=== PATIENT | male | born 1970 | race Caucasian/White ===

== ENCOUNTER 2018-03-27 19:13 | Inpatient (IN) | payer OTHER ==
--- NOTE | 2018-03-27 19:31 | PDOC ---
Rapid Medical Evaluation Chief Complaint: Wound Time Seen by Provider: 03/27/18 19:29 Medical Evaluation: Allergies Allergy/AdvReac Type Severity Reaction Status Date / Time Penicillins Allergy Verified 08/30/15 16:35 03/27/18 19:29 I have performed a brief in person evaluation of this patient. The patient presents with a chief complaint of: Infection to the 5th digit left foot. Hx of DM. Sent from wound center and is currently on abx. Pertinent PE: Lungs: Clear Heart: RRR MS: Moves all extremities without difficulty. Neuro: Alert and oriented Psych: Appropriate affect I have ordered the following: basic labs The patient will proceed to: pt will go to the main ED for further evaluation. Discharge Disposition - Diagnosis Cellulitis Qualifiers: Site of cellulitis: extremity Site of cellulitis of extremity: lower extremity Laterality: left Qualified Code(s): L03.116 - Cellulitis of left lower limb - Referrals Referrals: Amish Doll [Primary Care Provider] - - Patient Instructions - Post Discharge Activity
--- NOTE | 2018-03-27 22:54 | PDOC ---
History of Present Illness - General Chief Complaint: Wound Stated Complaint: Wound Time Seen by Provider: 03/27/18 19:29 History Source: Patient - History of Present Illness Initial Comments: 03/28/18 00:34 48-year-old male with history of insulin-dependent diabetes sent from wound clinic for left fifth toe osteomyelitis and wound. Patient sent by infectious disease MNadir Duarte for IV antibiotics and admission. Patient reports increased swelling to the left lower extremity for the last 2 days with pain. Denies shortness of breath, chest pain, fever, chills, nausea vomiting, diarrhea. as per son patient is currently on oral antibiotics for bang laceration on the right leg. denies pain and swelling to right leg. 03/28/18 00:52 Past History - Past Medical History Allergies/Adverse Reactions: Allergies Allergy/AdvReac Type Severity Reaction Status Date / Time Penicillins Allergy Verified 03/27/18 19:32 Home Medications: Ambulatory Orders Aspirin [ASA -] 81 mg PO DAILY 08/19/15 Glipizide [Glipizide Xl] 5 mg PO DAILY 08/19/15 [place]-3 Fatty Acids [[place]-3] 1,000 mg PO DAILY 08/19/15 Simvastatin 40 mg PO DAILY 08/19/15 Losartan Potassium [Cozaar -] 100 mg PO DAILY #30 tablet 08/29/15 Amlodipine Besylate [Norvasc -] 5 mg PO DAILY #30 tablet 09/01/15 Lantus 28 units SCJ HS 03/07/18 Cardiac Disorders: Yes (stents 11/27) COPD: No CHF: Yes Diabetes: Yes - Surgical History Cardiac Surgery: Yes (stents) - Family Disease History Family Disease History: Diabetes: Mother - Suicide/Smoking/Psychosocial Hx Smoking History: Never smoked Have you smoked in the past 12 months: No Hx Alcohol Use: No Drug/Substance Use Hx: No Substance Use Type: None Hx Substance Use Treatment: No Review of Systems - Review of Systems Able to Perform ROS?: Yes Is the patient limited Wolof proficient: No Integumentary: Yes: Erythema, Other (left leg swelling) *Physical Exam - Vital Signs Last Vital Signs Temp Pulse Resp BP Pulse Ox 98.6 F 60 18 111/68 94 L 03/27/18 19:29 03/27/18 19:29 03/27/18 19:29 03/27/18 19:29 03/27/18 19:29 - Physical Exam General Appearance: Yes: Appropriately Dressed, Obese Extremity: positive: Pedal Edema, Swelling, Erythema (left 5th toe) Integumentary: positive: Normal Color, Dry, Warm Neurologic: positive: Fully Oriented, Alert, Normal Mood/Affect ED Treatment Course - LABORATORY CBC & Chemistry Diagram: 03/27/18 23:33 03/27/18 23:33 - RADIOLOGY Radiology Studies Ordered: Category Date Time Status DUPLEX VASCUL US-1 LEG [US] Stat Ultrasound 03/27/18 22:53 Ordered Progress Note - Progress Note Progress Note: A: osteomyelitis P: labs IV antibiotics Medical Decision Making - Medical Decision Making 03/28/18 00:53 Dr. duarte paged x 3 for tretament recommendation. patient has severe Peniciilin allergy, 03/28/18 00:57 patient signed out to Dr. davis for admission. *DC/Admit/Observation/Transfer Diagnosis at time of Disposition: Osteomyelitis of foot, left, acute Cellulitis Qualifiers: Site of cellulitis: extremity Site of cellulitis of extremity: lower extremity Laterality: left Qualified Code(s): L03.116 - Cellulitis of left lower limb - Discharge Dispostion Decision to Admit order: Yes - Referrals Referrals: Amish Doll [Primary Care Provider] - - Patient Instructions - Post Discharge Activity
[2018-03-27] MEDS ORDERED: VANCOMYCIN 1 GRAM (PRE-DOCKED) 1,000 MG/250 ML BAG IVPB ONE ×2 (23:15→23:23)
[2018-03-27 23:51] LABS: BASO % 0.9 % (0-2.0); EOS % 1.2 % (0-4.5); HEMATOCRIT 31.1 % (35.4-49); HEMOGLOBIN 10.4 GM/dL (11.7-16.9); LYMPH % 20.4 % (8-40); MCH 27.1 pg (25.7-33.7); MCHC 33.4 g/dl (32.0-35.9); MEAN CELL VOLUME 81.2 fl (80-96); MEAN PLT VOLUME 9.5 fl (7.5-11.1); MONO % 6.8 % (3.8-10.2); NEUT % 70.7 % (42.8-82.8); PLATELET COUNT 197 K/MM3 (134-434); RBC 3.82 M/mm3 (4.00-5.60); RDW 14.2 % (11.9-15.9); WHITE BLOOD COUNT 8.8 K/mm3 (4.0-10.0)
[2018-03-28 00:14] LABS: ALBUMIN 2.8 g/dl (3.4-5.0); ALK PHOS 98 U/L (45-117); ANION GAP 6 MMOL/L (8-16); BILIRUBIN,TOTAL 0.3 mg/dL (0.2-1); BLOOD UREA NITROGEN 55 mg/dL (7-18); CHLORIDE 103 mmol/L (98-107); CO2 29 mmol/L (21-32); CREATININE 2.5 mg/dL (0.55-1.3); GLUCOSE,RANDOM 212 mg/dL (74-106); SGOT/AST 24 U/L (15-37); SGPT/ALT 29 U/L (13-61); SODIUM 138 mmol/L (136-145); TOT PROT 6.2 g/dl (6.4-8.2)
--- NOTE | 2018-03-28 00:34 | PDOC ---
*Physical Exam - Vital Signs Last Vital Signs Temp Pulse Resp BP Pulse Ox 98.6 F 60 18 111/68 94 L 03/27/18 19:29 03/27/18 19:29 03/27/18 19:29 03/27/18 19:29 03/27/18 19:29 ED Treatment Course - LABORATORY CBC & Chemistry Diagram: 03/27/18 23:33 03/27/18 23:33 - ADDITIONAL ORDERS Additional order review: Laboratory Results 03/27/18 03/27/18 23:33 23:33 Sodium 138 Potassium 4.0 Chloride 103 Carbon Dioxide 29 Anion Gap 6 L BUN 55 H Creatinine 2.5 H Creat Clearance w eGFR 27.70 Random Glucose 212 H Lactic Acid 0.8 Calcium 8.0 L Total Bilirubin 0.3 AST 24 ALT 29 Alkaline Phosphatase 98 Total Protein 6.2 L Albumin 2.8 L 03/27/18 23:33 RBC 3.82 L MCV 81.2 MCHC 33.4 RDW 14.2 MPV 9.5 D Neutrophils % 70.7 Lymphocytes % 20.4 D Monocytes % 6.8 Eosinophils % 1.2 Basophils % 0.9 - Medications Given in the ED: ED Medications Discontinued Medications Generic Name Dose Route Start Last Admin Trade Name Freq PRN Reason Stop Dose Admin Vancomycin HCl 1,000 mg 03/27/18 23:15 03/28/18 00:05 Vancomycin (Pre-Docked) IVPB 03/27/18 23:16 1,000 mg ONCE ONE Administration Protocol Medical Decision Making - Medical Decision Making 03/28/18 00:33 Patient with a Lower extremity osteomyelitis send by outside practitioner for admission for IV abx agree with exam documented above Admit for IV abx *DC/Admit/Observation/Transfer Diagnosis at time of Disposition: Cellulitis Qualifiers: Site of cellulitis: extremity Site of cellulitis of extremity: lower extremity Laterality: left Qualified Code(s): L03.116 - Cellulitis of left lower limb - Referrals Referrals: Amish Doll [Primary Care Provider] - - Patient Instructions - Post Discharge Activity
--- NOTE | 2018-03-28 02:35 | PN ---
Teaching Attending Note Name of Resident: Sophia Reyes ATTENDING PHYSICIAN STATEMENT I saw and evaluated the patient. I reviewed the resident's note and discussed the case with the resident. I agree with the resident's findings and plan as documented. SUBJECTIVE: Patient is a 48-year-old man with history of insulin-treated DM, HLD, HTN, peniciliin allergy and CAD with stents sent from wound clinic for left fifth toe osteomyelitis and wound. Patient sent by infectious disease M.Mara Duarte for IV antibiotics and admission. Patient reports increased swelling to the left lower extremity for the last 2 days with pain. Denies shortness of breath, chest pain, fever, chills, nausea vomiting, diarrhea. Patient is currently on oral antibiotics for bang laceration on the right leg. . OBJECTIVE: Alert Vital Signs Period Temp Pulse Resp BP Sys/Anton Pulse Ox Last 24 Hr 98.6 F 60 18 111/68 94 HEENT: No Jaundice, eye redness or discharge, PERRLA, EOMI. Normocephalic, atraumatic. External ears are normal and hearing is grossly intact. No nasal discharge. Neck: Supple, nontender. No palpable adenopathy or thyromegaly. No JVD Chest: Good effort. Clear to auscultation and percussion. Heart: Regular. No S3, rub or murmur Abdomen: Not distended, soft, nontender and no HSM. No rebound or guarding. Normoactive bowel sounds. Ext: Peripheral pulses intact. Erythema, swelling of left 5th toe with nondraining ulcer. Right bang laceration. Skin: Warm and dry. No petechiae, rash or ecchymosis. Neuro: Alert. Oriented x3. CN 2-12 grossly intact. Sensation grossly intact in all four extremities and DTR are symmetric. Home Medications Medication Instructions Recorded Aspirin [ASA -] 81 mg PO DAILY 08/19/15 Glipizide [Glipizide Xl] 5 mg PO DAILY 08/19/15 [place]-3 Fatty Acids [[place]-3] 1,000 mg PO DAILY 08/19/15 Simvastatin 40 mg PO DAILY 08/19/15 Losartan Potassium [Cozaar -] 100 mg PO DAILY #30 tablet 08/29/15 Amlodipine Besylate [Norvasc -] 5 mg PO DAILY #30 tablet 09/01/15 Lantus 28 units [facility] 03/07/18 Abnormal Lab Results 03/27/18 03/27/18 23:33 23:33 RBC 3.82 L Hgb 10.4 L Hct 31.1 L Anion Gap 6 L BUN 55 H Creatinine 2.5 H Random Glucose 212 H Calcium 8.0 L Total Protein 6.2 L Albumin 2.8 L ASSESSMENT AND PLAN: 1. Toe osteomyelitis - Will treat with IV Vancomycin 1 gm q 12 hours and check tough levels for dose adjustment. Do wound culture, daily wound care, consult Podiatry and ID. 2. Hypoalbuminemia - Possibly due to combined effects of proteinuria, malnutrition and inflammation associated with comorbid chronic conditions. Will ensure adequate dietary protein intake and also consult monument erector. 3. DM - For now, we will hold the home diabetes drugs and implement sliding scale insulin regimen. Provide comprehensive diabetes care with patient teaching and counseling about the importance of euglycemia, eye care and foot care. 4. CKD - Has multiple risk factors for CKD. Verify prior nephrologic work up with PCP. Will consult nephrology and avoid nephrotoxic agents such as NSAIDS, aminoglycosides, contrast dyes and certain Alternative medicine products. 5. Anemia - Likely multifactorial including CKD. Do basic anemia work up including serial stool guaiacs, reticulocyte count and iron studies. Would benefit from Procrit therapy once iron replete. 6. Morbid Obesity - Will provide patient all the necessary assistance , counseling and positive reinforcement to facilitate weight loss. Consult monument erector. 7. DVT prophylaxis - Lovenox 40 mg SQ q 12 hours. 8. Advance directives - Full code
[2018-03-28] MEDS ORDERED: INSULIN (LEVEMIR) 100 UNITS/ML UNITS SQ ONE (02:50)
--- NOTE | 2018-03-28 03:33 | HP ---
CHIEF COMPLAINT: sent from wound care for a non-healing foot ulcer PCP: Dr. Doll Pod: Dr. Jennings HISTORY OF PRESENT ILLNESS: 48M w/ pmhx of DM, CAD s/p stents x4, HTN, CHF, DANIS, HLD was sent to the ED from wound care from ID for IV antibiotic treatment of confirmed osteomyelitis seen on MRI. Pt states that he first noticed a wound on the lateral aspect of his 5th digit of his L foot about 2.5 weeks ago. He went to his home customer development manager who then suggested to go to a wound care clinic. He was given recommendation to clean the wound with Betadyne. On 03/18/18, LLE MRI was done that showed changes in his 5th toe of L foot suggestive of osteomyelitis. Pt was subsequently sent to the ED for empiric IV abx tx. Denies conklin/d, f/c, n/v, abd pain, urinary/bowel symptoms, difficulty walking. ER course was notable for: (1) H/H 10.4/31.1, BUN/Cr 55/2.5; Doppler neg for LLE DVT (2) Vanc 1gm given, Levemir 28U given (3) Blood culture ordered Recent Travel: Denies PAST MEDICAL HISTORY: DM CAD s/p stent x4 HTN CHF DANIS HLD PAST SURGICAL HISTORY: Abscess drainage, R buttocks Social History: Smoking: Denies Alcohol: Denies Drugs: Denies Family History: Mother: Heart disease, DM Father: Heart disease, DM Allergies Penicillins Allergy (Verified 03/27/18 19:32) HOME MEDICATIONS: Home Medications Medication Instructions Recorded Aspirin [ASA -] 81 mg PO DAILY 08/19/15 Ascorbate Calcium [Vitamin C] 500 mg PO DAILY 03/28/18 Atorvastatin Ca [Lipitor] 80 mg PO HS 03/28/18 Cholecalciferol (Vitamin D3) 1,000 unit PO DAILY 03/28/18 [Vitamin D3] Clopidogrel Bisulfate [Plavix] 75 mg PO DAILY 03/28/18 Cyanocobalamin [Vitamin B12 -] 1,000 mcg PO DAILY 03/28/18 Furosemide [Lasix] 40 mg PO HS 03/28/18 Furosemide [Lasix] 80 mg PO AM 03/28/18 Glipizide 10 mg PO BID 03/28/18 Insulin Glargine,Hum.rec.anlog 28 unit SQ HS 03/28/18 [Lantus] Losartan Potassium 25 mg PO DAILY 03/28/18 Metoprolol Succinate 100 mg PO DAILY 03/28/18 Tamsulosin HCl 0.4 mg PO DAILY 03/28/18 Vitamin B Complex 1,000 mg PO DAILY 03/28/18 Zinc 50 mg PO DAILY 03/28/18 REVIEW OF SYSTEMS As per [facility] PHYSICAL EXAMINATION Vital Signs - 24 hr 03/27/18 19:29 Temperature 98.6 F Pulse Rate 60 Respiratory 18 Rate Blood Pressure 111/68 O2 Sat by Pulse 94 L Oximetry (%) GENERAL: AAOx3. NAD. Resting comfortably. HEENT: AT/NC. EOMI. MERE. Moist mucus membranes. NECK: Supple, no LAD/JVD. LUNGS: Decreased BS sounds, likely due to body habitus. No w/r/r noted. Symmetric chest rise. No accessory muscle use. HEART: RRR. Normal S1, S2. No murmurs noted. ABDOMEN: Obese. Soft, ND/NT +BS in all 4 Q's. No masses or bruits noted. MUSCULOSKELETAL: No pedal edema. 5/5 muscle strength in b/l u/l extremities. NEUROLOGICAL: Normal speech. CN II-XII intact. Facial symmetry noted. Facial muscles intact. PSYCHIATRIC: Cooperative. Good eye contact. Appropriate mood and affect. SKIN: Non-tender 3 cm in diameter non-healing foot ulcer on lateral aspect of 5th digit on L foot, non-draining with hyperkeratotic borders. Laboratory Results - last 24 hr 03/27/18 03/27/18 03/27/18 23:33 23:33 23:33 WBC 8.8 RBC 3.82 L Hgb 10.4 L Hct 31.1 L MCV 81.2 MCH 27.1 MCHC 33.4 RDW 14.2 Plt Count 197 D MPV 9.5 D Absolute Neuts (auto) 6.2 Neutrophils % 70.7 Lymphocytes % 20.4 D Monocytes % 6.8 Eosinophils % 1.2 Basophils % 0.9 Nucleated RBC % 0 Sodium 138 Potassium 4.0 Chloride 103 Carbon Dioxide 29 Anion Gap 6 L BUN 55 H Creatinine 2.5 H Creat Clearance w eGFR 27.70 Random Glucose 212 H Lactic Acid 0.8 Calcium 8.0 L Total Bilirubin 0.3 AST 24 ALT 29 Alkaline Phosphatase 98 Total Protein 6.2 L Albumin 2.8 L ASSESSMENT/PLAN: 48M w/ pmhx of DM, CAD s/p stents x4, HTN, CHF, DANIS, HLD was sent to the ED from wound care from ID for IV antibiotic treatment of confirmed osteomyelitis seen on MRI. #Non-healing diabetic foot ulcer; LE MRI with changes suggestive of osteomyelitis -Vancomycin 1gm IVPB Q12H -ID consult ordered -Daily wound dressings -F/u wound culture #DM -Levemir 28U SQ HS -BGMs ACHS -ISS #CKD; BUN/Cr 55/2.5 -Request info from PCP regarding previous nephro workup -Nephro consult ordered -encourage PO fluid hydration #CAD s/p stents x4 Resume home meds: -Aspirin 81 mg PO QD -Plavix 75 mg PO QD #DANIS -on CPAP at home -CPAP ordered #CHF Resume home meds: -Lasix 80 mg PO AM, 40 mg PO HS -Metoprolol Succinate 100 mg PO QD #BPH Resume home med: -Tamsulosin 0.4 mg PO QD #HLD Resume home med: -Atorvastatin 80 mg PO HS #DVT Ppx -Heparin 5000U TID #FEN -no IVf; Pt has known CHF and currently on Lasix; encourage PO fluid hydration for now once assessed by nephro -recheck rolanda in AM -Diabetic diet dispo -admit to med-surg Visit type - Emergency Visit Emergency Visit: Yes ED Registration Date: 03/28/18 Care time: The patient presented to the Emergency Department on the above date and was hospitalized for further evaluation of their emergent condition. - New Patient This patient is new to me today: Yes Date on this admission: 03/28/18 - Critical Care Critical Care patient: No
[2018-03-28] MEDS ORDERED: FUROSEMIDE 40 MG TABLET (FP) ONE (06:44)
[2018-03-28] MEDS ORDERED: HEPARIN NA (PORCINE) 5,000 UNITS/ML 1ML VIAL ONE (06:44)
[2018-03-28] MEDS ORDERED: INSULIN (NOVOLOG) ASPART 100 UNITS/ML 10ML VIAL ONE ×2 (06:45→11:35)
[2018-03-28] MEDS: HEPARIN NA (PORCINE) 5,000 UNITS/ML 1ML VIAL SQ SCH ×3 (07:10→22:08)
[2018-03-28] MEDS: FUROSEMIDE 40 MG TABLET (FP) PO SCH ×2 (07:10→15:56)
[2018-03-28] MEDS: INSULIN SLIDING SCALE (NOVOLOG) 1 VIAL SQ SCH ×4 (07:10→22:10)
[2018-03-28 07:18] LABS: BASO % 0.4 % (0-2.0); EOS % 1.2 % (0-4.5); HEMATOCRIT 31.2 % (35.4-49); HEMOGLOBIN 10.3 GM/dL (11.7-16.9); LYMPH % 19.4 % (8-40); MCH 26.7 pg (25.7-33.7); MCHC 32.9 g/dl (32.0-35.9); MEAN CELL VOLUME 81.3 fl (80-96); MONO % 8.7 % (3.8-10.2); NEUT % 70.3 % (42.8-82.8); PLATELET COUNT 163 K/MM3 (134-434); RBC 3.84 M/mm3 (4.00-5.60); RDW 14.1 % (11.9-15.9); WHITE BLOOD COUNT 7.3 K/mm3 (4.0-10.0)
[2018-03-28 07:43] LABS: ALBUMIN 2.7 g/dl (3.4-5.0); ALK PHOS 107 U/L (45-117); ANION GAP 4 MMOL/L (8-16); BILIRUBIN,TOTAL 0.4 mg/dL (0.2-1); BLOOD UREA NITROGEN 54 mg/dL (7-18); CALCIUM 8.4 mg/dL (8.5-10.1); CHLORIDE 107 mmol/L (98-107); CO2 25 mmol/L (21-32); CREATININE 2.4 mg/dL (0.55-1.3); GLUCOSE,RANDOM 268 mg/dL (74-106); POTASSIUM 4.4 mmol/L (3.5-5.1); SGOT/AST 18 U/L (15-37); SGPT/ALT 27 U/L (13-61); SODIUM 136 mmol/L (136-145)
[2018-03-28] MEDS: TAMSULOSIN HCL 0.4 MG CAP PO SCH (09:25)
[2018-03-28] MEDS: VITAMIN B COMPLEX W/C COMBO TABLET (FP) PO SCH (09:26)
[2018-03-28] MEDS: CYANOCOBALAMIN 1,000 MCG TABLET (FP) PO SCH (09:26)
[2018-03-28] MEDS: LOSARTAN POTASSIUM 25 MG TABLET PO SCH (09:26)
[2018-03-28] MEDS: CLOPIDOGREL BISULFATE 75 MG TABLET (FP) PO SCH (09:26)
[2018-03-28] MEDS: ZINC SULFATE 220 MG CAPSULE (FP) PO SCH (09:26)
[2018-03-28] MEDS: CHOLECALCIFEROL (VITAMIN D3) 1,000 UNIT TABLET (FP) PO SCH (09:26)
[2018-03-28] MEDS: ASCORBIC ACID 500 MG TABLET (FP) PO SCH (09:26)
[2018-03-28] MEDS: ASPIRIN 81 MG CHEWABLE TABLETS PO SCH (09:26)
--- NOTE | 2018-03-28 12:17 | CONSULT ---
Consult Consult Specialty:: Nephrology Reason for Consultation:: CKD - History of Present Illness Chief Complaint: left fifth toe osteo History of Present Illness: Pt is a 48 year old male with pmhx of CKD, obesity, DM, and left fifth toe osteo. He was sent in from the wound clinic for left fifth toe osteomyelitis. He denies fevers or chills. He denies shortness of breath. He was found to have elevated creatinine and I was called to evaluate him. He does have history of CKD. He says he did see a optics technical officer in [facility] in the past but does not remember his creatinine. He says he has a BUN of about 53. He is in lasix 80 mg in the morning and 40 mg at night. He does have CAD and CHF as well. He has cardiac stents. He does not know what his EF is. - History Source History Provided By: Patient, Medical Record - Past Medical History Cardio/Vascular: Yes: CAD, CHF, Hyperlipdemia Renal/: Yes: Renal Inusuff Endocrine: Yes: Diabetes Mellitus - Past Surgical History Additional Surgical History: cardiac stents - Alcohol/Substance Use Hx Alcohol Use: No History of Substance Use: reports: None - Smoking History Smoking history: Never smoked Have you smoked in the past 12 months: No - Social History ADL: Independent History of Recent Travel: No Home Medications - Allergies Allergies/Adverse Reactions: Allergies Allergy/AdvReac Type Severity Reaction Status Date / Time Penicillins Allergy Verified 03/27/18 19:32 - Home Medications Home Medications: Ambulatory Orders Aspirin [ASA -] 81 mg PO DAILY 08/19/15 Ascorbate Calcium [Vitamin C] 500 mg PO DAILY 03/28/18 Atorvastatin Ca [Lipitor] 80 mg PO HS 03/28/18 Cholecalciferol (Vitamin D3) [Vitamin D3] 1,000 unit PO DAILY 03/28/18 Clopidogrel Bisulfate [Plavix] 75 mg PO DAILY 03/28/18 Cyanocobalamin [Vitamin B12 -] 1,000 mcg PO DAILY 03/28/18 Furosemide [Lasix] 40 mg PO HS 03/28/18 Furosemide [Lasix] 80 mg PO AM 03/28/18 Glipizide 10 mg PO BID 03/28/18 Insulin Glargine,Hum.rec.anlog [Lantus] 28 unit SQ HS 03/28/18 Losartan Potassium 25 mg PO DAILY 03/28/18 Metoprolol Succinate 100 mg PO DAILY 03/28/18 Tamsulosin HCl 0.4 mg PO DAILY 03/28/18 Vitamin B Complex 1,000 mg PO DAILY 03/28/18 Zinc 50 mg PO DAILY 03/28/18 Family Disease History - Family Disease History Family Disease History: Diabetes: Father, Mother (Breast CA), CA: Mother Review of Systems - Review of Systems Constitutional: reports: No Symptoms Eyes: reports: No Symptoms HENT: reports: No Symptoms Neck: reports: No Symptoms Cardiovascular: reports: No Symptoms Respiratory: reports: No Symptoms Gastrointestinal: reports: No Symptoms Genitourinary: reports: No Symptoms Musculoskeletal: reports: Other (toe osteo) Endocrine: reports: No Symptoms Hematology/Lymphatic: reports: No Symptoms Psychiatric: reports: No Symptoms Physical Exam Vital Signs: Vital Signs Temperature 98.9 F 03/28/18 07:25 Pulse Rate 61 03/28/18 07:25 Respiratory Rate 18 03/28/18 07:25 Blood Pressure 118/58 L 03/28/18 07:25 O2 Sat by Pulse Oximetry (%) 94 L 03/27/18 19:29 Constitutional: Yes: Calm Eyes: Yes: Conjunctiva Clear HENT: Yes: Atraumatic Cardiovascular: Yes: S1, S2 Respiratory: Yes: CTA Bilaterally Gastrointestinal: Yes: Soft, Abdomen, Obese Renal/: Yes: WNL Musculoskeletal: Yes: WNL Edema: No Neurological: Yes: Oriented Psychiatric: Yes: Oriented Labs: CBC, BMP 03/28/18 06:45 03/28/18 06:45 Laboratory Tests 08/31/15 03/27/18 03/27/18 07:45 23:33 23:33 WBC 8.8 Hgb 10.4 L Plt Count 197 D BUN 55 H Creatinine 0.5 L 2.5 H 03/28/18 03/28/18 06:45 06:45 WBC 7.3 Hgb 10.3 L Plt Count 163 BUN 54 H Creatinine 2.4 H Imaging - Results Ultrasound: Report Reviewed Problem List - Problems (1) CKD (chronic kidney disease) Code(s): N18.9 - CHRONIC KIDNEY DISEASE, UNSPECIFIED (2) Osteomyelitis of foot, left, acute Code(s): M86.172 - OTHER ACUTE OSTEOMYELITIS, LEFT ANKLE AND FOOT (3) Diabetes Code(s): E11.9 - TYPE 2 DIABETES MELLITUS WITHOUT COMPLICATIONS Qualifiers: Diabetes mellitus type: type 2 Diabetes mellitus complication status: without complication Qualified Code(s): E11.9 - Type 2 diabetes mellitus without complications Assessment/Plan Current Medications Generic Name Dose Route Start Last Admin Trade Name Freq PRN Reason Stop Dose Admin Ascorbic Acid 500 mg 03/28/18 10:00 03/28/18 09:26 Vitamin C - PO 500 mg DAILY KANG Administration Aspirin 81 mg 03/28/18 10:00 03/28/18 09:26 Asa - PO 81 mg DAILY KANG Administration Atorvastatin Calcium 80 mg 03/28/18 22:00 Lipitor - PO HS [facility] Cholecalciferol 1,000 unit 03/28/18 10:00 03/28/18 09:26 Vitamin D3 - PO 1,000 unit DAILY [facility] Administration Clopidogrel Bisulfate 75 mg 03/28/18 10:00 03/28/18 09:26 Plavix - PO 75 mg DAILY KANG Administration Cyanocobalamin 1,000 mcg 03/28/18 10:00 03/28/18 09:26 Vitamin B12 - PO 1,000 mcg DAILY KANG Administration Furosemide 40 mg 03/28/18 14:00 Lasix - PO DAILY@1400 KANG Furosemide 80 mg 03/28/18 07:00 03/28/18 07:10 Lasix - PO 80 mg DAILY@0700 [facility] Administration Heparin Sodium (Porcine) 5,000 unit 03/28/18 06:00 03/28/18 07:10 Heparin - SQ 5,000 unit TID [facility] Administration Insulin Aspart 1 vial 03/28/18 07:00 03/28/18 11:33 Novolog Vial Sliding Scale - SQ 6 units ACHS [facility] Administration Protocol Insulin Detemir 28 units 03/28/18 22:00 Levemir Vial SQ HS [facility] Losartan Potassium 25 mg 03/28/18 10:00 03/28/18 09:26 Cozaar - PO 25 mg DAILY KANG Administration Metoprolol Succinate 100 mg 03/28/18 10:00 03/28/18 09:26 Toprol Xl - PO 100 mg DAILY [facility] Administration Multivitamins 1 each 03/28/18 10:00 03/28/18 09:26 Total B With C - PO 1 each DAILY [facility] Administration Tamsulosin HCl 0.4 mg 03/28/18 08:30 03/28/18 09:25 Flomax - PO 0.4 mg DAILY@0830 KANG Administration Zinc Sulfate 220 mg 03/28/18 10:00 03/28/18 09:26 Orazinc - PO 220 mg DAILY KANG Administration Impression 1. CKD 2. CHF 3. CAD 4. DM 5. obesity 6. osteomyelitis Plan - check ua - check renal ultrasound - cont lasix - avoid nephrotoxins - will need to obtain outpt records - real dose meds to gfr 29 - will follow - cont wound care Dr Lerner
--- NOTE | 2018-03-28 14:34 | CON.ID ---
Consult - Past Medical History Cardio/Vascular: Yes: CAD, CHF, Hyperlipdemia Renal/: Yes: Renal Inusuff Endocrine: Yes: Diabetes Mellitus - Past Surgical History Past Surgical History: Yes: None Additional Surgical History: cardiac stents - Alcohol/Substance Use Hx Alcohol Use: No History of Substance Use: reports: None - Smoking History Smoking history: Never smoked Have you smoked in the past 12 months: No - Social History ADL: Independent History of Recent Travel: No Home Medications - Allergies Allergies/Adverse Reactions: Allergies Allergy/AdvReac Type Severity Reaction Status Date / Time Penicillins Allergy Verified 03/27/18 19:32 - Home Medications Home Medications: Ambulatory Orders Aspirin [ASA -] 81 mg PO DAILY 08/19/15 Ascorbate Calcium [Vitamin C] 500 mg PO DAILY 03/28/18 Atorvastatin Ca [Lipitor] 80 mg PO HS 03/28/18 Cholecalciferol (Vitamin D3) [Vitamin D3] 1,000 unit PO DAILY 03/28/18 Clopidogrel Bisulfate [Plavix] 75 mg PO DAILY 03/28/18 Cyanocobalamin [Vitamin B12 -] 1,000 mcg PO DAILY 03/28/18 Furosemide [Lasix] 40 mg PO HS 03/28/18 Furosemide [Lasix] 80 mg PO AM 03/28/18 Glipizide 10 mg PO BID 03/28/18 Insulin Glargine,Hum.rec.anlog [Lantus] 28 unit SQ HS 03/28/18 Losartan Potassium 25 mg PO DAILY 03/28/18 Metoprolol Succinate 100 mg PO DAILY 03/28/18 Tamsulosin HCl 0.4 mg PO DAILY 03/28/18 Vitamin B Complex 1,000 mg PO DAILY 03/28/18 Zinc 50 mg PO DAILY 03/28/18 Family Disease History - Family Disease History Family Disease History: Diabetes: Father, Mother (Breast CA), CA: Mother Physical Exam Vital Signs: Vital Signs Temperature 98.9 F 03/28/18 07:25 Pulse Rate 59 L 03/28/18 13:25 Respiratory Rate 18 03/28/18 13:25 Blood Pressure 130/70 03/28/18 13:25 O2 Sat by Pulse Oximetry (%) 99 03/28/18 13:25 Labs: CBC, BMP 03/28/18 06:45 03/28/18 06:45
[2018-03-28] MEDS ORDERED: CEFTRIAXONE 2 GM-D5W BAG 2 GM/50 ML BAG IVPB SCH (14:45)
[2018-03-28] MEDS ORDERED: ERTAPENEM SODIUM 1 GM/50 ML PRE-DOCKED IVPB SCH (15:45)
--- NOTE | 2018-03-28 15:46 | CONSULT ---
Consult Consult Specialty:: Podiatry Reason for Consultation:: osteomyelitis 5th toe left - History of Present Illness Chief Complaint: Infected left 5th toe - History Source History Provided By: Patient Limitations to Obtaining History: Clinical Condition - Past Medical History Cardio/Vascular: Yes: CAD, CHF, Hyperlipdemia Renal/: Yes: Renal Inusuff Infectious Disease: Yes: Other (osteomyelitis 5th toe left) Endocrine: Yes: Diabetes Mellitus - Past Surgical History Past Surgical History: Yes: None Additional Surgical History: cardiac stents - Alcohol/Substance Use Hx Alcohol Use: No History of Substance Use: reports: None - Smoking History Smoking history: Never smoked Have you smoked in the past 12 months: No - Social History ADL: Independent History of Recent Travel: No Home Medications - Allergies Allergies/Adverse Reactions: Allergies Allergy/AdvReac Type Severity Reaction Status Date / Time Penicillins Allergy Verified 03/27/18 19:32 - Home Medications Home Medications: Ambulatory Orders Aspirin [ASA -] 81 mg PO DAILY 08/19/15 Ascorbate Calcium [Vitamin C] 500 mg PO DAILY 03/28/18 Aspirin [ASA -] 81 mg PO DAILY 03/28/18 Atorvastatin Ca [Lipitor] 80 mg PO HS 03/28/18 Atorvastatin Ca [Lipitor] 80 mg PO HS 03/28/18 Cholecalciferol (Vitamin D3) [Vitamin D3] 1,000 unit PO DAILY 03/28/18 Clopidogrel Bisulfate [Plavix] 75 mg PO DAILY 03/28/18 Cyanocobalamin [Vitamin B12 -] 1,000 mcg PO DAILY 03/28/18 Furosemide [Lasix] 40 mg PO HS 03/28/18 Furosemide [Lasix] 80 mg PO AM 03/28/18 Glipizide 10 mg PO BID 03/28/18 Glipizide 10 mg PO BID 03/28/18 Insulin Glargine,Hum.rec.anlog [Lantus] 28 unit SQ HS 03/28/18 Losartan Potassium 25 mg PO DAILY 03/28/18 Metoprolol Succinate 100 mg PO DAILY 03/28/18 Tamsulosin HCl 0.4 mg PO DAILY 03/28/18 Vitamin B Complex 1,000 mg PO DAILY 03/28/18 Zinc 50 mg PO DAILY 03/28/18 Family Disease History - Family Disease History Family Disease History: Diabetes: Father, Mother (Breast CA), CA: Mother Physical Exam Vital Signs: Vital Signs Temperature 97.7 F 03/28/18 14:59 Pulse Rate 54 L 03/28/18 14:59 Respiratory Rate 18 03/28/18 14:59 Blood Pressure 145/79 03/28/18 14:59 O2 Sat by Pulse Oximetry (%) 96 03/28/18 14:59 Extremities: Yes: Other (5th toe left foot wound with om) Integumentary: Yes: Other (ulcer grade 3 left 5th toe) Neurological: Yes: Loss of Sensation, Numbness, Other Labs: CBC, BMP 03/28/18 06:45 03/28/18 06:45 Imaging - Results X-ray: Image Reviewed MRI: Report Reviewed Problem List - Problems (1) Osteomyelitis of foot, left, acute Assessment/Plan: osteomyelitis left 5th toe Discussed at length with patient and his son the tx plan. Wants to avoid HBO and just do antibiotics. Discussed possible amputation. Answered all questions. Agree with ID. Will try abx. Advised to go to [facility] eventhough he works. He can dive at night. Will follow. Code(s): M86.172 - OTHER ACUTE OSTEOMYELITIS, LEFT ANKLE AND FOOT
[2018-03-28] MEDS: ERTAPENEM SODIUM 1 GM in SODIUM CHLORIDE 50 ML IVPB SCH (16:42)
[2018-03-28 19:43] LABS: URINE APPEARANCE CLEAR; URINE BILIRUBIN NEGATIVE (<2.0 mg/dL); URINE COLOR LTYELLOW; URINE GLUCOSE (UA) NEGATIVE (NEGATIVE); URINE KETONE NEGATIVE (NEGATIVE); URINE LEUK ESTERASE NEGATIVE (NEGATIVE); URINE NITRITE NEGATIVE (NEGATIVE); URINE PROTEIN NEGATIVE (NEGATIVE); URINE UROBILINOGEN NEGATIVE mg/dL (0.2-1.0)
[2018-03-28] MEDS ORDERED: INSULIN (LEVEMIR) 100 UNITS/ML UNITS SQ SCH (22:00)
[2018-03-28] MEDS: ATORVASTATIN CA 80 MG TABLET (FP) PO SCH (22:08)
[2018-03-29] MEDS: INSULIN SLIDING SCALE (NOVOLOG) 1 VIAL SQ SCH ×4 (06:32→22:16)
[2018-03-29] MEDS: FUROSEMIDE 40 MG TABLET (FP) PO SCH ×2 (06:33→13:34)
[2018-03-29] MEDS: HEPARIN NA (PORCINE) 5,000 UNITS/ML 1ML VIAL SQ SCH ×3 (06:34→22:14)
[2018-03-29] MEDS ORDERED: INSULIN (NOVOLOG) ASPART 100 UNITS/ML 10ML VIAL ONE (06:53)
[2018-03-29] MEDS ORDERED: INSULIN (LEVEMIR) 100 UNITS/ML UNITS SQ ONE (06:53)
[2018-03-29 07:55] LABS: ANION GAP 5 MMOL/L (8-16); BLOOD UREA NITROGEN 55 mg/dL (7-18); CALCIUM 8.6 mg/dL (8.5-10.1); CHLORIDE 107 mmol/L (98-107); CO2 26 mmol/L (21-32); CREATININE 2.1 mg/dL (0.55-1.3); GLUCOSE,RANDOM 240 mg/dL (74-106); POTASSIUM 4.8 mmol/L (3.5-5.1); SODIUM 138 mmol/L (136-145)
[2018-03-29] MEDS: TAMSULOSIN HCL 0.4 MG CAP PO SCH (08:45)
--- NOTE | 2018-03-29 09:14 | CONSULT ---
- Consultation REQUESTING PROVIDER: CONSULT REQUEST: We have been asked to surgically evaluate this patient for ( left fifth toe ulcer). PCP:Raimundo Dewitt NP HISTORY OF PRESENT ILLNESS: 48 y/o M w/ PMHx poorly controlled IDDM, morbid obesity, CAD s/p stents x4 (2015), HTN, CHF, NAIMA, HLD sent to ED for hospital admission by ID doctor (Dr Duarte) for PICC line placement and initiation for IV abx due to confirmed osteomyelitis of the distal phalanx of his 5th toe on MRI ( 03/18/18). Pt states approx 2.5 weeks ago he noted blood on his sock after removing his shoe, on further inspection he found an opened wound on the lateral aspect of his L 5th toe. Went to his Content Production Specialist who he states removed his nail, gave him oral antibiotics and sent him to ID. Reports being referred to the wound care center by ID where he was given Betadine solution for ulcer treatment. Dressings have been done daily by patients son. Denies fever/chills, n/v/d, urinary/bowel symptoms, difficulty walking. Does not wear diabetic shoes , does not walk barefoot at home. Denies h/o tobacco use currently or in the past. At baseline, pt works as a tow operator, lives home with son and . Has had DM for 20 years, reports no insulin use over the past few weeks due to lack of medical coverage and inability to pay for meds. States glucose runs in the 200s usually, son reports 3-400s. Has not had any foot ulcers in the past, reports a buttock abscess in the past which required operative intervention for I&D and IV abx (08/2015). 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 PMHx: IDDM, CAD s/p stents x 4 (2016), htn, hld, chf, naima, morbid obesity PSHx: As stated above, denies any further surgeries Home Medications Medication Instructions Recorded Aspirin [ASA -] 81 mg PO DAILY 08/19/15 Ascorbate Calcium [Vitamin C] 500 mg PO DAILY 03/28/18 Aspirin [ASA -] 81 mg PO DAILY 03/28/18 Atorvastatin Ca [Lipitor] 80 mg PO HS 03/28/18 Atorvastatin Ca [Lipitor] 80 mg PO HS 03/28/18 Cholecalciferol (Vitamin D3) 1,000 unit PO DAILY 03/28/18 [Vitamin D3] Clopidogrel Bisulfate [Plavix] 75 mg PO DAILY 03/28/18 Cyanocobalamin [Vitamin B12 -] 1,000 mcg PO DAILY 03/28/18 Furosemide [Lasix] 40 mg PO HS 03/28/18 Furosemide [Lasix] 80 mg PO AM 03/28/18 Glipizide 10 mg PO BID 03/28/18 Glipizide 10 mg PO BID 03/28/18 Insulin Glargine,Hum.rec.anlog 28 unit SQ HS 03/28/18 [Lantus] Losartan Potassium 25 mg PO DAILY 03/28/18 Metoprolol Succinate 100 mg PO DAILY 03/28/18 Tamsulosin HCl 0.4 mg PO DAILY 03/28/18 Vitamin B Complex 1,000 mg PO DAILY 03/28/18 Zinc 50 mg PO DAILY 03/28/18 Allergies Allergy/AdvReac Type Severity Reaction Status Date / Time Penicillins Allergy Verified 03/27/18 19:32 REVIEW OF SYSTEMS: CONSTITUTIONAL: Absent: fever, chills, diaphoresis CARDIOVASCULAR: Absent: chest pain RESPIRATORY: Absent: cough, shortness of breath GASTROINTESTINAL: Absent: abdominal pain SKIN: + ulcer PHYSICAL EXAM: GENERAL: Awake, alert, and fully oriented, in no acute distress. HEAD: Normal with no signs of trauma. EYES: PERRL, sclera anicteric, conjunctiva clear. NECK: Normal ROM, supple without lymphadenopathy, JVD, or masses. LUNGS: Clear to auscultation bilat anteriorly. No wheezes, and no crackles. No accessory muscle use. HEART: Regular rate and rhythm. No murmurs ABDOMEN: Soft, nontender, not distended, normoactive bowel sounds, no guarding, no rebound, no masses. No organomegaly. MUSCULOSKELETAL: Normal ROM at all joints. No bony deformities or tenderness. No CVA tenderness. UPPER EXTREMITIES: 2+ pulses, warm, well-perfused. No cyanosis. Cap refill <2 seconds. No peripheral edema. LOWER EXTREMITIES: 2+ pulses, warm, well-perfused. No calf tenderness. No peripheral edema. NEUROLOGICAL: Normal speech, gait not observed. PSYCH: Cooperative. Good eye contact. Appropriate mood and affect. SKIN: Warm, dry, normal turgor, no rashes or lesions noted. Vital Signs Temperature 98.3 F 03/29/18 08:57 Pulse Rate 66 03/29/18 08:57 Respiratory Rate 18 03/29/18 08:57 Blood Pressure 126/70 03/29/18 08:57 O2 Sat by Pulse Oximetry (%) 95 03/29/18 09:00 Lab Results WBC 7.3 K/mm3 (4.0-10.0) 03/28/18 06:45 RBC 3.84 M/mm3 (4.00-5.60) L 03/28/18 06:45 Hgb 10.3 GM/dL (11.7-16.9) L 03/28/18 06:45 Hct 31.2 % (35.4-49) L 03/28/18 06:45 MCV 81.3 fl (80-96) 03/28/18 06:45 MCHC 32.9 g/dl (32.0-35.9) 03/28/18 06:45 RDW 14.1 % (11.9-15.9) 03/28/18 06:45 Plt Count 163 K/MM3 (134-434) 03/28/18 06:45 Sodium 138 mmol/L (136-145) 03/29/18 06:15 Potassium 4.8 mmol/L (3.5-5.1) 03/29/18 06:15 Chloride 107 mmol/L (98-107) 03/29/18 06:15 Carbon Dioxide 26 mmol/L (21-32) 03/29/18 06:15 Anion Gap 5 MMOL/L (8-16) L 03/29/18 06:15 BUN 55 mg/dL (7-18) H 03/29/18 06:15 Creatinine 2.1 mg/dL (0.55-1.3) H 03/29/18 06:15 Random Glucose 240 mg/dL (74-106) H 03/29/18 06:15 Calcium 8.6 mg/dL (8.5-10.1) 03/29/18 06:15 Gen: awake, alert, nad Resp: cta b/l CV: rrr, s1s2 Ext: b/l les with 2+ pitting edema to mid shins. R foot with no ulcerations or skin tears. Dry skin noted on plantar aspect of foot, no callus formation noted. L foot with dry skin throughout plantar aspect of L foot, approx 1x1cm ulceration noted in interspace of 4th and 5th toe on medial aspect of 4th toe. Clean based with macerated skin edges, no purulent drainage or erythema noted. Approx 1.5x1.5cm ulcer noted on lateral aspect of 5th toe, fibrinous exudate noted at center with hyperkeratotic edges. Scant serous drainage at center, no purulent drainage, no foul odor, no surrounding erythema noted. Vasc: Palpable dp/pt b/l A/P: 48 y/o M w/ PMHx poorly controlled IDDM, CAD s/p stents x4 (2015), HTN, CHF , NAIMA, HLD sent to ED for hospital admission by ID doctor (Dr Duarte) for PICC line placement and initiation for IV abx due to confirmed osteomyelitis of the distal phalanx of his 5th toe on MRI (03/18/18). Pt afebrile, with stable VS, no leukocytosis on admission. L foot ulcer without clinical evidence of infection, MRI + for osteomyelitis. -Continue Betadine solution to L lateral foot ulcer daily, cover with 4x4 gauze , place 4x4 gauze in between 4th and 5th toes at all times to prevent further maceration of toes and allow for healing -ABX course per ID -Extensive discussion with pt regarding need for improved glucose control in order to control/prevent progression of current ulcer/infection as well as prevention of future ulcers/foot infections/organ damage -Discussed with pt and son need for daily foot checks (including checking between toes for maceration), Diabetic shoes (son states he is looking into purchasing a pair), continued follow up with DPM, ID, wound care, PCP/ web search evaluator, Key Operator -Recommend nutrition consult for Diabetic education message sent to Dr Mendez regarding above
[2018-03-29] MEDS: ASPIRIN 81 MG CHEWABLE TABLETS PO SCH (09:43)
[2018-03-29] MEDS: VITAMIN B COMPLEX W/C COMBO TABLET (FP) PO SCH (09:43)
[2018-03-29] MEDS: LOSARTAN POTASSIUM 25 MG TABLET PO SCH (09:43)
[2018-03-29] MEDS: ZINC SULFATE 220 MG CAPSULE (FP) PO SCH (09:43)
[2018-03-29] MEDS: CLOPIDOGREL BISULFATE 75 MG TABLET (FP) PO SCH (09:44)
[2018-03-29] MEDS: CYANOCOBALAMIN 1,000 MCG TABLET (FP) PO SCH (09:45)
[2018-03-29] MEDS: ASCORBIC ACID 500 MG TABLET (FP) PO SCH (09:45)
[2018-03-29] MEDS: CHOLECALCIFEROL (VITAMIN D3) 1,000 UNIT TABLET (FP) PO SCH (09:45)
[2018-03-29] MEDS ORDERED: PT OWN MED DRAWER 7, Y5N ONE (09:54)
[2018-03-29] MEDS: ERTAPENEM SODIUM 1 GM in SODIUM CHLORIDE 50 ML IVPB SCH (10:04)
[2018-03-29] MEDS: COLLAGENASE CLOSTRIDIUM HIST. 30 GRAMS TUBE TP SCH (11:14)
--- NOTE | 2018-03-29 12:33 | PN ---
Progress Note, Physician History of Present Illness: patient doing well no issues no complaints - Current Medication List Current Medications: Active Medications Ascorbic Acid (Vitamin C -) 500 mg PO DAILY [facility] Last Admin: 03/29/18 09:45 Dose: 500 mg Aspirin (Asa -) 81 mg PO DAILY [facility] Last Admin: 03/29/18 09:43 Dose: 81 mg Atorvastatin Calcium (Lipitor -) 80 mg PO HS [facility] Last Admin: 03/28/18 22:08 Dose: 80 mg Cholecalciferol (Vitamin D3 -) 1,000 unit PO DAILY [facility] Last Admin: 03/29/18 09:45 Dose: 1,000 unit Clopidogrel Bisulfate (Plavix -) 75 mg PO DAILY [facility] Last Admin: 03/29/18 09:44 Dose: 75 mg Collagenase (Santyl -) 1 applic TP DAILY [facility]; Protocol Last Admin: 03/29/18 11:14 Dose: 1 applic Cyanocobalamin (Vitamin B12 -) 1,000 mcg PO DAILY [facility] Last Admin: 03/29/18 09:45 Dose: 1,000 mcg Furosemide (Lasix -) 40 mg PO DAILY@1400 [facility] Last Admin: 03/28/18 15:56 Dose: 40 mg Furosemide (Lasix -) 80 mg PO DAILY@0700 [facility] Last Admin: 03/29/18 06:33 Dose: 80 mg Heparin Sodium (Porcine) (Heparin -) 5,000 unit SQ TID [facility] Last Admin: 03/29/18 06:34 Dose: 5,000 unit Ertapenem 1 gm/ Sodium (Chloride) 50 mls @ 100 mls/hr IVPB DAILY [facility] Last Admin: 03/29/18 10:04 Dose: 100 mls/hr Insulin Aspart (Novolog Vial Sliding Scale -) 1 vial SQ ACHS [facility]; Protocol Last Admin: 03/29/18 10:50 Dose: 4 units Insulin Detemir (Levemir Vial) 28 units SQ HS [facility] Last Admin: 03/28/18 22:09 Dose: 28 unit Losartan Potassium (Cozaar -) 25 mg PO DAILY [facility] Last Admin: 03/29/18 09:43 Dose: 25 mg Metoprolol Succinate (Toprol Xl -) 100 mg PO DAILY [facility] Last Admin: 03/29/18 09:43 Dose: 100 mg Multivitamins (Total B With C -) 1 each PO DAILY [facility] Last Admin: 03/29/18 09:43 Dose: 1 each Tamsulosin HCl (Flomax -) 0.4 mg PO DAILY@0830 [facility] Last Admin: 03/29/18 08:45 Dose: 0.4 mg Zinc Sulfate (Orazinc -) 220 mg PO DAILY [facility] Last Admin: 03/29/18 09:43 Dose: 220 mg - Objective Vital Signs: Vital Signs Temperature 98.3 F 03/29/18 10:00 Pulse Rate 66 03/29/18 10:00 Respiratory Rate 18 03/29/18 10:00 Blood Pressure 126/70 03/29/18 10:00 O2 Sat by Pulse Oximetry (%) 95 03/29/18 09:00 Constitutional: Yes: No Distress, Calm, Obese Cardiovascular: Yes: Regular Rate and Rhythm Respiratory: Yes: Regular, CTA Bilaterally Gastrointestinal: Yes: Normal Bowel Sounds, Soft Musculoskeletal: Yes: WNL Extremities: Yes: Other Wound/Incision: Yes: Clean/Dry, Other Neurological: Yes: Alert, Oriented Psychiatric: Yes: Alert, Oriented Labs: CBC, BMP 03/28/18 06:45 03/29/18 06:15 Assessment/Plan Problem List - Problems (1) CKD (chronic kidney disease) Code(s): N18.9 - CHRONIC KIDNEY DISEASE, UNSPECIFIED (2) Osteomyelitis of foot, left, acute Code(s): M86.172 - OTHER ACUTE OSTEOMYELITIS, LEFT ANKLE AND FOOT (3) Diabetes Code(s): E11.9 - TYPE 2 DIABETES MELLITUS WITHOUT COMPLICATIONS Qualifiers: Diabetes mellitus type: type 2 Diabetes mellitus complication status: without complication Qualified Code(s): E11.9 - Type 2 diabetes mellitus without complications plan patient can get a picc line can be discharged home on 1 gm daily of ertapenam for 5 weeks i have explained the patient in front of his son and the staff that this might not work and he might end up needing amputation he wants to take abx first before he makes final decision his cx reports noted and started abx accordingly patient will need to take final decision
--- NOTE | 2018-03-29 12:43 | PN ---
Progress Note, Physician History of Present Illness: Pt seen and examined at bedside. He is out of bed to chair. He denies shortness of breath. - Current Medication List Current Medications: Active Medications Ascorbic Acid (Vitamin C -) 500 mg PO DAILY [facility] Last Admin: 03/29/18 09:45 Dose: 500 mg Aspirin (Asa -) 81 mg PO DAILY [facility] Last Admin: 03/29/18 09:43 Dose: 81 mg Atorvastatin Calcium (Lipitor -) 80 mg PO HS [facility] Last Admin: 03/28/18 22:08 Dose: 80 mg Cholecalciferol (Vitamin D3 -) 1,000 unit PO DAILY [facility] Last Admin: 03/29/18 09:45 Dose: 1,000 unit Clopidogrel Bisulfate (Plavix -) 75 mg PO DAILY [facility] Last Admin: 03/29/18 09:44 Dose: 75 mg Collagenase (Santyl -) 1 applic TP DAILY [facility]; Protocol Last Admin: 03/29/18 11:14 Dose: 1 applic Cyanocobalamin (Vitamin B12 -) 1,000 mcg PO DAILY [facility] Last Admin: 03/29/18 09:45 Dose: 1,000 mcg Furosemide (Lasix -) 40 mg PO DAILY@1400 [facility] Last Admin: 03/28/18 15:56 Dose: 40 mg Furosemide (Lasix -) 80 mg PO DAILY@0700 [facility] Last Admin: 03/29/18 06:33 Dose: 80 mg Heparin Sodium (Porcine) (Heparin -) 5,000 unit SQ TID [facility] Last Admin: 03/29/18 06:34 Dose: 5,000 unit Ertapenem 1 gm/ Sodium (Chloride) 50 mls @ 100 mls/hr IVPB DAILY [facility] Last Admin: 03/29/18 10:04 Dose: 100 mls/hr Insulin Aspart (Novolog Vial Sliding Scale -) 1 vial SQ ACHS [facility]; Protocol Last Admin: 03/29/18 10:50 Dose: 4 units Insulin Detemir (Levemir Vial) 28 units SQ HS [facility] Last Admin: 03/28/18 22:09 Dose: 28 unit Losartan Potassium (Cozaar -) 25 mg PO DAILY [facility] Last Admin: 03/29/18 09:43 Dose: 25 mg Metoprolol Succinate (Toprol Xl -) 100 mg PO DAILY [facility] Last Admin: 03/29/18 09:43 Dose: 100 mg Multivitamins (Total B With C -) 1 each PO DAILY [facility] Last Admin: 03/29/18 09:43 Dose: 1 each Tamsulosin HCl (Flomax -) 0.4 mg PO DAILY@0830 [facility] Last Admin: 03/29/18 08:45 Dose: 0.4 mg Zinc Sulfate (Orazinc -) 220 mg PO DAILY [facility] Last Admin: 03/29/18 09:43 Dose: 220 mg - Objective Vital Signs: Vital Signs Temperature 98.3 F 03/29/18 10:00 Pulse Rate 66 03/29/18 10:00 Respiratory Rate 18 03/29/18 10:00 Blood Pressure 126/70 03/29/18 10:00 O2 Sat by Pulse Oximetry (%) 95 03/29/18 09:00 Constitutional: Yes: Calm Eyes: Yes: Conjunctiva Clear HENT: Yes: Atraumatic Neck: Yes: Supple Cardiovascular: Yes: S1, S2 Respiratory: Yes: CTA Bilaterally Gastrointestinal: Yes: Abdomen, Obese Genitourinary: Yes: WNL Musculoskeletal: Yes: WNL Edema: Yes Edema: LLE: 1+, RLE: 1+ Neurological: Yes: Oriented Psychiatric: Yes: Oriented Labs: CBC, BMP 03/28/18 06:45 03/29/18 06:15 Problem List - Problems (1) CKD (chronic kidney disease) Code(s): N18.9 - CHRONIC KIDNEY DISEASE, UNSPECIFIED (2) Osteomyelitis of foot, left, acute Code(s): M86.172 - OTHER ACUTE OSTEOMYELITIS, LEFT ANKLE AND FOOT (3) Diabetes Code(s): E11.9 - TYPE 2 DIABETES MELLITUS WITHOUT COMPLICATIONS Qualifiers: Qualified Code(s): E11.9 - Type 2 diabetes mellitus without complications Assessment/Plan Current Medications Generic Name Dose Route Start Last Admin Trade Name Scott PRN Reason Stop Dose Admin Ascorbic Acid 500 mg 03/28/18 10:00 03/29/18 09:45 Vitamin C - PO 500 mg DAILY [facility] Administration Aspirin 81 mg 03/28/18 10:00 03/29/18 09:43 Asa - PO 81 mg DAILY [facility] Administration Atorvastatin Calcium 80 mg 03/28/18 22:00 03/28/18 22:08 Lipitor - PO 80 mg HS [facility] Administration Cholecalciferol 1,000 unit 03/28/18 10:00 03/29/18 09:45 Vitamin D3 - PO 1,000 unit DAILY [facility] Administration Clopidogrel Bisulfate 75 mg 03/28/18 10:00 03/29/18 09:44 Plavix - PO 75 mg DAILY [facility] Administration Collagenase 1 applic 03/29/18 11:00 03/29/18 11:14 Santyl - TP 1 applic DAILY [facility] Administration Protocol Cyanocobalamin 1,000 mcg 03/28/18 10:00 03/29/18 09:45 Vitamin B12 - PO 1,000 mcg DAILY [facility] Administration Furosemide 40 mg 03/28/18 14:00 03/28/18 15:56 Lasix - PO 40 mg DAILY@1400 [facility] Administration Furosemide 80 mg 03/28/18 07:00 03/29/18 06:33 Lasix - PO 80 mg DAILY@0700 [facility] Administration Heparin Sodium (Porcine) 5,000 unit 03/28/18 06:00 03/29/18 06:34 Heparin - SQ 5,000 unit TID [facility] Administration Ertapenem 1 gm/ Sodium 50 mls @ 100 mls/hr 03/28/18 16:00 03/29/18 10:04 Chloride IVPB 100 mls/hr DAILY [facility] Administration Insulin Aspart 1 vial 03/28/18 07:00 03/29/18 10:50 Novolog Vial Sliding Scale - SQ 4 units ACHS [facility] Administration Protocol Insulin Detemir 28 units 03/28/18 22:00 03/28/18 22:09 Levemir Vial SQ 28 unit HS [facility] Administration Losartan Potassium 25 mg 03/28/18 10:00 03/29/18 09:43 Cozaar - PO 25 mg DAILY [facility] Administration Metoprolol Succinate 100 mg 03/28/18 10:00 03/29/18 09:43 Toprol Xl - PO 100 mg DAILY [facility] Administration Multivitamins 1 each 03/28/18 10:00 03/29/18 09:43 Total B With C - PO 1 each DAILY [facility] Administration Tamsulosin HCl 0.4 mg 03/28/18 08:30 03/29/18 08:45 Flomax - PO 0.4 mg DAILY@0830 [facility] Administration Zinc Sulfate 220 mg 03/28/18 10:00 03/29/18 09:43 Orazinc - PO 220 mg DAILY [facility] Administration Laboratory Tests 03/28/18 18:01 Urine Protein Negative Urine Blood Negative Impression 1. CKD 2. CHF 3. CAD 4. DM 5. obesity 6. osteomyelitis 7. possible angiomyolipoma 8. fatty liver Plan - ua neg for blood or protein - will need urology follow up for kidney lesions - GI eval for fatty liver - recommend weight loss and diet - renal function is improving - can cont lasix, unclear what EF is - avoid nephrotoxins - will need to obtain outpt records - real dose meds to gfr 29 - will follow - cont wound care - pt will need outpt follow up Dr Lerner
[2018-03-29 14:42] VITALS: BMI 48.2
[2018-03-29] MEDS ORDERED: LORazepam 0.5 MG TABLET PO PRN (16:32)
[2018-03-29] MEDS ORDERED: INSULIN (LEVEMIR) 100 UNITS/ML UNITS SQ SCH (17:49)
--- NOTE | 2018-03-29 17:49 | PN ---
Physical Exam: SUBJECTIVE: Patient seen and examined at the bedside. Feels well, in no distress. no pain. Spoke to patient and son at length regarding monitoring his blood sugars at home with a glucometer and maintaining blood glucose <180 pre meals. Patient admits to a poor high carb diet. Willing to have dietary teach him. OBJECTIVE: Vital Signs Period Temp Pulse Resp BP Sys/Anton Pulse Ox Last 24 Hr 97.3 F-98.6 F 55-66 18-20 126-141/61-77 95-96 GENERAL: The patient is awake, alert, and fully oriented, in no acute distress. HEAD: Normal with no signs of trauma. EYES: PERRL, extraocular movements intact, sclera anicteric, conjunctiva clear. No ptosis. ENT: Ears normal, nares patent, oropharynx clear without exudates, moist mucous membranes. NECK: Trachea midline, full range of motion, supple. LUNGS: Breath sounds equal, clear to auscultation bilaterally HEART: Regular rate and rhythm ABDOMEN: obese abdomen, + bowel sounds, soft, non tender EXTREMITIES: left lower ext with non pitting edema, negative for dvt.. NEUROLOGICAL:Normal speech, gait not observed. PSYCH: Normal mood, normal affect. SKIN: 1.5cm x1.5cm ulcer noted on lateral aspect of 5th toe Laboratory Results - last 24 hr 03/28/18 03/28/18 03/28/18 17:00 17:00 18:01 Sodium Potassium Chloride Carbon Dioxide Anion Gap BUN Creatinine Creat Clearance w eGFR POC Glucometer Random Glucose Hemoglobin A1c % Calcium Urine Color Ltyellow Urine Appearance Clear Urine pH 5.0 D Ur Specific Hematite 1.010 Urine Protein Negative Urine Glucose (UA) Negative Urine Ketones Negative Urine Blood Negative Urine Nitrite Negative Urine Bilirubin Negative Urine Urobilinogen Negative Ur Leukocyte Esterase Negative Ur Random Sodium 87 Ur Random Potassium 19.0 L Ur Random Chloride 91 L Urine Creatinine 48.0 H 03/28/18 03/29/18 03/29/18 22:07 06:15 06:31 Sodium 138 Potassium 4.8 Chloride 107 Carbon Dioxide 26 Anion Gap 5 L BUN 55 H Creatinine 2.1 H Creat Clearance w eGFR 33.88 POC Glucometer 235 277 Random Glucose 240 H Hemoglobin A1c % Calcium 8.6 Urine Color Urine Appearance Urine pH Ur Specific Hematite Urine Protein Urine Glucose (UA) Urine Ketones Urine Blood Urine Nitrite Urine Bilirubin Urine Urobilinogen Ur Leukocyte Esterase Ur Random Sodium Ur Random Potassium Ur Random Chloride Urine Creatinine 03/29/18 03/29/18 03/29/18 10:48 14:00 16:50 Sodium Potassium Chloride Carbon Dioxide Anion Gap BUN Creatinine Creat Clearance w eGFR POC Glucometer 224 267 Random Glucose Hemoglobin A1c % 10.3 H Calcium Urine Color Urine Appearance Urine pH Ur Specific Hematite Urine Protein Urine Glucose (UA) Urine Ketones Urine Blood Urine Nitrite Urine Bilirubin Urine Urobilinogen Ur Leukocyte Esterase Ur Random Sodium Ur Random Potassium Ur Random Chloride Urine Creatinine Active Medications Generic Name Dose Route Start Last Admin Trade Name Freq PRN Reason Stop Dose Admin Ascorbic Acid 500 mg 03/28/18 10:00 03/29/18 09:45 Vitamin C - PO 500 mg DAILY KANG Administration Aspirin 81 mg 03/28/18 10:00 03/29/18 09:43 Asa - PO 81 mg DAILY KANG Administration Atorvastatin Calcium 80 mg 03/28/18 22:00 03/28/18 22:08 Lipitor - PO 80 mg HS KANG Administration Cholecalciferol 1,000 unit 03/28/18 10:00 03/29/18 09:45 Vitamin D3 - PO 1,000 unit DAILY KANG Administration Clopidogrel Bisulfate 75 mg 03/28/18 10:00 03/29/18 09:44 Plavix - PO 75 mg DAILY KANG Administration Collagenase 1 applic 03/29/18 11:00 03/29/18 11:14 Santyl - TP 1 applic DAILY KANG Administration Protocol Cyanocobalamin 1,000 mcg 03/28/18 10:00 03/29/18 09:45 Vitamin B12 - PO 1,000 mcg DAILY KANG Administration Furosemide 40 mg 03/28/18 14:00 03/29/18 13:34 Lasix - PO 40 mg DAILY@1400 KANG Administration Furosemide 80 mg 03/28/18 07:00 03/29/18 06:33 Lasix - PO 80 mg DAILY@0700 KANG Administration Heparin Sodium (Porcine) 5,000 unit 03/28/18 06:00 03/29/18 13:34 Heparin - SQ 5,000 unit TID KANG Administration Ertapenem 1 gm/ Sodium 50 mls @ 100 mls/hr 03/28/18 16:00 03/29/18 10:04 Chloride IVPB 100 mls/hr DAILY KANG Administration Insulin Aspart 1 vial 03/29/18 12:50 03/29/18 16:52 Novolog Vial Sliding Scale - SQ 8 units ACHS KANG Administration Protocol Insulin Detemir 28 units 03/28/18 22:00 03/28/18 22:09 Levemir Vial SQ 28 unit HS KANG Administration Losartan Potassium 25 mg 03/28/18 10:00 03/29/18 09:43 Cozaar - PO 25 mg DAILY KANG Administration Metoprolol Succinate 100 mg 03/28/18 10:00 03/29/18 09:43 Toprol Xl - PO 100 mg DAILY KANG Administration Multivitamins 1 each 03/28/18 10:00 03/29/18 09:43 Total B With C - PO 1 each DAILY KANG Administration Tamsulosin HCl 0.4 mg 03/28/18 08:30 03/29/18 08:45 Flomax - PO 0.4 mg DAILY@0830 KANG Administration Zinc Sulfate 220 mg 03/28/18 10:00 03/29/18 09:43 Orazinc - PO 220 mg DAILY KANG Administration Imaging: Lower extremity MRI 03/18/2018: distal phalanx of 5th toe compatible with osteomylitis ASSESSMENT/PLAN: Patient is a 48 year old male with a significant past medical history of diabetes, CAD s/p stents x 4, HTN, CHF, DANIS and HLD. Patient was sent to the ED from wound care for for IV antibiotic treatment after MRI showed osteomyelitis on left foot, fifth digit. Patient reports increased swelling to the left lower extremity but denies shortness of breath, chest pain, fever, chills, nausea vomiting, diarrhea. Patient is was currently on oral antibiotics for bang laceration on the right leg. Diabetes Mellitus CAD s/p stents x 4 Hypertension CHF HLD Diabetic wound with osteomylitis Cardiology: Hypertension. controlled on Metoprolol 100mg daily, Losartan 25mg daily. BP stable. CAD s/p stents x 4. On asa 81mg daily, Plavix 75mg PO daily. CHF: Resume home meds of Lasix 80mg daily and Lasix 40mg @ hs. On Metoprolol 100mg daily HLD: On Lipitor 40m daily. Endocrine: Diabetes Mellitus. BGMS elevated On diabetic diet. SS Novolog tightened, Levemir increased. Dietary consulted for diabetic teaching. Endocrinology consulted for outpatient follow up. Patient on Glipizide at home, with Lantus 28 units at hs. Increased Levemir to 35 units at HS. ID: Osteomylitis Left foot, 5th toe osteomyitis, acute on chronic Started on Ertapenem 1 gram. Will need an additional 5 weeks of Ertapenem therapy for osteomylitis. Patient for tunneled catheter prior to discharge. Wound care dressing, follow up wound culture. Renal BRIAN on CKD. Creat 2.1. Nephrology consulted and following. Pulm Obstructive sleep apnea, chronic On cpap Urology: BPH, chronic. On flomax 0.4mg daily. fen PO intake monitor electrolytes low salt diabetic diet Prophy: heparin sq TID full code Visit type - Emergency Visit Emergency Visit: Yes ED Registration Date: 03/28/18 Care time: The patient presented to the Emergency Department on the above date and was hospitalized for further evaluation of their emergent condition. - New Patient This patient is new to me today: No - Critical Care Critical Care patient: No - Discharge Referral Referred to [facility] No
[2018-03-29] MEDS: ATORVASTATIN CA 80 MG TABLET (FP) PO SCH (22:15)
[2018-03-30] MEDS: FUROSEMIDE 40 MG TABLET (FP) PO SCH ×2 (06:27→13:35)
[2018-03-30] MEDS: HEPARIN NA (PORCINE) 5,000 UNITS/ML 1ML VIAL SQ SCH ×2 (06:27→13:24)
[2018-03-30] MEDS: INSULIN SLIDING SCALE (NOVOLOG) 1 VIAL SQ SCH ×3 (06:30→18:01)
[2018-03-30] MEDS ORDERED: glipiZIDE 10 MG TABLET (FP) PO SCH ×2 (07:00→09:15)
[2018-03-30] MEDS ORDERED: PT OWN MED DRAWER 7, Y5N ONE (08:15)
[2018-03-30] MEDS: TAMSULOSIN HCL 0.4 MG CAP PO SCH (08:33)
--- NOTE | 2018-03-30 09:02 | DS ---
Physical Exam: SUBJECTIVE: Patient seen and examined OBJECTIVE: Vital Signs Period Temp Pulse Resp BP Sys/Anton Pulse Ox Last 24 Hr 97.3 F-98.4 F 55-66 18-20 126-141/61-81 PHYSICAL EXAM GENERAL: The patient is awake, alert, and fully oriented, in no acute distress. HEAD: Normal with no signs of trauma. EYES: PERRL, extraocular movements intact, sclera anicteric, conjunctiva clear. ENT: Ears normal, nares patent, oropharynx clear without exudates, moist mucous membranes. NECK: Trachea midline, full range of motion, supple. LUNGS: Breath sounds equal, clear to auscultation bilaterally, no wheezes, no crackles, no accessory muscle use. HEART: Regular rate and rhythm, S1, S2 without murmur, rub or gallop. ABDOMEN: Soft, nontender, nondistended, normoactive bowel sounds, no guarding, no rebound, no hepatosplenomegaly, no masses. EXTREMITIES: 2+ pulses, warm, well-perfused, no edema. NEUROLOGICAL: Cranial nerves II through XII grossly intact. Normal speech, gait not observed. PSYCH: Normal mood, normal affect. SKIN: Warm, dry, normal turgor, no rashes or lesions noted. LABS Laboratory Results - last 24 hr 03/29/18 03/29/18 03/29/18 10:48 14:00 16:50 POC Glucometer 224 267 Hemoglobin A1c % 10.3 H 03/29/18 03/30/18 22:13 06:29 POC Glucometer 212 201 Hemoglobin A1c % HOSPITAL COURSE: Date of Admission:03/28/18 Date of Discharge: 03/30/18 Discharge Summary Reason For Visit: CELLULITIS ACUTE OSTEOMYELITIS (MRSA) Current Active Problems CKD (chronic kidney disease) (Acute) Cellulitis (Acute) Osteomyelitis of foot, left, acute (Acute) - Instructions Referrals: Amish Doll [Primary Care Provider] - - Home Medications Comprehensive Discharge Medication List: Ambulatory Orders Aspirin [ASA -] 81 mg PO DAILY 08/19/15 Ascorbate Calcium [Vitamin C] 500 mg PO DAILY 03/28/18 Aspirin [ASA -] 81 mg PO DAILY 03/28/18 Atorvastatin Ca [Lipitor] 80 mg PO HS 03/28/18 Atorvastatin Ca [Lipitor] 80 mg PO HS 03/28/18 Cholecalciferol (Vitamin D3) [Vitamin D3] 1,000 unit PO DAILY 03/28/18 Clopidogrel Bisulfate [Plavix] 75 mg PO DAILY 03/28/18 Cyanocobalamin [Vitamin B12 -] 1,000 mcg PO DAILY 03/28/18 Furosemide [Lasix] 40 mg PO HS 03/28/18 Furosemide [Lasix] 80 mg PO AM 03/28/18 Glipizide 10 mg PO BID 03/28/18 Glipizide 10 mg PO BID 03/28/18 Insulin Glargine,Hum.rec.anlog [Lantus] 28 unit SQ HS 03/28/18 Losartan Potassium 25 mg PO DAILY 03/28/18 Metoprolol Succinate 100 mg PO DAILY 03/28/18 Tamsulosin HCl 0.4 mg PO DAILY 03/28/18 Vitamin B Complex 1,000 mg PO DAILY 03/28/18 Zinc 50 mg PO DAILY 03/28/18 - Discharge Referral Referred to [facility] No
--- NOTE | 2018-03-30 09:13 | CONSULT ---
Consult Consult Specialty:: Endocrinology Referred by:: Raimundo Dewitt Reason for Consultation:: Hyperglycemia - History of Present Illness Chief Complaint: Left foot infection History of Present Illness: This is a 48M with h/o T2DM, CAD s/p stents x4, HTN, CHF, DANIS, HLD who was sent to the ED from wound care for IV antibiotic treatment of confirmed osteomyelitis seen on MRI. Pt states that he first noticed a wound on the lateral aspect of his 5th digit of his L foot about 2.5 weeks ago. He went to his information lead who then suggested to go to a wound care clinic. He was given recommendation to clean the wound with Betadine. On 03/18/18, LLE MRI was done that showed changes in his 5th toe of L foot suggestive of osteomyelitis. Pt was subsequently sent to the ED for empiric IV abx tx. Has polyuria, polydipsia and nocturia. Occ blurred vision. Saw ophthmalogy who ordered test which was not done as pt refused get IV in his hands. FS at home 300s. No hypos. - History Source History Provided By: Patient, Medical Record - Past Medical History Cardio/Vascular: Yes: CAD, CHF, Hyperlipdemia Renal/: Yes: Renal Inusuff Infectious Disease: Yes: Other (osteomyelitis 5th toe left) Endocrine: Yes: Diabetes Mellitus - Past Surgical History Past Surgical History: Yes: None Additional Surgical History: cardiac stents - Alcohol/Substance Use Hx Alcohol Use: No History of Substance Use: reports: None - Smoking History Smoking history: Never smoked Have you smoked in the past 12 months: No - Social History ADL: Independent History of Recent Travel: No Home Medications - Allergies Allergies/Adverse Reactions: Allergies Allergy/AdvReac Type Severity Reaction Status Date / Time Penicillins Allergy Verified 03/27/18 19:32 - Home Medications Home Medications: Ambulatory Orders Ascorbate Calcium [Vitamin C] 500 mg PO DAILY 03/28/18 Aspirin [ASA -] 81 mg PO DAILY 03/28/18 Atorvastatin Ca [Lipitor] 80 mg PO HS 03/28/18 Cholecalciferol (Vitamin D3) [Vitamin D3] 1,000 unit PO DAILY 03/28/18 Clopidogrel Bisulfate [Plavix] 75 mg PO DAILY 03/28/18 Cyanocobalamin [Vitamin B12 -] 1,000 mcg PO DAILY 03/28/18 Furosemide [Lasix] 80 mg PO AM 03/28/18 Insulin Glargine,Hum.rec.anlog [Lantus] 28 unit SQ HS 03/28/18 Losartan Potassium 25 mg PO DAILY 03/28/18 Metoprolol Succinate 100 mg PO DAILY 03/28/18 Tamsulosin HCl 0.4 mg PO DAILY 03/28/18 Vitamin B Complex 1,000 mg PO DAILY 03/28/18 Zinc 50 mg PO DAILY 03/28/18 Alcohol Antiseptic Pads [Alcohol Prep Pads] 1 each TP ACHS #1 box 03/30/18 Collagenase Clostridium Hist. [Santyl -] 1 applic TP DAILY #1 tube 03/30/18 Furosemide [Lasix -] 40 mg PO DAILY@1400 tablet 03/30/18 Furosemide [Lasix -] 80 mg PO DAILY@0700 tablet 03/30/18 Glipizide [Glucotrol -] 5 mg PO BID@0700,1630 #60 tablet 03/30/18 Insulin (Levemir) [Levemir Vial] 35 units SQ HS #0 units 03/30/18 Insulin Sliding Scale [Novolog Vial Sliding Scale -] 2 vial SQ ACHS #1 vial Lancets [Lancets Ultra Thin] 1 each MC ACHS #50 each 03/30/18 Miscellaneous Medical Supply [Glucometer Device] 1 each SQ ACHS #1 kit 03/30/18 Miscellaneous Medical Supply [Glucometer Device] 1 each SQ ASDIR #1 kit Miscellaneous Medical Supply [Glucometer Test Strips #100] 1 each SQ ACHS #1 box 03/30/18 Miscellaneous Medical Supply [Glucometer Test Strips #100] 1 each SQ ASDIR #1 box 03/30/18 Syringe and Needle,Insulin,1Ml [Advocate Syringes] 1 each MC ACHS #30 disp.syrin 03/30/18 Family Disease History - Family Disease History Family Disease History: Diabetes: Father, Mother (Breast CA), CA: Mother Review of Systems - Review of Systems Constitutional: reports: No Symptoms Eyes: reports: No Symptoms HENT: reports: No Symptoms Neck: reports: No Symptoms Cardiovascular: reports: No Symptoms Gastrointestinal: reports: No Symptoms Genitourinary: reports: No Symptoms Musculoskeletal: reports: No Symptoms Integumentary: reports: No Symptoms Endocrine: reports: No Symptoms Hematology/Lymphatic: reports: No Symptoms Psychiatric: reports: No Symptoms Physical Exam Vital Signs: Vital Signs Temperature 98.4 F 03/30/18 06:00 Pulse Rate 61 03/30/18 06:00 Respiratory Rate 20 03/30/18 06:00 Blood Pressure 130/81 03/30/18 06:00 O2 Sat by Pulse Oximetry (%) 95 03/29/18 09:00 Constitutional: Yes: No Distress, Calm Eyes: Yes: Conjunctiva Clear, EOM Intact HENT: Yes: Atraumatic, Normocephalic Neck: Yes: Supple, Trachea Midline Cardiovascular: Yes: Regular Rate and Rhythm Respiratory: Yes: Regular, CTA Bilaterally Gastrointestinal: Yes: Normal Bowel Sounds, Soft Breast(s): Yes: WNL Musculoskeletal: Yes: WNL Extremities: Yes: Other (Dressing left foot) Edema: Yes Edema: LLE: 1+, RLE: 1+ Neurological: Yes: Alert, Oriented Labs: CBC, BMP 03/28/18 06:45 03/29/18 06:15 Assessment/Plan AP: T2DM uncontrolled: A1c 103 Left 5th toe infection/Osteomyelitis Renal Insufficiency: Creatinine normal in 2016, Has been >2 since admission. BGM QACHS Continue Levemir 35 daily at HS Novolog SS coverage TID premeals to be taken just before meals. Decrease Glipizide 5mg BID premeals b/o renal Insufficiency F/U in office in one week.
[2018-03-30 10:06] LABS: BASO % 0.6 % (0-2.0); EOS % 1.8 % (0-4.5); HEMATOCRIT 35.2 % (35.4-49); HEMOGLOBIN 11.1 GM/dL (11.7-16.9); LYMPH % 22.2 % (8-40); MCH 25.9 pg (25.7-33.7); MCHC 31.7 g/dl (32.0-35.9); MEAN CELL VOLUME 81.8 fl (80-96); MEAN PLT VOLUME 8.9 fl (7.5-11.1); MONO % 6.3 % (3.8-10.2); NEUT % 69.1 % (42.8-82.8); PLATELET COUNT 196 K/MM3 (134-434); RDW 13.9 % (11.9-15.9); WHITE BLOOD COUNT 7.3 K/mm3 (4.0-10.0)
[2018-03-30] MEDS: CLOPIDOGREL BISULFATE 75 MG TABLET (FP) PO SCH (10:06)
[2018-03-30] MEDS: CHOLECALCIFEROL (VITAMIN D3) 1,000 UNIT TABLET (FP) PO SCH (10:06)
[2018-03-30] MEDS: ERTAPENEM SODIUM 1 GM in SODIUM CHLORIDE 50 ML IVPB SCH (10:06)
[2018-03-30] MEDS: ZINC SULFATE 220 MG CAPSULE (FP) PO SCH (10:06)
[2018-03-30] MEDS: VITAMIN B COMPLEX W/C COMBO TABLET (FP) PO SCH (10:06)
[2018-03-30] MEDS: LOSARTAN POTASSIUM 25 MG TABLET PO SCH (10:06)
[2018-03-30] MEDS: ASCORBIC ACID 500 MG TABLET (FP) PO SCH (10:06)
[2018-03-30] MEDS: ASPIRIN 81 MG CHEWABLE TABLETS PO SCH (10:06)
[2018-03-30] MEDS: CYANOCOBALAMIN 1,000 MCG TABLET (FP) PO SCH (10:06)
[2018-03-30] MEDS: COLLAGENASE CLOSTRIDIUM HIST. 30 GRAMS TUBE TP SCH (10:07)
--- NOTE | 2018-03-30 10:35 | PN ---
Progress Note (short form) - Note Progress Note: FUV visit 5th toe left. Awaiting PICC line. +om 5th toe, +granulating toe 5th toe, -cellulitis, +edema om 5th toe left Awaiting PICC line will follow out patient. Problem List - Problems (1) Osteomyelitis of foot, left, acute Code(s): M86.172 - OTHER ACUTE OSTEOMYELITIS, LEFT ANKLE AND FOOT
[2018-03-30 11:26] LABS: ALBUMIN 3.1 g/dl (3.4-5.0); ALK PHOS 101 U/L (45-117); ANION GAP 8 MMOL/L (8-16); BILIRUBIN,TOTAL 0.4 mg/dL (0.2-1); BLOOD UREA NITROGEN 53 mg/dL (7-18); CALCIUM 8.9 mg/dL (8.5-10.1); CHLORIDE 106 mmol/L (98-107); CO2 26 mmol/L (21-32); CREATININE 2.1 mg/dL (0.55-1.3); GLUCOSE,RANDOM 184 mg/dL (74-106); MAGNESIUM 1.9 mg/dL (1.8-2.4); POTASSIUM 4.7 mmol/L (3.5-5.1); SGOT/AST 17 U/L (15-37); SGPT/ALT 32 U/L (13-61); SODIUM 140 mmol/L (136-145); TOT PROT 6.5 g/dl (6.4-8.2)
[2018-03-30] MEDS ORDERED: INSULIN (NOVOLOG) ASPART 100 UNITS/ML 10ML VIAL ONE (12:03)
--- NOTE | 2018-03-30 12:22 | DS ---
Physical Exam: SUBJECTIVE: Patient seen and examined OBJECTIVE: Vital Signs Period Temp Pulse Resp BP Sys/Anton Pulse Ox Last 24 Hr 97.3 F-98.5 F 55-61 18-20 129-141/61-81 PHYSICAL EXAM GENERAL: The patient is awake, alert, and fully oriented, in no acute distress. HEAD: Normal with no signs of trauma. EYES: PERRL, extraocular movements intact, sclera anicteric, conjunctiva clear. ENT: Ears normal, nares patent, oropharynx clear without exudates, moist mucous membranes. NECK: Trachea midline, full range of motion, supple. LUNGS: Breath sounds equal, clear to auscultation bilaterally, no wheezes, no crackles, no accessory muscle use. HEART: Regular rate and rhythm, S1, S2 without murmur, rub or gallop. ABDOMEN: Soft, nontender, nondistended, normoactive bowel sounds, no guarding, no rebound, no hepatosplenomegaly, no masses. EXTREMITIES: 2+ pulses, warm, well-perfused, no edema. NEUROLOGICAL: Cranial nerves II through XII grossly intact. Normal speech, gait not observed. PSYCH: Normal mood, normal affect. SKIN: Warm, dry, normal turgor, no rashes or lesions noted. LABS Laboratory Results - last 24 hr 03/29/18 03/29/18 03/29/18 14:00 16:50 22:13 WBC RBC Hgb Hct MCV MCH MCHC RDW Plt Count MPV Absolute Neuts (auto) Neutrophils % Lymphocytes % Monocytes % Eosinophils % Basophils % Nucleated RBC % Sodium Potassium Chloride Carbon Dioxide Anion Gap BUN Creatinine Creat Clearance w eGFR POC Glucometer 267 212 Random Glucose Hemoglobin A1c % 10.3 H Calcium Magnesium Total Bilirubin AST ALT Alkaline Phosphatase Total Protein Albumin 03/30/18 03/30/18 03/30/18 06:29 09:45 09:45 WBC 7.3 RBC 4.30 Hgb 11.1 L Hct 35.2 L MCV 81.8 MCH 25.9 MCHC 31.7 L RDW 13.9 Plt Count 196 D MPV 8.9 Absolute Neuts (auto) 5.1 Neutrophils % 69.1 Lymphocytes % 22.2 Monocytes % 6.3 Eosinophils % 1.8 Basophils % 0.6 Nucleated RBC % 0 Sodium 140 Potassium 4.7 Chloride 106 Carbon Dioxide 26 Anion Gap 8 BUN 53 H Creatinine 2.1 H Creat Clearance w eGFR 33.88 POC Glucometer 201 Random Glucose 184 H Hemoglobin A1c % Calcium 8.9 Magnesium 1.9 Total Bilirubin 0.4 AST 17 ALT 32 Alkaline Phosphatase 101 Total Protein 6.5 Albumin 3.1 L 03/30/18 11:25 WBC RBC Hgb Hct MCV MCH MCHC RDW Plt Count MPV Absolute Neuts (auto) Neutrophils % Lymphocytes % Monocytes % Eosinophils % Basophils % Nucleated RBC % Sodium Potassium Chloride Carbon Dioxide Anion Gap BUN Creatinine Creat Clearance w eGFR POC Glucometer 117 Random Glucose Hemoglobin A1c % Calcium Magnesium Total Bilirubin AST ALT Alkaline Phosphatase Total Protein Albumin HOSPITAL COURSE: Date of Admission:03/28/18 Date of Discharge: 03/30/18 Discharge Summary Reason For Visit: CELLULITIS ACUTE OSTEOMYELITIS (MRSA) Current Active Problems CKD (chronic kidney disease) (Acute) Cellulitis (Acute) Osteomyelitis of foot, left, acute (Acute) Condition: Improved - Instructions Diet, Activity, Other Instructions: Mr. Cevallos You were admitted on 03/28/2018 for cellulitis/infection of your left 5th toe. You will need five (5) more weeks of Ertapenem antibiotics which [facility]. We also noted that your blood sugars before meals were elevated and have started you on Novolog Sliding scale for better control of your blood sugars. Please follow the sliding scale as follows: Check your blood sugars 15 minutes before you eat. LANTUS IS A LONG ACTING INSULIN, THIS IS ONLY AT NIGHT. NOVOLOG IS A SHORT ACTING INSULIN AND IS GIVEN BEFORE MEALS. If your blood sugar is: Give yourself this much insulin 101-150 no insulin needed 151-200 4 201-250 6 251-300 8 301-350 10 351-400 12 Referrals: mAish Doll [Primary Care Provider] - Disposition: HOME - Home Medications Comprehensive Discharge Medication List: Ambulatory Orders Aspirin [ASA -] 81 mg PO DAILY 08/19/15 Ascorbate Calcium [Vitamin C] 500 mg PO DAILY 03/28/18 Aspirin [ASA -] 81 mg PO DAILY 03/28/18 Atorvastatin Ca [Lipitor] 80 mg PO HS 03/28/18 Atorvastatin Ca [Lipitor] 80 mg PO HS 03/28/18 Cholecalciferol (Vitamin D3) [Vitamin D3] 1,000 unit PO DAILY 03/28/18 Clopidogrel Bisulfate [Plavix] 75 mg PO DAILY 03/28/18 Cyanocobalamin [Vitamin B12 -] 1,000 mcg PO DAILY 03/28/18 Furosemide [Lasix] 40 mg PO HS 03/28/18 Furosemide [Lasix] 80 mg PO AM 03/28/18 Glipizide 10 mg PO BID 03/28/18 Glipizide 10 mg PO BID 03/28/18 Insulin Glargine,Hum.rec.anlog [Lantus] 28 unit SQ HS 03/28/18 Losartan Potassium 25 mg PO DAILY 03/28/18 Metoprolol Succinate 100 mg PO DAILY 03/28/18 Tamsulosin HCl 0.4 mg PO DAILY 03/28/18 Vitamin B Complex 1,000 mg PO DAILY 03/28/18 Zinc 50 mg PO DAILY 03/28/18 - Discharge Referral Referred to [facility] Med [facility] No
[2018-03-30 13:39] VITALS: BP 120/58; PULSE 56; TEMP 98.1
--- NOTE | 2018-03-30 14:58 | PN ---
Progress Note, Physician History of Present Illness: stable no new issues awaiting for a picc line - Current Medication List Current Medications: Active Medications Ascorbic Acid (Vitamin C -) 500 mg PO DAILY [facility] Last Admin: 03/30/18 10:06 Dose: 500 mg Aspirin (Asa -) 81 mg PO DAILY [facility] Last Admin: 03/30/18 10:06 Dose: 81 mg Atorvastatin Calcium (Lipitor -) 80 mg PO HS [facility] Last Admin: 03/29/18 22:15 Dose: 80 mg Cholecalciferol (Vitamin D3 -) 1,000 unit PO DAILY [facility] Last Admin: 03/30/18 10:06 Dose: 1,000 unit Clopidogrel Bisulfate (Plavix -) 75 mg PO DAILY [facility] Last Admin: 03/30/18 10:06 Dose: 75 mg Collagenase (Santyl -) 1 applic TP DAILY [facility]; Protocol Last Admin: 03/30/18 10:07 Dose: 1 applic Cyanocobalamin (Vitamin B12 -) 1,000 mcg PO DAILY [facility] Last Admin: 03/30/18 10:06 Dose: 1,000 mcg Furosemide (Lasix -) 40 mg PO DAILY@1400 [facility] Last Admin: 03/30/18 13:35 Dose: 40 mg Furosemide (Lasix -) 80 mg PO DAILY@0700 [facility] Last Admin: 03/30/18 06:27 Dose: 80 mg Glipizide (Glucotrol -) 5 mg PO BID@0700,1630 [facility] Heparin Sodium (Porcine) (Heparin -) 5,000 unit SQ TID [facility] Last Admin: 03/30/18 13:24 Dose: Not Given Ertapenem 1 gm/ Sodium (Chloride) 50 mls @ 100 mls/hr IVPB DAILY [facility] Last Admin: 03/30/18 10:06 Dose: 100 mls/hr Insulin Aspart (Novolog Vial Sliding Scale -) 1 vial SQ TIDAC [facility]; Protocol Last Admin: 03/30/18 12:07 Dose: 4 units Insulin Detemir (Levemir Vial) 35 units SQ HS [facility] Last Admin: 03/29/18 22:15 Dose: 35 units Losartan Potassium (Cozaar -) 25 mg PO DAILY [facility] Last Admin: 03/30/18 10:06 Dose: 25 mg Metoprolol Succinate (Toprol Xl -) 100 mg PO DAILY [facility] Last Admin: 03/30/18 10:06 Dose: 100 mg Multivitamins (Total B With C -) 1 each PO DAILY [facility] Last Admin: 03/30/18 10:06 Dose: 1 each Tamsulosin HCl (Flomax -) 0.4 mg PO DAILY@0830 [facility] Last Admin: 03/30/18 08:33 Dose: 0.4 mg Zinc Sulfate (Orazinc -) 220 mg PO DAILY [facility] Last Admin: 03/30/18 10:06 Dose: 220 mg - Objective Vital Signs: Vital Signs Temperature 98.1 F 03/30/18 13:37 Pulse Rate 56 L 03/30/18 13:37 Respiratory Rate 20 03/30/18 13:37 Blood Pressure 120/58 L 03/30/18 13:37 O2 Sat by Pulse Oximetry (%) 96 03/30/18 09:00 Constitutional: Yes: No Distress, Calm, Obese Cardiovascular: Yes: Regular Rate and Rhythm Respiratory: Yes: Regular, CTA Bilaterally Gastrointestinal: Yes: Normal Bowel Sounds, Soft Musculoskeletal: Yes: WNL Extremities: Yes: Other Neurological: Yes: Alert, Oriented Psychiatric: Yes: Alert, Oriented Labs: CBC, BMP 03/30/18 09:45 03/30/18 09:45 Assessment/Plan Problem List - Problems (1) CKD (chronic kidney disease) Code(s): N18.9 - CHRONIC KIDNEY DISEASE, UNSPECIFIED (2) Osteomyelitis of foot, left, acute Code(s): M86.172 - OTHER ACUTE OSTEOMYELITIS, LEFT ANKLE AND FOOT (3) Diabetes Code(s): E11.9 - TYPE 2 DIABETES MELLITUS WITHOUT COMPLICATIONS Qualifiers: Diabetes mellitus type: type 2 Diabetes mellitus complication status: without complication Qualified Code(s): E11.9 - Type 2 diabetes mellitus without complications plan continue current mgmt picc line ertapenam as planned for 5 weeks labs as planned rest as per the team
--- NOTE | 2018-03-30 16:24 | PN ---
Progress Note, Physician History of Present Illness: Pt seen and examined at bedside. He is awake and alert. He is waiting for a picc line. He denies dysuria or hematuria. - Current Medication List Current Medications: Active Medications Ascorbic Acid (Vitamin C -) 500 mg PO DAILY [facility] Last Admin: 03/30/18 10:06 Dose: 500 mg Aspirin (Asa -) 81 mg PO DAILY [facility] Last Admin: 03/30/18 10:06 Dose: 81 mg Atorvastatin Calcium (Lipitor -) 80 mg PO HS [facility] Last Admin: 03/29/18 22:15 Dose: 80 mg Cholecalciferol (Vitamin D3 -) 1,000 unit PO DAILY [facility] Last Admin: 03/30/18 10:06 Dose: 1,000 unit Clopidogrel Bisulfate (Plavix -) 75 mg PO DAILY [facility] Last Admin: 03/30/18 10:06 Dose: 75 mg Collagenase (Santyl -) 1 applic TP DAILY [facility]; Protocol Last Admin: 03/30/18 10:07 Dose: 1 applic Cyanocobalamin (Vitamin B12 -) 1,000 mcg PO DAILY [facility] Last Admin: 03/30/18 10:06 Dose: 1,000 mcg Furosemide (Lasix -) 40 mg PO DAILY@1400 [facility] Last Admin: 03/30/18 13:35 Dose: 40 mg Furosemide (Lasix -) 80 mg PO DAILY@0700 [facility] Last Admin: 03/30/18 06:27 Dose: 80 mg Glipizide (Glucotrol -) 5 mg PO BID@0700,1630 [facility] Heparin Sodium (Porcine) (Heparin -) 5,000 unit SQ TID [facility] Last Admin: 03/30/18 13:24 Dose: Not Given Ertapenem 1 gm/ Sodium (Chloride) 50 mls @ 100 mls/hr IVPB DAILY [facility] Last Admin: 03/30/18 10:06 Dose: 100 mls/hr Insulin Aspart (Novolog Vial Sliding Scale -) 1 vial SQ TIDAC [facility]; Protocol Last Admin: 03/30/18 12:07 Dose: 4 units Insulin Detemir (Levemir Vial) 35 units SQ HS [facility] Last Admin: 03/29/18 22:15 Dose: 35 units Losartan Potassium (Cozaar -) 25 mg PO DAILY [facility] Last Admin: 03/30/18 10:06 Dose: 25 mg Metoprolol Succinate (Toprol Xl -) 100 mg PO DAILY [facility] Last Admin: 03/30/18 10:06 Dose: 100 mg Multivitamins (Total B With C -) 1 each PO DAILY [facility] Last Admin: 03/30/18 10:06 Dose: 1 each Tamsulosin HCl (Flomax -) 0.4 mg PO DAILY@0830 [facility] Last Admin: 03/30/18 08:33 Dose: 0.4 mg Zinc Sulfate (Orazinc -) 220 mg PO DAILY [facility] Last Admin: 03/30/18 10:06 Dose: 220 mg - Objective Vital Signs: Vital Signs Temperature 98.1 F 03/30/18 13:37 Pulse Rate 56 L 03/30/18 13:37 Respiratory Rate 20 03/30/18 13:37 Blood Pressure 120/58 L 03/30/18 13:37 O2 Sat by Pulse Oximetry (%) 96 03/30/18 09:00 Constitutional: Yes: Calm Eyes: Yes: Conjunctiva Clear HENT: Yes: Atraumatic Neck: Yes: Supple Cardiovascular: Yes: S1, S2 Respiratory: Yes: CTA Bilaterally Gastrointestinal: Yes: Normal Bowel Sounds, Soft, Abdomen, Obese Genitourinary: Yes: WNL Edema: Yes Edema: LLE: 1+, RLE: 1+ Neurological: Yes: Oriented Psychiatric: Yes: Oriented Labs: CBC, BMP 03/30/18 09:45 03/30/18 09:45 Problem List - Problems (1) CKD (chronic kidney disease) Code(s): N18.9 - CHRONIC KIDNEY DISEASE, UNSPECIFIED (2) Osteomyelitis of foot, left, acute Code(s): M86.172 - OTHER ACUTE OSTEOMYELITIS, LEFT ANKLE AND FOOT (3) Diabetes Code(s): E11.9 - TYPE 2 DIABETES MELLITUS WITHOUT COMPLICATIONS Qualifiers: Diabetes mellitus type: type 2 Diabetes mellitus complication status: without complication Qualified Code(s): E11.9 - Type 2 diabetes mellitus without complications Assessment/Plan Current Medications Generic Name Dose Route Start Last Admin Trade Name Freq PRN Reason Stop Dose Admin Ascorbic Acid 500 mg 03/28/18 10:00 03/30/18 10:06 Vitamin C - PO 500 mg DAILY [facility] Administration Aspirin 81 mg 03/28/18 10:00 03/30/18 10:06 Asa - PO 81 mg DAILY [facility] Administration Atorvastatin Calcium 80 mg 03/28/18 22:00 03/29/18 22:15 Lipitor - PO 80 mg HS KANG Administration Cholecalciferol 1,000 unit 03/28/18 10:00 03/30/18 10:06 Vitamin D3 - PO 1,000 unit DAILY K[facility] Administration Clopidogrel Bisulfate 75 mg 03/28/18 10:00 03/30/18 10:06 Plavix - PO 75 mg DAILY KANG Administration Collagenase 1 applic 03/29/18 11:00 03/30/18 10:07 Santyl - TP 1 applic DAILY KANG Administration Protocol Cyanocobalamin 1,000 mcg 03/28/18 10:00 03/30/18 10:06 Vitamin B12 - PO 1,000 mcg DAILY K[facility] Administration Furosemide 40 mg 03/28/18 14:00 03/30/18 13:35 Lasix - PO 40 mg DAILY@1400 KANG Administration Furosemide 80 mg 03/28/18 07:00 03/30/18 06:27 Lasix - PO 80 mg DAILY@0700 KANG Administration Glipizide 5 mg 03/30/18 09:15 Glucotrol - PO BID@0700,1630 [facility] Heparin Sodium (Porcine) 5,000 unit 03/28/18 06:00 03/30/18 13:24 Heparin - SQ Not Given TID [facility] Ertapenem 1 gm/ Sodium 50 mls @ 100 mls/hr 03/28/18 16:00 03/30/18 10:06 Chloride IVPB 100 mls/hr DAILY [facility] Administration Insulin Aspart 1 vial 03/30/18 11:00 03/30/18 12:07 Novolog Vial Sliding Scale - SQ 4 units TIDAC [facility] Administration Protocol Insulin Detemir 35 units 03/29/18 17:49 03/29/18 22:15 Levemir Vial SQ 35 units HS K[facility] Administration Losartan Potassium 25 mg 03/28/18 10:00 03/30/18 10:06 Cozaar - PO 25 mg DAILY [facility] Administration Metoprolol Succinate 100 mg 03/28/18 10:00 03/30/18 10:06 Toprol Xl - PO 100 mg DAILY [facility] Administration Multivitamins 1 each 03/28/18 10:00 03/30/18 10:06 Total B With C - PO 1 each DAILY [facility] Administration Tamsulosin HCl 0.4 mg 03/28/18 08:30 03/30/18 08:33 Flomax - PO 0.4 mg DAILY@0830 [facility] Administration Zinc Sulfate 220 mg 03/28/18 10:00 03/30/18 10:06 Orazinc - PO 220 mg DAILY [facility] Administration Impression 1. CKD 2. CHF 3. CAD 4. DM 5. obesity 6. osteomyelitis 7. possible angiomyolipoma 8. fatty liver Plan - pt pending picc line placement - will follow as outpt for renal workup - will need urology follow up for kidney lesions - avoid nephrotoxins - renal dose meds - cont wound care Dr Lerner
[2018-03-30] MEDS ORDERED: glipiZIDE 5 MG TABLET (FP) ONE (17:20)
== END 2018-03-30 19:00 | disposition home or self-care (01) | DRG 344 ==
LOC: JER 19:13 → JERBED 03-28 00:57 → UNDOADMIN 03-28 01:18 → J5S 03-28 13:58 → J7W 03-28 14:29
PROVIDERS: ADMIT Internal Medicine; ATTEND Nurse Practitioner Family
PROC: 02HV33Z Insertion of Infusion Device into Superior Vena Cava, Percutaneous Approach (ICD-10-PCS; principal; 2018-03-30)
PROC: B518ZZA Fluoroscopy of Superior Vena Cava, Guidance (ICD-10-PCS; 2018-03-30)
DX: E11.69 Type 2 diabetes mellitus with other specified complication (principal); M86.172 Other acute osteomyelitis, left ankle and foot; L03.116 Cellulitis of left lower limb; E78.5 Hyperlipidemia, unspecified; I25.10 Atherosclerotic heart disease of native coronary artery without angina pectoris; E66.01 Morbid (severe) obesity due to excess calories; Z68.42 Body mass index [BMI] 45.0-49.9, adult; D63.8 Anemia in other chronic diseases classified elsewhere; E88.09 Other disorders of plasma-protein metabolism, not elsewhere classified; G47.33 Obstructive sleep apnea (adult) (pediatric); I13.0 Hypertensive heart and chronic kidney disease with heart failure and stage 1 through stage 4 chronic kidney disease, or unspecified chronic kidney disease; E11.22 Type 2 diabetes mellitus with diabetic chronic kidney disease; N40.0 Benign prostatic hyperplasia without lower urinary tract symptoms; N18.9 Chronic kidney disease, unspecified; E11.621 Type 2 diabetes mellitus with foot ulcer; L97.528 Non-pressure chronic ulcer of other part of left foot with other specified severity; E11.65 Type 2 diabetes mellitus with hyperglycemia; N17.9 Acute kidney failure, unspecified; K76.0 Fatty (change of) liver, not elsewhere classified; D17.9 Benign lipomatous neoplasm, unspecified; Z95.5 Presence of coronary angioplasty implant and graft; Z79.4 Long term (current) use of insulin; Z88.0 Allergy status to penicillin
CPT/HCPCS: 36415; 36558; 73630-TC-LT; 76775-TC; 77001-TC-FY; 80048; 80053; 81003; 82436; 82570; 82962; 83036; 83605; 83735; 84133; 84300; 85025; 87040; 87081; 93971-TC; 94660; 99282-25; C1751; J1644

== ENCOUNTER 2018-05-19 17:20 | Inpatient (IN) | payer OTHER ==
--- NOTE | 2018-05-19 18:21 | PDOC ---
History of Present Illness - General Chief Complaint: Wound Stated Complaint: TOE INFECTION ON LEFT FOOT History Source: Patient Exam Limitations: No Limitations - History of Present Illness Initial Comments: 05/19/18 18:46 48 yo M with a hx of IDDM, CAD x4 stents (recent 1.5 years ago), CHF, HLD, and HTN presents to the emergency department for admission for left 5th toe amputation per his house worker general Dr. Castro. The patient states he developed the wound approximately 12 weeks ago and does not know the events that led to the injury. He has been followed by Dr. Duarte who started etrapenem for 5 weeks. Currently, the patient is on day 8 of vancomycin. He was seen by his house worker general who stated the need for an amputation and the patient agreed. Previous xrays and mri confirms presence of osteomyelitis in the area. Denies the following: fever, chills, nausea, vomiting, visual changes, chest pain, SOB , abdominal pain, dysuria, hematuria, neuropathy, diarrhea, and hematochezia. Pmhx: Refer to above Shx: No pertinent shx Meds: Does not know list. endorses lasix, losartan, and "possibly an anticoagulant". Allergies: PCN (anaphylaxis reaction) Social: Denies tobacco, alcohol, and substance abuse. Past History - Past Medical History Allergies/Adverse Reactions: Allergies Allergy/AdvReac Type Severity Reaction Status Date / Time Penicillins Allergy Verified 05/19/18 17:33 Home Medications: Ambulatory Orders Ascorbate Calcium [Vitamin C] 500 mg PO DAILY 03/28/18 Aspirin [ASA -] 81 mg PO DAILY 03/28/18 Atorvastatin Ca [Lipitor] 80 mg PO HS 03/28/18 Cholecalciferol (Vitamin D3) [Vitamin D3] 1,000 unit PO DAILY 03/28/18 Clopidogrel Bisulfate [Plavix] 75 mg PO DAILY 03/28/18 Cyanocobalamin [Vitamin B12 -] 1,000 mcg PO DAILY 03/28/18 Furosemide [Lasix] 80 mg PO AM 03/28/18 Insulin Glargine,Hum.rec.anlog [Lantus] 28 unit SQ HS 03/28/18 Losartan Potassium 25 mg PO DAILY 03/28/18 Metoprolol Succinate 100 mg PO DAILY 03/28/18 Tamsulosin HCl 0.4 mg PO DAILY 03/28/18 Vitamin B Complex 1,000 mg PO DAILY 03/28/18 Zinc 50 mg PO DAILY 03/28/18 Alcohol Antiseptic Pads [Alcohol Prep Pads] 1 each TP ACHS #1 box 03/30/18 Collagenase Clostridium Hist. [Santyl -] 1 applic TP DAILY #1 tube 03/30/18 Furosemide [Lasix -] 40 mg PO DAILY@1400 tablet 03/30/18 Furosemide [Lasix -] 80 mg PO DAILY@0700 tablet 03/30/18 Glipizide [Glucotrol -] 5 mg PO BID@0700,1630 #60 tablet 03/30/18 Insulin (Levemir) [Levemir Vial] 35 units SQ HS #0 units 03/30/18 Insulin Sliding Scale [Novolog Vial Sliding Scale -] 2 vial SQ ACHS #1 vial Lancets [Lancets Ultra Thin] 1 each MC ACHS #50 each 03/30/18 Miscellaneous Medical Supply [Glucometer Device] 1 each SQ ACHS #1 kit 03/30/18 Miscellaneous Medical Supply [Glucometer Device] 1 each SQ ASDIR #1 kit Miscellaneous Medical Supply [Glucometer Test Strips #100] 1 each SQ ACHS #1 box 03/30/18 Miscellaneous Medical Supply [Glucometer Test Strips #100] 1 each SQ ASDIR #1 box 03/30/18 Syringe and Needle,Insulin,1Ml [Advocate Syringes] 1 each MC ACHS #30 disp.syrin 03/30/18 Tamsulosin HCl [Flomax] 0.4 mg PO DAILY #30 cap.er.24h 03/30/18 Anemia: No Asthma: No Cancer: No Cardiac Disorders: Yes (stents 11/27) CVA: No COPD: No CHF: Yes Dementia: No Diabetes: Yes GI Disorders: No Disorders: No HTN: Yes Hypercholesterolemia: Yes Liver Disease: No Seizures: No Thyroid Disease: No - Surgical History Abdominal Surgery: No Appendectomy: No Cardiac Surgery: Yes (stents) Cholecystectomy: No Lung Surgery: No Neurologic Surgery: No Orthopedic Surgery: No - Family Disease History Family Disease History: Diabetes: Mother - Suicide/Smoking/Psychosocial Hx Smoking History: Never smoked Have you smoked in the past 12 months: No Hx Alcohol Use: No Drug/Substance Use Hx: No Substance Use Type: None Hx Substance Use Treatment: No Review of Systems - Review of Systems Able to Perform ROS?: Yes Is the patient limited Frisian proficient: No Constitutional: No: Chills, Diaphoresis, Weakness HEENTM: No: Recent change in vision, Ear Pain, Nose Pain, Throat Pain, Mouth Pain Respiratory: No: Cough, Shortness of Breath, SOB with Exertion Cardiac (ROS): No: Chest Pain, Lightheadedness, Palpitations, Syncope, Chest Tightness ABD/GI: No: Constipated, Diarrhea, Nausea, Poor Appetite, Poor Fluid Intake, Rectal Bleeding, Vomiting, Tarry Stools : No: Burning, Dysuria, Flank Pain, Hematuria, Incontinence Musculoskeletal: No: Back Pain Integumentary: Yes: Lesions (left 5th toe). No: Rash Neurological: No: Headache, Numbness, Tremors, Weakness, Ataxia Psychiatric: No: Stressors Endocrine: No: Unexplained Weight Gain Hematologic/Lymphatic: No: Anemia *Physical Exam - Vital Signs Last Vital Signs Temp Pulse Resp BP Pulse Ox 98.2 F 57 L 18 120/64 95 05/19/18 17:33 05/19/18 17:33 05/19/18 17:33 05/19/18 17:33 05/19/18 17:33 - Physical Exam General Appearance: Yes: Nourished, Appropriately Dressed, Obese. No: Apparent Distress, Alcohol on Breath, Intoxicated HEENT: positive: EOMI, YVONNE, Normal ENT Inspection, Normal Voice, Symmetrical, TMs Normal, Pharynx Normal. negative: Pale Conjunctivae, Scleral Icterus (R), Scleral Icterus (L), Sinus Tenderness, Excessive drooling Neck: positive: Trachea midline. negative: Tender, Lymphadenopathy (R), Lymphadenopathy (L), Tender lateral, Tender midline Respiratory/Chest: positive: Lungs Clear, Normal Breath Sounds. negative: Chest Tender, Respiratory Distress, Accessory Muscle Use, Crackles, Rales, Rhonchi, Stridor, Wheezing Cardiovascular: positive: Regular Rhythm, S1, S2, Bradycardia. negative: Systolic Murmur Gastrointestinal/Abdominal: positive: Normal Bowel Sounds, Soft, Protuberent. negative: Tender, Rebound Lymphatic: negative: Adenopathy Musculoskeletal: positive: Normal Inspection. negative: CVA Tenderness, Vertebral Tenderness Extremity: positive: Normal Capillary Refill, Normal Range of Motion, Tender ( left lateral toe), Other (left toe lateral wound with ulceration and black gangrenous skin with pedal swelling and warmth to the touch. ). negative: Normal Inspection Integumentary: positive: Normal Color, Dry, Warm Neurologic: positive: dynamometer repairer II-XII NML intact, Fully Oriented, Alert, Normal Mood/ Affect, Normal Response, Motor Strength 5/5 Moderate Sedation - Procedure Monitoring Vital Signs: Procedure Monitoring Vital Signs Temperature 98.2 F 05/19/18 17:33 Pulse Rate 57 L 05/19/18 17:33 Respiratory Rate 18 05/19/18 17:33 Blood Pressure 120/64 05/19/18 17:33 O2 Sat by Pulse Oximetry (%) 95 05/19/18 17:33 ED Treatment Course - LABORATORY CBC & Chemistry Diagram: 05/19/18 18:33 05/19/18 18:33 Medical Decision Making - Medical Decision Making 48 yo M with a hx of IDDM, CAD x4 stents (recent 1.5 years ago), CHF, HLD, and HTN presents to the emergency department for admission for left 5th toe amputation per his house worker general Dr. Castro. Initial vitals: Initial Vital Signs Temp Pulse Resp BP Pulse Ox 98.2 F 57 L 18 120/64 95 05/19/18 17:33 12 17:33 05/19/18 17:33 05/19/18 17:33 05/19/18 17:33 Work up: ddx: left lateral wound to the 5th toe likely has underlying osteomyelitis given previous image confirmation and extensive IV abx. ulceration with possible concerns for sepsis. labs: sepsis work up with admission labs. wound culture, blood culture, cbc, cmp , UA, trops, bnp, ekg, cxr, xray of the left toe, A text was sent to Dr. Castro for call back to our ED for further consultation at 7:22 pm. Patient had pre-admission labs sent. Signed out to Dr. Lyons. 05/19/18 20:23 05/19/18 20:24 *DC/Admit/Observation/Transfer Diagnosis at time of Disposition: Osteomyelitis of foot, left, acute - Referrals Referrals: Amish Doll [Primary Care Provider] - - Patient Instructions - Post Discharge Activity
--- NOTE | 2018-05-19 18:59 | PDOC ---
Attending Attestation - Resident Resident Name: Boston Clarke - ED Attending Attestation I have performed the following: I have examined & evaluated the patient, The case was reviewed & discussed with the resident, I agree w/resident's findings & plan, Exceptions are as noted - Physicial Exam PE: 05/19/18 18:57 awake alert lungs clear bilaterally heart rr no mrg abd soft nd nd. ext wwp. 2 + dp/ pt pulses bilaterally. bilat edema. left fifth toe with gangrenous necrotic tip ozzing. nuero alrt oriented x 3. - Medical Decision Making 05/19/18 18:58 48 yo M with h/o HTN DM left foot small toe osteomyletiis, on vancomycin here for toe amputation continued gangrene left toe. see milk and cream grader dr. hawkins, who plans to amputate. toe. his pcp is dr. Doll from [facility]. plan labs xray abx admit. <Kenzie Forbes - Last Filed: 05/19/18 18:57> - HPI HPI: This patient is a 48 year old male with PMHx of DM CHF, CAD, dyslipidemia, who was sent to the ED by his milk and cream grader for left 5th toe amputation. He states that he had the wound 12 weeks ago. He was given a course of Vancomycin which he finished yesterday and diagnosed with osteomyelitis. Denies any fever, chills. [employer] Manager: Dr. Castro 05/19/18 18:59 <Barbara Jennings - Last Filed: 05/19/18 18:59>
--- NOTE | 2018-05-19 19:13 | PDOC ---
*Physical Exam - Vital Signs Last Vital Signs Temp Pulse Resp BP Pulse Ox 98.2 F 57 L 18 120/64 95 05/19/18 17:33 05/19/18 17:33 05/19/18 17:33 05/19/18 17:33 05/19/18 17:33 ED Treatment Course - LABORATORY CBC & Chemistry Diagram: 05/19/18 18:33 05/19/18 18:33 Medical Decision Making - Medical Decision Making 05/19/18 19:13 Pt signed out to me by Dr. Clarke, day team. The patient is a 48M with a chronic wound, sent by tax senior associate for amputation. Pending labs and admission. 05/19/18 20:[address] Delgadillo for admission. *DC/Admit/Observation/Transfer Diagnosis at time of Disposition: Osteomyelitis of foot, left, acute - Discharge Dispostion Condition at time of disposition: Guarded Decision to Admit order: Yes - Referrals Referrals: Amish Doll [Primary Care Provider] - - Patient Instructions - Post Discharge Activity
[2018-05-19 19:14] LABS: BASO % 0.7 % (0-2.0); HEMATOCRIT 32.4 % (35.4-49); HEMOGLOBIN 11.1 GM/dL (11.7-16.9); LYMPH % 20.7 % (8-40); MCH 26.7 pg (25.7-33.7); MCHC 34.1 g/dl (32.0-35.9); MEAN CELL VOLUME 78.1 fl (80-96); MEAN PLT VOLUME 10.1 fl (7.5-11.1); MONO % 6.7 % (3.8-10.2); NEUT % 70.9 % (42.8-82.8); PLATELET COUNT 255 K/MM3 (134-434); RBC 4.15 M/mm3 (4.00-5.60); RDW 14.7 % (11.9-15.9); WHITE BLOOD COUNT 10.9 K/mm3 (4.0-10.0)
[2018-05-19 19:53] LABS: ALBUMIN 3.1 g/dl (3.4-5.0); ALK PHOS 84 U/L (45-117); ANION GAP 9 MMOL/L (8-16); BILIRUBIN,TOTAL 0.4 mg/dL (0.2-1); BLOOD UREA NITROGEN 62 mg/dL (7-18); CALCIUM 8.2 mg/dL (8.5-10.1); CHLORIDE 108 mmol/L (98-107); CO2 24 mmol/L (21-32); CREATININE 1.8 mg/dL (0.55-1.3); GLUCOSE,RANDOM 63 mg/dL (74-106); N-TERMINAL BNP 714.9 pg/ml (5-125); POTASSIUM 4.6 mmol/L (3.5-5.1); SGOT/AST 40 U/L (15-37); SGPT/ALT 29 U/L (13-61); SODIUM 142 mmol/L (136-145)
--- NOTE | 2018-05-19 20:37 | PDOC ---
*Physical Exam - Vital Signs Last Vital Signs Temp Pulse Resp BP Pulse Ox 98.2 F 57 L 18 120/64 95 05/19/18 17:33 05/19/18 17:33 05/19/18 17:33 05/19/18 17:33 05/19/18 17:33 ED Treatment Course - LABORATORY CBC & Chemistry Diagram: 05/19/18 18:33 05/19/18 18:33 - ADDITIONAL ORDERS Additional order review: Laboratory Results 05/19/18 18:33 Sodium 142 Potassium 4.6 Chloride 108 H Carbon Dioxide 24 Anion Gap 9 BUN 62 H Creatinine 1.8 H Creat Clearance w eGFR 40.47 Random Glucose 63 L Calcium 8.2 L Total Bilirubin 0.4 AST 40 H ALT 29 Alkaline Phosphatase 84 Creatine Kinase 170 Troponin I 0.02 B-Natriuretic Peptide 714.9 H Total Protein 7.0 Albumin 3.1 L 05/19/18 18:33 RBC 4.15 MCV 78.1 L MCHC 34.1 RDW 14.7 MPV 10.1 D Neutrophils % 70.9 Lymphocytes % 20.7 Monocytes % 6.7 Eosinophils % 1.0 Basophils % 0.7 Medical Decision Making - Medical Decision Making 05/19/18 20:36 I received patient on signout, and his labs are normal. He will be admitted for abx continuation, as well as admission for amputation of the 5th toe. *DC/Admit/Observation/Transfer Diagnosis at time of Disposition: Osteomyelitis of foot, left, acute - Referrals Referrals: Amish Doll [Primary Care Provider] - - Patient Instructions - Post Discharge Activity
--- NOTE | 2018-05-19 21:03 | PN ---
Teaching Attending Note Name of Resident: Jone Dickson ATTENDING PHYSICIAN STATEMENT I saw and evaluated the patient. I reviewed the resident's note and discussed the case with the resident. I agree with the resident's findings and plan as documented. SUBJECTIVE: Patient is a 48 year old man with a history of IDDM, CAD x4 stents (recent 1.5 years ago), CHF, HLD, Penicillin allergy and HTN presents to the ER for admission for left 5th toe amputation per his lay out former Dr. Castro. The patient states he developed the wound approximately 12 weeks ago and does not know the events that led to the injury. He has been followed by Dr. Duarte who started etrapenem for 5 weeks. Currently, the patient is on day 8 of vancomycin. He was seen by his lay out former who stated the need for an amputation and the patient agreed. Previous xrays and MRI confirms presence of osteomyelitis in the area. Denies the following: fever, chills, nausea, vomiting , visual changes, chest pain, SOB, abdominal pain, dysuria, hematuria, neuropathy, diarrhea, and hematochezia. OBJECTIVE: Alert Vital Signs Period Temp Pulse Resp BP Sys/Anton Pulse Ox Last 24 Hr 98.2 F 57 18 120/64 95 HEENT: No Jaundice, eye redness or discharge, PERRLA, EOMI. Normocephalic, atraumatic. External ears are normal and hearing is grossly intact. No nasal discharge. Neck: Supple, nontender. No palpable adenopathy or thyromegaly. No JVD Chest: Good effort. Clear to auscultation and percussion. Heart: Regular. No S3, rub or murmur Abdomen: Not distended, soft, nontender and no HSM. No rebound or guarding. Normoactive bowel sounds. Ext: Peripheral pulses intact. No leg edema. Necrotic ulceration of left 5th toe in the lateral aspect with black gangrenous skin with edema on dorsum of feet - nonpitting and not tender. Skin: Warm and dry. No petechiae, rash or ecchymosis. Neuro: Alert. Oriented x3. CN 2-12 grossly intact. Sensation grossly intact in all four extremities and DTR are symmetric. Home Medications Medication Instructions Recorded Ascorbate Calcium [Vitamin C] 500 mg PO DAILY 03/28/18 Aspirin [ASA -] 81 mg PO DAILY 03/28/18 Atorvastatin Ca [Lipitor] 80 mg PO HS 03/28/18 Cholecalciferol (Vitamin D3) 1,000 unit PO DAILY 03/28/18 [Vitamin D3] Clopidogrel Bisulfate [Plavix] 75 mg PO DAILY 03/28/18 Cyanocobalamin [Vitamin B12 -] 1,000 mcg PO DAILY 03/28/18 Furosemide [Lasix] 80 mg PO AM 03/28/18 Insulin Glargine,Hum.rec.anlog 28 unit SQ HS 03/28/18 [Lantus] Losartan Potassium 25 mg PO DAILY 03/28/18 Metoprolol Succinate 100 mg PO DAILY 03/28/18 Tamsulosin HCl 0.4 mg PO DAILY 03/28/18 Vitamin B Complex 1,000 mg PO DAILY 03/28/18 Zinc 50 mg PO DAILY 03/28/18 Alcohol Antiseptic Pads [Alcohol 1 each TP ACHS #1 box 03/30/18 Prep Pads] Collagenase Clostridium Hist. 1 applic TP DAILY #1 tube 03/30/18 [Santyl -] Furosemide [Lasix -] 40 mg PO DAILY@1400 tablet 03/30/18 Furosemide [Lasix -] 80 mg PO DAILY@0700 tablet 03/30/18 Glipizide [Glucotrol -] 5 mg PO BID@0700,1630 #60 tablet 03/30/18 Insulin (Levemir) [Levemir Vial] 35 units SQ HS #0 units 03/30/18 Insulin Sliding Scale [Novolog 2 vial SQ ACHS #1 vial 03/30/18 Vial Sliding Scale -] Lancets [Lancets Ultra Thin] 1 each ACHS #50 each 03/30/18 Miscellaneous Medical Supply 1 each SQ ACHS #1 kit 03/30/18 [Glucometer Device] Miscellaneous Medical Supply 1 each SQ ASDIR #1 kit 03/30/18 [Glucometer Device] Miscellaneous Medical Supply 1 each SQ ACHS #1 box 03/30/18 [Glucometer Test Strips #100] Miscellaneous Medical Supply 1 each SQ ASDIR #1 box 03/30/18 [Glucometer Test Strips #100] Syringe and Needle,Insulin,1Ml 1 each ACHS #30 disp.syrin 03/30/18 [Advocate Syringes] Tamsulosin HCl [Flomax] 0.4 mg PO DAILY #30 cap.er.24h 03/30/18 Abnormal Lab Results 05/19/18 05/19/18 18:33 18:33 WBC 10.9 H Hgb 11.1 L Hct 32.4 L MCV 78.1 L Chloride 108 H BUN 62 H Creatinine 1.8 H Random Glucose 63 L Calcium 8.2 L AST 40 H B-Natriuretic Peptide 714.9 H Albumin 3.1 L ASSESSMENT AND PLAN: 1. Left 5th toe osteomyelitis - Will treat with Vancomycin IV and prepare for digit amputation. 2. DM - For now, we will hold the home diabetes drugs and implement sliding scale insulin regimen. Provide comprehensive diabetes care with patient teaching and counseling about the importance of euglycemia, eye care and foot care. 3. CKD - Unclear if he has had nephrologic work up. Will consult nephrology and avoid nephrotoxic agents such as NSAIDS, aminoglycosides, contrast dyes and certain Alternative medicine products. 4. Low MCV Anemia - Likely partly due to CKD. Will do basic anemia work up including serial stool guaiacs, reticulocyte count and iron studies. Would benefit from Procrit therapy once iron replete. Needs outpatient colonoscopy. 5. Obesity - Will provide patient all the necessary assistance, counseling and positive reinforcement to facilitate weight loss. Consult automotive starter repairer. 6. DVT prophylaxis - Heparin 5000u sq tid. 7. Advance directives - Full code
[2018-05-19] MEDS ORDERED: LACTATED RINGERS SOLUTION 1,000 ML IV SCH ×2 (22:45→23:42)
[2018-05-19] MEDS ORDERED: VANCOMYCIN 1,500 MG in DEXTROSE 5%-WATER - 500 ML IVPB ONE (22:54)
[2018-05-19] MEDS ORDERED: DEXTROSE 50%-WATER - 25 GM/50 ML VIAL IVPUSH ONE (22:56)
--- NOTE | 2018-05-19 22:56 | HP ---
CHIEF COMPLAINT: left toe ulcer PCP: HISTORY OF PRESENT ILLNESS: This is a 48 year old male with a history of IDDM, CAD x4 stents, CHF, HLD, and HTN who was sent to ER for admission by Dr. Castro for a left 5th toe amputation after failed antibiotic treatment for osteomyelitis. Patient denies fever, chills, decreased sensation, discharge. Does admit to increase swelling of left foot. Recent Travel: no PAST MEDICAL HISTORY: DM, CHF, CAD, HTN, HLD PAST SURGICAL HISTORY: s/p 4 stents Social History: Smoking:no Alcohol:no Drugs: no Family History: Allergies Penicillins Allergy (Verified 05/19/18 17:33) HOME MEDICATIONS: Home Medications Medication Instructions Recorded Ascorbate Calcium [Vitamin C] 500 mg PO DAILY 03/28/18 Aspirin [ASA -] 81 mg PO DAILY 03/28/18 Atorvastatin Ca [Lipitor] 80 mg PO HS 03/28/18 Cholecalciferol (Vitamin D3) 1,000 unit PO DAILY 03/28/18 [Vitamin D3] Clopidogrel Bisulfate [Plavix] 75 mg PO DAILY 03/28/18 Cyanocobalamin [Vitamin B12 -] 1,000 mcg PO DAILY 03/28/18 Furosemide [Lasix] 80 mg PO AM 03/28/18 Insulin Glargine,Hum.rec.anlog 28 unit SQ HS 03/28/18 [Lantus] Losartan Potassium 25 mg PO DAILY 03/28/18 Metoprolol Succinate 100 mg PO DAILY 03/28/18 Tamsulosin HCl 0.4 mg PO DAILY 03/28/18 Vitamin B Complex 1,000 mg PO DAILY 03/28/18 Zinc 50 mg PO DAILY 03/28/18 Alcohol Antiseptic Pads [Alcohol 1 each TP ACHS #1 box 03/30/18 Prep Pads] Collagenase Clostridium Hist. 1 applic TP DAILY #1 tube 03/30/18 [Santyl -] Furosemide [Lasix -] 40 mg PO DAILY@1400 tablet 03/30/18 Furosemide [Lasix -] 80 mg PO DAILY@0700 tablet 03/30/18 Glipizide [Glucotrol -] 5 mg PO BID@0700,1630 #60 tablet 03/30/18 Insulin (Levemir) [Levemir Vial] 35 units SQ HS #0 units 03/30/18 Insulin Sliding Scale [Novolog 2 vial SQ ACHS #1 vial 03/30/18 Vial Sliding Scale -] Lancets [Lancets Ultra Thin] 1 each ACHS #50 each 03/30/18 Miscellaneous Medical Supply 1 each SQ ACHS #1 kit 03/30/18 [Glucometer Device] Miscellaneous Medical Supply 1 each SQ ASDIR #1 kit 03/30/18 [Glucometer Device] Miscellaneous Medical Supply 1 each SQ ACHS #1 box 03/30/18 [Glucometer Test Strips #100] Miscellaneous Medical Supply 1 each SQ ASDIR #1 box 03/30/18 [Glucometer Test Strips #100] Syringe and Needle,Insulin,1Ml 1 each [facility] #30 disp.syrin 03/30/18 [Advocate Syringes] Tamsulosin HCl [Flomax] 0.4 mg PO DAILY #30 cap.er.24h 03/30/18 REVIEW OF SYSTEMS CONSTITUTIONAL: Absent: fever, chills, diaphoresis, generalized weakness, malaise, loss of appetite, weight change HEENT: Absent: rhinorrhea, nasal congestion, throat pain, throat swelling, difficulty swallowing, mouth swelling, ear pain, eye pain, visual changes CARDIOVASCULAR: Absent: chest pain, syncope, palpitations, irregular heart rate, lightheadedness , peripheral edema RESPIRATORY: Absent: cough, shortness of breath, dyspnea with exertion, orthopnea, wheezing, stridor, hemoptysis GASTROINTESTINAL: Absent: abdominal pain, abdominal distension, nausea, vomiting, diarrhea, constipation, melena, hematochezia GENITOURINARY: Absent: dysuria, frequency, urgency, hesitancy, hematuria, flank pain, genital pain MUSCULOSKELETAL: Positive: left foot swelling; ankle swelling Absent: myalgia, arthralgia, joint swelling, back pain, neck pain SKIN: Positive: open left 5th toe ulceration Absent: rash, itching, pallor HEMATOLOGIC/IMMUNOLOGIC: Absent: easy bleeding, easy bruising, lymphadenopathy, frequent infections ENDOCRINE: Absent: unexplained weight gain, unexplained weight loss, heat intolerance, cold intolerance NEUROLOGIC: Absent: headache, focal weakness or paresthesias, dizziness, unsteady gait, seizure, mental status changes, bladder or bowel incontinence PSYCHIATRIC: Absent: anxiety, depression, suicidal or homicidal ideation, hallucinations. PHYSICAL EXAMINATION Vital Signs - 24 hr 05/19/18 17:33 Temperature 98.2 F Pulse Rate 57 L Respiratory 18 Rate Blood Pressure 120/64 O2 Sat by Pulse 95 Oximetry (%) GENERAL: obese:Awake, alert, and fully oriented, in no acute distress. HEAD: Normal with no signs of trauma. NECK: Normal range of motion, supple without lymphadenopathy, JVD, or masses. LUNGS: Breath sounds equal, clear to auscultation bilaterally. No wheezes, and no crackles. No accessory muscle use. HEART: Regular rate and rhythm, normal S1 and S2 without murmur, rub or gallop. ABDOMEN: Soft, nontender, not distended, normoactive bowel sounds, no guarding, no rebound, no masses. No hepatomegaly or splenomegaly. MUSCULOSKELETAL: Normal range of motion at all joints. No bony deformities or tenderness. No CVA tenderness. UPPER EXTREMITIES: 2+ pulses, warm, well-perfused. No cyanosis. No clubbing. No peripheral edema. LOWER EXTREMITIES: 2+ pulses, warm, well-perfused. No calf tenderness. left foot swelling; left 5th toe with open ulceration, yellow discharge; with necrotic area; right first toe nail discoloration NEUROLOGICAL: Cranial nerves II-XII intact. Normal speech. Normal gait. PSYCHIATRIC: Cooperative. Good eye contact. Appropriate mood and affect. SKIN: Warm, dry, normal turgor, no rashes or lesions noted, normal capillary refill. see extremities Laboratory Results - last 24 hr 05/19/18 05/19/18 05/19/18 18:33 18:33 18:33 WBC 10.9 H RBC 4.15 Hgb 11.1 L Hct 32.4 L MCV 78.1 L MCH 26.7 MCHC 34.1 RDW 14.7 Plt Count 255 D MPV 10.1 D Absolute Neuts (auto) 7.7 Neutrophils % 70.9 Lymphocytes % 20.7 Monocytes % 6.7 Eosinophils % 1.0 Basophils % 0.7 Nucleated RBC % 0 Sodium 142 Potassium 4.6 Chloride 108 H Carbon Dioxide 24 Anion Gap 9 BUN 62 H Creatinine 1.8 H Creat Clearance w eGFR 40.47 Random Glucose 63 L Lactic Acid 0.7 Calcium 8.2 L Total Bilirubin 0.4 AST 40 H ALT 29 Alkaline Phosphatase 84 Creatine Kinase 170 Creatine Kinase Index 3.2 CK-MB (CK-2) 5.6 H Troponin I 0.02 B-Natriuretic Peptide 714.9 H Total Protein 7.0 Albumin 3.1 L Current Medications Generic Name Dose Route Start Last Admin Trade Name Kennethq PRN Reason Stop Dose Admin Atorvastatin Calcium 80 mg 05/20/18 22:00 Lipitor - PO HS [facility] Cyanocobalamin 1,000 mcg 05/20/18 10:00 Vitamin B12 - PO DAILY [facility] Furosemide 40 mg 05/20/18 14:00 Lasix - PO DAILY@1400 [facility] Furosemide 80 mg 05/20/18 07:00 Lasix - PO DAILY@0700 [facility] Lactated Ringer's 1,000 mls @ 83 mls/hr 05/19/18 22:45 05/19/18 23:28 Lactated Ringers Solution IV 83 mls/hr ASDIR KANG Administration Vancomycin HCl 1,500 mg/ 500 mls @ 250 mls/hr 05/20/18 22:52 Dextrose IVPB 05/21/18 00:51 ONCE ONE Protocol Vancomycin HCl 1,500 mg/ 500 mls @ 250 mls/hr 05/19/18 22:54 05/19/18 23:29 Dextrose IVPB 05/20/18 00:53 250 mls/hr ONCE ONE Administration Protocol Insulin Aspart 1 vial 05/20/18 07:00 Novolog Vial Sliding Scale - SQ ACHS [facility] Protocol Insulin Detemir 35 units 05/20/18 22:00 Levemir Vial SQ HS [facility] Losartan Potassium 25 mg 05/20/18 10:00 Cozaar - PO DAILY [facility] Metoprolol Succinate 100 mg 05/20/18 10:00 Toprol Xl - PO DAILY [facility] Tamsulosin HCl 0.4 mg 05/20/18 08:30 Flomax - PO DAILY@0830 [facility] ASSESSMENT/PLAN: This is a 48 year old male with a history of DM, CHF, CAD, osteomyelitis, who presents with left 5th toe diabetic foot ulcer that failued IV antibiotic, with chronic osteomyelitis. Sent over from general service technician for amputation. #left 5th toe ulceration/osteomyelitis; -failed treatment with ertapenam; had penicillin allergy -IV vancomcin -f/u foot xray -esr, crp -not septic -npo for amputation -IVF -podiatry and ID consulted -cxr , ecg -patient is Class IV risk; 11% risk of major cardiac event ; - METS >4 #CKD: decreased from baseline -need to f/u to see if patient had full renal work up as outpatient #CHF #CAD #HTN #HLD -continue home meds; except for asa and plavix due to surgery -hold po diabetic medications- start insulin sliding scale GI: na VTE; pending surgery; re evaluate vte risk Disposition: med surg
[2018-05-19] MEDS ORDERED: VANCOMYCIN 1 GRAM (PRE-DOCKED) 1,000 MG/250 ML BAG IVPB ONE (23:19)
[2018-05-19] MEDS ORDERED: DEXTROSE 50%-WATER 25 GM/50 ML DISP.SYRIN ONE (23:19)
[2018-05-20] MEDS: INSULIN SLIDING SCALE (NOVOLOG) 1 VIAL SQ SCH ×4 (06:03→21:26)
[2018-05-20] MEDS: FUROSEMIDE 40 MG TABLET (FP) PO SCH ×2 (06:04→13:48)
[2018-05-20] MEDS ORDERED: FUROSEMIDE 40 MG TABLET (FP) PO SCH (07:00)
[2018-05-20 08:13] LABS: BASO % 0.4 % (0-2.0); EOS % 1.1 % (0-4.5); HEMATOCRIT 31.6 % (35.4-49); LYMPH % 17.9 % (8-40); MCH 25.3 pg (25.7-33.7); MCHC 31.8 g/dl (32.0-35.9); MEAN CELL VOLUME 79.6 fl (80-96); MEAN PLT VOLUME 9.1 fl (7.5-11.1); MONO % 7.3 % (3.8-10.2); NEUT % 73.3 % (42.8-82.8); PLATELET COUNT 206 K/MM3 (134-434); RBC 3.97 M/mm3 (4.00-5.60); WHITE BLOOD COUNT 7.6 K/mm3 (4.0-10.0)
[2018-05-20 08:52] LABS: INR 1.09 (0.83-1.09); PROTHROMBIN TIME (PATIENT) 12.9 SEC (9.7-13.0)
[2018-05-20 09:38] LABS: ALBUMIN 2.8 g/dl (3.4-5.0); ALK PHOS 80 U/L (45-117); ANION GAP 10 MMOL/L (8-16); BILIRUBIN,TOTAL 0.5 mg/dL (0.2-1); BLOOD UREA NITROGEN 59 mg/dL (7-18); CALCIUM 7.8 mg/dL (8.5-10.1); CHLORIDE 110 mmol/L (98-107); CO2 23 mmol/L (21-32); CREATININE 1.7 mg/dL (0.55-1.3); GLUCOSE,RANDOM 149 mg/dL (74-106); MAGNESIUM 2.1 mg/dL (1.8-2.4); PHOSPHOROUS 4.4 mg/dL (2.5-4.9); POTASSIUM 4.2 mmol/L (3.5-5.1); SGOT/AST 14 U/L (15-37); SGPT/ALT 22 U/L (13-61); SODIUM 143 mmol/L (136-145); TOT PROT 6.1 g/dl (6.4-8.2)
--- NOTE | 2018-05-20 11:38 | CON.ID ---
Consult - History of Present Illness History of Present Illness: 48 y.o. male with PMH of CAD s/p stents, CHF, IDDM, HLD, and HTN presents with Lt 5th toe persistent wound. Pt sustained an injury to the site 12 wks ago and previous Xrays/MRIs were suggestive of OM. Pt has been on Ertapenem but pt referred to the hospital for possible amputation. Pt noted to have mild leukocytosis but has been afebrile. Reports having sensation in the Lt foot but denies pain. - History Source History Provided By: Patient Limitations to Obtaining History: No Limitations - Past Medical History Cardio/Vascular: Yes: CAD, CHF, Hyperlipdemia Renal/: Yes: Renal Inusuff Infectious Disease: Yes: Other (osteomyelitis 5th toe left) Endocrine: Yes: Diabetes Mellitus - Past Surgical History Past Surgical History: Yes: None - Alcohol/Substance Use Hx Alcohol Use: No History of Substance Use: reports: None - Smoking History Smoking history: Never smoked Have you smoked in the past 12 months: No - Social History ADL: Independent History of Recent Travel: No Home Medications - Allergies Allergies/Adverse Reactions: Allergies Allergy/AdvReac Type Severity Reaction Status Date / Time Penicillins Allergy Verified 05/19/18 17:33 - Home Medications Home Medications: Ambulatory Orders Ascorbate Calcium [Vitamin C] 500 mg PO DAILY 03/28/18 Aspirin [ASA -] 81 mg PO DAILY 03/28/18 Atorvastatin Ca [Lipitor] 80 mg PO HS 03/28/18 Cholecalciferol (Vitamin D3) [Vitamin D3] 1,000 unit PO DAILY 03/28/18 Clopidogrel Bisulfate [Plavix] 75 mg PO DAILY 03/28/18 Cyanocobalamin [Vitamin B12 -] 1,000 mcg PO DAILY 03/28/18 Furosemide [Lasix] 80 mg PO AM 03/28/18 Insulin Glargine,Hum.rec.anlog [Lantus] 28 unit SQ HS 03/28/18 Losartan Potassium 25 mg PO DAILY 03/28/18 Metoprolol Succinate 100 mg PO DAILY 03/28/18 Tamsulosin HCl 0.4 mg PO DAILY 03/28/18 Vitamin B Complex 1,000 mg PO DAILY 03/28/18 Zinc 50 mg PO DAILY 03/28/18 Alcohol Antiseptic Pads [Alcohol Prep Pads] 1 each TP ACHS #1 box 03/30/18 Collagenase Clostridium Hist. [Santyl -] 1 applic TP DAILY #1 tube 03/30/18 Furosemide [Lasix -] 40 mg PO DAILY@1400 tablet 03/30/18 Furosemide [Lasix -] 80 mg PO DAILY@0700 tablet 03/30/18 Glipizide [Glucotrol -] 5 mg PO BID@0700,1630 #60 tablet 03/30/18 Insulin (Levemir) [Levemir Vial] 35 units SQ HS #0 units 03/30/18 Insulin Sliding Scale [Novolog Vial Sliding Scale -] 2 vial SQ ACHS #1 vial Lancets [Lancets Ultra Thin] 1 each ACHS #50 each 03/30/18 Miscellaneous Medical Supply [Glucometer Device] 1 each SQ ACHS #1 kit 03/30/18 Miscellaneous Medical Supply [Glucometer Device] 1 each SQ ASDIR #1 kit [employer]isc[employer] Supply [Glucometer Test Strips #100] 1 each SQ ACHS #1 box 03/30/18 Miscellaneous Medical Supply [Glucometer Test Strips #100] 1 each SQ ASDIR #1 box 03/30/18 Syringe and Needle,Insulin,1Ml [Advocate Syringes] 1 each ACHS #30 disp.syrin 03/30/18 Tamsulosin HCl [Flomax] 0.4 mg PO DAILY #30 cap.er.24h 03/30/18 Family Disease History - Family Disease History Family Disease History: Diabetes: Father, Mother (Breast CA), CA: Mother Review of Systems - Review of Systems Constitutional: reports: No Symptoms. denies: Chills, Diaphoresis, Fever, Lethargy, Loss of Appetite, Malaise, Night Sweats, Unintentional Wgt. Loss, Weakness, Other Eyes: reports: No Symptoms. denies: Blind Spots, Blurred Vision, Double Vision , Eye Pain, Floaters, Photophobia, Recent Change in Vision, Other HENT: reports: No Symptoms. denies: Difficult Swallowing, Ear Discharge, Ear Pain, Epistaxis, Gingival Bleeding, Hearing Loss, Mouth Swelling, Nasal Congestion, Ocular Prosthesis, Throat Pain, Toothache, Ringing in Ears, Other Neck: reports: No Symptoms. denies: Decreased ROM, Lumps, Pain on Movement, Stiffness, Swollen Glands, Tenderness, Other Cardiovascular: reports: No Symptoms. denies: Chest Pain, Edema, Palpitations, Shortness of Breath, Other Respiratory: reports: No Symptoms. denies: Cough, Exercise Intolerance, Hemoptysis, Orthopnea, PND, Snoring, SOB, SOB on Exertion, Wheezing, Other Gastrointestinal: reports: No Symptoms. denies: Abdominal Pain, Bloating, Constipation, Diarrhea, Dysphagia, Indigestion, Melena, Nausea, Rectal Bleeding , Vomiting, Vomiting Blood, Other Genitourinary: reports: No Symptoms. denies: Burning, Discharge, Dysuria, Flank Pain, Frequency, Hematuria, Incontinence, Lesions, Menses, Pain, Testicular Mass, Testicular Pain, Testicular Swelling, Urgency, Vaginal Bleeding , Other Breasts: reports: No Symptoms Reported. denies: See HPI, Breast Implants, Discharge from Nipple, Lumps, Pain, Skin Changes, Other Musculoskeletal: reports: No Symptoms. denies: Back Pain, Crepitus, Decreased ROM, Extremity Pain, Joint Pain, Joint Swelling, Muscle Pain, Muscle Cramps, Muscle Weakness, Other Integumentary: reports: No Symptoms. denies: Blister, Bruising, Change in Color , Eczema, Erythema, Incision, Lesions, Lump, Pallor, Pruritis, Rash, Wound, Other Neurological: reports: No Symptoms. denies: Change in LOC, Change in Speech, Confusion, Dizziness, Headache, Incoordination, Numbness, Parasthesia, Pre- Existing Deficit, Seizure, Syncope, Tremors, Unsteady Gait, Weakness, Other Endocrine: reports: No Symptoms. denies: Excessive Sweating, Flushing, Increased Hunger, Increased Thirst, Intolerance to Cold, Intolerance to Heat, Unexplained Weight Gain, Unexplained Weight Loss, Other Hematology/Lymphatic: reports: No Symptoms. denies: Easily Bruised, Excessive Bleeding, Swollen Glands, Other Psychiatric: reports: No Symptoms. denies: Altered Sleep Pattern, Anxiety, Depression, Hallucinations, Panic, Paranoia, Suicidal, Other Physical Exam Vital Signs: Vital Signs Temperature 97.4 F L 05/20/18 06:00 Pulse Rate 64 05/20/18 06:00 Respiratory Rate 20 05/20/18 06:00 Blood Pressure 130/60 05/20/18 06:00 O2 Sat by Pulse Oximetry (%) 95 05/19/18 23:00 Constitutional: Yes: No Distress Eyes: Yes: Conjunctiva Clear HENT: Yes: Atraumatic Neck: Yes: Supple, Trachea Midline Cardiovascular: Yes: Regular Rate and Rhythm Respiratory: Yes: CTA Bilaterally Gastrointestinal: Yes: Normal Bowel Sounds, Soft Extremities: Yes: Erythema (Lt 5th toe) Wound/Incision: Yes: Other (Lt 5th toe erythema/discoloration with gangrenous tip) Neurological: Yes: Alert Labs: CBC, BMP 05/20/18 07:30 05/20/18 07:30 Imaging - Results X-ray: Report Reviewed Problem List - Problems (1) Osteomyelitis of foot, left, acute Code(s): M86.172 - OTHER ACUTE OSTEOMYELITIS, LEFT ANKLE AND FOOT (2) CKD (chronic kidney disease) Code(s): N18.9 - CHRONIC KIDNEY DISEASE, UNSPECIFIED (3) Diabetes Code(s): E11.9 - TYPE 2 DIABETES MELLITUS WITHOUT COMPLICATIONS Qualifiers: Diabetes mellitus type: type 2 Diabetes mellitus complication status: without complication Qualified Code(s): E11.9 - Type 2 diabetes mellitus without complications (4) Leukocytosis Code(s): D72.829 - ELEVATED WHITE BLOOD CELL COUNT, UNSPECIFIED Qualifiers: Leukocytosis type: other Qualified Code(s): D72.828 - Other elevated white blood cell count Assessment/Plan 48 y.o. male with CAD s/p stents, CHF, DM, HLD, HTN presenting with persistent Lt 5th toe infected wound with imaging c/w OM on Ertapenem Lt 5th toe OM DM CKD CAD s/p stent HLD HTN -- continue Vancomycin with close renal function monitoring, follow Vancomycin levels -- Podiatry f/u, for possible amputation -- tight glycemic control
[2018-05-20] MEDS: LOSARTAN POTASSIUM 25 MG TABLET PO SCH (11:45)
[2018-05-20] MEDS: CYANOCOBALAMIN 1,000 MCG TABLET (FP) PO SCH (11:46)
[2018-05-20] MEDS: TAMSULOSIN HCL 0.4 MG CAP PO SCH (11:46)
--- NOTE | 2018-05-20 13:08 | CONSULT ---
Consult Consult Specialty:: Podiatry Reason for Consultation:: om and gangarene 5th toe left - History of Present Illness Chief Complaint: om gangarene 5th toe left - History Source History Provided By: Medical Record - Past Medical History Cardio/Vascular: Yes: CAD, CHF, Hyperlipdemia Renal/: Yes: Renal Inusuff Infectious Disease: Yes: Other (osteomyelitis 5th toe left) Endocrine: Yes: Diabetes Mellitus - Past Surgical History Past Surgical History: Yes: None - Alcohol/Substance Use Hx Alcohol Use: No History of Substance Use: reports: None - Smoking History Smoking history: Never smoked Have you smoked in the past 12 months: No - Social History ADL: Independent History of Recent Travel: No Home Medications - Allergies Allergies/Adverse Reactions: Allergies Allergy/AdvReac Type Severity Reaction Status Date / Time Penicillins Allergy Verified 05/19/18 17:33 - Home Medications Home Medications: Ambulatory Orders Ascorbate Calcium [Vitamin C] 500 mg PO DAILY 03/28/18 Aspirin [ASA -] 81 mg PO DAILY 03/28/18 Atorvastatin Ca [Lipitor] 80 mg PO HS 03/28/18 Cholecalciferol (Vitamin D3) [Vitamin D3] 1,000 unit PO DAILY 03/28/18 Clopidogrel Bisulfate [Plavix] 75 mg PO DAILY 03/28/18 Cyanocobalamin [Vitamin B12 -] 1,000 mcg PO DAILY 03/28/18 Furosemide [Lasix] 80 mg PO AM 03/28/18 Insulin Glargine,Hum.rec.anlog [Lantus] 28 unit SQ HS 03/28/18 Losartan Potassium 25 mg PO DAILY 03/28/18 Metoprolol Succinate 100 mg PO DAILY 03/28/18 Tamsulosin HCl 0.4 mg PO DAILY 03/28/18 Vitamin B Complex 1,000 mg PO DAILY 03/28/18 Zinc 50 mg PO DAILY 03/28/18 Alcohol Antiseptic Pads [Alcohol Prep Pads] 1 each TP ACHS #1 box 03/30/18 Collagenase Clostridium Hist. [Santyl -] 1 applic TP DAILY #1 tube 03/30/18 Furosemide [Lasix -] 40 mg PO DAILY@1400 tablet 03/30/18 Furosemide [Lasix -] 80 mg PO DAILY@0700 tablet 03/30/18 Glipizide [Glucotrol -] 5 mg PO BID@0700,1630 #60 tablet 03/30/18 Insulin (Levemir) [Levemir Vial] 35 units SQ HS #0 units 03/30/18 Insulin Sliding Scale [Novolog Vial Sliding Scale -] 2 vial SQ ACHS #1 vial Lancets [Lancets Ultra Thin] 1 each MC ACHS #50 each 03/30/18 Miscellaneous Medical Supply [Glucometer Device] 1 each SQ ACHS #1 kit 03/30/18 Miscellaneous Medical Supply [Glucometer Device] 1 each SQ ASDIR #1 kit [employer]isc[employer] [Glucometer Test Strips #100] 1 each SQ ACHS #1 box 03/30/18 Miscellaneous Medical Supply [Glucometer Test Strips #100] 1 each SQ ASDIR #1 box 03/30/18 Syringe and Needle,Insulin,1Ml [Advocate Syringes] 1 each ACHS #30 disp.syrin 03/30/18 Tamsulosin HCl [Flomax] 0.4 mg PO DAILY #30 cap.er.24h 03/30/18 Family Disease History - Family Disease History Family Disease History: Diabetes: Father, Mother (Breast CA), CA: Mother Physical Exam Vital Signs: Vital Signs Temperature 97.4 F L 05/20/18 06:00 Pulse Rate 64 05/20/18 06:00 Respiratory Rate 20 05/20/18 06:00 Blood Pressure 130/60 05/20/18 06:00 O2 Sat by Pulse Oximetry (%) 95 05/19/18 23:00 Extremities: Yes: Other (om and gangarene 5th toe left,) Labs: CBC, BMP 05/20/18 07:30 05/20/18 07:30 Assessment/Plan om gangarene 5th toe left Vascular consult. Betadine dressing change. Patient agreeable to amputation as he has already tried conservative measures. Will schedule for Tuesday. Medicine to maximize for procedure. Discussed with attending Dr. Marina. MRI ordered. Abx as per ID. Son presen throughout visit.
--- NOTE | 2018-05-20 15:03 | PN ---
Physical Exam: SUBJECTIVE: Patient seen and examined Patient is feeling better, was on IV ertapenem for OSteo but with no improvement. OBJECTIVE: Initial Vital Signs Temp Pulse Resp BP Pulse Ox 98.2 F 57 L 18 120/64 95 05/19/18 17:33 05/19/18 17:33 05/19/18 17:33 05/19/18 17:33 05/19/18 17:33 Vital Signs Temperature 97.4 F L 05/20/18 06:00 Pulse Rate 64 05/20/18 06:00 Respiratory Rate 20 05/20/18 06:00 Blood Pressure 130/60 05/20/18 06:00 O2 Sat by Pulse Oximetry (%) 95 05/19/18 23:00 GENERAL: The patient is awake, alert, and fully oriented, in no acute distress. HEAD: Normal with no signs of trauma. EYES: PERRL, extraocular movements intact, sclera anicteric, conjunctiva clear. ENT: Ears normal, oropharynx clear without exudates, moist mucous membranes. NECK: Trachea midline, full range of motion, supple. LUNGS: Breath sounds equal, clear to auscultation bilaterally, no wheezes, no crackles, no accessory muscle use. HEART: Regular rate and rhythm, S1, S2 without murmur, rub or gallop. ABDOMEN: Soft, nontender, nondistended, normoactive bowel sounds, no guarding, no rebound, no hepatosplenomegaly, no masses. EXTREMITIES: 2+ pulses, warm, no edema. left foot swelling; left 5th toe with open ulceration, positive for discharge; with necrotic area. NEUROLOGICAL: Cranial nerves II through XII grossly intact. Normal speech, gait not observed. PSYCH: Normal mood, normal affect. SKIN: Warm, dry, normal turgor, no rashes or lesions noted CBCD WBC 7.6 K/mm3 (4.0-10.0) 05/20/18 07:30 RBC 3.97 M/mm3 (4.00-5.60) L 05/20/18 07:30 Hgb 10.0 GM/dL (11.7-16.9) L 05/20/18 07:30 Hct 31.6 % (35.4-49) L 05/20/18 07:30 MCV 79.6 fl (80-96) L 05/20/18 07:30 MCHC 31.8 g/dl (32.0-35.9) L 05/20/18 07:30 RDW 14.0 % (11.9-15.9) 05/20/18 07:30 Plt Count 206 K/MM3 (134-434) 05/20/18 07:30 MPV 9.1 fl (7.5-11.1) 05/20/18 07:30 CMP Sodium 143 mmol/L (136-145) 05/20/18 07:30 Potassium 4.2 mmol/L (3.5-5.1) 05/20/18 07:30 Chloride 110 mmol/L (98-107) H 05/20/18 07:30 Carbon Dioxide 23 mmol/L (21-32) 05/20/18 07:30 Anion Gap 10 MMOL/L (8-16) 05/20/18 07:30 BUN 59 mg/dL (7-18) H 05/20/18 07:30 Creatinine 1.7 mg/dL (0.55-1.3) H 05/20/18 07:30 Creat Clearance w eGFR 43.23 (>60) 05/20/18 07:30 Random Glucose 149 mg/dL (74-106) H 05/20/18 07:30 Calcium 7.8 mg/dL (8.5-10.1) L 05/20/18 07:30 Total Bilirubin 0.5 mg/dL (0.2-1) 05/20/18 07:30 AST 14 U/L (15-37) L 05/20/18 07:30 ALT 22 U/L (13-61) 05/20/18 07:30 Alkaline Phosphatase 80 U/L (45-117) 05/20/18 07:30 Total Protein 6.1 g/dl (6.4-8.2) L 05/20/18 07:30 Albumin 2.8 g/dl (3.4-5.0) L 05/20/18 07:30 CARDIAC ENZYMES Creatine Kinase 170 IU/L (26-308) 05/19/18 18:33 Troponin I 0.02 ng/ml (0.00-0.05) 05/19/18 18:33 Active Medications Generic Name Dose Route Start Last Admin Trade Name Freq PRN Reason Stop Dose Admin Atorvastatin Calcium 80 mg 05/20/18 22:00 Lipitor - PO HS [facility] Cyanocobalamin 1,000 mcg 05/20/18 10:00 05/20/18 11:46 Vitamin B12 - PO 1,000 mcg DAILY [facility] Administration Furosemide 40 mg 05/20/18 14:00 05/20/18 13:48 Lasix - PO 40 mg DAILY@1400 [facility] Administration Furosemide 80 mg 05/20/18 07:00 05/20/18 06:04 Lasix - PO 80 mg DAILY@0700 [facility] Administration Lactated Ringer's 1,000 mls @ 42 mls/hr 05/19/18 23:42 05/19/18 23:48 Lactated Ringers Solution IV 05/20/18 22:34 42 mls/hr ASDIR [facility] Administration Vancomycin HCl 1,000 mg in 250 mls @ 200 mls/hr 05/20/18 23:45 Vancomycin (Pre-Docked) IVPB Q24H [facility] Protocol Insulin Aspart 1 vial 05/20/18 07:00 05/20/18 12:10 Novolog Vial Sliding Scale - SQ Not Given ACHS [facility] Protocol Insulin Detemir 35 units 05/20/18 22:00 Levemir Vial SQ [facility] Losartan Potassium 25 mg 05/20/18 10:00 05/20/18 11:45 Cozaar - PO 25 mg DAILY [facility] Administration Metoprolol Succinate 100 mg 05/20/18 10:00 05/20/18 11:45 Toprol Xl - PO 100 mg DAILY [facility] Administration Tamsulosin HCl 0.4 mg 05/20/18 08:30 05/20/18 11:46 Flomax - PO 0.4 mg DAILY@0830 [facility] Administration Home Medications Medication Instructions Recorded Ascorbate Calcium [Vitamin C] 500 mg PO DAILY 03/28/18 Aspirin [ASA -] 81 mg PO DAILY 03/28/18 Atorvastatin Ca [Lipitor] 80 mg PO HS 03/28/18 Cholecalciferol (Vitamin D3) 1,000 unit PO DAILY 03/28/18 [Vitamin D3] Clopidogrel Bisulfate [Plavix] 75 mg PO DAILY 03/28/18 Cyanocobalamin [Vitamin B12 -] 1,000 mcg PO DAILY 03/28/18 Furosemide [Lasix] 80 mg PO AM 03/28/18 Insulin Glargine,Hum.rec.anlog 28 unit SQ HS 03/28/18 [Lantus] Losartan Potassium 25 mg PO DAILY 03/28/18 Metoprolol Succinate 100 mg PO DAILY 03/28/18 Tamsulosin HCl 0.4 mg PO DAILY 03/28/18 Vitamin B Complex 1,000 mg PO DAILY 03/28/18 Zinc 50 mg PO DAILY 03/28/18 Alcohol Antiseptic Pads [Alcohol 1 each TP ACHS #1 box 03/30/18 Prep Pads] Collagenase Clostridium Hist. 1 applic TP DAILY #1 tube 03/30/18 [Santyl -] Furosemide [Lasix -] 40 mg PO DAILY@1400 tablet 03/30/18 Furosemide [Lasix -] 80 mg PO DAILY@0700 tablet 03/30/18 Glipizide [Glucotrol -] 5 mg PO BID@0700,1630 #60 tablet 03/30/18 Insulin (Levemir) [Levemir Vial] 35 units SQ HS #0 units 03/30/18 Insulin Sliding Scale [Novolog 2 vial SQ ACHS #1 vial 03/30/18 Vial Sliding Scale -] Lancets [Lancets Ultra Thin] 1 each ACHS #50 each 03/30/18 Miscellaneous Medical Supply 1 each SQ ACHS #1 kit 03/30/18 [Glucometer Device] Miscellaneous Medical Supply 1 each SQ ASDIR #1 kit 03/30/18 [Glucometer Device] Miscellaneous Medical Supply 1 each SQ ACHS #1 box 03/30/18 [Glucometer Test Strips #100] Miscellaneous Medical Supply 1 each SQ ASDIR #1 box 03/30/18 [Glucometer Test Strips #100] Syringe and Needle,Insulin,1Ml 1 each ACHS #30 disp.syrin 03/30/18 [Advocate Syringes] Tamsulosin HCl [Flomax] 0.4 mg PO DAILY #30 cap.er.24h 03/30/18 ASSESSMENT/PLAN: This is a 48 year old male with a history of DM, CHF,HTN, CAD s/p stents , osteomyelitis, who presents with left 5th toe diabetic foot ulcer c/w OM s/p on Ertapenem. #left 5th toe osteomyelitis: was on IV ertapenam;, started Vancomycin as per ID , follow kidney function closely Podiatry consult appreciated for possible amputation #chronic kidney failure: monitor kidney function #T2DM on diabetic diet , sliding scale. hold po diabetic medications- start insulin sliding scale, tight glycemic control #CHF continue home meds. #CAD on aspirin and Plavix but it's on hold now, patient had the stents placed 1.5 yrs ago, cardio consult . #HTN continue home meds. #HLD continue Lipitor DVt px: heparin sq Visit type - Emergency Visit Emergency Visit: Yes ED Registration Date: 05/19/18 Care time: The patient presented to the Emergency Department on the above date and was hospitalized for further evaluation of their emergent condition. - New Patient This patient is new to me today: Yes Date on this admission: 05/20/18 - Critical Care Critical Care patient: No - Discharge Referral Referred to [facility] No
--- NOTE | 2018-05-20 21:23 | EKG ---
Test Reason : Blood Pressure : / mmHG Vent. Rate : 058 BPM Atrial Rate : 058 BPM P-R Int : 158 ms QRS Dur : 108 ms QT Int : 462 ms P-R-T Axes : 048 -04 043 degrees QTc Int : 453 ms SINUS BRADYCARDIA INCOMPLETE RIGHT BUNDLE BRANCH BLOCK BORDERLINE ECG WHEN COMPARED WITH ECG OF 30-AUG-2015 18:36, NO SIGNIFICANT CHANGE WAS FOUND Confirmed by MONTANA SHARMA MD ([id number]) on 05/20/2018 9:22:29 PM Referred By: Confirmed By:MONTANA SHARMA MD
[2018-05-20] MEDS: ATORVASTATIN CA 80 MG TABLET (FP) PO SCH (21:26)
[2018-05-20] MEDS: INSULIN (LEVEMIR) 100 UNITS/ML UNITS SQ SCH (21:27)
[2018-05-20] MEDS ORDERED: VANCOMYCIN 1,500 MG in DEXTROSE 5%-WATER - 500 ML IVPB ONE (22:52)
[2018-05-20] MEDS: VANCOMYCIN 1 GRAM (PRE-DOCKED) 1,000 MG/250 ML BAG IVPB SCH (23:53)
[2018-05-21] MEDS: FUROSEMIDE 40 MG TABLET (FP) PO SCH ×2 (06:07→13:48)
[2018-05-21] MEDS: INSULIN SLIDING SCALE (NOVOLOG) 1 VIAL SQ SCH ×4 (06:08→21:21)
[2018-05-21] MEDS: TAMSULOSIN HCL 0.4 MG CAP PO SCH (07:51)
[2018-05-21 08:05] LABS: SERUM IRON SATURATION 15 % (15-55); TOTAL IRON BINDING CAPACITY 255 ug/dL (250-450); UIBC 217 ug/dL (111-343)
[2018-05-21 08:09] LABS: HEMATOCRIT 32.3 % (35.4-49); HEMOGLOBIN 10.1 GM/dL (11.7-16.9); MCH 24.9 pg (25.7-33.7); MCHC 31.4 g/dl (32.0-35.9); MEAN CELL VOLUME 79.3 fl (80-96); MEAN PLT VOLUME 9.6 fl (7.5-11.1); PLATELET COUNT 208 K/MM3 (134-434); RBC 4.06 M/mm3 (4.00-5.60); RDW 14.4 % (11.9-15.9); WHITE BLOOD COUNT 8.2 K/mm3 (4.0-10.0)
--- NOTE | 2018-05-21 08:23 | PN ---
Teaching Attending Note Name of Resident: Charlotte Chaz ATTENDING PHYSICIAN STATEMENT I saw and evaluated the patient. I reviewed the resident's note and discussed the case with the resident. I agree with the resident's findings and plan as documented. SUBJECTIVE: Patient has no new complains. OBJECTIVE: Vital Signs Temperature 98 F 05/21/18 05:36 Pulse Rate 72 05/21/18 05:36 Respiratory Rate 20 05/21/18 05:36 Blood Pressure 120/78 05/21/18 05:36 O2 Sat by Pulse Oximetry (%) 96 05/20/18 21:00 GENERAL: The patient is awake, alert, and fully oriented, in no acute distress. HEAD: Normal with no signs of trauma. EYES: PERRL, extraocular movements intact, sclera anicteric, conjunctiva clear. ENT: Ears normal, oropharynx clear without exudates, moist mucous membranes. NECK: Trachea midline, full range of motion, supple. LUNGS: Breath sounds equal, clear to auscultation bilaterally, no wheezes, no crackles, no accessory muscle use. HEART: Regular rate and rhythm, S1, S2 without murmur, rub or gallop. ABDOMEN: Soft, nontender, nondistended, normoactive bowel sounds, no guarding, no rebound, no hepatosplenomegaly, no masses. EXTREMITIES: 2+ pulses, warm, no edema. left foot swelling; left 5th toe with open ulceration, positive for discharge; with necrotic area. NEUROLOGICAL: Cranial nerves II through XII grossly intact. Normal speech, gait not observed. PSYCH: Normal mood, normal affect. SKIN: Warm, dry, normal turgor, no rashes or lesions noted CBCD WBC 7.6 K/mm3 (4.0-10.0) 05/20/18 07:30 RBC 3.97 M/mm3 (4.00-5.60) L 05/20/18 07:30 Hgb 10.0 GM/dL (11.7-16.9) L 05/20/18 07:30 Hct 31.6 % (35.4-49) L 05/20/18 07:30 MCV 79.6 fl (80-96) L 05/20/18 07:30 MCHC 31.8 g/dl (32.0-35.9) L 05/20/18 07:30 RDW 14.0 % (11.9-15.9) 05/20/18 07:30 Plt Count 206 K/MM3 (134-434) 05/20/18 07:30 MPV 9.1 fl (7.5-11.1) 05/20/18 07:30 CMP Sodium 143 mmol/L (136-145) 05/20/18 07:30 Potassium 4.2 mmol/L (3.5-5.1) 05/20/18 07:30 Chloride 110 mmol/L (98-107) H 05/20/18 07:30 Carbon Dioxide 23 mmol/L (21-32) 05/20/18 07:30 Anion Gap 10 MMOL/L (8-16) 05/20/18 07:30 BUN 59 mg/dL (7-18) H 05/20/18 07:30 Creatinine 1.7 mg/dL (0.55-1.3) H 05/20/18 07:30 Creat Clearance w eGFR 43.23 (>60) 05/20/18 07:30 Random Glucose 149 mg/dL (74-106) H 05/20/18 07:30 Calcium 7.8 mg/dL (8.5-10.1) L 05/20/18 07:30 Total Bilirubin 0.5 mg/dL (0.2-1) 05/20/18 07:30 AST 14 U/L (15-37) L 05/20/18 07:30 ALT 22 U/L (13-61) 05/20/18 07:30 Alkaline Phosphatase 80 U/L (45-117) 05/20/18 07:30 Total Protein 6.1 g/dl (6.4-8.2) L 05/20/18 07:30 Albumin 2.8 g/dl (3.4-5.0) L 05/20/18 07:30 CARDIAC ENZYMES Creatine Kinase 170 IU/L (26-308) 05/19/18 18:33 Troponin I 0.02 ng/ml (0.00-0.05) 05/19/18 18:33 Current Medications Generic Name Dose Route Start Last Admin Trade Name Freq PRN Reason Stop Dose Admin Atorvastatin Calcium 80 mg 05/20/18 22:00 05/20/18 21:26 Lipitor - PO 80 mg HS [facility] Administration Cyanocobalamin 1,000 mcg 05/20/18 10:00 05/20/18 11:46 Vitamin B12 - PO 1,000 mcg DAILY [facility] Administration Furosemide 40 mg 05/20/18 14:00 05/20/18 13:48 Lasix - PO 40 mg DAILY@1400 [facility] Administration Furosemide 80 mg 05/20/18 07:00 05/21/18 06:07 Lasix - PO 80 mg DAILY@0700 [facility] Administration Vancomycin HCl 1,000 mg in 250 mls @ 200 mls/hr 05/20/18 23:45 05/20/18 23:53 Vancomycin (Pre-Docked) IVPB 200 mls/hr Q24H [facility] Administration Protocol Insulin Aspart 1 vial 05/20/18 07:00 05/21/18 06:08 Novolog Vial Sliding Scale - SQ Not Given ACHS [facility] Protocol Insulin Detemir 35 units 05/20/18 22:00 05/20/18 21:27 Levemir Vial SQ 35 units HS [facility] Administration Losartan Potassium 25 mg 05/20/18 10:00 05/20/18 11:45 Cozaar - PO 25 mg DAILY [facility] Administration Metoprolol Succinate 100 mg 05/20/18 10:00 05/20/18 11:45 Toprol Xl - PO 100 mg DAILY [facility] Administration Tamsulosin HCl 0.4 mg 05/20/18 08:30 05/21/18 07:51 Flomax - PO 0.4 mg DAILY@0830 [facility] Administration ASSESSMENT AND PLAN: This is a 48 year old male with a history of DM, CHF,HTN, CAD s/p stents , osteomyelitis, who presents with left 5th toe diabetic foot ulcer c/w OM s/p on Ertapenem. #left 5th toe osteomyelitis: s/p IV ertapenam x 6 weeks as per patient, On IV Vancomycin day#2 as per ID , follow kidney function closely Podiatry consult appreciated for possible amputation #chronic kidney failure: monitor kidney function #T2DM on diabetic diet , sliding scale. hold po diabetic medications- start insulin sliding scale, tight glycemic control #CHF continue home meds. #CAD on aspirin and Plavix but it's on hold now, patient had the stents placed 1.5 yrs ago, cardio consult . #HTN continue home meds. #HLD continue Lipitor DVt px: heparin sq held Plavix and Aspirin as per Surgeon going to sx on Tuesday the 23 of May
[2018-05-21 09:01] LABS: ALBUMIN 2.7 g/dl (3.4-5.0); ALK PHOS 75 U/L (45-117); ANION GAP 5 MMOL/L (8-16); BILIRUBIN,TOTAL 0.3 mg/dL (0.2-1); BLOOD UREA NITROGEN 51 mg/dL (7-18); CALCIUM 8.1 mg/dL (8.5-10.1); CHLORIDE 110 mmol/L (98-107); CO2 28 mmol/L (21-32); CREATININE 1.7 mg/dL (0.55-1.3); GLUCOSE,RANDOM 135 mg/dL (74-106); POTASSIUM 4.2 mmol/L (3.5-5.1); SGOT/AST 16 U/L (15-37); SGPT/ALT 23 U/L (13-61); SODIUM 143 mmol/L (136-145); TOT PROT 6.1 g/dl (6.4-8.2)
--- NOTE | 2018-05-21 09:46 | PN ---
Physical Exam: SUBJECTIVE: Patient has no complaints. Denies fevers or chills over night. Reports surgery is scheduled for Tuesday. No acute events overnight. OBJECTIVE: Vital Signs Temperature 98 F 05/21/18 05:36 Pulse Rate 72 05/21/18 05:36 Respiratory Rate 20 05/21/18 05:36 Blood Pressure 120/78 05/21/18 05:36 O2 Sat by Pulse Oximetry (%) 96 05/20/18 21:00 GENERAL: The patient is awake, alert, and fully oriented, in no acute distress. HEAD: Normal with no signs of trauma. EYES: PERRL, extraocular movements intact, LUNGS: Breath sounds equal, clear to auscultation bilaterally, no wheezes, no crackles, no accessory muscle use. HEART: Regular rate and rhythm, S1, S2 without murmur, rub or gallop. ABDOMEN: Soft, nontender, nondistended, normoactive bowel sounds EXTREMITIES: 2+ pulses, warm, well-perfused, no edema. PSYCH: Normal mood, normal affect. SKIN: Left fifth toe with a scabbed ulcer, sensation intact B/L feet CBC, BMP 05/21/18 06:40 05/21/18 06:40 Active Medications Atorvastatin Calcium (Lipitor -) 80 mg PO HS [facility] Last Admin: 05/20/18 21:26 Dose: 80 mg Cyanocobalamin (Vitamin B12 -) 1,000 mcg PO DAILY [facility] Last Admin: 05/20/18 11:46 Dose: 1,000 mcg Furosemide (Lasix -) 40 mg PO DAILY@1400 [facility] Last Admin: 05/20/18 13:48 Dose: 40 mg Furosemide (Lasix -) 80 mg PO DAILY@0700 [facility] Last Admin: 05/21/18 06:07 Dose: 80 mg Vancomycin HCl (Vancomycin (Pre-Docked)) 1,000 mg in 250 mls @ 200 mls/hr IVPB Q24H [facility]; Protocol Last Admin: 05/20/18 23:53 Dose: 200 mls/hr Insulin Aspart (Novolog Vial Sliding Scale -) 1 vial SQ [facility]; Protocol Last Admin: 05/21/18 06:08 Dose: Not Given Insulin Detemir (Levemir Vial) 35 units SQ HS [facility] Last Admin: 05/20/18 21:27 Dose: 35 units Losartan Potassium (Cozaar -) 25 mg PO DAILY [facility] Last Admin: 05/20/18 11:45 Dose: 25 mg Metoprolol Succinate (Toprol Xl -) 100 mg PO DAILY [facility] Last Admin: 05/20/18 11:45 Dose: 100 mg Tamsulosin HCl (Flomax -) 0.4 mg PO DAILY@0830 [facility] Last Admin: 05/21/18 07:51 Dose: 0.4 mg ASSESSMENT/PLAN: #Osteomyeltis left 5th toe - amputation scheduled for tuesday - [facility]arer Dr. Castro - Vascular surgeon Dr. Mendez - f/u read leg MRI - Xray: decreased bone mass at left 5th toe - bcx negative, wound cx: staphylococcus - continue Vancomycin - ANTHONY score: 0.2% risk #CAD s/p 4 stents - 1.5 years ago - hold clopidogrel and aspirin for surgery - f/u Dr. Arzate #DM - A1C: 6.4 - 35 units sq - continue SS #HTN - losartan 25 mg daily #HLD - continue atorvastatin 80 mg hs #CHF - furoseminde 40 mg pm, 80 mg am - metoprolol 100 mg po daily - echo 08/26: mild concentric left ventricular hypertrophy, left ventricular systolic function low normal, no regional wall abnormalities #BPH - tamsulosin 0.4 mg daily Dispo: f/u after surgery Visit type - Emergency Visit Emergency Visit: No - New Patient This patient is new to me today: Yes Date on this admission: 05/21/18 - Critical Care Critical Care patient: No
[2018-05-21] MEDS ORDERED: PT OWN MED DRAWER 7, Y5N ONE (10:14)
[2018-05-21] MEDS: LOSARTAN POTASSIUM 25 MG TABLET PO SCH (10:23)
[2018-05-21] MEDS: CYANOCOBALAMIN 1,000 MCG TABLET (FP) PO SCH (10:23)
--- NOTE | 2018-05-21 12:04 | PN ---
Progress Note, Physician History of Present Illness: Pt is alert. He has no new complaints - Current Medication List Current Medications: Active Medications Atorvastatin Calcium (Lipitor -) 80 mg PO [facility] Last Admin: 05/20/18 21:26 Dose: 80 mg Cyanocobalamin (Vitamin B12 -) 1,000 mcg PO DAILY [facility] Last Admin: 05/21/18 10:23 Dose: 1,000 mcg Furosemide (Lasix -) 40 mg PO DAILY@1400 [facility] Last Admin: 05/20/18 13:48 Dose: 40 mg Furosemide (Lasix -) 80 mg PO DAILY@0700 [facility] Last Admin: 05/21/18 06:07 Dose: 80 mg Vancomycin HCl (Vancomycin (Pre-Docked)) 1,000 mg in 250 mls @ 200 mls/hr IVPB Q24H [facility]; Protocol Last Admin: 05/20/18 23:53 Dose: 200 mls/hr Insulin Aspart (Novolog Vial Sliding Scale -) 1 vial SQ [facility]; Protocol Last Admin: 05/21/18 11:41 Dose: 2 units Insulin Detemir (Levemir Vial) 35 units SQ [facility] Last Admin: 05/20/18 21:27 Dose: 35 units Losartan Potassium (Cozaar -) 25 mg PO DAILY [facility] Last Admin: 05/21/18 10:23 Dose: 25 mg Metoprolol Succinate (Toprol Xl -) 100 mg PO DAILY [facility] Last Admin: 05/21/18 10:23 Dose: 100 mg Tamsulosin HCl (Flomax -) 0.4 mg PO DAILY@0830 [facility] Last Admin: 05/21/18 07:51 Dose: 0.4 mg - Objective Vital Signs: Vital Signs Temperature 98 F 05/21/18 05:36 Pulse Rate 72 05/21/18 05:36 Respiratory Rate 20 05/21/18 05:36 Blood Pressure 120/78 05/21/18 05:36 O2 Sat by Pulse Oximetry (%) 96 05/20/18 21:00 Constitutional: Yes: No Distress, Calm Cardiovascular: Yes: Regular Rate and Rhythm Respiratory: Yes: Regular Gastrointestinal: Yes: Normal Bowel Sounds, Soft Edema: LLE: 2+ Wound/Incision: Yes: Clean/Dry (Lt 5th toe gangrenous, without purulence) Neurological: Yes: Alert, Oriented Labs: CBC, BMP 05/21/18 06:40 05/21/18 06:40 INR, PTT INR 1.09 (0.83-1.09) 05/20/18 07:30 Problem List - Problems (1) Osteomyelitis of foot, left, acute Code(s): M86.172 - OTHER ACUTE OSTEOMYELITIS, LEFT ANKLE AND FOOT (2) CKD (chronic kidney disease) Code(s): N18.9 - CHRONIC KIDNEY DISEASE, UNSPECIFIED (3) Diabetes Code(s): E11.9 - TYPE 2 DIABETES MELLITUS WITHOUT COMPLICATIONS Qualifiers: Diabetes mellitus type: type 2 Diabetes mellitus complication status: without complication Qualified Code(s): E11.9 - Type 2 diabetes mellitus without complications (4) Leukocytosis Code(s): D72.829 - ELEVATED WHITE BLOOD CELL COUNT, UNSPECIFIED Qualifiers: Leukocytosis type: other Qualified Code(s): D72.828 - Other elevated white blood cell count Assessment/Plan 48 y.o. male with CAD s/p stents, CHF, DM, HLD, HTN presenting with persistent Lt 5th toe infected wound with imaging c/w OM on Ertapenem Lt 5th toe OM DM CKD CAD s/p stent HLD HTN -- preliminary wound Cx +staph, f/u final results -- continue Vancomycin, check trough prior to 4th dose, monitor renal function -- Podiatry following, possible OR on Tuesday -- tight glycemic control
--- NOTE | 2018-05-21 16:20 | CON.CARD ---
Consult Consult Specialty:: Cardiology Reason for Consultation:: CAD - History of Present Illness History of Present Illness: 48 M with morbid obesity, DM, CKD 3, and CAD with infected toe which failed medical therapy. He may require toe amputation. In 2016 CAD was diagnosed on stress and he was referred for cardiac cath on 2016 sp RCA and LAD PCI. Also noted to have heart failure with preserved EF and Pulmnary HTN. Has been compliant with DAPT. No history of chest pain. Ambulates about 1-2 blocks limited by SOB. No recent change in ambulatory capacity. - History Source History Provided By: Patient Limitations to Obtaining History: No Limitations - Past Medical History Cardio/Vascular: Yes: CAD, CHF, Hyperlipdemia Renal/: Yes: Renal Inusuff Infectious Disease: Yes: Other (osteomyelitis 5th toe left) Endocrine: Yes: Diabetes Mellitus - Past Surgical History Past Surgical History: Yes: None - Alcohol/Substance Use Hx Alcohol Use: No History of Substance Use: reports: None - Smoking History Smoking history: Never smoked Have you smoked in the past 12 months: No - Social History ADL: Independent History of Recent Travel: No Home Medications - Allergies Allergies/Adverse Reactions: Allergies Allergy/AdvReac Type Severity Reaction Status Date / Time Penicillins Allergy Verified 05/19/18 17:33 - Home Medications Home Medications: Ambulatory Orders Ascorbate Calcium [Vitamin C] 500 mg PO DAILY 03/28/18 Aspirin [ASA -] 81 mg PO DAILY 03/28/18 Atorvastatin Ca [Lipitor] 80 mg PO HS 03/28/18 Cholecalciferol (Vitamin D3) [Vitamin D3] 1,000 unit PO DAILY 03/28/18 Clopidogrel Bisulfate [Plavix] 75 mg PO DAILY 03/28/18 Cyanocobalamin [Vitamin B12 -] 1,000 mcg PO DAILY 03/28/18 Furosemide [Lasix] 80 mg PO AM 03/28/18 Insulin Glargine,Hum.rec.anlog [Lantus] 28 unit SQ HS 03/28/18 Losartan Potassium 25 mg PO DAILY 03/28/18 Metoprolol Succinate 100 mg PO DAILY 03/28/18 Tamsulosin HCl 0.4 mg PO DAILY 03/28/18 Vitamin B Complex 1,000 mg PO DAILY 03/28/18 Zinc 50 mg PO DAILY 03/28/18 Alcohol Antiseptic Pads [Alcohol Prep Pads] 1 each TP ACHS #1 box 03/30/18 Collagenase Clostridium Hist. [Santyl -] 1 applic TP DAILY #1 tube 03/30/18 Furosemide [Lasix -] 40 mg PO DAILY@1400 tablet 03/30/18 Furosemide [Lasix -] 80 mg PO DAILY@0700 tablet 03/30/18 Glipizide [Glucotrol -] 5 mg PO BID@0700,1630 #60 tablet 03/30/18 Insulin (Levemir) [Levemir Vial] 35 units SQ HS #0 units 03/30/18 Insulin Sliding Scale [Novolog Vial Sliding Scale -] 2 vial SQ ACHS #1 vial Lancets [Lancets Ultra Thin] 1 each ACHS #50 each 03/30/18 Miscellaneous Medical Supply [Glucometer Device] 1 each SQ ACHS #1 kit 03/30/18 Miscellaneous Medical Supply [Glucometer Device] 1 each SQ ASDIR #1 kit Miscellaneous Medical Supply [Glucometer Test Strips #100] 1 each SQ ACHS #1 box 03/30/18 Miscellaneous Medical Supply [Glucometer Test Strips #100] 1 each SQ ASDIR #1 box 03/30/18 Syringe and Needle,Insulin,1Ml [Advocate Syringes] 1 each ACHS #30 disp.syrin 03/30/18 Tamsulosin HCl [Flomax] 0.4 mg PO DAILY #30 cap.er.24h 03/30/18 Family Disease History - Family Disease History Family Disease History: Diabetes: Father, Mother (Breast CA), CA: Mother Review of Systems - Review of Systems Constitutional: reports: No Symptoms Eyes: reports: No Symptoms HENT: reports: No Symptoms Neck: reports: No Symptoms Cardiovascular: reports: No Symptoms Respiratory: reports: No Symptoms Gastrointestinal: reports: No Symptoms Genitourinary: reports: No Symptoms Vital Signs: Vital Signs Temperature 98.3 F 05/21/18 14:48 Pulse Rate 57 L 05/21/18 14:48 Respiratory Rate 18 05/21/18 14:48 Blood Pressure 154/78 05/21/18 14:48 O2 Sat by Pulse Oximetry (%) 97 05/21/18 09:00 Constitutional: Yes: Well Nourished, No Distress, Calm Eyes: Yes: Conjunctiva Clear, EOM Intact HENT: Yes: Atraumatic, Normocephalic Neck: Yes: Supple, Trachea Midline Respiratory: Yes: Regular, CTA Bilaterally Gastrointestinal: Yes: Normal Bowel Sounds, Soft Cardiovascular: Yes: WNL JVD: No Carotid Bruit: No Heart Sounds: Yes: S1, S2 Murmur: No: Systolic Murmur, Diastolic Murmur Edema: No - Other Data Labs, Other Data: CBC, BMP 05/21/18 06:40 05/21/18 06:40 INR, PTT INR 1.09 (0.83-1.09) 05/20/18 07:30 Imaging - Results EKG: Image Reviewed (NSR incomplete RBBB no st t changes.) Problem List - Problems (1) CAD (coronary artery disease) Code(s): I25.10 - ATHSCL HEART DISEASE OF [place] CORONARY ARTERY W/O ANG PCTRS Assessment/Plan 48 M with morbid obesity, DM, CKD 3, DANIS not on CPAP, and CAD with infected toe which failed medical therapy. He may require toe amputation. In 2016 CAD was diagnosed on stress and he was referred for cardiac cath on 2016 sp RCA and LAD PCI. Also noted to have heart failure with preserved EF and Pulmnary HTN. Has been compliant with DAPT. No history of chest pain. Ambulates about 1-2 blocks limited by SOB. No recent change in ambulatory capacity. 1 year post elective PCI. Stabe chronic CAD. Ho CKD 3 with chronic heart failure with preserved EF requiring chronic diuretics and pulmonary HTN. Untreated DANIS. No contraindications to holding ASA and Plavix for surgery. Resume medications when reasonably safe post operatively. Monitor respiratory status post op given ho DANIS. Continue Beta ramírez and Statin in the perioperative period. Will see as needed.
[2018-05-21] MEDS: INSULIN (LEVEMIR) 100 UNITS/ML UNITS SQ SCH (21:21)
[2018-05-21] MEDS: ATORVASTATIN CA 80 MG TABLET (FP) PO SCH (21:21)
[2018-05-22] MEDS: INSULIN SLIDING SCALE (NOVOLOG) 1 VIAL SQ SCH ×4 (06:10→23:32)
[2018-05-22] MEDS: FUROSEMIDE 40 MG TABLET (FP) PO SCH ×2 (06:11→14:21)
[2018-05-22 07:43] LABS: HEMATOCRIT 32.2 % (35.4-49); HEMOGLOBIN 11.1 GM/dL (11.7-16.9); MCH 26.9 pg (25.7-33.7); MCHC 34.6 g/dl (32.0-35.9); MEAN CELL VOLUME 77.9 fl (80-96); MEAN PLT VOLUME 9.3 fl (7.5-11.1); PLATELET COUNT 239 K/MM3 (134-434); RBC 4.14 M/mm3 (4.00-5.60); RDW 14.3 % (11.9-15.9); WHITE BLOOD COUNT 7.9 K/mm3 (4.0-10.0)
[2018-05-22] MEDS: TAMSULOSIN HCL 0.4 MG CAP PO SCH (08:04)
[2018-05-22 08:34] LABS: INR 1.08 (0.83-1.09); PROTHROMBIN TIME (PATIENT) 12.8 SEC (9.7-13.0)
[2018-05-22 08:58] LABS: ANION GAP 7 MMOL/L (8-16); BLOOD UREA NITROGEN 41 mg/dL (7-18); CALCIUM 8.4 mg/dL (8.5-10.1); CHLORIDE 109 mmol/L (98-107); CO2 27 mmol/L (21-32); CREATININE 1.5 mg/dL (0.55-1.3); GLUCOSE,RANDOM 119 mg/dL (74-106); POTASSIUM 3.9 mmol/L (3.5-5.1); SODIUM 142 mmol/L (136-145)
[2018-05-22 08:59] LABS: ALBUMIN 2.8 g/dl (3.4-5.0); ALK PHOS 75 U/L (45-117); BILIRUBIN,TOTAL 0.4 mg/dL (0.2-1); SGOT/AST 19 U/L (15-37); SGPT/ALT 26 U/L (13-61); TOT PROT 6.3 g/dl (6.4-8.2)
--- NOTE | 2018-05-22 09:04 | PN ---
Teaching Attending Note Name of Resident: Charlotte Ware ATTENDING PHYSICIAN STATEMENT I saw and evaluated the patient. I reviewed the resident's note and discussed the case with the resident. I agree with the resident's findings and plan as documented. SUBJECTIVE: Patient is comfortable with no acute distress. OBJECTIVE: Vital Signs Temperature 97.9 F 05/22/18 05:07 Pulse Rate 64 05/22/18 05:07 Respiratory Rate 22 H 05/22/18 05:07 Blood Pressure 116/60 05/22/18 05:07 O2 Sat by Pulse Oximetry (%) 97 05/21/18 09:00 GENERAL: The patient is awake, alert, and fully oriented, in no acute distress. HEAD: Normal with no signs of trauma. EYES: PERRL, extraocular movements intact, sclera anicteric, conjunctiva clear. ENT: Ears normal, oropharynx clear without exudates, moist mucous membranes. NECK: Trachea midline, full range of motion, supple. LUNGS: Breath sounds equal, clear to auscultation bilaterally, no wheezes, no crackles, no accessory muscle use. HEART: Regular rate and rhythm, S1, S2 without murmur, rub or gallop. ABDOMEN: Soft, nontender, nondistended, normoactive bowel sounds, no guarding, no rebound, no hepatosplenomegaly, no masses. EXTREMITIES: 2+ pulses, warm, no edema. left foot swelling; left 5th toe with open ulceration, positive for discharge; with necrotic area. NEUROLOGICAL: Cranial nerves II through XII grossly intact. Normal speech, gait not observed. PSYCH: Normal mood, normal affect. SKIN: Warm, dry, normal turgor, no rashes or lesions noted CBCD WBC 7.9 K/mm3 (4.0-10.0) 05/22/18 07:10 RBC 4.14 M/mm3 (4.00-5.60) 05/22/18 07:10 Hgb 11.1 GM/dL (11.7-16.9) L 05/22/18 07:10 Hct 32.2 % (35.4-49) L 05/22/18 07:10 MCV 77.9 fl (80-96) L 05/22/18 07:10 MCHC 34.6 g/dl (32.0-35.9) 05/22/18 07:10 RDW 14.3 % (11.9-15.9) 05/22/18 07:10 Plt Count 239 K/MM3 (134-434) 05/22/18 07:10 MPV 9.3 fl (7.5-11.1) 05/22/18 07:10 CMP Sodium 142 mmol/L (136-145) 05/22/18 07:10 Potassium 3.9 mmol/L (3.5-5.1) 05/22/18 07:10 Chloride 109 mmol/L (98-107) H 05/22/18 07:10 Carbon Dioxide 27 mmol/L (21-32) 05/22/18 07:10 Anion Gap 7 MMOL/L (8-16) L 05/22/18 07:10 BUN 41 mg/dL (7-18) H 05/22/18 07:10 Creatinine 1.5 mg/dL (0.55-1.3) H 05/22/18 07:10 Creat Clearance w eGFR 49.95 (>60) 05/22/18 07:10 Random Glucose 119 mg/dL (74-106) H 05/22/18 07:10 Calcium 8.4 mg/dL (8.5-10.1) L 05/22/18 07:10 Total Bilirubin 0.4 mg/dL (0.2-1) 05/22/18 07:10 AST 19 U/L (15-37) 05/22/18 07:10 ALT 26 U/L (13-61) 05/22/18 07:10 Alkaline Phosphatase 75 U/L (45-117) 05/22/18 07:10 Total Protein 6.3 g/dl (6.4-8.2) L 05/22/18 07:10 Albumin 2.8 g/dl (3.4-5.0) L 05/22/18 07:10 CARDIAC ENZYMES Creatine Kinase 170 IU/L (26-308) 05/19/18 18:33 Troponin I 0.02 ng/ml (0.00-0.05) 05/19/18 18:33 Current Medications Generic Name Dose Route Start Last Admin Trade Name Freq PRN Reason Stop Dose Admin Atorvastatin Calcium 80 mg 05/20/18 22:00 05/21/18 21:21 Lipitor - PO 80 mg HS KANG Administration Cyanocobalamin 1,000 mcg 05/20/18 10:00 05/21/18 10:23 Vitamin B12 - PO 1,000 mcg DAILY KANG Administration Furosemide 40 mg 05/20/18 14:00 05/21/18 13:48 Lasix - PO 40 mg DAILY@1400 KANG Administration Furosemide 80 mg 05/20/18 07:00 05/22/18 06:11 Lasix - PO 80 mg DAILY@0700 KANG Administration Vancomycin HCl 1,000 mg in 250 mls @ 200 mls/hr 05/20/18 23:45 05/22/18 00:00 Vancomycin (Pre-Docked) IVPB 200 mls/hr Q24H KANG Administration Protocol Insulin Aspart 1 vial 05/20/18 07:00 05/22/18 06:10 Novolog Vial Sliding Scale - SQ Not Given [facility] Protocol Insulin Detemir 35 units 05/20/18 22:00 05/21/18 21:21 Levemir Vial SQ 35 units HS KANG Administration Losartan Potassium 25 mg 05/20/18 10:00 05/21/18 10:23 Cozaar - PO 25 mg DAILY KANG Administration Metoprolol Succinate 100 mg 05/20/18 10:00 05/21/18 10:23 Toprol Xl - PO 100 mg DAILY KANG Administration Tamsulosin HCl 0.4 mg 05/20/18 08:30 05/22/18 08:04 Flomax - PO 0.4 mg DAILY@0830 KANG Administration Home Medications Medication Instructions Recorded Ascorbate Calcium [Vitamin C] 500 mg PO DAILY 03/28/18 Aspirin [ASA -] 81 mg PO DAILY 03/28/18 Atorvastatin Ca [Lipitor] 80 mg PO HS 03/28/18 Cholecalciferol (Vitamin D3) 1,000 unit PO DAILY 03/28/18 [Vitamin D3] Clopidogrel Bisulfate [Plavix] 75 mg PO DAILY 03/28/18 Cyanocobalamin [Vitamin B12 -] 1,000 mcg PO DAILY 03/28/18 Furosemide [Lasix] 80 mg PO AM 03/28/18 Insulin Glargine,Hum.rec.anlog 28 unit SQ HS 03/28/18 [Lantus] Losartan Potassium 25 mg PO DAILY 03/28/18 Metoprolol Succinate 100 mg PO DAILY 03/28/18 Tamsulosin HCl 0.4 mg PO DAILY 03/28/18 Vitamin B Complex 1,000 mg PO DAILY 03/28/18 Zinc 50 mg PO DAILY 03/28/18 Alcohol Antiseptic Pads [Alcohol 1 each TP ACHS #1 box 03/30/18 Prep Pads] Collagenase Clostridium Hist. 1 applic TP DAILY #1 tube 03/30/18 [Santyl -] Furosemide [Lasix -] 40 mg PO DAILY@1400 tablet 03/30/18 Furosemide [Lasix -] 80 mg PO DAILY@0700 tablet 03/30/18 Glipizide [Glucotrol -] 5 mg PO BID@0700,1630 #60 tablet 03/30/18 Insulin (Levemir) [Levemir Vial] 35 units SQ HS #0 units 03/30/18 Insulin Sliding Scale [Novolog 2 vial SQ ACHS #1 vial 03/30/18 Vial Sliding Scale -] Lancets [Lancets Ultra Thin] 1 each ACHS #50 each 03/30/18 Miscellaneous Medical Supply 1 each SQ ACHS #1 kit 03/30/18 [Glucometer Device] Miscellaneous Medical Supply 1 each SQ ASDIR #1 kit 03/30/18 [Glucometer Device] Miscellaneous Medical Supply 1 each SQ ACHS #1 box 03/30/18 [Glucometer Test Strips #100] Miscellaneous Medical Supply 1 each SQ ASDIR #1 box 03/30/18 [Glucometer Test Strips #100] Syringe and Needle,Insulin,1Ml 1 each ACHS #30 disp.syrin 03/30/18 [Advocate Syringes] Tamsulosin HCl [Flomax] 0.4 mg PO DAILY #30 cap.er.24h 03/30/18 Microbiology 05/19/18 18:33 Toe - Left Fifth Gram Stain - Final 05/19/18 18:33 Toe - Left Fifth Wound Culture - Final Mr S Aureus 05/19/18 18:33 Blood - Peripheral Venous Blood Culture - Preliminary NO GROWTH OBTAINED AFTER 48 HOURS, INCUBATION TO CONTINUE FOR 3 DAYS. 05/19/18 18:33 Blood - Peripheral Venous Blood Culture - Preliminary NO GROWTH OBTAINED AFTER 48 HOURS, INCUBATION TO CONTINUE FOR 3 DAYS. ASSESSMENT AND PLAN: This is a 48 year old male with a history of DM, CHF,HTN, CAD s/p stents , osteomyelitis, who presents with left 5th toe diabetic foot ulcer c/w OM s/p on Ertapenem. #left 5th toe osteomyelitis: s/p IV ertapenam x 6 weeks as per patient, On IV Vancomycin day#3 as per ID , follow kidney function closely Podiatry consult appreciated for possible amputation #chronic kidney failure: monitor kidney function 1.8-->1.7-->1.5 today #T2DM on diabetic diet , sliding scale. hold po diabetic medications- start insulin sliding scale, tight glycemic control #CHF continue home meds. #CAD on aspirin and Plavix but it's on hold now, patient had the stents placed 1.5 yrs ago, cardio consult . #HTN continue home meds. #HLD continue Lipitor DVt px: heparin sq hold going to or in am held Plavix and Aspirin as per Surgeon going to sx on Tuesday the 23 of May
--- NOTE | 2018-05-22 09:12 | PN ---
Physical Exam: SUBJECTIVE: Patient has no complaints.No acute events overnight. Patient for amputation tomorrow. OBJECTIVE: Vital Signs Temperature 98.1 F 05/22/18 14:38 Pulse Rate 57 L 05/22/18 14:38 Respiratory Rate 20 05/22/18 14:38 Blood Pressure 154/86 05/22/18 14:38 O2 Sat by Pulse Oximetry (%) 97 05/22/18 09:00 GENERAL: The patient is awake, alert, and fully oriented, in no acute distress. HEAD: Normal with no signs of trauma. EYES: PERRL, extraocular movements intact, LUNGS: Breath sounds equal, clear to auscultation bilaterally, no wheezes, no crackles, no accessory muscle use. HEART: Regular rate and rhythm, S1, S2 without murmur, rub or gallop. ABDOMEN: Soft, nontender, nondistended, normoactive bowel sounds EXTREMITIES: 2+ pulses, warm, well-perfused, no edema. PSYCH: Normal mood, normal affect. SKIN: Left fifth toe with a scabbed ulcer, necrotic tissue, sensation intact B/ L feet CBC, BMP 05/22/18 07:10 05/22/18 07:10 Active Medications Atorvastatin Calcium (Lipitor -) 80 mg PO HS [facility] Last Admin: 05/21/18 21:21 Dose: 80 mg Cyanocobalamin (Vitamin B12 -) 1,000 mcg PO DAILY [facility] Last Admin: 05/21/18 10:23 Dose: 1,000 mcg Furosemide (Lasix -) 40 mg PO DAILY@1400 [facility] Last Admin: 05/21/18 13:48 Dose: 40 mg Furosemide (Lasix -) 80 mg PO DAILY@0700 [facility] Last Admin: 05/22/18 06:11 Dose: 80 mg Vancomycin HCl (Vancomycin (Pre-Docked)) 1,000 mg in 250 mls @ 200 mls/hr IVPB Q24H [facility]; Protocol Last Admin: 05/22/18 00:00 Dose: 200 mls/hr Insulin Aspart (Novolog Vial Sliding Scale -) 1 vial SQ [facility]; Protocol Last Admin: 05/22/18 06:10 Dose: Not Given Insulin Detemir (Levemir Vial) 35 units SQ HS [facility] Last Admin: 05/21/18 21:21 Dose: 35 units Losartan Potassium (Cozaar -) 25 mg PO DAILY [facility] Last Admin: 05/21/18 10:23 Dose: 25 mg Metoprolol Succinate (Toprol Xl -) 100 mg PO DAILY [facility] Last Admin: 05/21/18 10:23 Dose: 100 mg Tamsulosin HCl (Flomax -) 0.4 mg PO DAILY@0830 [facility] Last Admin: 05/22/18 08:04 Dose: 0.4 mg ASSESSMENT/PLAN: Patient is a 48 y/o male with a hstory of DM, CHF, CAD, osteomyelitis, who is preop for 5 left toe amputation today. #Osteomyeltis left 5th toe - amputation scheduled for tomorrow - Distributor Cleaner Dr. Castro - MRI: bone marrow changes suggestive of osteomyelitis of the proximal and distal phalnges of the fifth toe - Xray: decreased bone mass at left 5th toe - bcx negative, wound cx: MRSA - continue Vancomycin day 4, trough today - ANTHONY score: 0.2% risk - Patient NPO tomorrow #CAD s/p 4 stents - 1.5 years ago - hold clopidogrel and aspirin for surgery, resume once stable - f/u Dr. Arzate #DM - A1C: 6.4 - 35 units sq - continue SS #HTN - losartan 25 mg daily #HLD - continue atorvastatin 80 mg hs #CHF - furoseminde 40 mg pm, 80 mg am - metoprolol 100 mg po daily - echo 08/26: mild concentric left ventricular hypertrophy, left ventricular systolic function low normal, no regional wall abnormalities #BPH - tamsulosin 0.4 mg daily Dispo: f/u after surgery Visit type - Emergency Visit Emergency Visit: No - New Patient This patient is new to me today: No - Critical Care Critical Care patient: No
[2018-05-22] MEDS: LOSARTAN POTASSIUM 25 MG TABLET PO SCH (09:38)
[2018-05-22] MEDS: CYANOCOBALAMIN 1,000 MCG TABLET (FP) PO SCH (09:39)
--- NOTE | 2018-05-22 14:27 | PN ---
Progress Note, Physician History of Present Illness: stable no new issues - Current Medication List Current Medications: Active Medications Atorvastatin Calcium (Lipitor -) 80 mg PO HS [facility] Last Admin: 05/21/18 21:21 Dose: 80 mg Cyanocobalamin (Vitamin B12 -) 1,000 mcg PO DAILY [facility] Last Admin: 05/22/18 09:39 Dose: 1,000 mcg Furosemide (Lasix -) 40 mg PO DAILY@1400 [facility] Last Admin: 05/22/18 14:21 Dose: 40 mg Furosemide (Lasix -) 80 mg PO DAILY@0700 [facility] Last Admin: 05/22/18 06:11 Dose: 80 mg Vancomycin HCl (Vancomycin (Pre-Docked)) 1,000 mg in 250 mls @ 200 mls/hr IVPB Q24H [facility]; Protocol Last Admin: 05/22/18 00:00 Dose: 200 mls/hr Insulin Aspart (Novolog Vial Sliding Scale -) 1 vial SQ [facility]; Protocol Last Admin: 05/22/18 11:21 Dose: 2 units Insulin Detemir (Levemir Vial) 35 units SQ [facility] Last Admin: 05/21/18 21:21 Dose: 35 units Losartan Potassium (Cozaar -) 25 mg PO DAILY [facility] Last Admin: 05/22/18 09:38 Dose: 25 mg Metoprolol Succinate (Toprol Xl -) 100 mg PO DAILY [facility] Last Admin: 05/22/18 09:39 Dose: 100 mg Tamsulosin HCl (Flomax -) 0.4 mg PO DAILY@0830 [facility] Last Admin: 05/22/18 08:04 Dose: 0.4 mg - Objective Vital Signs: Vital Signs Temperature 98 F 05/22/18 09:00 Pulse Rate 56 L 05/22/18 09:00 Respiratory Rate 20 05/22/18 09:00 Blood Pressure 142/68 05/22/18 09:00 O2 Sat by Pulse Oximetry (%) 97 05/22/18 09:00 Constitutional: Yes: No Distress, Calm, Obese Cardiovascular: Yes: S1, S2 Respiratory: Yes: Regular, CTA Bilaterally Gastrointestinal: Yes: Normal Bowel Sounds, Soft Musculoskeletal: Yes: WNL Extremities: Yes: Other Wound/Incision: Yes: Dressing Dry and Intact Neurological: Yes: Alert, Oriented Psychiatric: Yes: Alert, Oriented Labs: CBC, BMP 05/22/18 07:10 05/22/18 07:10 INR, PTT INR 1.08 (0.83-1.09) 05/22/18 07:10 Assessment/Plan romainm List - Problems (1) Osteomyelitis of foot, left, acute Code(s): M86.172 - OTHER ACUTE OSTEOMYELITIS, LEFT ANKLE AND FOOT (2) CKD (chronic kidney disease) Code(s): N18.9 - CHRONIC KIDNEY DISEASE, UNSPECIFIED (3) Diabetes Code(s): E11.9 - TYPE 2 DIABETES MELLITUS WITHOUT COMPLICATIONS Qualifiers: Diabetes mellitus type: type 2 Diabetes mellitus complication status: without complication Qualified Code(s): E11.9 - Type 2 diabetes mellitus without complications (4) Leukocytosis Code(s): D72.829 - ELEVATED WHITE BLOOD CELL COUNT, UNSPECIFIED Qualifiers: Leukocytosis type: other Qualified Code(s): D72.828 - Other elevated white blood cell count Assessment/Plan 48 y.o. male with CAD s/p stents, CHF, DM, HLD, HTN presenting with persistent Lt 5th toe infected wound with imaging c/w OM on Ertapenem Lt 5th toe OM DM CKD CAD s/p stent HLD HTN -continue current mgmt awaiting for final plan probably amputation rest as per the team
--- NOTE | 2018-05-22 14:53 | PN ---
Progress Note (short form) - Note Progress Note: Pt seen in bed. Eager to leave. Wants to leave by . vss, Tmax 98.1 +gangarene 5th toe left, +om 5th toe left mri, -changes metatarsal head on mri, om gangarene Discusse at length with patient. Patient wants to have amputation as there has been no improvement with abx for over 1 month. Patient fully understands all risks, benefits and alternatives. Patient consented to debridement of bone and soft tissue and amputation of 5th toe. Advised that if bone at met head infected would debride that as well. Patient agreed. NPO after midnight. Consent witness by nurse.
--- NOTE | 2018-05-22 16:56 | PN ---
Progress Note (short form) - Note Progress Note: Surgery Patient scheduled with Podiatry tomorrow for left 5th toe amputation. We were consulted to vascular evaluation. Patient reports he has been following with Dr Castro for this toe over several months. He denies any pain, fever, chills, N /V or SOB. Vital Signs Temp 98.1 F 05/22/18 14:38 Pulse 57 L 05/22/18 14:38 Resp 20 05/22/18 14:38 BP 154/86 05/22/18 14:38 Pulse Ox 97 05/22/18 09:00 Intake & Output 05/21/18 05/22/18 05/22/18 23:59 11:59 23:59 Intake Total 900 800 Balance 900 800 Weight 314 lb Intake: IV 0 Tunnelled Catheter 0 Oral 900 800 Other: Voiding Method Toilet Toilet Toilet # Unmeasured Voids Void 1 1 Bowel Movement Yes No Weight Measurement Method Built in [employer] CBC, BMP 05/22/18 07:10 05/22/18 07:10 PE: A&Ox3, NAD Unlabored resp on RA Left LE with diffuse +1 pitting edema throughout, 5th toe with necrotic changes throughout/ dry gangrene, No foul odor, No tracking erythema, LE compartments soft, supple and non-tender to palpation. + strong signal at DP and PT with bedside doppler. Leg/foot wam and well perfused. no other lesions or areas of breakdown. Left LE compartments with +1 diffuse edema throughout, Compartments soft, supple and non-tender, no lesions or skin changes, no tracking erythema. leg and foot warm and well perfused with palpable DP pulse. Problem List - Problems (1) Osteomyelitis of foot, left, acute Assessment/Plan: Patient with dry gangrene of left 5th toe and OM. + signal on bedside doppler with good perfusion, no evidence for vascular intervention. 1) Continue with current plan of care 2) Compression stocking for LE edema PRN 3) Podiatry for further management-proceed with amputation as planned 4) IV ABX per ID Evaluation and plan discussed with Dr Mendez Code(s): M86.172 - OTHER ACUTE OSTEOMYELITIS, LEFT ANKLE AND FOOT
[2018-05-22] MEDS: VANCOMYCIN 1 GRAM (PRE-DOCKED) 1,000 MG/250 ML BAG IVPB SCH ×2 (23:32)
[2018-05-22] MEDS: ATORVASTATIN CA 80 MG TABLET (FP) PO SCH (23:33)
[2018-05-22] MEDS: INSULIN (LEVEMIR) 100 UNITS/ML UNITS SQ SCH (23:33)
[2018-05-23] MEDS: INSULIN SLIDING SCALE (NOVOLOG) 1 VIAL SQ SCH ×3 (06:09→21:18)
[2018-05-23] MEDS: FUROSEMIDE 40 MG TABLET (FP) PO SCH ×2 (06:12→15:57)
[2018-05-23 07:33] LABS: HEMATOCRIT 34.2 % (35.4-49); HEMOGLOBIN 10.9 GM/dL (11.7-16.9); MCH 25.4 pg (25.7-33.7); MCHC 31.8 g/dl (32.0-35.9); MEAN PLT VOLUME 9.6 fl (7.5-11.1); PLATELET COUNT 219 K/MM3 (134-434); RBC 4.28 M/mm3 (4.00-5.60); RDW 14.6 % (11.9-15.9); WHITE BLOOD COUNT 8.6 K/mm3 (4.0-10.0)
[2018-05-23 07:53] LABS: INR 1.13 (0.83-1.09); PROTHROMBIN TIME (PATIENT) 13.3 SEC (9.7-13.0)
[2018-05-23 08:12] LABS: ALBUMIN 2.8 g/dl (3.4-5.0); ALK PHOS 75 U/L (45-117); ANION GAP 7 MMOL/L (8-16); BILIRUBIN,TOTAL 0.3 mg/dL (0.2-1); BLOOD UREA NITROGEN 42 mg/dL (7-18); CALCIUM 8.3 mg/dL (8.5-10.1); CHLORIDE 107 mmol/L (98-107); CO2 27 mmol/L (21-32); CREATININE 1.5 mg/dL (0.55-1.3); GLUCOSE,RANDOM 119 mg/dL (74-106); SGOT/AST 23 U/L (15-37); SGPT/ALT 28 U/L (13-61); SODIUM 142 mmol/L (136-145); TOT PROT 6.2 g/dl (6.4-8.2)
--- NOTE | 2018-05-23 08:12 | PN ---
Physical Exam: SUBJECTIVE: Patient has no complaints.No acute events overnight. Patient for amputation today. OBJECTIVE: Vital Signs Temperature 97.6 F 05/23/18 07:16 Pulse Rate 58 L 05/23/18 07:16 Respiratory Rate 20 05/23/18 07:16 Blood Pressure 142/82 05/23/18 07:16 O2 Sat by Pulse Oximetry (%) 97 05/22/18 21:00 GENERAL: The patient is awake, alert, and fully oriented, in no acute distress. HEAD: Normal with no signs of trauma. EYES: PERRL, extraocular movements intact, LUNGS: Breath sounds equal, clear to auscultation bilaterally, no wheezes, no crackles, no accessory muscle use. HEART: Regular rate and rhythm, S1, S2 without murmur, rub or gallop. ABDOMEN: Soft, nontender, nondistended, normoactive bowel sounds EXTREMITIES: 2+ pulses, warm, well-perfused, no edema. PSYCH: Normal mood, normal affect. SKIN: Left fifth toe with a scabbed ulcer, necrotic tissue, sensation intact B/ L feet CBC, BMP 05/23/18 06:15 Active Medications Atorvastatin Calcium (Lipitor -) 80 mg PO HS [facility] Last Admin: 05/22/18 23:33 Dose: 80 mg Cyanocobalamin (Vitamin B12 -) 1,000 mcg PO DAILY [facility] Last Admin: 05/22/18 09:39 Dose: 1,000 mcg Furosemide (Lasix -) 40 mg PO DAILY@1400 [facility] Last Admin: 05/22/18 14:21 Dose: 40 mg Furosemide (Lasix -) 80 mg PO DAILY@0700 [facility] Last Admin: 05/23/18 06:12 Dose: 80 mg Vancomycin HCl (Vancomycin (Pre-Docked)) 1,000 mg in 250 mls @ 200 mls/hr IVPB Q24H [facility]; Protocol Last Admin: 05/22/18 23:32 Dose: 200 mls/hr Insulin Aspart (Novolog Vial Sliding Scale -) 1 vial SQ ACHS [facility]; Protocol Last Admin: 05/23/18 06:09 Dose: Not Given Insulin Detemir (Levemir Vial) 35 units SQ HS [facility] Last Admin: 05/22/18 23:33 Dose: 35 units Losartan Potassium (Cozaar -) 25 mg PO DAILY [facility] Last Admin: 05/22/18 09:38 Dose: 25 mg Metoprolol Succinate (Toprol Xl -) 100 mg PO DAILY [facility] Last Admin: 05/22/18 09:39 Dose: 100 mg Tamsulosin HCl (Flomax -) 0.4 mg PO DAILY@0830 [facility] Last Admin: 05/22/18 08:04 Dose: 0.4 mg ASSESSMENT/PLAN: Patient is a 48 y/o male with a history of DM, CHF, CAD, osteomyelitis, who is preop for 5 left toe amputation today. #Osteomyeltis left 5th toe - amputation scheduled for today - Lead [employer] Medicine Technologist Dr. Castro - MRI: bone marrow changes suggestive of osteomyelitis of the proximal and distal phalnges of the fifth toe - Xray: decreased bone mass at left 5th toe - bcx negative, wound cx: MRSA - continue Vancomycin day 5 will be given tonight, continue 1 mg dose - ANTHONY score: 0.2% risk #CAD s/p 4 stents - 1.5 years ago - restart clopidogrel and aspirin - f/u Dr. Arzate #DM - A1C: 6.4 - 35 units sq - continue SS #HTN - losartan 25 mg daily #HLD - continue atorvastatin 80 mg hs #CHF - furoseminde 40 mg pm, 80 mg am - metoprolol 100 mg po daily - echo 08/26: mild concentric left ventricular hypertrophy, left ventricular systolic function low normal, no regional wall abnormalities #BPH - tamsulosin 0.4 mg daily Dispo: f/u after surgery Visit type - Emergency Visit Emergency Visit: No - New Patient This patient is new to me today: No - Critical Care Critical Care patient: No
--- NOTE | 2018-05-23 08:37 | PN ---
Teaching Attending Note Name of Resident: Charlotte Ware ATTENDING PHYSICIAN STATEMENT I saw and evaluated the patient. I reviewed the resident's note and discussed the case with the resident. I agree with the resident's findings and plan as documented. SUBJECTIVE: Patient is comfortable with no acute distress, patient is going for amputation today. OBJECTIVE: Vital Signs Temperature 97.6 F 05/23/18 07:16 Pulse Rate 58 L 05/23/18 07:16 Respiratory Rate 20 05/23/18 07:16 Blood Pressure 142/82 05/23/18 07:16 O2 Sat by Pulse Oximetry (%) 97 05/22/18 21:00 GENERAL: The patient is awake, alert, and fully oriented, in no acute distress. HEAD: Normal with no signs of trauma. EYES: PERRL, extraocular movements intact, sclera anicteric, conjunctiva clear. ENT: Ears normal, oropharynx clear without exudates, moist mucous membranes. NECK: Trachea midline, full range of motion, supple. LUNGS: Breath sounds equal, clear to auscultation bilaterally, no wheezes, no crackles, no accessory muscle use. HEART: Regular rate and rhythm, S1, S2 without murmur, rub or gallop. ABDOMEN: Soft, nontender, nondistended, normoactive bowel sounds, no guarding, no rebound, no hepatosplenomegaly, no masses. EXTREMITIES: 2+ pulses, warm, no edema. left foot swelling; left 5th toe with open ulceration, dry 5th toe, with necrotic area. NEUROLOGICAL: Cranial nerves II through XII grossly intact. Normal speech, gait not observed. PSYCH: Normal mood, normal affect. SKIN: Warm, dry, normal turgor, no rashes or lesions noted CBCD WBC 8.6 K/mm3 (4.0-10.0) 05/23/18 06:15 RBC 4.28 M/mm3 (4.00-5.60) 05/23/18 06:15 Hgb 10.9 GM/dL (11.7-16.9) L 05/23/18 06:15 Hct 34.2 % (35.4-49) L 05/23/18 06:15 MCV 80.0 fl (80-96) 05/23/18 06:15 MCHC 31.8 g/dl (32.0-35.9) L 05/23/18 06:15 RDW 14.6 % (11.9-15.9) 05/23/18 06:15 Plt Count 219 K/MM3 (134-434) 05/23/18 06:15 MPV 9.6 fl (7.5-11.1) 05/23/18 06:15 CMP Sodium 142 mmol/L (136-145) 05/23/18 06:15 Potassium 4.0 mmol/L (3.5-5.1) 05/23/18 06:15 Chloride 107 mmol/L (98-107) 05/23/18 06:15 Carbon Dioxide 27 mmol/L (21-32) 05/23/18 06:15 Anion Gap 7 MMOL/L (8-16) L 05/23/18 06:15 BUN 42 mg/dL (7-18) H 05/23/18 06:15 Creatinine 1.5 mg/dL (0.55-1.3) H 05/23/18 06:15 Creat Clearance w eGFR 49.95 (>60) 05/23/18 06:15 Random Glucose 119 mg/dL (74-106) H 05/23/18 06:15 Calcium 8.3 mg/dL (8.5-10.1) L 05/23/18 06:15 Total Bilirubin 0.3 mg/dL (0.2-1) 05/23/18 06:15 AST 23 U/L (15-37) 05/23/18 06:15 ALT 28 U/L (13-61) 05/23/18 06:15 Alkaline Phosphatase 75 U/L (45-117) 05/23/18 06:15 Total Protein 6.2 g/dl (6.4-8.2) L 05/23/18 06:15 Albumin 2.8 g/dl (3.4-5.0) L 05/23/18 06:15 CARDIAC ENZYMES Creatine Kinase 170 IU/L (26-308) 05/19/18 18:33 Troponin I 0.02 ng/ml (0.00-0.05) 05/19/18 18:33 Current Medications Generic Name Dose Route Start Last Admin Trade Name Freq PRN Reason Stop Dose Admin Atorvastatin Calcium 80 mg 05/20/18 22:00 05/22/18 23:33 Lipitor - PO 80 mg HS [facility]ANG Administration Cyanocobalamin 1,000 mcg 05/20/18 10:00 05/22/18 09:39 Vitamin B12 - PO 1,000 mcg DAILY [facility] Administration Furosemide 40 mg 05/20/18 14:00 05/22/18 14:21 Lasix - PO 40 mg DAILY@1400 K[facility] Administration Furosemide 80 mg 05/20/18 07:00 05/23/18 06:12 Lasix - PO 80 mg DAILY@0700 KANG Administration Vancomycin HCl 1,000 mg in 250 mls @ 200 mls/hr 05/20/18 23:45 05/22/18 23:32 Vancomycin (Pre-Docked) IVPB 200 mls/hr Q24H [facility] Administration Protocol Insulin Aspart 1 vial 05/20/18 07:00 05/23/18 06:09 Novolog Vial Sliding Scale - SQ Not Given [facility] Protocol Insulin Detemir 35 units 05/20/18 22:00 05/22/18 23:33 Levemir Vial SQ 35 units HS KANG Administration Losartan Potassium 25 mg 05/20/18 10:00 05/22/18 09:38 Cozaar - PO 25 mg DAILY [facility] Administration Metoprolol Succinate 100 mg 05/20/18 10:00 05/22/18 09:39 Toprol Xl - PO 100 mg DAILY [facility] Administration Tamsulosin HCl 0.4 mg 05/20/18 08:30 05/22/18 08:04 Flomax - PO 0.4 mg DAILY@0830 [facility] Administration Home Medications Medication Instructions Recorded Ascorbate Calcium [Vitamin C] 500 mg PO DAILY 03/28/18 Aspirin [ASA -] 81 mg PO DAILY 03/28/18 Atorvastatin Ca [Lipitor] 80 mg PO HS 03/28/18 Cholecalciferol (Vitamin D3) 1,000 unit PO DAILY 03/28/18 [Vitamin D3] Clopidogrel Bisulfate [Plavix] 75 mg PO DAILY 03/28/18 Cyanocobalamin [Vitamin B12 -] 1,000 mcg PO DAILY 03/28/18 Furosemide [Lasix] 80 mg PO AM 03/28/18 Insulin Glargine,Hum.rec.anlog 28 unit SQ HS 03/28/18 [Lantus] Losartan Potassium 25 mg PO DAILY 03/28/18 Metoprolol Succinate 100 mg PO DAILY 03/28/18 Tamsulosin HCl 0.4 mg PO DAILY 03/28/18 Vitamin B Complex 1,000 mg PO DAILY 03/28/18 Zinc 50 mg PO DAILY 03/28/18 Alcohol Antiseptic Pads [Alcohol 1 each TP ACHS #1 box 03/30/18 Prep Pads] Collagenase Clostridium Hist. 1 applic TP DAILY #1 tube 03/30/18 [Santyl -] Furosemide [Lasix -] 40 mg PO DAILY@1400 tablet 03/30/18 Furosemide [Lasix -] 80 mg PO DAILY@0700 tablet 03/30/18 Glipizide [Glucotrol -] 5 mg PO BID@0700,1630 #60 tablet 03/30/18 Insulin (Levemir) [Levemir Vial] 35 units SQ HS #0 units 03/30/18 Insulin Sliding Scale [Novolog 2 vial SQ ACHS #1 vial 03/30/18 Vial Sliding Scale -] Lancets [Lancets Ultra Thin] 1 each ACHS #50 each 03/30/18 Miscellaneous Medical Supply 1 each SQ ACHS #1 kit 03/30/18 [Glucometer Device] Miscellaneous Medical Supply 1 each SQ ASDIR #1 kit 03/30/18 [Glucometer Device] Miscellaneous Medical Supply 1 each SQ ACHS #1 box 03/30/18 [Glucometer Test Strips #100] Miscellaneous Medical Supply 1 each SQ ASDIR #1 box 03/30/18 [Glucometer Test Strips #100] Syringe and Needle,Insulin,1Ml 1 each ACHS #30 disp.syrin 03/30/18 [Advocate Syringes] Tamsulosin HCl [Flomax] 0.4 mg PO DAILY #30 cap.er.24h 03/30/18 05/19/18 18:33 Toe - Left Fifth Gram Stain - Final 05/19/18 18:33 Toe - Left Fifth Wound Culture - Final Mr S Aureus 05/19/18 18:33 Blood - Peripheral Venous Blood Culture - Preliminary NO GROWTH OBTAINED AFTER 48 HOURS, INCUBATION TO CONTINUE FOR 3 DAYS. 05/19/18 18:33 Blood - Peripheral Venous Blood Culture - Preliminary NO GROWTH OBTAINED AFTER 48 HOURS, INCUBATION TO CONTINUE FOR 3 DAYS. ASSESSMENT AND PLAN: This is a 48 year old male with a history of DM, CHF,HTN, CAD s/p stents , osteomyelitis, who presents with left 5th toe diabetic foot ulcer c/w OM s/p on Ertapenem. #left 5th toe osteomyelitis: s/p IV ertapenam x 6 weeks as per patient, On IV Vancomycin day#4 as per ID , follow kidney function closely Podiatry consult appreciated, patient is going for 5th toe amputation today #chronic kidney failure: monitor kidney function 1.8-->1.7-->1.5 today #T2DM on diabetic diet , sliding scale. hold po diabetic medications- start insulin sliding scale, tight glycemic control #CHF continue home meds. #CAD on aspirin and Plavix , restart post sx, patient had the stents placed 1.5 yrs ago, cardio consult .appreciated #HTN continue home meds. #HLD continue Lipitor DVt px: heparin sq
[2018-05-23] MEDS: LOSARTAN POTASSIUM 25 MG TABLET PO SCH ×2 (08:43→10:37)
[2018-05-23] MEDS: TAMSULOSIN HCL 0.4 MG CAP PO SCH (10:37)
[2018-05-23] MEDS: CYANOCOBALAMIN 1,000 MCG TABLET (FP) PO SCH (10:38)
[2018-05-23] MEDS ORDERED: BUPIVACAINE HCL/PF 0.5% (5MG/ML) 10 ML VIAL ONE (11:07)
[2018-05-23] MEDS ORDERED: LIDOCAINE HCL 1%, 10 MG/ML (20ML VIAL) ONE (11:08)
[2018-05-23] MEDS ORDERED: MIDAZOLAM HCL 2 MG/2 ML SINGLE DOSE VIAL ONE (11:16)
[2018-05-23] MEDS ORDERED: PROPOFOL 20 ML ONE (11:16)
[2018-05-23] MEDS ORDERED: BUPIVACAINE HCL/PF 0.5% (5MG/ML) 10 ML VIAL IJ ONE (12:00)
[2018-05-23] MEDS ORDERED: LIDOCAINE HCL 1%, 10 MG/ML (20ML VIAL) NR ONE (12:00)
[2018-05-23 12:13] VITALS: BMI 45.0
--- NOTE | 2018-05-23 12:22 | PN ---
Progress Note, Physician History of Present Illness: stable doing well no issues patient for or tomorrow - Current Medication List Current Medications: Active Medications Atorvastatin Calcium (Lipitor -) 80 mg PO HS [facility] Last Admin: 05/22/18 23:33 Dose: 80 mg Cyanocobalamin (Vitamin B12 -) 1,000 mcg PO DAILY [facility] Last Admin: 05/23/18 10:38 Dose: Not Given Furosemide (Lasix -) 40 mg PO DAILY@1400 [facility] Last Admin: 05/22/18 14:21 Dose: 40 mg Furosemide (Lasix -) 80 mg PO DAILY@0700 [facility] Last Admin: 05/23/18 06:12 Dose: 80 mg Vancomycin HCl (Vancomycin (Pre-Docked)) 1,000 mg in 250 mls @ 200 mls/hr IVPB Q24H [facility]; Protocol Last Admin: 05/22/18 23:32 Dose: 200 mls/hr Insulin Aspart (Novolog Vial Sliding Scale -) 1 vial SQ [facility]; Protocol Last Admin: 05/23/18 06:09 Dose: Not Given Insulin Detemir (Levemir Vial) 35 units SQ [facility] Last Admin: 05/22/18 23:33 Dose: 35 units Losartan Potassium (Cozaar -) 25 mg PO DAILY [facility] Last Admin: 05/23/18 10:37 Dose: Not Given Metoprolol Succinate (Toprol Xl -) 100 mg PO DAILY [facility] Last Admin: 05/23/18 10:38 Dose: Not Given Tamsulosin HCl (Flomax -) 0.4 mg PO DAILY@0830 [facility] Last Admin: 05/23/18 10:37 Dose: Not Given - Objective Vital Signs: Vital Signs Temperature 97.6 F 05/23/18 07:16 Pulse Rate 58 L 05/23/18 07:16 Respiratory Rate 20 05/23/18 07:16 Blood Pressure 142/82 05/23/18 07:16 O2 Sat by Pulse Oximetry (%) 97 05/22/18 21:00 Constitutional: Yes: No Distress, Calm HENT: Yes: Atraumatic, Normocephalic Cardiovascular: Yes: Regular Rate and Rhythm Respiratory: Yes: Regular, CTA Bilaterally Gastrointestinal: Yes: Normal Bowel Sounds, Soft Musculoskeletal: Yes: WNL Extremities: Yes: WNL Neurological: Yes: Alert, Oriented Psychiatric: Yes: Alert, Oriented Labs: CBC, BMP 05/23/18 06:15 05/23/18 06:15 INR, PTT INR 1.13 (0.83-1.09) H 05/23/18 06:15 Assessment/Plan romainm List - Problems (1) Osteomyelitis of foot, left, acute Code(s): M86.172 - OTHER ACUTE OSTEOMYELITIS, LEFT ANKLE AND FOOT (2) CKD (chronic kidney disease) Code(s): N18.9 - CHRONIC KIDNEY DISEASE, UNSPECIFIED (3) Diabetes Code(s): E11.9 - TYPE 2 DIABETES MELLITUS WITHOUT COMPLICATIONS Qualifiers: Diabetes mellitus type: type 2 Diabetes mellitus complication status: without complication Qualified Code(s): E11.9 - Type 2 diabetes mellitus without complications (4) Leukocytosis Code(s): D72.829 - ELEVATED WHITE BLOOD CELL COUNT, UNSPECIFIED Qualifiers: Leukocytosis type: other Qualified Code(s): D72.828 - Other elevated white blood cell count Assessment/Plan 48 y.o. male with CAD s/p stents, CHF, DM, HLD, HTN presenting with persistent Lt 5th toe infected wound with imaging c/w OM on Ertapenem Lt 5th toe OM DM CKD CAD s/p stent HLD HTN plan continue current mgmt surgery tomorrow rest as per the team stable
[2018-05-23] MEDS ORDERED: BACITRACIN 50,000 UNITS VIAL NR ONE (12:31)
[2018-05-23] MEDS ORDERED: ONDANSETRON 4 MG/2 ML VIAL IVPUSH PRN (12:48)
[2018-05-23] MEDS ORDERED: oxyCODONE HCL 5 MG TABLET PO PRN (12:48)
[2018-05-23] MEDS ORDERED: PROMETHAZINE HCL 25 MG/1 ML VIAL IVPUSH PRN (12:48)
--- NOTE | 2018-05-23 12:49 | OP ---
Operative Note - Note: Operative Date: 05/23/18 Pre-Operative Diagnosis: om gangarene 5th toe left Operation: debridement bone and sof tissue 5th toe left, amputation Findings: necrotic bone and soft tissue Post-Operative Diagnosis: Same as Pre-op Surgeon: Shaista Castro Anesthesia: Local Specimens Removed: bone soft tissue toe Estimated Blood Loss (mls): 15 Instrument used (Debridements only): blade, double action bone cutter Drains & Tubes with Location: 06/16" plain packing Operative Report Dictated: Yes
--- NOTE | 2018-05-23 13:23 | OP ---
DATE OF OPERATION: 05/23/2018 SURGEON: Shaista Castro DPM ASSISTANTS: Luli Julien, PGY-3 PREOPERATIVE DIAGNOSIS: Left foot gangrene of the 5th toe with osteomyelitis. POSTOPERATIVE DIAGNOSIS: Left foot gangrene of the 5th toe with osteomyelitis. PROCEDURE: Left 5th digit amputation. ANESTHESIA: Local with MAC. INJECTABLES: 10 mL of a 1:1 mixture of 1% lidocaine plain and 0.5% Marcaine plain injected throughout the surgical sites preoperatively. MATERIALS USED: [id number] Iodoform packing, 3-0 nylon suture, Betadine-soaked Adaptic, and dry sterile dressing such as 4 x 4's, sterile gauze, Kerlix, and Poncho bandage. ESTIMATED BLOOD LOSS: 5 mL HEMOSTASIS: Electrocautery. CONDITION OF PATIENT: Stable. COMPLICATIONS: None. DESCRIPTION: The patient was brought to the operating room and placed on the operating table in supine position. Following IV sedation, local anesthesia was obtained using a 1:1 mixture of 1% lidocaine plain and 0.5% Marcaine plain preoperatively; 10 mL total was injected throughout the surgical site, left foot 5th toe. The left foot was then scrubbed, prepped, and draped in the usual aseptic manner. Attention was first directed to the dorsal aspect of the 5th digit where using number-15 blade, a full-thickness incision was made at the level of proximal interphalangeal joint of the 5th toe, left foot, and the 5th digit was excised and removed from the operative field and sent to Pathology. Next, the proximal phalanx was disarticulated at the metatarsophalangeal joint, and the proximal phalanx was sent to Pathology as clear margin. The remaining bone appeared to be viable and the soft tissue noted to be healthy with healthy bleeding. The incision was lengthened on the lateral aspect of the 5th metatarsal about 2 cm, and the dorsal flap was moved to the plantar aspect of the missing digit in order to partially close the surgical site with retention sutures. The wound was then irrigated with copious amount of normal saline with bacitracin in it, and the wound was partially closed using retention sutures using 3-0 nylon suture. Distally, it was packed using 1/4-inch Iodoform packing. Postoperative dressing was applied such as Betadine-soaked Adaptic and 4 x 4's, sterile gauze, Kerlix, and Poncho bandage. The patient tolerated the procedure and anesthesia well and was transferred to the postanesthesia care unit with vital signs stable and vascular status intact to the left lower extremity. Patient will be discharged home once stable per Anesthesia and was already given the instructions and prescriptions which were discussed prior to surgery. Luli Julien, PGY-3 dictating for LENA Meyers DPM [id number]
[2018-05-23] MEDS: LACTATED RINGERS SOLUTION 1,000 ML IV SCH (17:24)
[2018-05-23] MEDS ORDERED: INSULIN (NOVOLOG) ASPART 100 UNITS/ML 10ML VIAL ONE (20:51)
[2018-05-23] MEDS: ATORVASTATIN CA 80 MG TABLET (FP) PO SCH (21:15)
[2018-05-23] MEDS: INSULIN (LEVEMIR) 100 UNITS/ML UNITS SQ SCH (21:18)
[2018-05-23] MEDS: VANCOMYCIN 1 GRAM (PRE-DOCKED) 1,000 MG/250 ML BAG IVPB SCH (23:18)
[2018-05-24] MEDS: INSULIN SLIDING SCALE (NOVOLOG) 1 VIAL SQ SCH ×5 (06:02→22:00)
[2018-05-24 07:30] LABS: HEMATOCRIT 31.8 % (35.4-49); HEMOGLOBIN 10.9 GM/dL (11.7-16.9); MCH 26.6 pg (25.7-33.7); MCHC 34.2 g/dl (32.0-35.9); MEAN CELL VOLUME 77.8 fl (80-96); MEAN PLT VOLUME 9.6 fl (7.5-11.1); PLATELET COUNT 212 K/MM3 (134-434); RBC 4.08 M/mm3 (4.00-5.60); RDW 14.3 % (11.9-15.9); WHITE BLOOD COUNT 11.2 K/mm3 (4.0-10.0)
[2018-05-24 08:13] LABS: ANION GAP 9 MMOL/L (8-16); BLOOD UREA NITROGEN 42 mg/dL (7-18); CALCIUM 8.1 mg/dL (8.5-10.1); CHLORIDE 106 mmol/L (98-107); CO2 27 mmol/L (21-32); CREATININE 1.5 mg/dL (0.55-1.3); GLUCOSE,RANDOM 137 mg/dL (74-106); SODIUM 142 mmol/L (136-145)
--- NOTE | 2018-05-24 08:28 | PN ---
Progress Note (short form) - Note Progress Note: Post op day#1.S/P Left 5th toe amputation under MAC uneventful.Patient stable.No any anesthesia related problem.Patient Dc from the anesthesia care.
[2018-05-24] MEDS: TAMSULOSIN HCL 0.4 MG CAP PO SCH (09:01)
[2018-05-24] MEDS ORDERED: ACETAMINOPHEN 325 MG TABLET (FP) PO PRN (09:11)
--- NOTE | 2018-05-24 10:44 | PN ---
Physical Exam: SUBJECTIVE: Patient examined today and notes he only has a little pain in his foot. Asking when he can leave. S/P amputation. OBJECTIVE: Vital Signs Temperature 98.6 F 05/24/18 06:00 Pulse Rate 65 05/24/18 06:00 Respiratory Rate 20 05/24/18 06:00 Blood Pressure 152/77 05/24/18 06:00 O2 Sat by Pulse Oximetry (%) 96 05/23/18 21:00 GENERAL: The patient is awake, alert, and fully oriented, in no acute distress. HEAD: Normal with no signs of trauma. EYES: PERRL, extraocular movements intact, LUNGS: Breath sounds equal, clear to auscultation bilaterally, no wheezes, no crackles, no accessory muscle use. HEART: Regular rate and rhythm, S1, S2 without murmur, rub or gallop. ABDOMEN: Soft, nontender, nondistended, normoactive bowel sounds EXTREMITIES: 2+ pulses, warm, well-perfused, no edema. PSYCH: Normal mood, normal affect. SKIN: left foot wrapped, s/p amputation CBC, BMP 05/24/18 06:30 05/24/18 06:30 Active Medications Acetaminophen (Tylenol -) 650 mg PO Q6H PRN PRN Reason: PAIN LEVEL 4 - 6 Aspirin (Ecotrin -) 81 mg PO DAILY [facility] Atorvastatin Calcium (Lipitor -) 80 mg PO HS [facility] Last Admin: 05/23/18 21:15 Dose: 80 mg Clopidogrel Bisulfate (Plavix -) 75 mg PO DAILY [facility] Cyanocobalamin (Vitamin B12 -) 1,000 mcg PO DAILY [facility] Fentanyl (Sublimaze Injection -) 25 mcg IVPUSH [id number] PRN PRN Reason: PAIN-PACU ORDER X 4 DOSES ONLY Furosemide (Lasix -) 40 mg PO DAILY@1400 [facility] Last Admin: 05/23/18 15:57 Dose: 40 mg Heparin Sodium (Porcine) (Heparin -) 5,000 unit SQ TID [facility] Lactated Ringer's (Lactated Ringers Solution) 1,000 mls @ 75 mls/hr IV ASDIR [facility] Last Admin: 05/23/18 17:24 Dose: 75 mls/hr Vancomycin HCl (Vancomycin (Pre-Docked)) 1,000 mg in 250 mls @ 200 mls/hr IVPB Q24H [facility]; Protocol Last Admin: 05/23/18 23:18 Dose: 200 mls/hr Insulin Aspart (Novolog Vial Sliding Scale -) 1 vial SQ ACHS [facility]; Protocol Last Admin: 05/24/18 06:02 Dose: Not Given Insulin Detemir (Levemir Vial) 35 units SQ HS [facility] Last Admin: 05/23/18 21:18 Dose: 35 units Losartan Potassium (Cozaar -) 25 mg PO DAILY [facility] Metoprolol Succinate (Toprol Xl -) 100 mg PO DAILY [facility] Ondansetron HCl (Zofran Injection) 4 mg IVPUSH Q6H PRN PRN Reason: NAUSEA AND/OR VOMITING Oxycodone HCl (Roxicodone -) 10 mg PO Q4H PRN PRN Reason: PAIN LEVEL 6-10 Stop: 05/24/18 12:47 Promethazine HCl (Phenergan Injection -) 12.5 mg IVPUSH Q6H PRN PRN Reason: NAUSEA-FOR RESCUE AFTER 15 MIN Tamsulosin HCl (Flomax -) 0.4 mg PO DAILY@0830 [facility] Last Admin: 05/24/18 09:01 Dose: 0.4 mg ASSESSMENT/PLAN: Patient is a 48 y/o male with a history of DM, CHF, CAD, osteomyelitis, who is preop for 5 left toe amputation today. #Osteomyeltis left 5th toe, s/p amputation - post op day 1 - Line Out Worker Dr. Castro - MRI: bone marrow changes suggestive of osteomyelitis of the proximal and distal phalnges of the fifth toe - Xray: decreased bone mass at left 5th toe - bcx negative, wound cx: MRSA - continue Vancomycin day 6 will be given tonight, continue 1 mg dose - foot xray: metatarsal remaining, soft tissue swelling #CAD s/p 4 stents - 1.5 years ago - restart clopidogrel and aspirin - f/u Dr. Arzate #DM - A1C: 6.4 - 35 units sq - continue SS #HTN - losartan 25 mg daily #HLD - continue atorvastatin 80 mg hs #CHF - furoseminde 40 mg pm, 80 mg am - metoprolol 100 mg po daily - echo 08/26: mild concentric left ventricular hypertrophy, left ventricular systolic function low normal, no regional wall abnormalities #BPH - tamsulosin 0.4 mg daily Dispo: Dr. Castro would like patient to stay until Tuesday for dressing change , plan DC then Visit type - Emergency Visit Emergency Visit: No - New Patient This patient is new to me today: No - Critical Care Critical Care patient: No
[2018-05-24] MEDS: HEPARIN NA (PORCINE) 5,000 UNITS/ML 1ML VIAL SQ SCH ×3 (11:00→22:00)
[2018-05-24] MEDS: LOSARTAN POTASSIUM 25 MG TABLET PO SCH (11:01)
[2018-05-24] MEDS: CLOPIDOGREL BISULFATE 75 MG TABLET (FP) PO SCH (11:01)
[2018-05-24] MEDS: CYANOCOBALAMIN 1,000 MCG TABLET (FP) PO SCH (11:01)
[2018-05-24] MEDS: ASPIRIN COATED 81 MG TABLET.EC PO SCH (11:01)
--- NOTE | 2018-05-24 11:23 | PN ---
Progress Note, Physician History of Present Illness: stable doing well no issues - Current Medication List Current Medications: Active Medications Acetaminophen (Tylenol -) 650 mg PO Q6H PRN PRN Reason: PAIN LEVEL 4 - 6 Last Admin: 05/24/18 11:00 Dose: 650 mg Aspirin (Ecotrin -) 81 mg PO DAILY [facility] Last Admin: 05/24/18 11:01 Dose: 81 mg Atorvastatin Calcium (Lipitor -) 80 mg PO HS [facility] Last Admin: 05/23/18 21:15 Dose: 80 mg Clopidogrel Bisulfate (Plavix -) 75 mg PO DAILY [facility] Last Admin: 05/24/18 11:01 Dose: 75 mg Cyanocobalamin (Vitamin B12 -) 1,000 mcg PO DAILY [facility] Last Admin: 05/24/18 11:01 Dose: 1,000 mcg Fentanyl (Sublimaze Injection -) 25 mcg IVPUSH [id number] PRN PRN Reason: PAIN-PACU ORDER X 4 DOSES ONLY Furosemide (Lasix -) 40 mg PO DAILY@1400 [facility] Last Admin: 05/23/18 15:57 Dose: 40 mg Heparin Sodium (Porcine) (Heparin -) 5,000 unit SQ TID [facility] Last Admin: 05/24/18 11:00 Dose: 5,000 unit Lactated Ringer's (Lactated Ringers Solution) 1,000 mls @ 75 mls/hr IV ASDIR [facility] Last Admin: 05/23/18 17:24 Dose: 75 mls/hr Vancomycin HCl (Vancomycin (Pre-Docked)) 1,000 mg in 250 mls @ 200 mls/hr IVPB Q24H [facility]; Protocol Last Admin: 05/23/18 23:18 Dose: 200 mls/hr Insulin Aspart (Novolog Vial Sliding Scale -) 1 vial SQ [facility]; Protocol Last Admin: 05/24/18 06:02 Dose: Not Given Insulin Detemir (Levemir Vial) 35 units SQ HS [facility] Last Admin: 05/23/18 21:18 Dose: 35 units Losartan Potassium (Cozaar -) 25 mg PO DAILY [facility] Last Admin: 05/24/18 11:01 Dose: 25 mg Metoprolol Succinate (Toprol Xl -) 100 mg PO DAILY [facility] Last Admin: 05/24/18 11:01 Dose: 100 mg Ondansetron HCl (Zofran Injection) 4 mg IVPUSH Q6H PRN PRN Reason: NAUSEA AND/OR VOMITING Oxycodone HCl (Roxicodone -) 10 mg PO Q4H PRN PRN Reason: PAIN LEVEL 6-10 Stop: 05/24/18 12:47 Promethazine HCl (Phenergan Injection -) 12.5 mg IVPUSH Q6H PRN PRN Reason: NAUSEA-FOR RESCUE AFTER 15 MIN Tamsulosin HCl (Flomax -) 0.4 mg PO DAILY@0830 [facility] Last Admin: 05/24/18 09:01 Dose: 0.4 mg - Objective Vital Signs: Vital Signs Temperature 98.6 F 05/24/18 06:00 Pulse Rate 65 05/24/18 06:00 Respiratory Rate 20 05/24/18 06:00 Blood Pressure 152/77 05/24/18 06:00 O2 Sat by Pulse Oximetry (%) 96 05/23/18 21:00 Constitutional: Yes: No Distress, Calm, Obese Cardiovascular: Yes: S1, S2 Respiratory: Yes: Regular, CTA Bilaterally Gastrointestinal: Yes: Normal Bowel Sounds, Soft Musculoskeletal: Yes: WNL Extremities: Yes: Other Neurological: Yes: Alert, Oriented Psychiatric: Yes: Alert, Oriented Labs: CBC, BMP 05/24/18 06:30 05/24/18 06:30 INR, PTT INR 1.13 (0.83-1.09) H 05/23/18 06:15 Assessment/Plan roblem List - Problems (1) Osteomyelitis of foot, left, acute Code(s): M86.172 - OTHER ACUTE OSTEOMYELITIS, LEFT ANKLE AND FOOT (2) CKD (chronic kidney disease) Code(s): N18.9 - CHRONIC KIDNEY DISEASE, UNSPECIFIED (3) Diabetes Code(s): E11.9 - TYPE 2 DIABETES MELLITUS WITHOUT COMPLICATIONS Qualifiers: Diabetes mellitus type: type 2 Diabetes mellitus complication status: without complication Qualified Code(s): E11.9 - Type 2 diabetes mellitus without complications (4) Leukocytosis Code(s): D72.829 - ELEVATED WHITE BLOOD CELL COUNT, UNSPECIFIED Qualifiers: Leukocytosis type: other Qualified Code(s): D72.828 - Other elevated white blood cell count Assessment/Plan 48 y.o. male with CAD s/p stents, CHF, DM, HLD, HTN presenting with persistent Lt 5th toe infected wound with imaging c/w OM on Ertapenem Lt 5th toe OM DM CKD CAD s/p stent HLD HTN plan will d/w the podiatry and then decide about abx will d/w the team rest as per the team
[2018-05-24] MEDS ORDERED: PT OWN MED DRAWER 7, Y5N ONE (11:31)
[2018-05-24] MEDS: FUROSEMIDE 40 MG TABLET (FP) PO SCH (14:45)
[2018-05-24] MEDS: LACTATED RINGERS SOLUTION 1,000 ML IV SCH (14:45)
[2018-05-24] MEDS ORDERED: INSULIN (NOVOLOG) ASPART 100 UNITS/ML 10ML VIAL ONE (17:40)
--- NOTE | 2018-05-24 18:12 | PN ---
Teaching Attending Note Name of Resident: Charlotte Ware ATTENDING PHYSICIAN STATEMENT I saw and evaluated the patient. I reviewed the resident's note and discussed the case with the resident. I agree with the resident's findings and plan as documented. SUBJECTIVE: No fever or chills . No pain . wants to go home OBJECTIVE: NAD CV: RRR Lungs: CTAB Ext : L foot with a surgical dressing, clean and dry. not removed. ASSESSMENT AND PLAN: 48 y/o man with h/o DM , HTN, CHF, CAD , CKD, s/p stenting, OM who presented with an ulcer on L 5th toe and was found to have OM 1- OM of L 5th toe. s/p amputation . POD1 - case d/w Dr. Castro by resident: margins were visually clean. no bone was sent for path or cx - case was d/w Dr. Duarte, Abx duration to be determined, but likely to need long duration as the margins were not sent to path - vanco trough tonight 2- CKD: stable 3- DM : cont levemir and SSI 4- CHF: cont lasix and dc IVF 5- HTN, CAD: cont home meds dispo : wound to be checked on Tuesday by podiatry , then can be dc . already has a tunnel cath patient threatens to leave AMA
[2018-05-24] MEDS: INSULIN (LEVEMIR) 100 UNITS/ML UNITS SQ SCH (22:00)
[2018-05-24] MEDS: ATORVASTATIN CA 80 MG TABLET (FP) PO SCH (22:00)
[2018-05-25] MEDS ORDERED: VANCOMYCIN 1 GRAM (PRE-DOCKED) 1,000 MG/250 ML BAG IVPB SCH (05:00)
[2018-05-25] MEDS: HEPARIN NA (PORCINE) 5,000 UNITS/ML 1ML VIAL SQ SCH ×3 (05:18→21:57)
[2018-05-25] MEDS: INSULIN SLIDING SCALE (NOVOLOG) 1 VIAL SQ SCH ×4 (06:23→21:38)
[2018-05-25] MEDS: VANCOMYCIN 1 GRAM (PRE-DOCKED) 1,000 MG/250 ML BAG IVPB SCH (07:27)
[2018-05-25 07:38] LABS: HEMATOCRIT 32.3 % (35.4-49); HEMOGLOBIN 10.9 GM/dL (11.7-16.9); MCH 26.6 pg (25.7-33.7); MCHC 33.9 g/dl (32.0-35.9); MEAN CELL VOLUME 78.6 fl (80-96); MEAN PLT VOLUME 9.9 fl (7.5-11.1); PLATELET COUNT 208 K/MM3 (134-434); RBC 4.11 M/mm3 (4.00-5.60); RDW 14.3 % (11.9-15.9); WHITE BLOOD COUNT 8.8 K/mm3 (4.0-10.0)
[2018-05-25 08:19] LABS: ALBUMIN 2.9 g/dl (3.4-5.0); ALK PHOS 79 U/L (45-117); ANION GAP 9 MMOL/L (8-16); BILIRUBIN,TOTAL 0.4 mg/dL (0.2-1); BLOOD UREA NITROGEN 39 mg/dL (7-18); CALCIUM 8.4 mg/dL (8.5-10.1); CHLORIDE 104 mmol/L (98-107); CO2 28 mmol/L (21-32); CREATININE 1.5 mg/dL (0.55-1.3); GLUCOSE,RANDOM 153 mg/dL (74-106); POTASSIUM 3.9 mmol/L (3.5-5.1); SGOT/AST 12 U/L (15-37); SGPT/ALT 24 U/L (13-61); SODIUM 141 mmol/L (136-145); TOT PROT 6.2 g/dl (6.4-8.2)
[2018-05-25] MEDS: TAMSULOSIN HCL 0.4 MG CAP PO SCH (09:26)
[2018-05-25] MEDS: CYANOCOBALAMIN 1,000 MCG TABLET (FP) PO SCH (09:26)
[2018-05-25] MEDS: ASPIRIN COATED 81 MG TABLET.EC PO SCH (09:26)
[2018-05-25] MEDS: LOSARTAN POTASSIUM 25 MG TABLET PO SCH (09:26)
[2018-05-25] MEDS: CLOPIDOGREL BISULFATE 75 MG TABLET (FP) PO SCH (09:26)
--- NOTE | 2018-05-25 10:11 | PN ---
Progress Note (short form) - Note Progress Note: POD#2. No pain. Eager to leave. Wants to leave. vss, Tmax 98.2 +coapted, retention sutures intact, +packing in place, wbc=8.8 Normal post op Discussed at length with patient need to stay till tomorrow and 1 more week of antibiotics on dc. Packing pulled. Betadine irrigation and dressing change. Can go home tomorrow if wound stays stable and no signs of infection are present.
--- NOTE | 2018-05-25 11:27 | PN ---
Teaching Attending Note Name of Resident: Charlotte Ware ATTENDING PHYSICIAN STATEMENT I saw and evaluated the patient. I reviewed the resident's note and discussed the case with the resident. I agree with the resident's findings and plan as documented. SUBJECTIVE: " I feel fine , I want to go home" no exam and no ROS due to no cooperation . ASSESSMENT AND PLAN: 48 y/o man with h/o DM , HTN, CHF, CAD , CKD, s/p stenting, OM who presented with an ulcer on L 5th toe and was found to have OM 1- OM of L 5th toe. s/p amputation . POD2 - cont vanco. trough was low last night . received a dose this am. willchange dosing to 1500 mg q 24 hr starting tomorrow am. - due to no path on the margins, will need total of 4 weeks of abx ( counting his out patient week prior to admission ) , this was d/w Dr. Duarte. - will arrange for Abx at home . - weekly trough , BMP, CRP,ESR while on Abx - wound to be changed tomorrow 2- CKD: stable 3- DM : cont levemir and SSI 4- CHF: cont lasix 5- HTN, CAD: cont home meds Dispo : threatened to leave AMA, but decided to stay till tomorrow - if wound healing is satisfying , will arrange fro his dc tomorrow
--- NOTE | 2018-05-25 12:53 | PN ---
Progress Note, Physician History of Present Illness: post op doing well no new issues plan to go home - Current Medication List Current Medications: Active Medications Acetaminophen (Tylenol -) 650 mg PO Q6H PRN PRN Reason: PAIN LEVEL 4 - 6 Last Admin: 05/24/18 11:00 Dose: 650 mg Aspirin (Ecotrin -) 81 mg PO DAILY [facility] Last Admin: 05/25/18 09:26 Dose: 81 mg Atorvastatin Calcium (Lipitor -) 80 mg PO HS [facility] Last Admin: 05/24/18 22:00 Dose: 80 mg Clopidogrel Bisulfate (Plavix -) 75 mg PO DAILY [facility] Last Admin: 05/25/18 09:26 Dose: 75 mg Cyanocobalamin (Vitamin B12 -) 1,000 mcg PO DAILY [facility] Last Admin: 05/25/18 09:26 Dose: 1,000 mcg Furosemide (Lasix -) 40 mg PO DAILY@1400 [facility] Last Admin: 05/24/18 14:45 Dose: 40 mg Heparin Sodium (Porcine) (Heparin -) 5,000 unit SQ TID [facility] Last Admin: 05/25/18 05:18 Dose: 5,000 unit Vancomycin HCl 1,500 mg/ (Dextrose) 500 mls @ 250 mls/hr IVPB DAILY@0500 [facility]; Protocol Insulin Aspart (Novolog Vial Sliding Scale -) 1 vial SQ [facility]; Protocol Last Admin: 05/25/18 11:33 Dose: 2 units Insulin Detemir (Levemir Vial) 35 units SQ [facility] Last Admin: 05/24/18 22:00 Dose: 35 units Lactobacillus Acidophilus (Bacid -) 1 tab PO DAILY [facility] Losartan Potassium (Cozaar -) 25 mg PO DAILY [facility] Last Admin: 05/25/18 09:26 Dose: 25 mg Metoprolol Succinate (Toprol Xl -) 100 mg PO DAILY [facility] Last Admin: 05/25/18 09:26 Dose: 100 mg Tamsulosin HCl (Flomax -) 0.4 mg PO DAILY@0830 [facility] Last Admin: 05/25/18 09:26 Dose: 0.4 mg - Objective Vital Signs: Vital Signs Temperature 97.6 F 05/25/18 09:25 Pulse Rate 64 05/25/18 09:25 Respiratory Rate 18 05/25/18 09:25 Blood Pressure 142/79 05/25/18 09:25 O2 Sat by Pulse Oximetry (%) 96 05/24/18 21:00 Constitutional: Yes: No Distress, Calm Cardiovascular: Yes: Regular Rate and Rhythm Respiratory: Yes: Regular, CTA Bilaterally Gastrointestinal: Yes: Normal Bowel Sounds, Soft Musculoskeletal: Yes: WNL Extremities: Yes: Other Neurological: Yes: Alert, Oriented Psychiatric: Yes: Alert, Oriented Labs: CBC, BMP 05/25/18 06:00 05/25/18 06:00 INR, PTT INR 1.13 (0.83-1.09) H 05/23/18 06:15 Assessment/Plan romainm List - Problems (1) Osteomyelitis of foot, left, acute Code(s): M86.172 - OTHER ACUTE OSTEOMYELITIS, LEFT ANKLE AND FOOT (2) CKD (chronic kidney disease) Code(s): N18.9 - CHRONIC KIDNEY DISEASE, UNSPECIFIED (3) Diabetes Code(s): E11.9 - TYPE 2 DIABETES MELLITUS WITHOUT COMPLICATIONS Qualifiers: Diabetes mellitus type: type 2 Diabetes mellitus complication status: without complication Qualified Code(s): E11.9 - Type 2 diabetes mellitus without complications (4) Leukocytosis Code(s): D72.829 - ELEVATED WHITE BLOOD CELL COUNT, UNSPECIFIED Qualifiers: Leukocytosis type: other Qualified Code(s): D72.828 - Other elevated white blood cell count Assessment/Plan 48 y.o. male with CAD s/p stents, CHF, DM, HLD, HTN presenting with persistent Lt 5th toe infected wound with imaging c/w OM on Ertapenem Lt 5th toe OM DM CKD CAD s/p stent HLD HTN plan continue current mgmt wound care as per podiatry rest as per the team patient doing well
--- NOTE | 2018-05-25 14:13 | PN ---
Physical Exam: SUBJECTIVE: Patient examined today and notes he no pain in his foot. Reports he is leaving tomorrow by 7 am. No acute events overnight. OBJECTIVE: Vital Signs Temperature 97.6 F 05/25/18 09:25 Pulse Rate 64 05/25/18 09:25 Respiratory Rate 18 05/25/18 09:25 Blood Pressure 142/79 05/25/18 09:25 O2 Sat by Pulse Oximetry (%) 96 05/24/18 21:00 GENERAL: The patient is awake, alert, and fully oriented, in no acute distress. HEAD: Normal with no signs of trauma. EYES: PERRL, extraocular movements intact, LUNGS: Breath sounds equal, clear to auscultation bilaterally, no wheezes, no crackles, no accessory muscle use. HEART: Regular rate and rhythm, S1, S2 without murmur, rub or gallop. ABDOMEN: Soft, nontender, nondistended, normoactive bowel sounds EXTREMITIES: 2+ pulses, warm, well-perfused, no edema. PSYCH: Normal mood, normal affect. SKIN: left foot wrapped, s/p amputation CBC, BMP 05/25/18 06:00 05/25/18 06:00 Active Medications Acetaminophen (Tylenol -) 650 mg PO Q6H PRN PRN Reason: PAIN LEVEL 4 - 6 Last Admin: 05/24/18 11:00 Dose: 650 mg Aspirin (Ecotrin -) 81 mg PO DAILY [facility] Last Admin: 05/25/18 09:26 Dose: 81 mg Atorvastatin Calcium (Lipitor -) 80 mg PO HS [facility] Last Admin: 05/24/18 22:00 Dose: 80 mg Clopidogrel Bisulfate (Plavix -) 75 mg PO DAILY [facility] Last Admin: 05/25/18 09:26 Dose: 75 mg Cyanocobalamin (Vitamin B12 -) 1,000 mcg PO DAILY [facility] Last Admin: 05/25/18 09:26 Dose: 1,000 mcg Furosemide (Lasix -) 40 mg PO DAILY@1400 [facility] Last Admin: 05/24/18 14:45 Dose: 40 mg Heparin Sodium (Porcine) (Heparin -) 5,000 unit SQ TID [facility] Last Admin: 05/25/18 05:18 Dose: 5,000 unit Vancomycin HCl 1,500 mg/ (Dextrose) 500 mls @ 250 mls/hr IVPB DAILY@0500 [facility]; Protocol Insulin Aspart (Novolog Vial Sliding Scale -) 1 vial SQ [facility]; Protocol Last Admin: 05/25/18 11:33 Dose: 2 units Insulin Detemir (Levemir Vial) 35 units SQ HS [facility] Last Admin: 05/24/18 22:00 Dose: 35 units Lactobacillus Acidophilus (Bacid -) 1 tab PO DAILY [facility] Losartan Potassium (Cozaar -) 25 mg PO DAILY [facility] Last Admin: 05/25/18 09:26 Dose: 25 mg Metoprolol Succinate (Toprol Xl -) 100 mg PO DAILY [facility] Last Admin: 05/25/18 09:26 Dose: 100 mg Tamsulosin HCl (Flomax -) 0.4 mg PO DAILY@0830 [facility] Last Admin: 05/25/18 09:26 Dose: 0.4 mg ASSESSMENT/PLAN: Patient is a 48 y/o male with a history of DM, CHF, CAD, osteomyelitis, who is preop for 5 left toe amputation today. #Osteomyeltis left 5th toe, s/p amputation - post op day 2 - [facility] Dr. Castro - MRI: bone marrow changes suggestive of osteomyelitis of the proximal and distal phalnges of the fifth toe - Xray: decreased bone mass at left 5th toe - bcx negative, wound cx: MRSA - continue Vancomycin day 7 will be given tonight, changed to 1.5 mg dose - foot xray: metatarsal remaining, soft tissue swelling - CRP: 3.2, ESR: 38 #CAD s/p 4 stents - 1.5 years ago - restart clopidogrel and aspirin - f/u Dr. Arzate #DM - A1C: 6.4 - 35 units sq - continue SS #HTN - losartan 25 mg daily #HLD - continue atorvastatin 80 mg hs #CHF - furoseminde 40 mg pm, 80 mg am - metoprolol 100 mg po daily - echo 08/26: mild concentric left ventricular hypertrophy, left ventricular systolic function low normal, no regional wall abnormalities #BPH - tamsulosin 0.4 mg daily Dispo: Dr. Castro would like patient to stay until Tuesday for dressing change , plan DC tomorrow Visit type - Emergency Visit Emergency Visit: No - New Patient This patient is new to me today: No - Critical Care Critical Care patient: No
[2018-05-25] MEDS: FUROSEMIDE 40 MG TABLET (FP) PO SCH (15:12)
--- NOTE | 2018-05-25 16:48 | PATH ---
Surgical Pathology Report Patient Name: ERICKA MAJOR Med. Rec. #: [id number] /Age/Gender: 1970 (Age: 48) / M Account: [id number] Location: [facility] MED/SURG Taken: 05/23/2018 Received: 05/23/2018 Reported: 05/25/2018 Physicians: LENA Meyers M.D. Specimen(s) Received LEFT FOOT 5TH TOE AMPUTATION Clinical History Diabetes mellitus, acute osteomyelitis of left foot Final Diagnosis LEFT FOOT FIFTH TOE, AMPUTATION: AMPUTATED TOE SHOWING GANGRENOUS NECROSIS, ULCERATION, ACUTE AND CHRONIC INFLAMMATION. BONE WITH ACUTE AND CHRONIC OSTEOMYELITIS, INVOLVING BONE MARGIN. SKIN AND SOFT TISSUE MARGIN WITH INFLAMMATION. Electronically Signed Adolfo Yu M.D. Gross Description Received in formalin labeled "left foot fifth toe," is a 2.8 x 2.8 x 1.8 cm toe amputation. The entire epidermal surface displays a samayoa-black, gangrenous lesion focally involving the skin and soft tissue margin. The lesion involves the underlying bone. Behavioral Technician sections are submitted in 3 cassettes as follows: 1-skin and soft tissue margin; 2-bone margin, following decalcification; 3-lesion with underlying bone, following decalcification. 05/24/201805/24/2018
[2018-05-25] MEDS ORDERED: INSULIN (NOVOLOG) ASPART 100 UNITS/ML 10ML VIAL ONE (17:23)
[2018-05-25] MEDS: ATORVASTATIN CA 80 MG TABLET (FP) PO SCH (21:34)
[2018-05-25] MEDS: INSULIN (LEVEMIR) 100 UNITS/ML UNITS SQ SCH (21:40)
[2018-05-26] MEDS ORDERED: VANCOMYCIN 1,500 MG in DEXTROSE 5%-WATER - 500 ML IVPB SCH (05:00)
[2018-05-26] MEDS: HEPARIN NA (PORCINE) 5,000 UNITS/ML 1ML VIAL SQ SCH (05:10)
[2018-05-26] MEDS: INSULIN SLIDING SCALE (NOVOLOG) 1 VIAL SQ SCH (06:09)
[2018-05-26 07:08] VITALS: BP 145/71; PULSE 57; TEMP 97.5
[2018-05-26 07:26] LABS: HEMATOCRIT 30.8 % (35.4-49); HEMOGLOBIN 10.4 GM/dL (11.7-16.9); MCH 26.4 pg (25.7-33.7); MCHC 33.8 g/dl (32.0-35.9); MEAN CELL VOLUME 78.3 fl (80-96); MEAN PLT VOLUME 10.1 fl (7.5-11.1); PLATELET COUNT 203 K/MM3 (134-434); RBC 3.93 M/mm3 (4.00-5.60); RDW 14.5 % (11.9-15.9); WHITE BLOOD COUNT 8.5 K/mm3 (4.0-10.0)
[2018-05-26 08:05] LABS: ALBUMIN 2.7 g/dl (3.4-5.0); ALK PHOS 70 U/L (45-117); ANION GAP 6 MMOL/L (8-16); BILIRUBIN,TOTAL 0.3 mg/dL (0.2-1); BLOOD UREA NITROGEN 39 mg/dL (7-18); CHLORIDE 104 mmol/L (98-107); CO2 29 mmol/L (21-32); CREATININE 1.5 mg/dL (0.55-1.3); GLUCOSE,RANDOM 154 mg/dL (74-106); POTASSIUM 3.7 mmol/L (3.5-5.1); SGOT/AST 17 U/L (15-37); SGPT/ALT 23 U/L (13-61); SODIUM 139 mmol/L (136-145); TOT PROT 5.7 g/dl (6.4-8.2)
--- NOTE | 2018-05-26 09:14 | DS ---
Physical Exam: SUBJECTIVE: Patient evaluated today and he is very angry he is still here. Reports he is leaving this morning, with or without being discharged. OBJECTIVE: Vital Signs Temperature 97.5 F L 05/26/18 06:00 Pulse Rate 57 L 05/26/18 06:00 Respiratory Rate 18 05/26/18 06:00 Blood Pressure 145/71 05/26/18 06:00 O2 Sat by Pulse Oximetry (%) 97 05/25/18 21:00 PHYSICAL EXAM GENERAL: The patient is awake, alert, and fully oriented, in no acute distress. HEAD: Normal with no signs of trauma. EYES: PERRL, extraocular movements intact, LUNGS: Breath sounds equal, clear to auscultation bilaterally, no wheezes, no crackles, no accessory muscle use. HEART: Regular rate and rhythm, S1, S2 without murmur, rub or gallop. ABDOMEN: Soft, nontender, nondistended, normoactive bowel sounds EXTREMITIES: 2+ pulses, warm, well-perfused, no edema. PSYCH: Normal mood, normal affect. SKIN: left foot wrapped, s/p amputation LABS CBC, BMP 05/26/18 06:00 05/26/18 06:00 HOSPITAL COURSE: Date of Admission:05/19/18 Patient presented with a history of osteomyelitis of his right toe. Patient had an amputation on 05/25. Patient will receive two more weeks of IV antibiotics through the PICC line he presented to the hospital with to complete treatment of the osteomyelitis. Patient has VNS services set up from his treatment prior to amputation. Patients clopidogrel and aspirin were held for procedure and resumed after amputation. Discussed with patient he would be discharged after Dr. Castro evaluated him today. Patient adamantly refused to stay in the hospital any longer. Patient refused to sign AMA and stated " I will carlos this whole hospital." Provided patient with a boot for his foot, and his son wheeled him out of the hospital in a wheel chair. Gram stain: MRSA MRI: bone marrow changes suggestive of osteomyelitis of the proximal and distal phalnges of the fifth toe Xray: decreased bone mass at left 5th toe Date of Discharge: 05/26/18 Minutes to complete discharge: 50 Discharge Summary Reason For Visit: DIABETES MELLITUS ACUTE OSTEOMYELITIS OF LEFT FOOT Condition: Improved - Instructions Diet, Activity, Other Instructions: Your visit You were admitted to the hospital for osteomyelitis (infection in the bone) of your left fifth toe. Dr. Castro preformed an amputation and the toe has been removed. Please continue your home medications To complete treatment of your infection please take the following antibiotic: -Vancomycin 1.5gram bag once a day, for the next 13 days through your PICC line. We will give you a script for this. You will need weekly Vancomycin troughs to check your level. You will need to have your first one checked on Tuesday before the dose. Please also have the following weekly lab tests: CBC(complete blood count), BMP (basic metabolic panel), ESR, CRP . We will give you scripts for this. Follow up Please also follow up with your primary care physician. Please follow up with Dr. Castro in one week, as well as your infection doctor, Dr. uDarte in a week. Return to the Emergency Department if you have any chest pain, nausea, vomiting , shortness of breath, or nausea. Referrals: Cindy Duarte MD [Staff Physician] - 1 Week Amish Doll [Primary Care Provider] - Shaista Castro DPM [Staff Physician] - 1 Week Disposition: AGAINST MEDICAL ADVICE - Home Medications Comprehensive Discharge Medication List: Ambulatory Orders Ascorbate Calcium [Vitamin C] 500 mg PO DAILY 03/28/18 Aspirin [ASA -] 81 mg PO DAILY 03/28/18 Atorvastatin Ca [Lipitor] 80 mg PO HS 03/28/18 Cholecalciferol (Vitamin D3) [Vitamin D3] 1,000 unit PO DAILY 03/28/18 Clopidogrel Bisulfate [Plavix] 75 mg PO DAILY 03/28/18 Cyanocobalamin [Vitamin B12 -] 1,000 mcg PO DAILY 03/28/18 Losartan Potassium 25 mg PO DAILY 03/28/18 Metoprolol Succinate 100 mg PO DAILY 03/28/18 Tamsulosin HCl 0.4 mg PO DAILY 03/28/18 Vitamin B Complex 1,000 mg PO DAILY 03/28/18 Zinc 50 mg PO DAILY 03/28/18 Alcohol Antiseptic Pads [Alcohol Prep Pads] 1 each TP [facility] #1 box 03/30/18 Collagenase Clostridium Hist. [Santyl -] 1 applic TP DAILY #1 tube 03/30/18 Furosemide [Lasix -] 40 mg PO DAILY@1400 tablet 03/30/18 Furosemide [Lasix -] 80 mg PO DAILY@0700 tablet 03/30/18 Insulin (Levemir) [Levemir Vial] 35 units SQ HS #0 units 03/30/18 Insulin Sliding Scale [Novolog Vial Sliding Scale -] 2 vial SQ [facility] #1 vial Lancets [Lancets Ultra Thin] 1 each [facility] #50 each 03/30/18 Miscellaneous Medical Supply [Glucometer Device] 1 each SQ [facility] #1 kit 03/30/18 Miscellaneous Medical Supply [Glucometer Device] 1 each SQ [facility] #1 kit [employer] [Glucometer Test Strips #100] 1 each SQ [facility] #1 box 03/30/18 Syringe and Needle,Insulin,1Ml [Advocate Syringes] 1 each A[facility] #30 disp.syrin 03/30/18 Miscellaneous Drug Not In Syst [Outpatient Lab Test] 1 each ASDIR #1 misc Miscellaneous Drug Not In Syst [Outpatient Lab Test] 1 each ASDIR #1 misc Miscellaneous Drug Not In Syst [Outpatient Lab Test] 1 each ASDIR #1 misc Glipizide [Glucotrol -] 10 mg PO BID@0700,1630 05/26/18 Vancomycin/0.9 % Sod Chloride [Vanco 1.5 gm/250 ml-0.9% NaCl] 1.5 gm IV DAILY # 13 plast..bag 05/26/18 This patient is new to me today: No Emergency Visit: No Critical Care patient: No - Discharge Referral Referred to [facility] No
[2018-05-26] MEDS ORDERED: LACTOBACILLUS ACIDOPHILUS 1 TABLET PO SCH (10:00)
--- NOTE | 2018-05-26 13:47 | PN ---
Progress Note (short form) - Note Progress Note: POD#3. wbc=8.5 Pt left without being seen today. Did not sign AMA form-just left. Told staff that he would call my office for follow up.
== END 2018-05-26 08:50 | disposition left against medical advice (07) | DRG 314 ==
LOC: JER 17:20 → JERBED 20:59 → J6S 05-20 04:00 → J8W 05-22 18:42
PROVIDERS: ADMIT Internal Medicine; ATTEND Internal Medicine
PROC: 0JBR0ZZ Excision of Left Foot Subcutaneous Tissue and Fascia, Open Approach (ICD-10-PCS; 2018-05-23)
PROC: 0Y6Y0Z1 Detachment at Left 5th Toe, High, Open Approach (ICD-10-PCS; principal; 2018-05-23 10:30)
DX: E11.69 Type 2 diabetes mellitus with other specified complication (principal); M86.172 Other acute osteomyelitis, left ankle and foot; E11.52 Type 2 diabetes mellitus with diabetic peripheral angiopathy with gangrene; I25.10 Atherosclerotic heart disease of native coronary artery without angina pectoris; E78.5 Hyperlipidemia, unspecified; E66.9 Obesity, unspecified; Z68.42 Body mass index [BMI] 45.0-49.9, adult; D72.828 Other elevated white blood cell count; E11.621 Type 2 diabetes mellitus with foot ulcer; L97.528 Non-pressure chronic ulcer of other part of left foot with other specified severity; N40.0 Benign prostatic hyperplasia without lower urinary tract symptoms; I13.0 Hypertensive heart and chronic kidney disease with heart failure and stage 1 through stage 4 chronic kidney disease, or unspecified chronic kidney disease; I50.9 Heart failure, unspecified; N18.3 Chronic kidney disease, stage 3 (moderate); E11.22 Type 2 diabetes mellitus with diabetic chronic kidney disease; A49.02 Methicillin resistant Staphylococcus aureus infection, unspecified site; I27.20 Pulmonary hypertension, unspecified; G47.33 Obstructive sleep apnea (adult) (pediatric); I96 Gangrene, not elsewhere classified; Z95.5 Presence of coronary angioplasty implant and graft; Z88.0 Allergy status to penicillin
CPT/HCPCS: 36415; 71046-TC-FY; 73630-TC-LT; 73660-TC-LT-FY; 73718-LT; 80048; 80053; 82550; 82553; 82607; 82728; 82746; 82962; 83036; 83540; 83550; 83605; 83735; 83880; 84100; 84484; 85025; 85027; 85610; 85651; 86140; 86850; 86900; 86901; 87040; 87070; 87186; 87205; 88307-TC; 88311-TC; 93005; 93010; 94760; 99285-25; G0480; J1644

== ENCOUNTER → 2018-07-06 | Day surgery (SDC) | payer OTHER | END | disposition home or self-care (01) | LOC: JRADIR 08:55 | PROVIDERS: ATTEND Internal Medicine Infectious Disease | PROC: 02PY03Z Removal of Infusion Device from Great Vessel, Open Approach (ICD-10-PCS; principal; 2018-07-06) | DX: Z45.2 Encounter for adjustment and management of vascular access device (principal) | CPT/HCPCS: 36589 ==

== ENCOUNTER 2018-09-20 02:16 | Emergency (ER) | payer OTHER ==
[2018-09-20 02:23] VITALS: BP 133/73; PULSE 71; TEMP 98.1; BMI 45.0
--- NOTE | 2018-09-20 02:31 | PDOC ---
History of Present Illness - General Chief Complaint: Pain, Acute Stated Complaint: LEFT CALF PAIN X 1 MONTH Time Seen by Provider: 09/20/18 02:19 - History of Present Illness Initial Comments: 09/20/18 02:30 48 M with h/o IDDM, CAD x4 stents (recent 1.5 years ago), CHF, HLD, HTN, osteomyelitis of L 5th toe s/p amputation, presenting with L calf pain x 1 month. Pt states that he has been having intermittent pain in his L calf that is worse with rest and alleviated by walking and standing. Pt denies any swelling. Denies any recent immobilization or hospitalization. Last hospitalization was 4 months ago. Pt states that he had a venous doppler of both legs today that was negative. He has been taking aleve for the pain but with no relief. He comes to ED tonight because the pain kept him awake. Denies F /C. Denies any discoloration of the leg. Past History - Past Medical History Allergies/Adverse Reactions: Allergies Allergy/AdvReac Type Severity Reaction Status Date / Time Penicillins Allergy Verified 09/20/18 02:18 Home Medications: Ambulatory Orders Ascorbate Calcium [Vitamin C] 500 mg PO DAILY 03/28/18 Aspirin [ASA -] 81 mg PO DAILY 03/28/18 Atorvastatin Ca [Lipitor] 80 mg PO HS 03/28/18 Cholecalciferol (Vitamin D3) [Vitamin D3] 1,000 unit PO DAILY 03/28/18 Clopidogrel Bisulfate [Plavix] 75 mg PO DAILY 03/28/18 Cyanocobalamin [Vitamin B12 -] 1,000 mcg PO DAILY 03/28/18 Losartan Potassium 25 mg PO DAILY 03/28/18 Metoprolol Succinate 100 mg PO DAILY 03/28/18 Tamsulosin HCl 0.4 mg PO DAILY 03/28/18 Vitamin B Complex 1,000 mg PO DAILY 03/28/18 Zinc 50 mg PO DAILY 03/28/18 Alcohol Antiseptic Pads [Alcohol Prep Pads] 1 each TP [facility] #1 box 03/30/18 Collagenase Clostridium Hist. [Santyl -] 1 applic TP DAILY #1 tube 03/30/18 Furosemide [Lasix -] 40 mg PO DAILY@1400 tablet 03/30/18 Furosemide [Lasix -] 80 mg PO DAILY@0700 tablet 03/30/18 Insulin (Levemir) [Levemir Vial] 35 units SQ HS #0 units 10/18/18 Insulin Sliding Scale [Novolog Vial Sliding Scale -] 2 vial SQ [facility] #1 vial Lancets [Lancets Ultra Thin] 1 each MC [facility]CH[facility] #50 each 03/30/18 Miscellaneous Medical Supply [Glucometer Device] 1 each SQ [facility] #1 kit 03/30/18 Miscellaneous Medical Supply [Glucometer Device] 1 each SQ [facility] #1 kit Miscellaneous Medical Supply [Glucometer Test Strips #100] 1 each SQ [facility] #1 box 03/30/18 Syringe and Needle,Insulin,1Ml [Advocate Syringes] 1 each [facility] #30 disp.syrin 03/30/18 Miscellaneous Drug Not In Syst [Outpatient Lab Test] 1 each MC ASDIR #1 misc Miscellaneous Drug Not In Syst [Outpatient Lab Test] 1 each ASDIR #1 misc Miscellaneous Drug Not In Syst [Outpatient Lab Test] 1 each ASDIR #1 misc Glipizide [Glucotrol -] 10 mg PO BID@0700,1630 05/26/18 Vancomycin/0.9 % Sod Chloride [Vanco 1.5 gm/250 ml-0.9% NaCl] 1.5 gm IV DAILY # 13 plast..bag 05/26/18 Anemia: No Asthma: No Cancer: No Cardiac Disorders: Yes (stents 11/27) CVA: No COPD: No CHF: Yes Dementia: No Diabetes: Yes GI Disorders: No Disorders: No HTN: Yes Hypercholesterolemia: Yes Liver Disease: No Seizures: No Thyroid Disease: No - Surgical History Abdominal Surgery: No Appendectomy: No Cardiac Surgery: Yes (stents) Cholecystectomy: No Lung Surgery: No Neurologic Surgery: No Orthopedic Surgery: No - Family Disease History Family Disease History: Diabetes: Mother - Immunization History Immunization Up to Date: Yes - Suicide/Smoking/Psychosocial Hx Smoking History: Never smoked Have you smoked in the past 12 months: No Information on smoking cessation initiated: No Hx Alcohol Use: No Drug/Substance Use Hx: No Substance Use Type: None Hx Substance Use Treatment: No Review of Systems - Review of Systems Comments:: 09/20/18 02:32 GENERAL/CONSTITUTIONAL: No fever or chills. No weakness. HEAD, EYES, EARS, NOSE AND THROAT: No change in vision. No ear pain or discharge. No sore throat. CARDIOVASCULAR: No chest pain, no shortness of breath, no loss of consciousness RESPIRATORY: No cough, wheezing, or hemoptysis. GASTROINTESTINAL: No nausea, vomiting, diarrhea or constipation. GENITOURINARY: No dysuria, frequency, or change in urination. MUSCULOSKELETAL: + L calf pain, No joint or muscle swelling or pain. No neck or back pain. SKIN: No rash NEUROLOGIC: No vertigo, no change in strength/sensation. ENDOCRINE: No increased thirst. No abnormal weight change. HEMATOLOGIC/LYMPHATIC: No anemia, easy bleeding, or history of blood clots. ALLERGIC/IMMUNOLOGIC: No hives or skin allergy. *Physical Exam - Vital Signs Last Vital Signs Temp Pulse Resp BP Pulse Ox 98.1 F 71 16 133/73 96 09/20/18 02:19 04 02:19 09/20/18 02:19 09/20/18 02:19 09/20/18 02:19 - Physical Exam Comments: 09/20/18 02:33 "GENERAL: Awake, alert, and fully oriented, in no acute distress. HEAD: No signs of trauma EYES: PERRLA, EOMI, sclera anicteric, conjunctiva clear ENT: Auricles normal inspection, hearing grossly normal, nares patent, oropharynx clear without exudates. Moist mucosa NECK: Nontender, no stepoffs, Normal ROM, supple, no lymphadenopathy, JVD, or masses LUNGS: Breath sounds equal, clear to auscultation bilaterally. No wheezes, and no crackles HEART: Regular rate and rhythm, normal S1 and S2, no murmurs, rubs or gallops ABDOMEN: Soft, nontender, normoactive bowel sounds. No guarding, no rebound. No masses EXTREMITIES: + tenderness L calf, Normal range of motion, no edema. No clubbing or cyanosis. No cords, no erythema, distal pulses intact NEUROLOGICAL: Cranial nerves II through XII intact. 5/5 strength and sensation in all extremities, Normal speech, normal gait, normal cerebellar function SKIN: Warm, Dry, normal turgor, no rashes or lesions noted. Medical Decision Making - Medical Decision Making 09/20/18 02:33 48 m with L calf pain x 1 month. Pt had negative doppler today, so DVT very unlikely. Pt also with no swellng or other clinical signs of DVT. Possible claudication, as pt reports pain improved with standing and ambulating. Also consider msk etiology, though no h/o trauma. - Percocet for pain - F/u vascular surgery Pt is well appearing, with normal vitals. Clinically stable for DC at this time. I discussed the physical exam findings, ancillary test results and final diagnoses with the patient. I answered all of the patient's questions. The patient was satisfied with the care received and felt comfortable with the discharge plan and treatment plan. The patient agrees to follow up with the primary care physician within 24-72 hours. *DC/Admit/Observation/Transfer Diagnosis at time of Disposition: Pain of left calf - Discharge Dispostion Disposition: HOME Condition at time of disposition: Stable - Referrals Referrals: Amish Doll [Primary Care Provider] - Jone Castelan MD [Staff Physician] - Prince Mendez DO [Staff Physician] - - Patient Instructions Printed Discharge Instructions: DI for Leg Pain Additional Instructions: Your leg pain may be related to poor circulation, or it could be due to a muscular injury. Call the numbers provided to make appointments with a vascular surgeon and orthopedist for further evaluation. If you experience worsening pain, swelling, redness, fevers, or any other concerning symptoms, return to the ER immediately. Otherwise, follow up with your primary doctor within 1 week. - Post Discharge Activity - Attestations Physician Attestion: 09/20/18 02:36 I, Dr. Saulo Malave MD, attest that this document has been prepared under my direction and personally reviewed by me in its entirety. I further attest, that it accurately reflects all work, treatment, procedures and medical decision -making performed by me.
== END 2018-09-20 02:41 | disposition home or self-care (01) ==
LOC: FER 02:16
DX: M79.662 Pain in left lower leg (principal); I10 Essential (primary) hypertension; E78.5 Hyperlipidemia, unspecified; M86.8X8 Other osteomyelitis, other site; I25.10 Atherosclerotic heart disease of native coronary artery without angina pectoris; Z79.4 Long term (current) use of insulin; Z95.5 Presence of coronary angioplasty implant and graft
CPT/HCPCS: 99281-25

== ENCOUNTER 2019-01-31 14:19 | Emergency (ER) | payer OTHER ==
[2019-01-31 14:24] VITALS: BP 127/67; PULSE 64; TEMP 98.1; BMI 46.6
--- NOTE | 2019-01-31 14:25 | PDOC ---
Rapid Medical Evaluation Chief Complaint: Edema Time Seen by Provider: 01/31/19 14:21 Medical Evaluation: Allergies Allergy/AdvReac Type Severity Reaction Status Date / Time Penicillins Allergy Verified 09/20/18 02:18 01/31/19 14:22 I have performed a brief in-person evaluation of this patient. The patient presents with a chief complaint of: h/o DM, CHF, HTN, present with complains of left lower leg and ankle for few weeks. Pt was seen in [facility] a week ago but report nothing was done about the edema. pt also report complains of redness to left great toe Pertinent physical exam findings: b/l peripheral edema L>R I have ordered the following: CBC, BNP,cmp The patient will proceed to the ED for further evaluation. Discharge Disposition - Diagnosis Osteomyelitis of foot, left, acute, Peripheral edema - Discharge Dispostion Condition at time of disposition: Stable - Referrals - Patient Instructions - Post Discharge Activity
[2019-01-31 15:01] LABS: BASO % 0.7 % (0-2.0); HEMATOCRIT 35.6 % (35.4-49); HEMOGLOBIN 11.7 GM/dL (11.7-16.9); MCHC 32.8 g/dl (32.0-35.9); MEAN CELL VOLUME 82.3 fl (80-96); MEAN PLT VOLUME 9.6 fl (7.5-11.1); MONO % 6.5 % (3.8-10.2); NEUT % 67.8 % (42.8-82.8); PLATELET COUNT 156 K/MM3 (134-434); RBC 4.32 M/mm3 (4.00-5.60); RDW 15.3 % (11.9-15.9)
[2019-01-31 15:50] LABS: ALBUMIN 3.2 g/dl (3.4-5.0); BILIRUBIN,TOTAL 0.3 mg/dL (0.2-1); BLOOD UREA NITROGEN 59.6 mg/dL (7-18); CALCIUM 8.5 mg/dL (8.5-10.1); CREATININE 2.1 mg/dL (0.55-1.3); N-TERMINAL BNP 297.2 pg/ml (5-125); POTASSIUM 4.2 mmol/L (3.5-5.1); TOT PROT 6.5 g/dl (6.4-8.2)
--- NOTE | 2019-01-31 16:20 | PDOC ---
History of Present Illness - General Chief Complaint: Edema Stated Complaint: RETAINING FLUID LT. FOOT Time Seen by Provider: 01/31/19 14:21 - History of Present Illness Initial Comments: 01/31/19 16:20 48 M with h/o IDDM, CAD x4 stents (recent 1.5 years ago), CHF, HLD, HTN, necrotizing abscess in buttocks (2012) osteomyelitis of L 5th toe s/p amputation presents with 2 weeks of L lower leg swelling and 2 months of L big toe fungal infection with breakage of the L toenail. The patient was recently treated at [facility] for a buttocks abscess w/ I&D. He has no other complaints and denies pain in the foot, fevers, warmth to touch and any other complaints. ROS GENERAL/CONSTITUTIONAL: No fever or chills. No weakness. HEAD, EYES, EARS, NOSE AND THROAT: No change in vision. No ear pain or discharge. No sore throat. CARDIOVASCULAR: No chest pain or shortness of breath RESPIRATORY: No cough, wheezing, or hemoptysis. GASTROINTESTINAL: No nausea, vomiting, diarrhea or constipation. GENITOURINARY: No dysuria, frequency, or change in urination. MUSCULOSKELETAL: See hpi SKIN: No rash NEUROLOGIC: No headache, vertigo, loss of consciousness, or change in strength/ sensation. PE GENERAL: Awake, alert, and fully oriented, in no acute distress HEAD: No signs of trauma, normocephalic, atraumatic EYES: EOMI, sclera anicteric, conjunctiva clear ENT: oropharynx clear without exudates. Moist mucosa NECK: Normal ROM, supple LUNGS: No distress, speaks full sentences, clear to auscultation bilaterally HEART: Regular rate and rhythm, normal S1 and S2, no murmurs, rubs or gallops, peripheral pulses normal and equal bilaterally. ABDOMEN: Soft, nontender, normoactive bowel sounds. No guarding, no rebound. No masses EXTREMITIES : L 2+ pitting edema from dorsum of the foot to mid calf, with breakage of big toe with blackened discoloration, palpable pulses, nv intact NEUROLOGICAL: Cranial nerves II through XII grossly intact. Normal speech, no focal sensorimotor deficits SKIN: Warm, Dry, normal turgor, no rashes or lesions noted MDM 48 M with h/o IDDM, CAD x4 stents (recent 1.5 years ago), CHF, HLD, HTN, necrotizing abscess in buttocks (2013) osteomyelitis of L 5th toe s/p amputation presents with 2 weeks of L lower leg swelling and 2 months of L big toe fungal infection with breakage of the L toenail. DDX including but not limited to: cellulitis vs dvt r/o chf exacerbation W/U: - cbc, cmp, coags, bnp, duplex ED Course: labs wnl duplex negative diurese and treat with abx send home with abx course with return to ED within 48-72 hours for wound check advised to f.u with fundraising coordinator for which he already has close follow up. stable for discharge Jackie Mcgarry, PGY2 Emergency Medicine Past History - Past Medical History Allergies/Adverse Reactions: Allergies Allergy/AdvReac Type Severity Reaction Status Date / Time Penicillins Allergy Verified 01/31/19 14:24 Home Medications: Ambulatory Orders Ascorbate Calcium [Vitamin C] 500 mg PO DAILY 03/28/18 Aspirin [ASA -] 81 mg PO DAILY 03/28/18 Atorvastatin Ca [Lipitor] 80 mg PO HS 03/28/18 Cholecalciferol (Vitamin D3) [Vitamin D3] 1,000 unit PO DAILY 03/28/18 Clopidogrel Bisulfate [Plavix] 75 mg PO DAILY 03/28/18 Cyanocobalamin [Vitamin B12 -] 1,000 mcg PO DAILY 03/28/18 Losartan Potassium 25 mg PO DAILY 03/28/18 Metoprolol Succinate 100 mg PO DAILY 03/28/18 Tamsulosin HCl 0.4 mg PO DAILY 03/28/18 Vitamin B Complex 1,000 mg PO DAILY 03/28/18 Zinc 50 mg PO DAILY 03/28/18 Alcohol Antiseptic Pads [Alcohol Prep Pads] 1 each TP ACHS #1 box 03/30/18 Collagenase Clostridium Hist. [Santyl -] 1 applic TP DAILY #1 tube 03/30/18 Furosemide [Lasix -] 40 mg PO DAILY@1400 tablet 03/30/18 Furosemide [Lasix -] 80 mg PO DAILY@0700 tablet 03/30/18 Insulin (Levemir) [Levemir Vial] 35 units SQ HS #0 units 03/30/18 Insulin Sliding Scale [Novolog Vial Sliding Scale -] 2 vial SQ ACHS #1 vial Lancets [Lancets Ultra Thin] 1 each ACHS #50 each 03/30/18 Miscellaneous Medical Supply [Glucometer Device] 1 each SQ ACHS #1 kit 03/30/18 Miscellaneous Medical Supply [Glucometer Device] 1 each SQ ASDIR #1 kit Miscellaneous Medical Supply [Glucometer Test Strips #100] 1 each SQ ASDIR #1 box 03/30/18 Syringe and Needle,Insulin,1Ml [Advocate Syringes] 1 each ACHS #30 disp.syrin 03/30/18 Miscellaneous Drug Not In Syst [Outpatient Lab Test] 1 each ASDIR #1 misc Miscellaneous Drug Not In Syst [Outpatient Lab Test] 1 each ASDIR #1 misc Miscellaneous Drug Not In Syst [Outpatient Lab Test] 1 each ASDIR #1 misc Glipizide [Glucotrol -] 10 mg PO BID@0700,1630 05/26/18 Vancomycin/0.9 % Sod Chloride [Vanco 1.5 gm/250 ml-0.9% NaCl] 1.5 gm IV DAILY # 13 plast..bag 05/26/18 Oxycodone HCl/Acetaminophen [Percocet 5-325 mg Tablet] 1 tab PO TID PRN #10 tablet MDD 3 tabs 09/20/18 Oxycodone HCl/Acetaminophen [Percocet 5-325 mg Tablet] 1 tab PO TID PRN #10 tablet MDD 3 tabs 09/20/18 Sulfamethoxazole/Trimethoprim [Bactrim Ds -] 1 tab PO BID #14 tablet 01/31/19 Anemia: No Asthma: No Cancer: No Cardiac Disorders: Yes (stents 11/27) CVA: No COPD: No CHF: Yes Dementia: No Diabetes: Yes GI Disorders: No Disorders: No HTN: Yes Hypercholesterolemia: Yes Liver Disease: No Seizures: No Thyroid Disease: No - Surgical History Abdominal Surgery: No Appendectomy: No Cardiac Surgery: Yes (stents) Cholecystectomy: No Lung Surgery: No Neurologic Surgery: No Orthopedic Surgery: No - Family Disease History Family Disease History: Diabetes: Mother - Immunization History Immunization Up to Date: Yes - Suicide/Smoking/Psychosocial Hx Smoking History: Never smoked Have you smoked in the past 12 months: No Information on smoking cessation initiated: No Hx Alcohol Use: No Drug/Substance Use Hx: No Substance Use Type: None Hx Substance Use Treatment: No *Physical Exam - Vital Signs Last Vital Signs Temp Pulse Resp BP Pulse Ox 98.1 F 64 19 127/67 96 01/31/19 14:22 01/31/19 14:22 01/31/19 14:22 01/31/19 14:22 01/31/19 14:22 ED Treatment Course - LABORATORY CBC & Chemistry Diagram: 01/31/19 14:54 01/31/19 14:54 - ADDITIONAL ORDERS Additional order review: Laboratory Results 01/31/19 14:54 Sodium 143 Potassium 4.2 Chloride 111 H Carbon Dioxide 22 Anion Gap 10 BUN 59.6 H Creatinine 2.1 H Est GFR (CKD-EPI)AfAm 41.58 Est GFR (CKD-EPI)NonAf 35.88 Random Glucose 154 H Calcium 8.5 Total Bilirubin 0.3 AST 22 ALT 33 Alkaline Phosphatase 95 B-Natriuretic Peptide 297.2 H Total Protein 6.5 Albumin 3.2 L 01/31/19 14:54 RBC 4.32 MCV 82.3 MCHC 32.8 RDW 15.3 MPV 9.6 Neutrophils % 67.8 Lymphocytes % 24.0 D Monocytes % 6.5 Eosinophils % 1.0 Basophils % 0.7 - RADIOLOGY Radiology Studies Ordered: Category Date Time Status DUPLEX VASCUL US-2LEGS [US] Stat Ultrasound 01/31/19 16:17 Ordered *DC/Admit/Observation/Transfer Diagnosis at time of Disposition: Peripheral edema - Discharge Dispostion Condition at time of disposition: Stable Decision to Admit order: No - Prescriptions Prescriptions: Sulfamethoxazole/Trimethoprim [Bactrim Ds -] 1 tab PO BID #14 tablet - Referrals Referrals: Amish Doll [Primary Care Provider] - - Patient Instructions Printed Discharge Instructions: DI for Peripheral Edema, Unilateral Additional Instructions: You were seen in the ED for complaints of leg swelling. In the ED you were evaluated with labwork and imaging. Your results were largely unremarkable There does not appear to be an acute need for immediate hospitalization. You are advised to follow up with your Primary Care Physician within 1 week. Follow up with your Hollow Ware Maker within 1 week. You were given a prescription for antibiotic, Bactrim, to be taken as prescribed. Return to the ED within 72 hours for wound recheck. Return to the ED immediately if you experience worsening symptoms, pain, fever, redness, or drainage. - Post Discharge Activity
[2019-01-31] MEDS ORDERED: FUROSEMIDE 40 MG/4 ML INJECTABLE VIAL IVPUSH ONE (17:39)
[2019-01-31] MEDS ORDERED: SULFAMETHOXAZOLE/TRIMETHOPRIM 800MG/160MG D.S. TABLET PO ONE (17:40)
[2019-01-31] MEDS ORDERED: FUROSEMIDE 40 MG/4 ML INJECTABLE VIAL ONE (17:44)
--- NOTE | 2019-01-31 17:44 | PDOC ---
Documentation entered by Kanwal Cleaning SCRIBE, acting as scribe for Saulo Malave MD. Saluo Malave MD: This documentation has been prepared by the Hermila potter Sammi, SCRIBE, under my direction and personally reviewed by me in its entirety. I confirm that the documentation accurately reflects all work, treatment, procedures, and medical decision making performed by me. Attending Attestation - Resident Resident Name: Jackie Mcgarry - ED Attending Attestation I have performed the following: I have examined & evaluated the patient, The case was reviewed & discussed with the resident, I agree w/resident's findings & plan, Exceptions are as noted - HPI HPI: 01/31/19 16:45 The patient is a 49 year old male, with a significant PMH of IDDM, osteomyleitis left toe, CAD s/p 4 stents ~1.5,who presents to the emergency department for evaluation of 2 weeks of left foot swelling. Pt states that both legs have been getting progressively more swollen despite taking his water pill. However, the L foot appears to have gotten more swollen. Pt denies CP/ SOB. Denies pain to the foot. Denies fever, chills, SOB, or chest pain. Pt notes that he has been treating a fungal infection of his L 1st toe with topical antifungals. Allergies: Penicillin PCP: [facility] - Physicial Exam PE: 01/31/19 17:47 GENERAL: Awake, alert, and fully oriented, in no acute distress. HEAD: No signs of trauma EYES: PERRLA, EOMI, sclera anicteric, conjunctiva clear ENT: Auricles normal inspection, hearing grossly normal, nares patent, oropharynx clear without exudates. Moist mucosa NECK: Nontender, no stepoffs, Normal ROM, supple, no lymphadenopathy, JVD, or masses LUNGS: Breath sounds equal, clear to auscultation bilaterally. No wheezes, and no crackles HEART: Regular rate and rhythm, normal S1 and S2, no murmurs, rubs or gallops ABDOMEN: Soft, nontender, normoactive bowel sounds. No guarding, no rebound. No masses EXTREMITIES: + BLE edema, L>R, mild erythema to dorsum of L foot, no open wounds or tenderness NEUROLOGICAL: Cranial nerves II through XII intact. 5/5 strength and sensation in all extremities, Normal speech, normal gait, normal cerebellar function SKIN: Warm, Dry, normal turgor, no rashes or lesions noted. - Medical Decision Making 01/31/19 17:48 49 M with BLE edema, L>R. Will r/o DVT. Pt likely with mild volume overload. Also possible cellulitis of L foot. - Labs unremarkable - Doppler LLE negative for DVT - Bactrim (to cover MRSA based on prior sensitivities) - F/u Dr. Castro - Return in 2 days for wound check Pt is well appearing, with normal vitals. Clinically stable for DC at this time. I discussed the physical exam findings, ancillary test results and final diagnoses with the patient. I answered all of the patient's questions. The patient was satisfied with the care received and felt comfortable with the discharge plan and treatment plan. The patient agrees to follow up with the primary care physician within 24-72 hours.
[2019-01-31] MEDS ORDERED: SULFAMETHOXAZOLE/TRIMETHOPRIM 800MG/160MG D.S. TABLET ONE (17:49)
== END 2019-01-31 18:10 | disposition home or self-care (01) ==
LOC: JER 14:19
PROC: 3E033GC Introduction of Other Therapeutic Substance into Peripheral Vein, Percutaneous Approach (ICD-10-PCS; principal; 2019-01-31)
DX: R60.0 Localized edema (principal); I11.0 Hypertensive heart disease with heart failure; I50.9 Heart failure, unspecified; E11.9 Type 2 diabetes mellitus without complications; Z95.5 Presence of coronary angioplasty implant and graft; E78.00 Pure hypercholesterolemia, unspecified; Z79.4 Long term (current) use of insulin; Z88.0 Allergy status to penicillin; Z89.422 Acquired absence of other left toe(s)
CPT/HCPCS: 36415; 80053; 83880; 85025; 93970-TC; 96374; 99282-25

== ENCOUNTER 2019-06-24 13:15 | Emergency (ER) | payer OTHER ==
--- NOTE | 2019-06-24 13:47 | PDOC ---
History of Present Illness - General Chief Complaint: Respiratory Stated Complaint: FLU LIKE ILLNESS Time Seen by Provider: 06/24/19 13:47 Past History - Past Medical History Allergies/Adverse Reactions: Allergies Allergy/AdvReac Type Severity Reaction Status Date / Time Penicillins Allergy Verified 01/31/19 14:24 Home Medications: Ambulatory Orders Ascorbate Calcium [Vitamin C] 500 mg PO DAILY 03/28/18 Aspirin [ASA -] 81 mg PO DAILY 03/28/18 Atorvastatin Ca [Lipitor] 80 mg PO HS 03/28/18 Cholecalciferol (Vitamin D3) [Vitamin D3] 1,000 unit PO DAILY 03/28/18 Clopidogrel Bisulfate [Plavix] 75 mg PO DAILY 03/28/18 Cyanocobalamin [Vitamin B12 -] 1,000 mcg PO DAILY 03/28/18 Losartan Potassium 25 mg PO DAILY 03/28/18 Metoprolol Succinate 100 mg PO DAILY 03/28/18 Tamsulosin HCl 0.4 mg PO DAILY 03/28/18 Vitamin B Complex 1,000 mg PO DAILY 03/28/18 Zinc 50 mg PO DAILY 03/28/18 Insulin Sliding Scale [Novolog Vial Sliding Scale -] 2 vial SQ ACHS #1 vial Miscellaneous Medical Supply [Glucometer Test Strips #100] 1 each SQ ASDIR #1 box 03/30/18 Glipizide [Glucotrol -] 10 mg PO BID@0700,1630 05/26/18 Insulin Glargine,Hum.rec.anlog [Basaglar Kwikpen U-100] 40 unit SQ HS 06/24/19 Anemia: No Asthma: No Cancer: No Cardiac Disorders: Yes (stents 11/27) CVA: No COPD: No CHF: Yes Dementia: No Diabetes: Yes GI Disorders: No Disorders: No HTN: Yes Hypercholesterolemia: Yes Liver Disease: No Seizures: No Thyroid Disease: No - Surgical History Abdominal Surgery: No Appendectomy: No Cardiac Surgery: Yes (stents) Cholecystectomy: No Lung Surgery: No Neurologic Surgery: No Orthopedic Surgery: No - Immunization History Immunization Up to Date: Yes - Psycho Social/Smoking Cessation Hx Smoking History: Never smoked Have you smoked in the past 12 months: No Hx Alcohol Use: No Drug/Substance Use Hx: No Substance Use Type: None Hx Substance Use Treatment: No Discharge - Discharge Information Condition: Fair - Follow up/Referral Referrals: Amish Doll [Primary Care Provider] - - Patient Discharge Instructions - Post Discharge Activity
[2019-06-24 13:50] VITALS: BMI 46.6
[2019-06-24 14:51] LABS: BASO % 0.6 % (0-2.0); EOS % 1.5 % (0-4.5); HEMATOCRIT 34.9 % (35.4-49); HEMOGLOBIN 11.4 GM/dl (11.7-16.9); LYMPH % 17.6 % (8-40); MCH 27.8 pg (25.7-33.7); MCHC 32.8 g/dl (32.0-35.9); MEAN CELL VOLUME 84.6 fl (80-96); MEAN PLT VOLUME 11.1 fl (7.5-11.1); MONO % 7.3 % (3.8-10.2); PLATELET COUNT 176 K/MM3 (134-434); RBC 4.12 M/mm3 (4.00-5.60); RDW 13.6 % (11.9-15.9); WHITE BLOOD COUNT 9.6 K/mm3 (4.0-10.8)
[2019-06-24 14:58] LABS: ALBUMIN 2.8 g/dl (3.4-5.0); BILIRUBIN,TOTAL 0.6 mg/dl (0.2-1); CREATININE 2.2 mg/dl (0.55-1.3); POTASSIUM 4.5 mmol/L (3.5-5.1)
[2019-06-24] MEDS ORDERED: INSULIN REGULAR HUMAN 100 UNITS/ML *VIAL SQ ONE (15:19)
--- NOTE | 2019-06-24 15:19 | PDOC ---
Documentation entered by Arden Zamora SCRIBE, acting as scribe for Deana Ozuna MD. Deana Ozuna MD: This documentation has been prepared by the Noah potter Aiswarya, SCRIBE, under my direction and personally reviewed by me in its entirety. I confirm that the documentation accurately reflects all work, treatment, procedures, and medical decision making performed by me. History of Present Illness - General Chief Complaint: Respiratory Stated Complaint: FLU LIKE ILLNESS Time Seen by Provider: 06/24/19 13:47 History Source: Patient Exam Limitations: No Limitations - History of Present Illness Initial Comments: 06/24/19 14:47 The patient is a 49 year old male, with a significant PMH of cardiac stents, diabetes, HTN, HLD who presents to the emergency department with shortness of breath that began 2 days ago. The patient states he endorses associated symptoms of dyspnea on exertion, cough and pleuritic chest pain. The patient denies headache and dizziness. Denies fever, chills, nausea, vomit, diarrhea and constipation. Denies any weight gain or any worsen swelling. Allergies: Penicillin Past surgical history: cardiac stents Social history: None reported PCP: Amish Doll Past History - Past Medical History Allergies/Adverse Reactions: Allergies Allergy/AdvReac Type Severity Reaction Status Date / Time Penicillins Allergy Verified 01/31/19 14:24 Home Medications: Ambulatory Orders Ascorbate Calcium [Vitamin C] 500 mg PO DAILY 03/28/18 Aspirin [ASA -] 81 mg PO DAILY 03/28/18 Atorvastatin Ca [Lipitor] 80 mg PO HS 03/28/18 Cholecalciferol (Vitamin D3) [Vitamin D3] 1,000 unit PO DAILY 03/28/18 Clopidogrel Bisulfate [Plavix] 75 mg PO DAILY 03/28/18 Cyanocobalamin [Vitamin B12 -] 1,000 mcg PO DAILY 03/28/18 Losartan Potassium 25 mg PO DAILY 03/28/18 Metoprolol Succinate 100 mg PO DAILY 03/28/18 Tamsulosin HCl 0.4 mg PO DAILY 03/28/18 Vitamin B Complex 1,000 mg PO DAILY 03/28/18 Zinc 50 mg PO DAILY 03/28/18 Insulin Sliding Scale [Novolog Vial Sliding Scale -] 2 vial SQ ACHS #1 vial Miscellaneous Medical Supply [Glucometer Test Strips #100] 1 each SQ ASDIR #1 box 03/30/18 Glipizide [Glucotrol -] 10 mg PO BID@0700,1630 05/26/18 Benzonatate [Tessalon Pearls -] 100 mg PO TID #21 capsule 06/24/19 Dextromethorphan HBr [Robitussin] 15 mg PO QID PRN #20 capsule 06/24/19 Insulin Glargine,Hum.rec.anlog [Basaglraza Ibanezpen U-100] 40 unit SQ HS 06/24/19 Anemia: No Asthma: No Cancer: No Cardiac Disorders: Yes (stents 11/27) CVA: No COPD: No CHF: Yes Dementia: No Diabetes: Yes GI Disorders: No Disorders: No HTN: Yes Hypercholesterolemia: Yes Liver Disease: No Seizures: No Thyroid Disease: No - Surgical History Abdominal Surgery: No Appendectomy: No Cardiac Surgery: Yes (stents) Cholecystectomy: No Lung Surgery: No Neurologic Surgery: No Orthopedic Surgery: No - Immunization History Immunization Up to Date: Yes - Psycho Social/Smoking Cessation Hx Smoking History: Never smoked Have you smoked in the past 12 months: No Hx Alcohol Use: No Drug/Substance Use Hx: No Substance Use Type: None Hx Substance Use Treatment: No Review of Systems - Review of Systems Able to Perform ROS?: Yes Comments:: 06/24/19 14:47 GENERAL/CONSTITUTIONAL: No fever or chills. No weakness. HEAD, EYES, EARS, NOSE AND THROAT: No change in vision. No ear pain or discharge. No sore throat. CARDIOVASCULAR: +chest pain and sob. RESPIRATORY: +cough. No wheezing, or hemoptysis. MUSCULOSKELETAL: No joint or muscle swelling or pain. No neck or back pain. SKIN: No rash NEUROLOGIC: No headache, vertigo, loss of consciousness, or change in strength/ sensation. ENDOCRINE: No increased thirst. No abnormal weight change. ALLERGIC/IMMUNOLOGIC: No hives or skin allergy. *Physical Exam - Vital Signs Last Vital Signs Temp Pulse Resp BP Pulse Ox 98.4 F 66 22 H 130/100 99 06/24/19 13:31 06/24/19 14:13 06/24/19 14:13 06/24/19 13:31 06/24/19 14:13 - Physical Exam 06/24/19 14:47 GENERAL: Obese. Awake, alert, and fully oriented, in no acute distress HEAD: No signs of trauma LUNGS: Breath sounds equal, clear to auscultation bilaterally. No wheezes, and no crackles HEART: +Heart sound distant. Regular rate and rhythm, normal S1 and S2, no murmurs, rubs or gallops ABDOMEN: +Obese but soft, nontender, normoactive bowel sounds. No guarding, no rebound. No masses EXTREMITIES:+2 plus pitting edema to the calves bilaterally. NEUROLOGICAL: Normal speech. SKIN: Warm, Dry, normal turgor, no rashes or lesions noted. ED Treatment Course - LABORATORY CBC & Chemistry Diagram: 06/24/19 14:30 06/24/19 14:30 - ADDITIONAL ORDERS Additional order review: Laboratory Results 06/24/19 06/24/19 14:30 14:30 Sodium 134 L Potassium 4.5 Chloride 100 Carbon Dioxide 27 Anion Gap 7 L BUN 57.0 H Creatinine 2.2 H Est GFR (CKD-EPI)AfAm 39.31 Est GFR (CKD-EPI)NonAf 33.92 Random Glucose 434 H* Calcium 8.0 L Total Bilirubin 0.6 AST 16 ALT 18 Alkaline Phosphatase 86 Creatine Kinase 367 H Troponin I 0.04 Total Protein 6.0 L Albumin 2.8 L 06/24/19 14:30 RBC 4.12 MCV 84.6 MCHC 32.8 RDW 13.6 MPV 11.1 Neutrophils % 73.0 Lymphocytes % 17.6 Monocytes % 7.3 Eosinophils % 1.5 Basophils % 0.6 - RADIOLOGY Radiology Studies Ordered: Category Date Time Status CXRPORT [CHEST X-RAY PORTABLE*] [RAD] Stat Radiology 06/24/19 14:12 Completed Medical Decision Making - Medical Decision Making 06/24/19 15:17 Pt presents to the ED complaining of shortness of breath and non productive cough. Denies fever. Has 2 + pitting edema to calf bilaterally, which patient reports is new. Differential includes URI, but also includes CHF. Will check labs, CXR and EKG and reassess. Discharge - Discharge Information Problems reviewed: Yes Clinical Impression/Diagnosis: Upper respiratory infection Qualifiers: URI type: unspecified URI Qualified Code(s): J06.9 - Acute upper respiratory infection, unspecified Condition: Good Disposition: HOME - Admission No - Additional Discharge Information Prescriptions: Benzonatate [Tessalon Pearls -] 100 mg PO TID #21 capsule Dextromethorphan HBr [Robitussin] 15 mg PO QID PRN #20 capsule PRN Reason: Cough - Follow up/Referral Referrals: Amish Doll [Primary Care Provider] - - Patient Discharge Instructions Patient Printed Discharge Instructions: DI for Viral Upper Respiratory Infection -- Adult Additional Instructions: you came to the ED for a cough and shortness of breath. We checked blood work, an EKG and a chest xray, and saw no evidence of heart failure or heart attack or pneumonia. your cough is most likely caused by a virus. I have prescribed you tessalon perles to help with the cough, as well as robitussin capsules. return to the Ed for severe shortness of breath, chest pain that does not occur with cough, fever >102, symptoms that are not resolved within 7 days. Call your doctor tomorrow for follow up. - Post Discharge Activity
[2019-06-24] MEDS ORDERED: INSULIN REGULAR HUMAN 100 UNITS/ML *VIAL ONE ×2 (15:32→17:15)
[2019-06-24 17:04] VITALS: BP 145/57; PULSE 65; TEMP 98.1
[2019-06-24] MEDS ORDERED: INSULIN REGULAR HUMAN 100 UNITS/ML *VIAL IVPUSH ONE (17:12)
--- NOTE | 2019-06-25 09:46 | EKG ---
Test Reason : Blood Pressure : / mmHG Vent. Rate : 061 BPM Atrial Rate : 061 BPM P-R Int : 156 ms QRS Dur : 106 ms QT Int : 438 ms P-R-T Axes : 041 -14 032 degrees QTc Int : 440 ms NORMAL SINUS RHYTHM RSR' OR QR PATTERN IN V1 SUGGESTS RIGHT VENTRICULAR CONDUCTION DELAY CANNOT RULE OUT INFERIOR INFARCT , AGE UNDETERMINED ABNORMAL ECG WHEN COMPARED WITH ECG OF 19-MAY-2018 19:38, NO SIGNIFICANT CHANGE WAS FOUND Confirmed by RAMAKRISHNA CROCKETT MD ([id number]) on 06/25/2019 9:45:47 AM Referred By: CHRISTINE GTZ Confirmed By:RAMAKRISHNA CROCKETT MD
== END 2019-06-24 18:08 | disposition home or self-care (01) ==
LOC: FER 13:15
PROC: 3E013VG Introduction of Insulin into Subcutaneous Tissue, Percutaneous Approach (ICD-10-PCS; principal; 2019-06-24)
PROC: 3E033VG Introduction of Insulin into Peripheral Vein, Percutaneous Approach (ICD-10-PCS; 2019-06-24)
DX: J06.9 Acute upper respiratory infection, unspecified (principal); Z88.0 Allergy status to penicillin; E11.9 Type 2 diabetes mellitus without complications; Z79.4 Long term (current) use of insulin; I50.9 Heart failure, unspecified; E78.00 Pure hypercholesterolemia, unspecified
CPT/HCPCS: 36415; 71045-TC-FY; 80053; 82550; 82553; 82962; 83880; 84484; 85025; 93005; 99284-25

== ENCOUNTER 2019-07-08 17:13 | Emergency (ER) | payer OTHER ==
[2019-07-08 17:25] VITALS: BP 183/88; PULSE 65; TEMP 97.1; BMI 46.6
--- NOTE | 2019-07-08 18:33 | PDOC ---
History of Present Illness - General Chief Complaint: Respiratory Stated Complaint: COUGH Time Seen by Provider: 07/08/19 18:20 History Source: Patient Exam Limitations: No Limitations - History of Present Illness Initial Comments: 49 yo M history HTN, HL, CAD presents with recent fever, URI symptoms, persistent cough for more than 2 weeks. Cough is loose, hacking, does not produce sputum. He has taken cough medicines including robitussin and tessalon perles, they have not helped. Denies fever. Past History - Past Medical History Allergies/Adverse Reactions: Allergies Allergy/AdvReac Type Severity Reaction Status Date / Time Penicillins Allergy Verified 01/31/19 14:24 Home Medications: Ambulatory Orders Ascorbate Calcium [Vitamin C] 500 mg PO DAILY 03/28/18 Aspirin [ASA -] 81 mg PO DAILY 03/28/18 Atorvastatin Ca [Lipitor] 80 mg PO HS 03/28/18 Cholecalciferol (Vitamin D3) [Vitamin D3] 1,000 unit PO DAILY 03/28/18 Clopidogrel Bisulfate [Plavix] 75 mg PO DAILY 03/28/18 Cyanocobalamin [Vitamin B12 -] 1,000 mcg PO DAILY 03/28/18 Losartan Potassium 25 mg PO DAILY 03/28/18 Metoprolol Succinate 100 mg PO DAILY 03/28/18 Tamsulosin HCl 0.4 mg PO DAILY 03/28/18 Vitamin B Complex 1,000 mg PO DAILY 03/28/18 Zinc 50 mg PO DAILY 03/28/18 Insulin Sliding Scale [Novolog Vial Sliding Scale -] 2 vial SQ ACHS #1 vial Miscellaneous Medical Supply [Glucometer Test Strips #100] 1 each SQ ASDIR #1 box 03/30/18 Glipizide [Glucotrol -] 10 mg PO BID@0700,1630 05/26/18 Insulin Glargine,Hum.rec.anlog [Basaglar Kwikpen U-100] 40 unit SQ HS 06/24/19 Azithromycin [Zithromax 250mg Tablets -] 250 mg PO UTDICT #6 tab 07/08/19 Guaifenesin AC [Robitussin AC -] 5 ml PO Q6H PRN #60 ml MDD 20 mL 07/08/19 Anemia: No Asthma: No Cancer: No Cardiac Disorders: Yes (stents 11/27) CVA: No COPD: No CHF: Yes Dementia: No Diabetes: Yes GI Disorders: No Disorders: No HTN: Yes Hypercholesterolemia: Yes Liver Disease: No Seizures: No Thyroid Disease: No Other medical history: SLEEP APNEA - Surgical History Abdominal Surgery: No Appendectomy: No Cardiac Surgery: Yes (stents) Cholecystectomy: No Lung Surgery: No Neurologic Surgery: No Orthopedic Surgery: No - Immunization History Immunization Up to Date: Yes - Psycho Social/Smoking Cessation Hx Smoking History: Never smoked Have you smoked in the past 12 months: No Hx Alcohol Use: No Drug/Substance Use Hx: No Substance Use Type: None Hx Substance Use Treatment: No Review of Systems - Review of Systems Able to Perform ROS?: Yes Comments:: GENERAL/CONSTITUTIONAL: No fever or chills. No weakness. HEAD, EYES, EARS, NOSE AND THROAT: No change in vision. No ear pain or discharge. No sore throat. CARDIOVASCULAR: No chest pain or shortness of breath. RESPIRATORY: +Cough. No wheezing or hemoptysis. GASTROINTESTINAL: No nausea, vomiting, diarrhea or constipation. GENITOURINARY: No dysuria, frequency, or change in urination. MUSCULOSKELETAL: No joint or muscle swelling or pain. No neck or back pain. SKIN: No rash. NEUROLOGIC: No headache, vertigo, loss of consciousness, or change in strength/ sensation. ENDOCRINE: No increased thirst. No abnormal weight change. HEMATOLOGIC/LYMPHATIC: No anemia, easy bleeding, or history of blood clots. ALLERGIC/IMMUNOLOGIC: No hives or skin allergy. *Physical Exam - Vital Signs Last Vital Signs Temp Pulse Resp BP Pulse Ox 97.1 F L 65 26 H 183/88 H 93 L 07/08/19 17:14 07/08/19 17:14 07/08/19 17:14 07/08/19 17:14 07/08/19 17:14 - Physical Exam GENERAL: Awake, alert, and fully oriented, in no acute distress HEAD: No signs of trauma EYES: PERRLA, EOMI, sclera anicteric, conjunctiva clear ENT: Auricles normal inspection, hearing grossly normal, nares patent, oropharynx clear without exudates. Moist mucosa NECK: Normal ROM, supple, no lymphadenopathy, JVD, or masses LUNGS: Breath sounds equal, clear to auscultation bilaterally. No wheezes, and no crackles. Intermittent dry, hacking cough HEART: Regular rate and rhythm, normal S1 and S2, no murmurs, rubs or gallops ABDOMEN: Soft, nontender, normoactive bowel sounds. No guarding, no rebound. No masses EXTREMITIES: Normal range of motion, no edema. No clubbing or cyanosis. No cords, erythema, or tenderness NEUROLOGICAL: Cranial nerves II through XII grossly intact. Normal speech, normal gait. Motor and sensation intact SKIN: Warm, dry, normal turgor, no rashes or lesions noted. Discharge - Discharge Information Problems reviewed: Yes Clinical Impression/Diagnosis: Cough, Bronchitis Condition: Stable Disposition: HOME - Admission No - Additional Discharge Information Prescriptions: Azithromycin [Zithromax 250mg Tablets -] 250 mg PO UTDICT #6 tab Guaifenesin AC [Robitussin AC -] 5 ml PO Q6H PRN #60 ml MDD 20 mL PRN Reason: Cough - Follow up/Referral Referrals: Amish Doll [Primary Care Provider] - - Patient Discharge Instructions Patient Printed Discharge Instructions: DI for Acute Bronchitis - Post Discharge Activity
== END 2019-07-08 18:50 | disposition home or self-care (01) ==
LOC: FER 17:13
DX: J40 Bronchitis, not specified as acute or chronic (principal); Z88.0 Allergy status to penicillin; Z95.5 Presence of coronary angioplasty implant and graft; E11.9 Type 2 diabetes mellitus without complications; I10 Essential (primary) hypertension; I50.9 Heart failure, unspecified
CPT/HCPCS: 99281-25

== ENCOUNTER 2019-07-18 13:22 | Emergency (ER) | payer OTHER ==
[2019-07-18 13:37] VITALS: TEMP 98.7; BMI 46.6
[2019-07-18 13:57] LABS: EPITHELIAL CELLS RARE /hpf
[2019-07-18 14:17] LABS: BASO % 0.4 % (0-2.0); EOS % 1.6 % (0-4.5); HEMATOCRIT 38.7 % (35.4-49); HEMOGLOBIN 12.3 GM/dl (11.7-16.9); LYMPH % 18.6 % (8-40); MCH 27.5 pg (25.7-33.7); MCHC 31.8 g/dl (32.0-35.9); MEAN CELL VOLUME 86.2 fl (80-96); MONO % 5.1 % (3.8-10.2); NEUT % 74.3 % (42.8-82.8); PLATELET COUNT 184 K/MM3 (134-434); RBC 4.49 M/mm3 (4.00-5.60); RDW 13.8 % (11.9-15.9); WHITE BLOOD COUNT 7.5 K/mm3 (4.0-10.8)
--- NOTE | 2019-07-18 14:22 | PDOC ---
Attending Attestation - Resident Resident Name: Joe Ballesteros - ED Attending Attestation I have performed the following: I have examined & evaluated the patient, The case was reviewed & discussed with the resident, I agree w/resident's findings & plan, Exceptions are as noted - HPI HPI: 07/18/19 16:40 Patient complains of intractable cough and shortness of breath. He has recently been treated for bronchitis. He has no persistent fever but he is still coughing, especially at night. He is also having more dyspnea with exertion than usual. He has chronic orthopnea and PND, as well as sleep apnea for which he uses CPAP. He has coronary artery disease with 5 stents, and takes Plavix. He has CHF with recurrent pulmonary edema and leg edema for which she is maintained on Lasix. He has insulin-dependent diabetes, which he usually controls with basal insulin and glipizide, though he admits he is not taking his insulin for several weeks because "he got sick of giving himself shots". He states with certainty that he has been taking his other medications as directed there is no history of DKA or hypoglycemia. He does admit polyuria and polydipsia since he stopped his insulin. He has not had an WI that he is aware. He does not have COPD that he is aware, does not use a nebulizer. 07/18/19 18:15 - Physicial Exam PE: 07/18/19 16:44 Physical exam reveals a morbidly obese male who is in no acute distress, respiratory or otherwise. His respiratory rate is 18 and unlabored and oxygen saturation 94% on room air, despite his size and weight. Afebrile, vital signs stable PERRLA, fundi benign, ENT clear Neck supple without bruit mass or nodes Chest clear to PNA, with full breath sounds bilaterally. No wheezes rales or rhonchi. No splinting with deep inspiration CV S1-S2 distant without murmur rub or gallop pulses full and symmetric no JVD no bruits. 2+ pedal edema bilaterally symmetric, no erythema warmth or tenderness. Specifically, no posterior calf swelling or tenderness, no cords, negative Homans Abdomen protuberant but soft nontender without mass organomegaly. Normal bowel sounds. No CVAT Extremities: Bilateral leg edema as discussed above. No cyanosis or clubbing. No erythema, warmth, or lesions suggestive of infection Skin clear, no rash, adequate turgor and wet mucous membranes Neurological C2 to 12 intact. Strength full and symmetric. No focal sensorimotor deficits. Gait stable and unimpaired. - Medical Decision Making 07/18/19 16:48 Assessment: Morbidly obese patient with coronary artery disease, CHF, sleep apnea, recent bronchitis, complains of persistent cough and increased shortness of breath with exertion. No signs of acute heart failure on examination. No signs of persistent infection. No pleuritic chest pain, leg pain or tenderness suggestive of pulmonary embolus. Cough and shortness of breath most likely due to postinfectious reactive airway with increased mucus production. Plan: X-ray is clear. No sign of infiltrate or congestion. EKG shows no acute changes that could be associated with ischemia. Labs show a glucose of 402, and troponin of 0.06, borderline. Begin glucose control, expectorant and cough suppressant for comfort, repeat second set of enzymes and EKG and observe. 07/18/19 17:55 Second EKG is unchanged. Troponin 0 0.05. No progression. Discharge on symptomatic treatment, reinforce insulin therapy to control sugars and close follow-up with primary physician. Fully ambulatory and in no distress respiratory or otherwise at discharge. 07/18/19 18:14 Repeat glucose after eating was 403. Additional regular insulin was administered. The patient has insulin at home and will take his usual dose tonight as scheduled. 07/18/19 18:37 Fully ambulatory, no dyspnea at discharge to follow-up as directed.
[2019-07-18 14:24] LABS: ALBUMIN 3.1 g/dl (3.4-5.0); BILIRUBIN,TOTAL 0.4 mg/dl (0.2-1); CALCIUM 8.2 mg/dl (8.5-10); CREATININE 1.8 mg/dl (0.55-1.3); POTASSIUM 3.9 mmol/L (3.5-5.1); TOT PROT 6.3 g/dl (6.4-8.2)
--- NOTE | 2019-07-18 14:37 | PDOC ---
History of Present Illness - General Chief Complaint: Shortness of Breath Stated Complaint: SHORTNESS OF BREASTH Time Seen by Provider: 07/18/19 13:25 - History of Present Illness Initial Comments: 07/18/19 14:37 HPI: 49 y/o M with hx of obesity, IDDM, CAD x4 stents, CHF, HLD, HTN, necrotizing abscess in buttocks (2012) osteomyelitis of L 5th toe s/p amputation presenting with generalized feeling of unwell with 2 days of cough and SOB. He reports he was recently here twice in the past several weeks and was sent home on a zpack for bronchitis and felt improved. However his symptoms came back. The cough is nonproductive. SOB is present on exertion when exercising in attempt to lose weight, and requires sit and rest before being able to continue; occurs when walking half a football field; PANDA is not present with stairs or walking around at home. He states his SOB makes me feel more tired. He also reports PND and 2 pillow orthopnea. Uses CPAP nightly. Denies chest pain, fever, chills, palpitations, abd pain, n/v, diaphoresis, dysuria, hematuria. Reports insulin noncompliance x2 weeks because he's tired of being sick and doesnt want to anymore. PMHx: as noted above ROS: as noted SHx: Denies tobacco use; no alcohol use; no rec drugs Allergies: NKDA ROS: GENERAL/CONSTITUTIONAL: No fever or chills. No weakness. HEAD, EYES, EARS, NOSE AND THROAT: No change in vision. No ear pain or discharge. No sore throat. CARDIOVASCULAR: No chest pain; +shortness of breath RESPIRATORY: +cough; no wheezing, or hemoptysis. GASTROINTESTINAL: No nausea, vomiting, diarrhea or constipation. GENITOURINARY: No dysuria, frequency, or change in urination. MUSCULOSKELETAL: No joint or muscle swelling or pain. No neck or back pain. SKIN: No rash NEUROLOGIC: No headache, vertigo, loss of consciousness, or change in strength/ sensation. ENDOCRINE: No increased thirst. No abnormal weight change HEMATOLOGIC/LYMPHATIC: No anemia, easy bleeding, or history of blood clots. ALLERGIC/IMMUNOLOGIC: No hives or skin allergy. PE: GENERAL: Awake, alert, and fully oriented, no acute distress HEAD: No signs of trauma, normocephalic, atraumatic EYES: EOMI, sclera anicteric, conjunctiva clear ENT: Auricles normal inspection, hearing grossly normal, nares patent, oropharynx clear without exudates. Moist mucosa NECK: Normal ROM, no lymphadenopathy LUNGS: No increased work of breathing, symmetrical chest rise, left lung base rales, distant lung sounds HEART: Regular rate, regular rhythm, normal S1 and S2, no murmur, peripheral pulses 2+ and equal bilaterally. BL LE 1+ edema ABDOMEN: Soft, nondistended, nontender, normoactive bowel sounds. No guarding, no rebound. No masses. No CVAT MUSCULOSKELETAL: FROM NEUROLOGICAL: Cranial nerves II through XII grossly intact. Normal speech, normal gait, no focal sensorimotor deficits SKIN: Warm, Dry, normal turgor, no rashes or lesions noted Past History - Past Medical History Allergies/Adverse Reactions: Allergies Allergy/AdvReac Type Severity Reaction Status Date / Time Penicillins Allergy Verified 07/18/19 13:24 Home Medications: Ambulatory Orders Ascorbate Calcium [Vitamin C] 500 mg PO DAILY 03/28/18 Aspirin [ASA -] 81 mg PO DAILY 03/28/18 Atorvastatin Ca [Lipitor] 80 mg PO DAILY 03/28/18 Cholecalciferol (Vitamin D3) [Vitamin D3] 1,000 unit PO DAILY 03/28/18 Clopidogrel Bisulfate [Plavix] 75 mg PO DAILY 03/28/18 Cyanocobalamin [Vitamin B12 -] 1,000 mcg PO DAILY 03/28/18 Losartan Potassium 25 mg PO DAILY 03/28/18 Metoprolol Succinate 100 mg PO DAILY 03/28/18 Tamsulosin HCl 0.4 mg PO DAILY 03/28/18 Vitamin B Complex 1,000 mg PO DAILY 03/28/18 Zinc 50 mg PO DAILY 03/28/18 Glipizide [Glucotrol -] 10 mg PO BID@0700,1630 05/26/18 Insulin Glargine,Hum.rec.anlog [Basaglar Kwikpen U-100] 40 unit SQ HS 06/24/19 Anemia: No Asthma: No Cancer: No Cardiac Disorders: Yes (stents 11/27) CVA: No COPD: No CHF: Yes Dementia: No Diabetes: Yes GI Disorders: No Disorders: No HTN: Yes Hypercholesterolemia: Yes Liver Disease: No Seizures: No Thyroid Disease: No - Surgical History Abdominal Surgery: No Appendectomy: No Cardiac Surgery: Yes (stents) Cholecystectomy: No Lung Surgery: No Neurologic Surgery: No Orthopedic Surgery: No - Immunization History Immunization Up to Date: Yes - Psycho Social/Smoking Cessation Hx Smoking History: Never smoked Have you smoked in the past 12 months: No Hx Alcohol Use: No Drug/Substance Use Hx: No Substance Use Type: None Hx Substance Use Treatment: No *Physical Exam - Vital Signs Last Vital Signs Temp Pulse Resp BP Pulse Ox 98.7 F 61 20 164/68 94 L 07/18/19 13:23 07/18/19 13:23 07/18/19 13:23 07/18/19 13:23 07/18/19 13:23 ED Treatment Course - LABORATORY CBC & Chemistry Diagram: 07/18/19 13:55 07/18/19 13:55 - ADDITIONAL ORDERS Additional order review: Laboratory Results 07/18/19 07/18/19 07/18/19 13:55 13:55 13:30 Sodium 133 L Potassium 3.9 Chloride 98 Carbon Dioxide 27 Anion Gap 8 BUN 49.0 H Creatinine 1.8 H Est GFR (CKD-EPI)AfAm 50.10 Est GFR (CKD-EPI)NonAf 43.23 Random Glucose 462 H* Calcium 8.2 L Total Bilirubin 0.4 AST 18 ALT 25 Alkaline Phosphatase 107 D Creatine Kinase 201 Troponin I 0.06 H Total Protein 6.3 L Albumin 3.1 L Urine Color Yellow Urine Appearance Clear Urine pH 5.0 Urine Protein 2+ H Urine Glucose (UA) 3+ Urine Ketones Negative Urine Blood 1+ H Urine Nitrite Negative Urine Bilirubin Negative Urine Urobilinogen 0.2 Ur Leukocyte Esterase Negative Urine RBC 0-2 Urine WBC 0-2 Ur Transition Epith Cell Rare 07/18/19 13:55 RBC 4.49 MCV 86.2 MCHC 31.8 L RDW 13.8 MPV 11.0 Neutrophils % 74.3 Lymphocytes % 18.6 Monocytes % 5.1 Eosinophils % 1.6 Basophils % 0.4 Medical Decision Making - Medical Decision Making 07/18/19 17:33 49 y/o M with hx of obesity, IDDM, CAD x4 stents, CHF, HLD, HTN, necrotizing abscess in buttocks (2012) osteomyelitis of L 5th toe s/p amputation presenting with generalized feeling of unwell with 2 days of cough and SOB. BP 164/68 HR 61 O2 94% RA. PE with 1+ BL LE edema, left lung base rales. DDX includes chf exacerbation, post viral cough, acs -cbc, cmp, ua, cardiac profi, bnp, ekg, cxr 07/18/19 17:37 ekg: nsr with incomplete rbbb unchanged from previous ekg, nl intervals, no lilian/ d cxr with no acute pathology trop 0.06; will rpt at 3hr with ekg insulin 10 for gluc 450s 07/18/19 18:09 rpt trop negative ekg no changes discussed with patient results and will DC home with pcp followup Discharge - Discharge Information Problems reviewed: Yes Clinical Impression/Diagnosis: Cough, Shortness of breath on exertion Condition: Fair Disposition: HOME - Follow up/Referral - Patient Discharge Instructions Patient Printed Discharge Instructions: DI for Shortness of Breath, DI for Cough -- Adult Additional Instructions: Additional Instructions: Please return to the emergency department with any new or worsening symptoms or concerns including worsening shortness of breath, chest pain, fainting. Please follow up with your primary care physician within 3-7 days for followup You may take Robitussin AC for cough suppressant effects; please avoid when operating machinery or driving; Your cough may last 6-8weeks Please continue taking your insulin - Post Discharge Activity
[2019-07-18] MEDS ORDERED: NITROGLYCERIN 2% OINTMENT - 1GM PACKET TD ONE ×2 (15:27→15:37)
[2019-07-18] MEDS ORDERED: INSULIN REGULAR HUMAN 100 UNITS/ML *VIAL SQ ONE ×2 (15:27→18:10)
[2019-07-18] MEDS ORDERED: INSULIN REGULAR HUMAN 100 UNITS/ML *VIAL ONE ×2 (15:35→18:11)
[2019-07-18 18:56] VITALS: BP 160/78; PULSE 60
--- NOTE | 2019-07-19 14:29 | EKG ---
Test Reason : Blood Pressure : / mmHG Vent. Rate : 062 BPM Atrial Rate : 062 BPM P-R Int : 162 ms QRS Dur : 108 ms QT Int : 426 ms P-R-T Axes : 066 010 074 degrees QTc Int : 432 ms NORMAL SINUS RHYTHM INCOMPLETE RIGHT BUNDLE BRANCH BLOCK CANNOT RULE OUT INFERIOR INFARCT , AGE UNDETERMINED CANNOT RULE OUT ANTERIOR INFARCT , AGE UNDETERMINED ABNORMAL ECG WHEN COMPARED WITH ECG OF 18-JUL-2019 13:39, NO SIGNIFICANT CHANGE WAS FOUND Confirmed by JESSE MONTEIRO MD ([id number]) on 07/19/2019 2:28:58 PM Referred By: MD BARONE Confirmed By:JESSE MONTEIRO MD
--- NOTE | 2019-07-19 14:29 | EKG ---
Test Reason : Blood Pressure : / mmHG Vent. Rate : 061 BPM Atrial Rate : 061 BPM P-R Int : 168 ms QRS Dur : 104 ms QT Int : 444 ms P-R-T Axes : 033 009 037 degrees QTc Int : 446 ms NORMAL SINUS RHYTHM INCOMPLETE RIGHT BUNDLE BRANCH BLOCK BORDERLINE ECG WHEN COMPARED WITH ECG OF 24-JUN-2019 14:24, MINIMAL CRITERIA FOR INFERIOR INFARCT ARE NO LONGER PRESENT Confirmed by THANIA ANGULO, JESSE ([id number]) on 07/19/2019 2:28:50 PM Referred By: SHERRILL BARONE Confirmed By:JESSE MONTEIRO MD
== END 2019-07-18 18:50 | disposition home or self-care (01) ==
LOC: FER 13:22
PROC: 3E013VG Introduction of Insulin into Subcutaneous Tissue, Percutaneous Approach (ICD-10-PCS; principal; 2019-07-18)
DX: R06.02 Shortness of breath (principal); R05 Cough; E11.9 Type 2 diabetes mellitus without complications; E66.9 Obesity, unspecified; I25.10 Atherosclerotic heart disease of native coronary artery without angina pectoris; E78.5 Hyperlipidemia, unspecified; Z88.0 Allergy status to penicillin
CPT/HCPCS: 36415; 71046-TC-FY; 80053; 81003; 81015; 82550; 82553; 82962; 83880; 84484; 85025; 93005; 99284-25

== ENCOUNTER 2020-03-10 00:56 | Emergency (ER) | payer OTHER ==
[2020-03-10 01:06] VITALS: BP 170/71; PULSE 60; TEMP 98; BMI 50.2
[2020-03-10] MEDS ORDERED: CLINDAMYCIN HCL 300 MG CAPSULE PO ONE (01:06)
--- NOTE | 2020-03-10 01:06 | PDOC ---
History of Present Illness - General Chief Complaint: Pain, Acute Stated Complaint: swelling to gums in mouth Time Seen by Provider: 03/10/20 01:02 History Source: Patient Exam Limitations: No Limitations - History of Present Illness Initial Comments: 03/10/20 01:03 HPI 50 yo M history DM, HTN, CHF, CKD, HL, CAD s/p 4 stents p/w upper gum pain x 3 days associated with lip and facial swelling denies trauma. denies respiratory illnesses. he follows proper dental hygiene and brushes teeth daily Denies fever, chills, chest pain, SOB, sore throat, ear pain/eye pain, congestion, cough, dizziness, weakness, N, V, D, abdominal pain, bladder and bowel problems, focal weakness/paresthesias, leg swelling/pain, rash. Allergies: PCN Past Medical History/PSH: as above Social history: Lives with family. No tobacco, ETOH or drug use. Meds: as documented in EMR PMD: Dr Doll Review of systems Constitutional: no fevers or chills. No weakness HEENT: no headache or dizziness. No congestion. No visual/hearing disturbances, no eye pain or ear pain. +gum and dental pain, +facial swelling CVS: no cp or syncope. Resp: no sob. No cough. Gastrointestinal: no abdominal pain, nausea, vomiting, diarrhea. SKIN: no redness or skin changes, no discharge, no rash. No wounds. Hematologic: no easy bruising/bleeding. NEUROLOGIC: No headache, dizziness, LOC or altered mental status. No weakness, numbness or tingling. Allergic/Immunologic: +pcn allergies All other systems reviewed and negative, or as documented in HPI. Physical exam General: Well appearing, awake and alert, NAD. HEENT: NCAT, PERRL, EOMI, clear conjunctiva, anicteric, moist mucus membranes, no oral lesions. airway patent.. +anterior upper gum erythema, tenderness and area of firm swelling, no discharge, dentition intact Neck: neck supple, FROM Resp: normal and even respirations, no respiratory distress CVS: 2+ peripheral pulses throughout, no peripheral edema Abdomen: soft, nontender MSK: no edema, KNIGHT x4 Neuro: alert, oriented appropriately; no focal neurologic deficits, CN II to XII grossly intact Psych: Calm and cooperative Skin: warm and well perfused, cap refill <2 sec, normal color, no rash or skin discoloration. 03/10/20 01:14 Past History - Medical History Allergies/Adverse Reactions: Allergies Allergy/AdvReac Type Severity Reaction Status Date / Time Penicillins Allergy Verified 03/10/20 00:57 Home Medications: Ambulatory Orders Ascorbate Calcium [Vitamin C] 500 mg PO DAILY 03/28/18 Aspirin [ASA -] 81 mg PO DAILY 03/28/18 Atorvastatin Ca [Lipitor] 80 mg PO DAILY 03/28/18 Cholecalciferol (Vitamin D3) [Vitamin D3] 1,000 unit PO DAILY 03/28/18 Clopidogrel Bisulfate [Plavix] 75 mg PO DAILY 03/28/18 Cyanocobalamin [Vitamin B12 -] 1,000 mcg PO DAILY 03/28/18 Losartan Potassium 25 mg PO DAILY 03/28/18 Metoprolol Succinate 100 mg PO DAILY 03/28/18 Tamsulosin HCl 0.4 mg PO DAILY 03/28/18 Vitamin B Complex 1,000 mg PO DAILY 03/28/18 Zinc 50 mg PO DAILY 03/28/18 Insulin Glargine,Hum.rec.anlog [Basaglar Kwikpen U-100] 50 unit SQ HS 06/24/19 Docusate Sodium [Colace] 100 mg PO DAILY 10/20/19 Insulin Lispro [Admelog Solostar] 35 mg SQ BID 10/20/19 Torsemide 40 mg PO DAILY 10/20/19 Zolpidem Tartrate [Ambien] 5 mg PO HS 10/20/19 Acidoph/L.bulg/Bif.b/S.thermop [Bacid Caplet] 1 each PO DAILY #10 tablet 03/10/20 Clindamycin [Cleocin -] 300 mg PO TID #21 capsule 03/10/20 Anemia: No Asthma: No Cancer: No Cardiac Disorders: Yes (4 stents 11/27) CVA: No COPD: No CHF: Yes Dementia: No Diabetes: Yes GI Disorders: No Disorders: No HTN: Yes Hypercholesterolemia: Yes Liver Disease: No Seizures: No Thyroid Disease: No - Surgical History Abdominal Surgery: No Appendectomy: No Cardiac Surgery: Yes (stents) Cholecystectomy: No Lung Surgery: No Neurologic Surgery: No Orthopedic Surgery: No - Immunization History Immunization Up to Date: Yes - Psycho-Social/Smoking History Smoking History: Never smoked Have you smoked in the past 12 months: No Medical Decision Making - Medical Decision Making 03/10/20 01:21 Vital Signs Temp Pulse Resp BP Pulse Ox 98 F 60 16 170/71 94 L 03/10/20 01:03 03/10/20 01:03 03/10/20 01:03 03/10/20 01:03 03/10/20 01:03 vitals reviewed, wnl. no fever, nontoxic appearing airway patent, no respiratory distress. pt with s/s to suggest gingivitis, dental pain?periapical abscess will block with 1% lidocaine to the gum area clindamycin with probiotic course x 1 week for infection coverage dental followup pt aware of impression and plan stable for DC return precautions Discharge - Discharge Information Problems reviewed: Yes Clinical Impression/Diagnosis: Gingivitis, acute, Pain, dental Condition: Stable Disposition: HOME - Admission No - Additional Discharge Information Prescriptions: Acidoph/L.bulg/Bif.b/S.thermop [Bacid Caplet] 1 each PO DAILY #10 tablet Clindamycin [Cleocin -] 300 mg PO TID #21 capsule - Follow up/Referral Referrals: Amish Doll [Primary Care Provider] - Mariano Lewis MD [Other Staff,non-medical] - Howard Rodrigues DDS [Non Staff, Medical] - Rahul Howe DDS [Non Staff, Medical] - Lizabeth Orellana DDS [Non Staff, Medical] - Johnathan Whittaker DDS [Staff Physician] - - Patient Discharge Instructions Patient Printed Discharge Instructions: Periodontal Disease (Alternative Therapy), DI for Gingivitis, DI for Dental Pain Additional Instructions: take clindamycin three times a day for week for your dental and gum infection take with probiotic, prescription given stay hydrated soft foot diet encouraged over the counter tylenol or motrin as needed for pain control follow up with dentists- referrals given if worsening symptoms such as headache, fever, difficulty swallowing or speaking, sore throat, hoarse voice, vomiting, dehydration, neurologic changes, return sooner for reevaluation. - Post Discharge Activity
[2020-03-10] MEDS ORDERED: IBUPROFEN 600 MG TABLET (FP) PO ONE ×2 (01:07)
[2020-03-10] MEDS ORDERED: CLINDAMYCIN HCL 150 MG CAPSULE (FP) ONE (01:07)
--- OUTSIDE RECORDS SUMMARY | 2020-03-10 01:13 | XMS ---
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 10:49:00 PM EDT Hospi tanesha toe(s), initial encounter for fracture L03.031 Cellulitis of right L03.031 Diagnosis 10/25/2019 [facility] toe 10:49:00 PM EDT Hospital E11.628 Type 2 diabetes E11.628 Diagnosis 10/25/2019 [place] mellitus with other 10:49:00 PM EDT Hospital skin complications M79.81 Nontraumatic hematoma M79.81 Diagnosis 02/07/2019 [facility] [place] of soft tissue 08:42:00 AM EDT Hospi tanesha I10 Essential (primary) I10 Diagnosis 01/17/2019 [facility] hypertension 08:46:00 PM EDT Hospita l E66.9 Obesity, unspecified E66.9 Diagnosis 01/17/2019 [facility] [place] 08:46:00 PM EDT Hospital E11.9 Type 2 diabetes E11.9 Diagnosis 01/16/2019 [place] mellitus without 06:28:00 PM EDT Hos pital complications I12.9 Hypertensive chronic I12.9 Diagnosis 01/16/2019 [facility] [place] kidney disease with 06:28:00 PM EDT Hospital stage 1 through stage 4 chronic kidney disease, or unspecified chronic kidney disease L03.317 Cellulitis of buttock L03.317 Diagnosis 01/16/2019 [facility] [place] 06:28:00 PM EDT Hospital L02.31 Cutaneous abscess of L02.31 Diagnosis 01/16/2019 [facility] [place] buttock 06:28:00 PM EDT Hospital M79.89 Other specified soft M79.89 Diagnosis 01/07/2018 [facility] [place] tissue disorders 06:57:00 PM EDT Hos pital N18.9 Chronic kidney N18.9 Diagnosis 01/07/2018 [place] disease, unspecified 06:57:00 PM EDT Hospital I50.9 Heart failure, I50.9 Diagnosis 01/07/2018 [place] unspecified 06:57:00 PM EDT Hospital R07.9 Chest pain, R07.9 Diagnosis 01/07/2018 [facility] unspecified 06:57:00 PM EDT Hospital Surgeries/Procedures Procedure Description Date Indications Data Source(s) Physical therapy procedure 11/14/2019 [facility] [place] (regime/therapy) 12:00:00 AM Hospital EDT Ultrasonography of abdomen 11/12/2019 [facility] [place] (procedure) 12:00:00 AM Hospital EDT Echocardiography (procedure) 11/12/2019 [facility] 12:00:00 AM Hospital EDT Doppler ultrasound of vessels 11/08/2019 [facility] of both lower extremities 12:00:00 AM [facility] EDT Pulmonary ventilation study 11/07/2019 [facility] (procedure) 12:00:00 AM Hospital EDT Noninvasive positive pressure 11/07/2019 [facility] ventilation (procedure) 12:00:00 AM Hosp ital EDT Echocardiography (procedure) 11/07/2019 [facility] 12:00:00 AM Hospital EDT Electrocardiographic procedure 11/07/2019 [facility] (procedure) 12:00:00 AM Hospital EDT Plain chest X-ray (procedure) 11/07/2019 [facility] 12:00:00 AM Hospital EDT Electrocardiographic procedure 11/07/2019 [facility] (procedure) 12:00:00 AM Hospital EDT Magnetic resonance imaging of 10/27/2019 [facility] right foot 12:00:00 AM Hospital EDT Electrocardiographic procedure 10/26/2019 [facility] (procedure) 12:00:00 AM Hospital EDT Noninvasive positive pressure 10/26/2019 [facility] ventilation (procedure) 12:00:00 AM Hosp ital EDT Electrocardiographic procedure 10/26/2019 [facility] (procedure) 12:00:00 AM Hospital EDT Noninvasive positive pressure 10/26/2019 [facility] ventilation (procedure) 12:00:00 AM Hosp ital EDT X-ray of right foot 10/25/2019 [place] (procedure) 12:00:00 AM Hospital EDT X-ray of left foot (procedure) 10/25/2019 [facility] 12:00:00 AM Hospital EDT Plain chest X-ray (procedure) 10/25/2019 [facility] 12:00:00 AM Hospital EDT X-ray of right foot 10/25/[address] [place] (procedure) 12:00:00 AM Hospital EDT X-ray of left foot (procedure) 10/25/2019 [facility] 12:00:00 AM Hospital EDT Plain chest X-ray (procedure) 10/25/2019 [facility] 12:00:00 AM Hospital EDT Drainage of skin abscess 01/17/2019 [facility] [place] 12:00:00 AM Hospital EDT Reagent strip/blood glucose 01/17/2019 [facility] 12:00:00 AM Hospital EDT Smear gram stain 01/17/2019 [place] 12:00:00 AM Hospital EDT Culture othr specimn aerobic 01/17/2019 [facility] 12:00:00 AM Hospital EDT Culture aerobic identify 01/17/2019 [facility] [place] 12:00:00 AM Hospital EDT Culture aerobic identify 01/17/2019 [facility] [place] 12:00:00 AM Hospital EDT Emergency dept visit 01/17/2019 [place] 12:00:00 AM Hospital EDT FUROSEMIDE INJECTION 01/16/2019 [place] 12:00:[address] pelvis w/o dye 01/16/2019 [place] 12:[facility]:00 AM Hospital EDT X-ray exam chest 1 view 01/16/2019 [facility] [place] 12:00:00 AM Hospital EDT Electrocardiogram tracing 01/16/2019 [facility] [place] 12:00:00 AM Hospital EDT Assay of natriuretic peptide 01/16/2019 [facility] 12:00:00 AM Hospital EDT Assay of troponin qual 01/16/2019 [facility] 12:00:00 AM Hospital EDT Reagent strip/blood glucose 01/16/2019 [facility] 12:00:00 AM Hospital EDT Comprehen metabolic panel 01/16/2019 [facility] [place] 12:00:00 AM Hospital EDT Prothrombin time 01/16/2019 [facility] 12:00:00 AM Hospital EDT Complete cbc automated 01/16/2019 [facility] 12:00:00 AM Hospital EDT Complete cbc w/auto diff wbc 01/16/2019 [facility] 12:00:00 AM Hospital EDT Thromboplastin time partial 01/16/2019 [facility] 12:00:00 AM Hospital EDT Ther/proph/diag inj iv push 01/16/2019 [facility] 12:00:00 AM Hospital EDT Drainage of skin abscess 01/16/2019 i leana [place] 12:00:00 AM Hospital EDT Emergency dept visit 01/16/2019 [facility] 12:00:00 AM Hospital EDT Results ID Date Data Source [id number] 11/14/2019 11:17:00 AM EDT [facility] Name Value Range Interpretation Description Data Sup porting Code Source(s) Document(s ) GLUCOSE RN Notified [facility] ID Date Data Source [id number] 11/14/2019 11:17:00 AM EDT [facility] Debubblizer:STEFANIEGRABIEL WADE Name Value Range Interpretation Description Data Sup porting Code Source(s) Document(s ) Glucose 173 mg/dL [facility] [Mass/volume] [facility] in Capillary blood by Glucometer ID Date Data Source [id number] 11/14/2019 06:25:00 AM EDT [facility] Name Value Range Interpretation Description Data Sup porting Code Source(s) Document(s ) Glucose 144 mg/dL [facility] [Mass/volume Hospital ] in Serum or Plasma ID Date Data Source [id number] 11/14/2019 06:25:00 AM EDT [facility] Name Value Range Interpretation Code Description Data Supporting Source(s) Document(s ) NUCLEATED RBCS 0.0 % [facility] (AUTO Hospital DIFF%)DIS ID Date Data Source [id number] 11/14/2019 06:25:00 AM EDT [facility] Value Range Interpretation Description Data Sup porting Code Source(s) Document(s ) Differential AUTOMATED [facility] cell count Hospital method - Blood ID Date Data Source [id number] 11/14/2019 06:25:00 AM EDT [facility] Value Range Interpretation Description Data Sup porting Code Source(s) Document(s ) Immature 0.03 [facility] granulocytes 10*3/uL Hospital [#/volume] in Blood by Automated count ID Date Data Source [id number] 11/14/2019 06:25:00 AM EDT [facility] Value Range Interpretation Description Data Sup porting Code Source(s) Document(s ) Basophils 0.03 [facility] [#/volume] in 10*3/uL Hospital Blood by Automated count ID Date Data Source [id number] 11/14/2019 06:25:00 AM EDT [facility] Value Range Interpretation Description Data Sup porting Code Source(s) Document(s ) Eosinophils 0.11 [facility] [#/volume] in 10*3/uL Hospital Blood by Automated count ID Date Data Source [id number] 11/14/2019 06:25:00 AM EDT [facility] Name Value Range Interpretation Description Data Sup porting Code Source(s) Document(s ) Monocytes 0.49 [facility] [#/volume] in 10*3/uL Hospital Blood by Automated count ID Date Data Source [id number] 11/14/2019 06:25:00 AM EDT [facility] Value Range Interpretation Description Data Sup porting Code Source(s) Document(s ) Lymphocytes 1.82 [facility] [#/volume] in 10*3/uL Hospital Blood by Automated count ID Date Data Source [id number] 11/14/2019 06:25:00 AM EDT [facility] Value Range Interpretation Description Data Sup porting Code Source(s) Document(s ) Neutrophils 5.16 [facility] [#/volume] in 10*3/uL Hospital Blood by Automated count ID Date Data Source [id number] 11/14/2019 06:25:00 AM EDT [facility] Value Range Interpretation Description Data Sup porting Code Source(s) Document(s ) Nucleated 0.0 % [facility] erythrocytes/10 Hospital 0 leukocytes [Ratio] in Blood by Automated count ID Date Data Source [id number] 11/14/2019 06:25:00 AM EDT [facility] Value Range Interpretation Description Data Sup porting Code Source(s) Document(s ) Immature 0.4 % [facility] granulocytes/10 Hospital 0 leukocytes in Blood by Automated count ID Date Data Source [id number] 11/14/2019 06:25:00 AM EDT [facility] Value Range Interpretation Description Data Sup porting Code Source(s) Document(s ) Basophils/100 0.4 % [facility] leukocytes in Hospital Blood by Automated count ID Date Data Source [id number] 11/14/2019 06:25:00 AM EDT [facility] Value Range Interpretation Description Data Sup porting Code Source(s) Document(s ) Eosinophils/100 1.4 % [facility] leukocytes in Hospital Blood by Automated count ID Date Data Source [id number] 11/14/2019 06:25:00 AM EDT [facility] Value Range Interpretation Description Data Sup porting Code Source(s) Document(s ) Monocytes/100 6.4 % [facility] leukocytes in Hospital Blood by Automated count ID Date Data Source [id number] 11/14/2019 06:25:00 AM EDT [facility] Name Value Range Interpretation Description Data Sup porting Code Source(s) Document(s ) Lymphocytes/10 23.8 % [facility] 0 leukocytes Hospital in Blood by Automated count ID Date Data Source [id number] 11/14/2019 06:25:00 AM EDT [facility] Name Value Range Interpretation Description Data Sup porting Code Source(s) Document(s ) Neutrophils/10 67.6 % [facility] 0 leukocytes Hospital in Blood by Automated count ID Date Data Source [id number] 11/14/2019 06:25:00 AM EDT [facility] Value Range Interpretation Description Data Sup porting Code Source(s) Document(s ) Platelet mean 11.7 fL [facility] volume Hospital [Entitic volume] in Blood by Automated count ID Date Data Source [id number] 11/14/2019 06:25:00 AM EDT [facility] Value Range Interpretation Description Data Sup porting Code Source(s) Document(s ) Platelets 187 [facility] [#/volume] in 10*3/uL Hospital Blood by Automated count ID Date Data Source [id number] 11/14/2019 06:25:00 AM EDT [facility] Value Range Interpretation Description Data Sup porting Code Source(s) Document(s ) Erythrocyte 13.1 % [facility] distribution Hospital width [Ratio] by Automated count ID Date Data Source [id number] 11/14/2019 06:25:00 AM EDT [facility] Value Range Interpretation Description Data Sup porting Code Source(s) Document(s ) Erythrocyte mean 31.7 [facility] corpuscular g/dL Hospital hemoglobin concentration [Mass/volume] by Automated count ID Date Data Source [id number] 11/14/2019 06:25:00 AM EDT [facility] Name Value Range Interpretation Description Data Sup porting Code Source(s) Document(s ) Erythrocyte 27.2 pg [facility] corpuscular hemoglobin [Entitic mass] by Automated count ID Date Data Source [id number] 11/14/2019 06:25:00 AM EDT [facility] Value Range Interpretation Description Data Sup porting Code Source(s) Document(s ) Erythrocyte 85.[address] [facility] Hospital corpuscular volume [Entitic volume] by Automated count ID Date Data Source [id number] 11/14/2019 06:25:00 AM EDT [facility] Value Range Interpretation Description Data Sup porting Code Source(s) Document(s ) Hematocrit 36.9 % [facility] [Volume Hospital Fraction] of Blood by Automated count ID Date Data Source [id number] 11/14/2019 06:25:00 AM EDT [facility] Value Range Interpretation Description Data Sup porting Code Source(s) Document(s ) Hemoglobin 11.7 g/dL [facility] [Mass/volume] Hospital in Blood ID Date Data Source [id number] 11/14/2019 06:25:00 AM EDT [facility] Value Range Interpretation Description Data Sup porting Code Source(s) Document(s ) Erythrocytes 4.30 [facility] [#/volume] in 10*6/uL Hospital Blood by Automated count ID Date Data Source [id number] 11/14/2019 06:25:00 AM EDT [facility] Value Range Interpretation Description Data Sup porting Code Source(s) Document(s ) Leukocytes 7.6 [facility] [#/volume] in 10*3/uL Hospital Blood by Automated count ID Date Data Source [id number] 11/14/2019 06:25:00 AM EDT [facility] Name Value Range Interpretation Description Data Sup porting Code Source(s) Document(s ) Calcium 8.8 mg/dL [facility] [Mass/volume Hospital ] in Serum or Plasma ID Date Data Source [id number] 11/14/2019 06:25:00 AM EDT [facility] Name Value Range Interpretation Code Description Data Tati rce(s) Supporting Document(s ) Urea 28.5 [facility] nitrogen/Cre Hospital atinine [Mass Ratio] in Serum or Plasma ID Date Data Source [id number] 11/14/2019 06:25:00 AM EDT [facility] Name Value Range Interpretation Description Data Sup porting Code Source(s) Document(s ) Creatinine 2.0 mg/dL [facility] [Mass/volume] Hospital in Serum or Plasma ID Date Data Source [id number] 11/14/2019 06:25:00 AM EDT [facility] Name Value Range Interpretation Description Data Sup porting Code Source(s) Document(s ) Urea 57 mg/dL [facility] nitrogen Hospital [Mass/volume ] in Serum or Plasma ID Date Data Source [id number] 11/14/2019 06:25:00 AM EDT [facility] Name Value Range Interpretation Code Description Data Tati rce(s) Supporting Document(s ) Anion gap in 9 [facility] Serum or Hospital Plasma ID Date Data Source [id number] 11/14/2019 06:25:00 AM EDT [facility] Name Value Range Interpretation Description Data Sup porting Code Source(s) Document(s ) Carbon 31 mmol/L [facility] dioxide, Hospital total [Moles/volu me] in Serum or Plasma ID Date Data Source [id number] 11/14/2019 06:25:00 AM EDT [facility] Name Value Range Interpretation Description Data Sup porting Code Source(s) Document(s ) Chloride 107 [facility] [Moles/volum mmol/L Hospital e] in Serum or Plasma ID Date Data Source [id number] 11/14/2019 06:25:00 AM EDT [facility] Name Value Range Interpretation Description Data Sup porting Code Source(s) Document(s ) Potassium 4.7 [facility] [Moles/volume mmol/L Hospital ] in Serum or Plasma ID Date Data Source [id number] 11/14/2019 06:25:00 AM EDT [facility] Name Value Range Interpretation Description Data Sup porting Code Source(s) Document(s ) Sodium 142 mmol/L [facility] [Moles/volu Hospital me] in Serum or Plasma ID Date Data Source [id number] 11/13/2019 07:54:00 AM EDT [facility] Name Value Range Interpretation Description Data Sup porting Code Source(s) Document(s ) Magnesium 1.9 mg/dL [facility] [Mass/volume] Hospital in Serum or Plasma ID Date Data Source [id number] 11/11/2019 07:48:00 AM EDT [facility] Name Value Range Interpretation Description Data Sup porting Code Source(s) Document(s ) Aspartate 24 U/L [facility] aminotransferase [place] [Enzymatic Hospital activity/volume] in Serum or Plasma ID Date Data Source [id number] 11/11/2019 07:48:00 AM EDT [facility] Name Value Range Interpretation Description Data Sup porting Code Source(s) Document(s ) Alanine 28 U/L [facility] aminotransferase [place] [Enzymatic Hospital activity/volume] in Serum or Plasma ID Date Data Source [id number] 11/11/2019 07:48:00 AM [facility] Name Value Range Interpretation Description Data Sup porting Code Source(s) Document(s ) Alkaline 88 U/L [facility] [Enzymatic activity/volume ] in Serum or Plasma ID Date Data Source [id number] 11/11/2019 07:48:00 AM [facility] Name Value Range Interpretation Description Data Sup porting Code Source(s) Document(s ) Bilirubin.t 0.3 mg/dL [facility] [Mass/volum e] in Serum or Plasma ID Date Data Source [id number] 11/11/2019 07:48:00 AM [facility] Value Range Interpretation Code Description Data Tati rce(s) Supporting Document(s ) Albumin/Glob 1.7 [facility] [Mass Hospital Ratio] in Serum or Plasma ID Date Data Source [id number] 11/11/2019 07:48:00 AM [facility] Name Value Range Interpretation Description Data Sup porting Code Source(s) Document(s ) Albumin 3.7 g/dL [facility] [Mass/volume Hospital ] in Serum or Plasma ID Date Data Source [id number] 11/11/2019 07:48:00 AM [facility] Name Value Range Interpretation Description Data Sup porting Code Source(s) Document(s ) Protein 5.9 g/dL [facility] [Mass/volume Hospital ] in Serum or Plasma ID Date Data Source [id number] 11/10/2019 07:55:00 AM [facility] Name Value Range Interpretation Description Data Sup porting Code Source(s) Document(s ) Phosphate 3.8 mg/dL [facility] [Mass/volume] Hospital in Serum or Plasma ID Date Data Source [id number] 11/08/2019 04:30:00 AM [facility] ADA RECOMMENDATIONS: NON-DIABETES: 4.0-6.0% CONTROLLED DIABETES: 6.0-8.0% UNCONTROLLED DIABETE S: UP TO 20%RECOMMENDED ADA RESULT FOR THERAPY: HEMOGLOBIN A1C RESULT LESS LIVIA N 7%.NOTE: METHOD CHANGE EFFECTIVE 01/10/15. Name Value Range Interpretation Description Data Sup porting Code Source(s) Document(s ) Hemoglobin 8.1 % [facility] A1c/Hemoglobin. Hospital total in Blood ID Date Data Source [id number] 11/07/2019 10:16:00 PM [facility] TEST PERFORMED BY [employer] CHEMILUMINESCENCE METHOD. Name Value Range Interpretation Description Data Sup porting Code Source(s) Document(s ) Troponin 0.06 [facility] I.cardiac ng/mL Hospital [Mass/volume ] in Serum or Plasma ID Date Data Source [id number] 11/07/2019 09:26:00 PM [facility] Name Value Range Interpretation Code Description Data Tati rce(s) Supporting Document(s ) URINE 0-5 [facility] CASTS ID Date Data Source [id number] 11/07/2019 09:26:00 PM [facility] Name Value Range Interpretation Description Data Sup porting Code Source(s) Document(s ) Erythrocytes 0-3 [facility] [#/area] in /[HPF] Hospital Urine sediment by Automated count ID Date Data Source [id number] 11/07/2019 09:26:00 PM [facility] Name Value Range Interpretation Description Data Sup porting Code Source(s) Document(s ) Leukocytes 0-3 [facility] [#/area] in /[HPF] Hospital Urine sediment by Automated count ID Date Data Source [id number] 11/07/2019 09:26:00 PM [facility] Name Value Range Interpretation Description Data Sup porting Code Source(s) Document(s ) Leukocyte NEGATIVE [facility] Hospital [Presence] in Urine by Test strip ID Date Data Source [id number] [facility]/07[facility] Interpretation Description Data Sup porting Code Source(s) Document(s ) URINE NEGATIVE [facility] NITRITES Hospital ID Date Data Source [id number] [facility]/07[facility] Interpret[facility] Description Data Sup porting Code Source(s) Document(s ) Erythrocytes NEGATIVE [facility] [#/volume] in Hospital Urine by Test strip ID Date Data Source [id number] 11/07/2019 09:26:00 PM [facility] Value Range Interpretation Code Description Data Tati rce(s) Supporting Document(s ) Bilirubin. NEGATIVE [facility] total Hospital [Presence] in Urine by Test strip ID Date Data Source [id number] 11/07/2019 09:26:00 PM [facility] Value Range Interpretation Description Data Sup porting Code Source(s) Document(s ) Urobilinogen 0.2 [facility] [Units/volume] mg/dL Hospital in Urine by Test strip ID Date Data Source [id number] 11/07/2019 09:26:00 PM [facility] Value Range Interpretation Description Data Sup porting Code Source(s) Document(s ) Ketones NEGATIVE [facility] [Mass/volume Hospital ] in Urine by Test strip ID Date Data Source [id number] 11/07/2019 09:26:00 PM [facility] Value Range Interpretation Description Data Sup porting Code Source(s) Document(s ) Glucose NEGATIVE [facility] [Mass/volume Hospital ] in Urine by Test strip ID Date Data Source [id number] 11/07/2019 09:26:00 PM EDT [facility] Name Value Range Interpretation Code Description Data Tait rce(s) Supporting Document(s ) Protein 2+ [facility] [Presence] Hospital in Urine by Test strip ID Date Data Source [id number] 11/07/2019 09:26:00 PM EDT [facility] Name Value Range Interpretation Code Description Data Tati rce(s) Supporting Document(s ) pH of Urine 5.5 [facility] by Test Hospital strip ID Date Data Source [id number] 11/07/2019 09:26:00 PM EDT [facility] Name Value Range Interpretation Code Description Data Supporting Source(s) Document(s ) Specific 1.012 [facility] gravity of Hospital Urine by Test strip ID Date Data Source [id number] 11/07/2019 09:26:00 PM EDT [facility] Name Value Range Interpretation Description Data Sup porting Code Source(s) Document(s ) Clarity in Urine CLEAR [facility] by [facility] automated ID Date Data Source [id number] 11/07/2019 09:26:00 PM EDT [facility] Name Value Range Interpretation Code Description Data Tati rce(s) Supporting Document(s ) Color of YELLOW [facility] Urine Hospital ID Date Data Source [id number] 11/07/2019 02:15:00 PM EDT [facility] Name Value Range Interpretation Description Data Sup porting Code Source(s) Document(s ) Natriuretic 85.8 [facility] peptide B pg/mL Hospital [Mass/volume] in Serum or Plasma ID Date Data Source [id number] 11/07/2019 02:15:00 PM EDT [facility] Name Value Range Interpretation Code Description Data Tati rce(s) Supporting Document(s ) Lipase 70 U/L [facility] [Enzymatic Hospital activity/vo lume] in Serum or Plasma ID Date Data Source [id number] 11/07/2019 02:15:00 PM [facility] THERAPEUTIC RANGES:UNFRACTIONATED HEPARI N THERAPY: 60-90 SECONDSARGATROBAN THERAPY: 49-99 SECONDS Name Value Range Interpretation Description Data Sup porting Code Source(s) Document(s ) aPTT in 30.4 s [facility] Platelet poor [facility] plasma by Coagulation assay ID Date Data Source [id number] 11/07/2019 02:15:00 PM [facility] THERAPEUTIC RANGE FOR STANDARD ORALANTIC OAGULANT THERAPY: 2.0-3.0THERAPEUTIC RANGE FOR HIGH DOSE ORALANTICOAGULANT THERAPY (MECHANICAL HEARTVALVE REPLACEMENT): 2.5-3.5 Name Value Range Interpretation Description Data Sup porting Code Source(s) Document(s ) INR in Platelet 1.1 [facility] poor plasma by Hospital Coagulation assay ID Date Data Source [id number] 11/07/2019 02:15:00 PM [facility] Name Value Range Interpretation Description Data Sup porting Code Source(s) Document(s ) PT panel - 12.1 s [facility] Platelet poor [facility] plasma by Coagulation assay ID Date Data Source [id number] 10/28/2019 08:01:00 AM [facility] Debubblizer:JORGE ALBERTO BYRNE Name Value Range Interpretation Description Data Sup porting Code Source(s) Document(s ) Glucose 143 mg/dL [facility] [Mass/volume] [facility] in Capillary blood by Glucometer ID Date Data Source [id number] 10/28/2019 07:43:00 AM [facility] UNITS ARE IN ml/min/1.73m2.IF PATIENT IS -MALAGASY, MULTIPLY REPORTED RESULT BY 1.21. Name Value Range Interpretation Description Data Sup porting Code Source(s) Document(s ) Glomerular 36 mL/min [facility] filtration Hospital rate/1.73 sq M.predicted [Volume Rate/Area] in Serum or Plasma by Creatinine-bas ed formula (MDRD) ID Date Data Source [id number] 10/28/2019 07:43:00 AM EDT [facility] Value Range Interpretation Description Data Sup porting Code Source(s) Document(s ) Manual MANUAL [facility] differential Hospital performed [Presence] in Blood ID Date Data Source [id number] 10/28/2019 07:43:00 AM EDT [facility] Value Range Interpretation Code Description Data Tati rce(s) Supporting Document(s ) Cells 100 [facility] Total [#] in Blood ID Date Data Source [id number] 10/28/2019 07:43:00 AM EDT [facility] Value Range Interpretation Code Description Data Supporting Source(s) Document(s ) PLATELET NORMAL [facility] COMMENT Hospital ID Date Data Source [id number] 10/28/2019 07:43:00 AM EDT [facility] Value Range Interpretation Code Description Data Tati rce(s) Supporting Document(s ) RBC COMMENT NORMAL [facility] ID Date Data Source [id number] 10/28/2019 07:43:00 AM EDT [facility] Value Range Interpretation Description Data Sup porting Code Source(s) Document(s ) Basophils 0.08 [facility] [#/volume] in 10*3/uL Hospital Blood by Manual count ID Date Data Source [id number] 10/28/2019 07:43:00 AM EDT [facility] Value Range Interpretation Description Data Sup porting Code Source(s) Document(s ) Eosinophils 0.30 [facility] [#/volume] in 10*3/uL Hospital Blood by Manual count ID Date Data Source [id number] 10/28/2019 07:43:00 AM EDT [facility] Name Value Range Interpretation Description Data Sup porting Code Source(s) Document(s ) Monocytes 0.38 [facility] [#/volume] in 10*3/uL Hospital Blood by Manual count ID Date Data Source [id number] 10/28/2019 07:43:00 AM EDT [facility] Name Value Range Interpretation Description Data Sup porting Code Source(s) Document(s ) Lymphocytes 0.83 [facility] [#/volume] in 10*3/uL Hospital Blood by Manual count ID Date Data Source [id number] 10/28/2019 07:43:00 AM EDT [facility] Value Range Interpretation Description Data Sup porting Code Source(s) Document(s ) Neutrophils 5.93 [facility] [#/volume] in 10*3/uL Hospital Blood by Manual count ID Date Data Source [id number] 10/28/2019 07:43:00 AM EDT [facility] Name Value Range Interpretation Description Data Sup porting Code Source(s) Document(s ) Basophils/100 1 % [facility] leukocytes in Hospital Blood by Manual count ID Date Data Source [id number] 10/28/2019 07:43:00 AM EDT [facility] Value Range Interpretation Description Data Sup porting Code Source(s) Document(s ) Eosinophils/100 4 % [facility] leukocytes in Hospital Blood by Manual count ID Date Data Source [id number] 10/28/2019 07:43:00 AM EDT [facility] Name Value Range Interpretation Description Data Sup porting Code Source(s) Document(s ) Monocytes/100 5 % [facility] leukocytes in Hospital Blood by Manual count ID Date Data Source [id number] 10/28/2019 07:43:00 AM EDT [facility] Name Value Range Interpretation Description Data Sup porting Code Source(s) Document(s ) Variant 1 % [facility] lymphocytes/100 Hospital leukocytes in Blood by Manual count ID Date Data Source [id number] 10/28/2019 07:43:00 AM EDT [facility] Name Value Range Interpretation Description Data Sup porting Code Source(s) Document(s ) Lymphocytes/100 10 % [facility] leukocytes in Hospital Blood by Manual count ID Date Data Source [id number] 10/28/2019 07:43:00 AM EDT [facility] Name Value Range Interpretation Description Data Sup porting Code Source(s) Document(s ) Neutrophils/100 79 % [facility] leukocytes in Hospital Blood by Manual count ID Date Data Source [id number] 10/28/2019 07:43:00 AM EDT [facility] Name Value Range Interpretation Description Data Sup porting Code Source(s) Document(s ) Calcium 8.2 mg/dL [facility] [Mass/volume Hospital ] in Serum or Plasma ID Date Data Source [id number] 10/28/2019 07:43:00 AM EDT [facility] UNITS ARE IN ml/min/1.73m2.IF PATIENT IS -MALAGASY, MULTIPLY REPORTED RESULT BY 1.21. Name Value Range Interpretation Description Data Sup porting Code Source(s) Document(s ) Glomerular 36 mL/min [facility] filtration Hospital rate/1.73 sq M.predicted [Volume Rate/Area] in Serum or Plasma by Creatinine-bas ed formula (MDRD) ID Date Data Source [id number] 10/28/2019 07:43:00 AM EDT [facility] Name Value Range Interpretation Code Description Data Tati rce(s) Supporting Document(s ) Urea 35.5 [facility] nitrogen/Cre Hospital atinine [Mass Ratio] in Serum or Plasma ID Date Data Source [id number] 10/28/2019 07:43:00 AM EDT [facility] Name Value Range Interpretation Description Data Sup porting Code Source(s) Document(s ) Creatinine 2.0 mg/dL [facility] [Mass/volume] Hospital in Serum or Plasma ID Date Data Source [id number] 10/28/2019 07:43:00 AM EDT [facility] Value Range Interpretation Description Data Sup porting Code Source(s) Document(s ) Urea 71 mg/dL [facility] nitrogen Hospital [Mass/volume ] in Serum or Plasma ID Date Data Source [id number] 10/28/2019 07:43:00 AM EDT [facility] Value Range Interpretation Code Description Data Tati rce(s) Supporting Document(s ) Anion gap in 11 [facility] Serum or [facility] Plasma ID Date Data Source [id number] 10/28/2019 07:43:00 AM EDT [facility] Value Range Interpretation Description Data Sup porting Code Source(s) Document(s ) Carbon 25 mmol/L [facility] dioxide, Hospital total [Moles/volu me] in Serum or Plasma ID Date Data Source [id number] 10/28/2019 07:43:00 AM EDT [facility] Value Range Interpretation Description Data Sup porting Code Source(s) Document(s ) Chloride 110 [facility] [Moles/volum mmol/L Hospital e] in Serum or Plasma ID Date Data Source [id number] 10/28/2019 07:43:00 AM EDT [facility] Value Range Interpretation Description Data Sup porting Code Source(s) Document(s ) Potassium 4.8 [facility] [Moles/volume mmol/L Hospital ] in Serum or Plasma ID Date Data Source [id number] 10/28/2019 07:43:00 AM EDT [facility] Name Value Range Interpretation Description Data Sup porting Code Source(s) Document(s ) Sodium 141 mmol/L [facility] [Moles/volu Hospital wi] in Serum or Plasma ID Date Data Source [id number] 10/28/2019 07:43:00 AM EDT [facility] Value Range Interpretation Description Data Sup porting Code Source(s) Document(s ) Glucose 148 mg/dL [facility] [Mass/volume Hospital ] in Serum or Plasma ID Date Data Source [id number] 10/28/2019 07:43:00 AM EDT [facility] Value Range Interpretation Description Data Sup porting Code Source(s) Document(s ) Manual MANUAL [facility] differential [facility] performed [Presence] in Blood ID Date Data Source [id number] 10/28/2019 07:43:00 AM EDT [facility] Value Range Interpretation Code Description Data Tati rce(s) Supporting Document(s ) Cells 100 [facility] Counted [facility] Total [#] in Blood ID Date Data Source [id number] 10/28/2019 07:43:00 AM EDT [facility] Value Range Interpretation Code Description Data Supporting Source(s) Document(s ) PLATELET NORMAL [facility] COMMENT Hospital ID Date Data Source [id number] 10/28/2019 07:43:00 AM EDT [facility] Value Range Interpretation Code Description Data Tati rce(s) Supporting Document(s ) RBC COMMENT NORMAL [facility] ID Date Data Source [id number] 10/28/2019 07:43:00 AM EDT [facility] Value Range Interpretation Description Data Sup porting Code Source(s) Document(s ) Basophils 0.08 [facility] [#/volume] in 10*3/uL Hospital Blood by Manual count ID Date Data Source [id number] 10/28/2019 07:43:00 AM EDT [facility] Name Value Range Interpretation Description Data Sup porting Code Source(s) Document(s ) Eosinophils 0.30 [facility] [#/volume] in 10*3/uL Hospital Blood by Manual count ID Date Data Source [id number] 10/28/2019 07:43:00 AM EDT [facility] Name Value Range Interpretation Description Data Sup porting Code Source(s) Document(s ) Monocytes 0.38 [facility] [#/volume] in 10*3/uL Hospital Blood by Manual count ID Date Data Source [id number] 10/28/2019 07:43:00 AM EDT [facility] Name Value Range Interpretation Description Data Sup porting Code Source(s) Document(s ) Lymphocytes 0.83 [facility] [#/volume] in 10*3/uL Hospital Blood by Manual count ID Date Data Source [id number] 10/28/2019 07:43:00 AM EDT [facility] Name Value Range Interpretation Description Data Sup porting Code Source(s) Document(s ) Neutrophils 5.93 [facility] [#/volume] in 10*3/uL Hospital Blood by Manual count ID Date Data Source [id number] 10/28/2019 07:43:00 AM EDT [facility] Name Value Range Interpretation Description Data Sup porting Code Source(s) Document(s ) Basophils/100 1 % [facility] leukocytes in Hospital Blood by Manual count ID Date Data Source [id number] 10/28/2019 07:43:00 AM EDT [facility] Name Value Range Interpretation Description Data Sup porting Code Source(s) Document(s ) Eosinophils/100 4 % [facility] leukocytes in Hospital Blood by Manual count ID Date Data Source [id number] 10/28/2019 07:43:00 AM EDT [facility] Name Value Range Interpretation Description Data Sup porting Code Source(s) Document(s ) Monocytes/100 5 % [facility] leukocytes in Hospital Blood by Manual count ID Date Data Source [id number] 10/28/2019 07:43:00 AM EDT [facility] Value Range Interpretation Description Data Sup porting Code Source(s) Document(s ) Variant 1 % [facility] lymphocytes/100 Hospital leukocytes in Blood by Manual count ID Date Data Source [id number] 10/28/2019 07:43:00 AM EDT [facility] Value Range Interpretation Description Data Sup porting Code Source(s) Document(s ) Lymphocytes/100 10 % [facility] leukocytes in Hospital Blood by Manual count ID Date Data Source [id number] 10/28/2019 07:43:00 AM EDT [facility] Value Range Interpretation Description Data Sup porting Code Source(s) Document(s ) Neutrophils/100 79 % [facility] leukocytes in Hospital Blood by Manual count ID Date Data Source [id number] 10/28/2019 07:43:00 AM EDT [facility] Value Range Interpretation Description Data Sup porting Code Source(s) Document(s ) Platelet mean 11.7 fL [facility] volume Hospital [Entitic volume] in Blood by Automated count ID Date Data Source [id number] 10/28/2019 07:43:00 AM EDT [facility] Value Range Interpretation Description Data Sup porting Code Source(s) Document(s ) Platelets 161 [facility] [#/volume] in 10*3/uL Hospital Blood by Automated count ID Date Data Source [id number] 10/28/2019 07:43:00 AM EDT [facility] Value Range Interpretation Description Data Sup porting Code Source(s) Document(s ) Erythrocyte 14.0 % [facility] Hospital width [Ratio] by Automated count ID Date Data Source [id number] 10/28/2019 07:43:00 AM EDT [facility] Value Range Interpretation Description Data Sup porting Code Source(s) Document(s ) Erythrocyte mean 30.9 [facility] corpuscular g/dL Hospital hemoglobin concentration [Mass/volume] by Automated count ID Date Data Source [id number] 10/28/2019 07:43:00 AM EDT [facility] Value Range Interpretation Description Data Sup porting Code Source(s) Document(s ) Erythrocyte 26.8 pg [facility] corpuscular hemoglobin [Entitic mass] by Automated count ID Date Data Source [id number] 10/28/2019 07:43:00 AM EDT [facility] Value Range Interpretation Description Data Sup porting Code Source(s) Document(s ) Erythrocyte 86.5 fL [facility] corpuscular volume [Entitic volume] by Automated count ID Date Data Source [id number] 10/28/2019 07:43:00 AM [facility] Value Range Interpretation Description Data Sup porting Code Source(s) Document(s ) Hematocrit 33.3 % [facility] [Volume Hospital Fraction] of Blood by Automated count ID Date Data Source [id number] 10/28/2019 07:43:00 AM EDT [facility] Value Range Interpretation Description Data Sup porting Code Source(s) Document(s ) Hemoglobin 10.3 g/dL [facility] [Mass/volume] Hospital in Blood ID Date Data Source [id number] 10/28/2019 07:43:00 AM EDT [facility] Value Range Interpretation Description Data Sup porting Code Source(s) Document(s ) Erythrocytes 3.85 [facility] [#/volume] in 10*6/uL Hospital Blood by Automated count ID Date Data Source [id number] [facility] Interpretation Description Data Sup porting Code Source(s) Document(s ) Leukocytes 7.5 [facility] [#/volume] in 10*3/uL Hospital Blood by Automated count ID Date Data Source [id number] 10/27/2019 08:22:00 PM EDT [facility] NOTE: NEW REFERENCE RANGE, EFFECTIVE . NOTIFICATION AND READ BACK OF CRITICAL RESULTS TO JACKIE APODACA RN, 5I AT 223 9 ON 10/27/19 BY Libby Solomon.REPORTED CRITICAL VALUES SHOULD BE INTERPRETED WI THIN CLINICAL CONTEXT. Name Value Range Interpretation Description Data Sup porting Code Source(s) Document(s ) Vancomycin 24.3 [facility] [Mass/volume] ug/mL Hospital in Serum or Plasma --trough ID Date Data Source [id number] 10/27/2019 08:22:00 PM EDT [facility] NOTE: NEW REFERENCE RANGE, EFFECTIVE . NOTIFICATION AND READ BACK OF CRITICAL RESULTS TO JACKIE APODACA RN, 5I AT 223 9 ON 10/27/19 BY Libby Solomon.REPORTED CRITICAL VALUES SHOULD BE INTERPRETED WI THIN CLINICAL CONTEXT. Name Value Range Interpretation Description Data Sup porting Code Source(s) Document(s ) Vancomycin 24.3 [facility] [Mass/volume] ug/mL Hospital in Serum or Plasma --trough ID Date Data Source [id number] 10/[facility] Interpretation Description Data Sup porting Code Source(s) Document(s ) C reactive 4.6 mg/L [facility] Hospital [Mass/volume ] in Serum or Plasma ID Date Data Source [id number] 10/27/2019 05:59:00 AM EDT [facility] Name Value Range Interpretation Description Data Sup porting Code Source(s) Document(s ) Erythrocyte 35 mm/h [facility] sedimentation Hospital rate by Westergren method ID Date Data Source [id number] 10/27/2019 05:59:00 AM EDT [facility] Name Value Range Interpretation Description Data Sup porting Code Source(s) Document(s ) C reactive 4.6 mg/L [facility] protein Hospital [Mass/volume ] in Serum or Plasma ID Date Data Source [id number] 10/27/2019 05:59:00 AM EDT [facility] Name Value Range Interpretation Description Data Sup porting Code Source(s) Document(s ) Phosphate 5.8 mg/dL [facility] [Mass/volume] Hospital in Serum or Plasma ID Date Data Source [id number] 10/27/2019 05:59:00 AM EDT [facility] Name Value Range Interpretation Description Data Sup porting Code Source(s) Document(s ) Magnesium 2.0 mg/dL [facility] [Mass/volume] Hospital in Serum or Plasma ID Date Data Source [id number] 10/27/2019 05:59:00 AM EDT [facility] Name Value Range Interpretation Description Data Sup porting Code Source(s) Document(s ) Erythrocyte 35 mm/h [facility] sedimentation Hospital rate by Westergren method ID Date Data Source [id number] 10/27/2019 05:59:00 AM EDT [facility] Name Value Range Interpretation Code Description Data Supporting Source(s) Document(s ) NUCLEATED RBCS 0.0 % [facility] (AUTO Hospital DIFF%)DIS ID Date Data Source [id number] 10/27/2019 05:59:00 AM EDT [facility] Name Value Range Interpretation Description Data Sup porting Code Source(s) Document(s ) Differential AUTOMATED [facility] cell count Hospital method - Blood ID Date Data Source [id number] 10/27/2019 05:59:00 AM EDT [facility] Value Range Interpretation Description Data Sup porting Code Source(s) Document(s ) Immature 0.08 [facility] granulocytes 10*3/uL Hospital [#/volume] in Blood by Automated count ID Date Data Source [id number] 10/27/2019 05:59:00 AM EDT [facility] Name Value Range Interpretation Description Data Sup porting Code Source(s) Document(s ) Basophils 0.02 [facility] [#/volume] in 10*3/uL Hospital Blood by Automated count ID Date Data Source [id number] 10/27/2019 05:59:00 AM EDT [facility] Value Range Interpretation Description Data Sup porting Code Source(s) Document(s ) Eosinophils 0.10 [facility] [#/volume] in 10*3/uL Hospital Blood by Automated count ID Date Data Source [id number] 10/27/2019 05:59:00 AM EDT [facility] Value Range Interpretation Description Data Sup porting Code Source(s) Document(s ) Monocytes 0.65 [facility] [#/volume] in 10*3/uL Hospital Blood by Automated count ID Date Data Source [id number] 10/27/2019 05:59:00 AM EDT [facility] Name Value Range Interpretation Description Data Sup porting Code Source(s) Document(s ) Lymphocytes 1.54 [facility] [#/volume] in 10*3/uL Hospital Blood by Automated count ID Date Data Source [id number] 10/27/2019 05:59:00 AM EDT [facility] Value Range Interpretation Description Data Sup porting Code Source(s) Document(s ) Neutrophils 6.30 [facility] [#/volume] in 10*3/uL Hospital Blood by Automated count ID Date Data Source [id number] 10/27/2019 05:59:00 AM EDT [facility] Value Range Interpretation Description Data Sup porting Code Source(s) Document(s ) Nucleated 0.0 % [facility] erythrocytes/10 Hospital 0 leukocytes [Ratio] in Blood by Automated count ID Date Data Source [id number] 10/27/2019 05:59:00 AM EDT [facility] Value Range Interpretation Description Data Sup porting Code Source(s) Document(s ) Immature 0.9 % [facility] granulocytes/10 Hospital 0 leukocytes in Blood by Automated count ID Date Data Source [id number] 10/27/2019 05:59:00 AM EDT [facility] Value Range Interpretation Description Data Sup porting Code Source(s) Document(s ) Basophils/100 0.2 % [facility] leukocytes in [facility] Blood by Automated count ID Date Data Source [id number] 10/27/2019 05:59:00 AM EDT [facility] Value Range Interpretation Description Data Sup porting Code Source(s) Document(s ) Eosinophils/100 1.2 % [facility] leukocytes in Hospital Blood by Automated count ID Date Data Source [id number] 10/27/2019 05:59:00 AM EDT [facility] Value Range Interpretation Description Data Sup porting Code Source(s) Document(s ) Monocytes/100 7.5 % [facility] leukocytes in Hospital Blood by Automated count ID Date Data Source [id number] 10/27/2019 05:59:00 AM EDT [facility] Value Range Interpretation Description Data Sup porting Code Source(s) Document(s ) Lymphocytes/10 17.7 % [facility] 0 leukocytes Hospital in Blood by Automated count ID Date Data Source [id number] 10/27/2019 05:59:00 AM [facility] Name Value Range Interpretation Description Data Sup porting Code Source(s) Document(s ) Neutrophils/10 72.5 % [facility] 0 leukocytes Hospital in Blood by Automated count ID Date Data Source [id number] 10/26/2019 08:46:00 PM [facility] Name Value Range Interpretation Description Data Sup porting Code Source(s) Document(s ) GLUCOSE RN Notified [facility] ID Date Data Source [id number] 10/26/2019 07:52:00 AM [facility] THERE ARE NO REFERENCE RANGES FOR RANDOM VANCOMYCIN LEVELS. Name Value Range Interpretation Description Data Sup porting Code Source(s) Document(s ) Vancomycin 16.1 [facility] [Mass/volume] ug/mL Hospital in Serum or Plasma --trough ID Date Data Source [id number] 10/26/2019 07:52:00 AM [facility] THERE ARE NO REFERENCE RANGES FOR RANDOM VANCOMYCIN LEVELS. Name Value Range Interpretation Description Data Sup porting Code Source(s) Document(s ) Vancomycin 16.1 [facility] [Mass/volume] ug/mL Hospital in Serum or Plasma --trough ID Date Data Source [id number] 10/26/2019 01:47:00 AM [facility] Name Value Range Interpretation Description Data Sup porting Code Source(s) Document(s ) Lactate < 0.5 [facility] [Moles/volum mmol/L Hospital e] in Serum or Plasma ID Date Data Source [id number] 10/26/2019 01:47:00 AM [facility] Name Value Range Interpretation Description Data Sup porting Code Source(s) Document(s ) Lactate < 0.5 [facility] [Moles/volum mmol/L Hospital e] in Serum or Plasma ID Date Data Source [id number] 10/25[facility]2019 [facility] Value Range Interpretation Description Data Sup porting Code Source(s) Document(s ) Bacteria OCCASIONAL [facility] [#/area] in Hospital Urine sediment by Microscopy high power field ID Date Data Source [id number] 10/25/2019 11:05:00 PM EDT [facility] Name Value Range Interpretation Description Data Sup porting Code Source(s) Document(s ) Erythrocytes 0-3 [facility] [#/area] in /[HPF] Hospital Urine sediment by Microscopy high power field ID Date Data Source [id number] 10/25/2019 11:05:00 PM EDT [facility] Value Range Interpretation Description Data Sup porting Code Source(s) Document(s ) Leukocytes NEGATIVE [facility] [#/area] in /[HPF] Hospital Urine sediment by Microscopy high power field ID Date Data Source [id number] 10/[facility] Interpret[facility] Description Data Sup porting Code Source(s) Document(s ) Bacteria OCCASIONAL [facility] [#/area] in Hospital Urine sediment by Microscopy high power field ID Date Data Source [id number] 10/25/2019 [facility] Value Range Interpretation Description Data Sup porting Code Source(s) Document(s ) Erythrocytes 0-3 [facility] [#/area] in /[HPF] Hospital Urine sediment by Microscopy high power field ID Date Data Source [id number] 10/25/2019 [facility] Interpretation Description Data Sup porting Code Source(s) Document(s ) Leukocytes NEGATIVE [facility] [#/area] in /[HPF] Hospital Urine sediment by Microscopy high power field ID Date Data Source [id number] 10/25/2019 11:05:00 PM EDT [facility] Name Value Range Interpretation Description Data Sup porting Code Source(s) Document(s ) Leukocyte NEGATIVE [facility] esterase Hospital [Presence] in Urine by Test strip ID Date Data Source [id number] 10/25/2019 11:05:00 PM EDT [facility] Name Value Range Interpretation Description Data Sup porting Code Source(s) Document(s ) URINE NEGATIVE [facility] NITRITES Hospital ID Date Data Source [id number] 10/25/2019 11:05:00 PM EDT [facility] Name Value Range Interpretation Description Data Sup porting Code Source(s) Document(s ) Erythrocytes NEGATIVE [facility] [#/volume] in Hospital Urine by Test strip ID Date Data Source [id number] 10/25/2019 11:05:00 PM EDT [facility] Name Value Range Interpretation Code Description Data Tati rce(s) Supporting Document(s ) Bilirubin. NEGATIVE [facility] total Hospital [Presence] in Urine by Test strip ID Date Data Source [id number] 10/25/2019 [facility] Name Value Range Interpretation Description Data Sup porting Code Source(s) Document(s ) Urobilinogen 0.2 [facility] [Units/volume] mg/dL Hospital in Urine by Test strip ID Date Data Source [id number] 10/25/2019 11:05:00 PM EDT [facility] Name Value Range Interpretation Description Data Sup porting Code Source(s) Document(s ) Ketones NEGATIVE [facility] [Mass/volume Hospital ] in Urine by Test strip ID Date Data Source [id number] 10/25/2019 11:05:00 PM EDT [facility] Name Value Range Interpretation Description Data Sup porting Code Source(s) Document(s ) Glucose NEGATIVE [facility] [Mass/volume Hospital ] in Urine by Test strip ID Date Data Source [id number] 10/25/2019 11:05:00 PM EDT [facility] Name Value Range Interpretation Code Description Data Tati rce(s) Supporting Document(s ) Protein 3+ [facility] [Presence] Hospital in Urine by Test strip ID Date Data Source [id number] 10/25/2019 11:05:00 PM EDT [facility] Name Value Range Interpretation Code Description Data Tati rce(s) Supporting Document(s ) pH of Urine 5.5 [facility] by Test Hospital strip ID Date Data Source [id number] 10/25/2019 11:05:00 PM EDT [facility] Name Value Range Interpretation Code Description Data Supporting Source(s) Document(s ) Specific 1.016 [facility] gravity of Hospital Urine by Test strip ID Date Data Source [id number] 10/25/2019 11:05:00 PM EDT [facility] Name Value Range Interpretation Description Data Sup porting Code Source(s) Document(s ) Clarity in Urine CLEAR [facility] by Refractometry Hospital automated ID Date Data Source [id number] 10/25/2019 11:05:00 PM EDT [facility] Name Value Range Interpretation Code Description Data Tati rce(s) Supporting Document(s ) Color of YELLOW [facility] Urine Hospital ID Date Data Source [id number] 10/25/2019 09:46:00 PM EDT [facility] Name Value Range Interpretation Code Description Data Tati rce(s) Supporting Document(s ) Lipase 75 U/L [facility] [Enzymatic Hospital activity/vo lume] in Serum or Plasma ID Date Data Source [id number] 10/25/2019 09:46:00 PM EDT [facility] Name Value Range Interpretation Description Data Sup porting Code Source(s) Document(s ) Aspartate 51 U/L White aminotransferase [place] [Enzymatic Hospital activity/volume] in Serum or Plasma ID Date Data Source [id number] 10/25/2019 09:46:00 PM EDT [facility] Name Value Range Interpretation Description Data Sup porting Code Source(s) Document(s ) Alanine 62 U/L [facility] aminotransferase [place] [Enzymatic Hospital activity/volume] in Serum or Plasma ID Date Data Source [id number] 10/25/2019 09:46:00 PM EDT [facility] Name Value Range Interpretation Description Data Sup porting Code Source(s) Document(s ) Alkaline 108 U/L [facility] phosphatase Hospital [Enzymatic activity/volume ] in Serum or Plasma ID Date Data Source [id number] 10/25/2019 09:46:00 PM EDT [facility] Name Value Range Interpretation Description Data Sup porting Code Source(s) Document(s ) Bilirubin.t 0.3 mg/dL [facility] [Mass/volum e] in Serum or Plasma ID Date Data Source [id number] 10/25/2019 [facility]46[facility] Name Value Range Interpretation Code Description Data Tati rce(s) Supporting Document(s ) [facility] in Serum or Plasma ID Date Data Source [id number] 10/25/2019 09:46:[facility] Name Value Range Interpretation Description Data Sup porting Code Source(s) Document(s ) Albumin 4.5 g/dL [facility] [Mass/volume Hospital ] in Serum or Plasma ID Date Data Source [id number] 10/25/2019 09:46:00 PM EDT [facility] Name Value Range Interpretation Description Data Sup porting Code Source(s) Document(s ) Protein 6.7 g/dL [facility] [Mass/volume Hospital ] in Serum or Plasma ID Date Data Source [id number] 10/25/2019 09:37:00 PM EDT [facility] Name Value Range Interpretation Description Data Sup porting Code Source(s) Document(s ) Bacteria No growth [facility] identified in Hospital Blood by Culture ID Date Data Source [id number] 10/25/2019 09:37:00 PM EDT [facility] Name Value Range Interpretation Description Data Sup porting Code Source(s) Document(s ) Bacteria No growth [facility] identified in Hospital Blood by Culture ID Date Data Source [id number] 10/20/2019 10:52:00 AM EDT [facility] Name Value Range Interpretation Description Data Sup porting Code Source(s) Document(s ) SARS [facility] CORONAVIRUS 2 RNA This lab was ordered by RYLAN nevarez [facility] and reported by [facility]. ID Date Data Source [id number] 01/17/2019 [facility]05:[facility] Name Value Range Interpretation Description Data Sup porting Code Source(s) Document(s ) Bacteria ESCHERICHIA [facility] identified in COLI (ESBL) [place] W[facility] by Hospital Culture Bacteria STAPH COAG White identified in NEGATIVE [place] [facility] by Hospital Culture Bacteria BETA STREP White identified in GROUP C [place] [facility] by Hospital Culture ID Date Data Source [id number] 01/17/2019 08:11:00 PM EDT [facility] Debubblizer: CLARENCE VELOZ Name Value Range Interpretation Description Data Sup porting Code Source(s) Document(s ) Glucose 203 mg/dL [facility] [Mass/volume] [facility] in Capillary blood by Glucometer ID Date Data Source [id number] 01/17/2019 08:11:00 PM [facility] Debubblizer: CLARENCE VELOZ Name Value Range Interpretation Description Data Sup porting Code Source(s) Document(s ) Glucose 203 mg/dL [facility] [Mass/volume] Hospital in Capillary blood by Glucometer ID Date Data Source [id number] 01/16/2019 05:24:00 PM [facility] Name Value Range Interpretation Description Data Sup porting Code Source(s) Document(s ) Natriuretic 55.8 [facility] peptide B pg/mL Hospital [Mass/volume] in Serum or Plasma ID Date Data Source [id number] 01/16/2019 05:24:00 PM [facility] TEST PERFORMED BY [employer] [facility] CHEMILUMINESCENCE METHOD. Name Value Range Interpretation Description Data Sup porting Code Source(s) Document(s ) Troponin 0.04 [facility] I.cardiac ng/mL Hospital [Mass/volume ] in Serum or Plasma ID Date Data Source [id number] 01/16/2019 05:24:00 PM [facility] Name Value Range Interpretation Description Data Sup porting Code Source(s) Document(s ) Aspartate 19 U/L [facility] aminotransferase [place] [Enzymatic Hospital activity/volume] in Serum or Plasma ID Date Data Source [id number] 01/16/2019 05:24:00 PM [facility] Name Value Range Interpretation Description Data Sup porting Code Source(s) Document(s ) Alanine 21 U/L [facility] aminotransferase [place] [Enzymatic Hospital activity/volume] in Serum or Plasma ID Date Data Source [id number] 01/16/2019 05:24:00 PM [facility] Name Value Range Interpretation Description Data Sup porting Code Source(s) Document(s ) Alkaline 103 U/L [facility] phosphatase Hospital [Enzymatic activity/volume ] in Serum or Plasma ID Date Data Source [id number] 01/16/2019 05:24:00 PM EDT [facility] Name Value Range Interpretation Description Data Sup porting Code Source(s) Document(s ) Bilirubin.t 0.3 mg/dL [facility] [Mass/volum e] in Serum or Plasma ID Date Data Source [id number] 01/16/2019 05:24:00 PM EDT [facility] Name Value Range Interpretation Code Description Data Tati rce(s) Supporting Document(s ) [facility] in Serum or Plasma ID Date Data Source [id number] 01/16/2019 05:24:00 PM EDT [facility] Name Value Range Interpretation Description Data Sup porting Code Source(s) Document(s ) Albumin 3.7 g/dL [facility] [Mass/volume Hospital ] in Serum or Plasma ID Date Data Source [id number] 01/16/2019 05:24:00 PM EDT [facility] Name Value Range Interpretation Description Data Sup porting Code Source(s) Document(s ) Protein 6.5 g/dL [facility] [Mass/volume Hospital ] in Serum or Plasma ID Date Data Source [id number] 01/16/2019 05:24:00 PM EDT [facility] Name Value Range Interpretation Description Data Sup porting Code Source(s) Document(s ) Calcium 8.0 mg/dL [facility] [Mass/volume Hospital ] in Serum or Plasma ID Date Data Source [id number] 01/16/2019 05:24:[facility] Name Value Range Interpretation Code Description Data Tati rce(s) Supporting Document(s ) Urea 32.5 [facility] nitrogen/Cre Hospital atinine [Mass Ratio] in Serum or Plasma ID Date Data Source [id number] 01/16/2019 05:24:00 PM EDT [facility] Name Value Range Interpretation Description Data Sup porting Code Source(s) Document(s ) Creatinine 2.0 mg/dL [facility] [Mass/volume] Hospital in Serum or Plasma ID Date Data Source [id number] 01/16/2019 05:24:00 PM EDT [facility] Name Value Range Interpretation Description Data Sup porting Code Source(s) Document(s ) Urea 65 mg/dL [facility] [Mass/volume ] in Serum or Plasma ID Date Data Source [id number] 01/16/2019 05:24:00 PM EDT [facility] Value Range Interpretation Code Description Data Tati rce(s) Supporting Document(s ) Anion gap in 14 [facility] Serum or [facility] Plasma ID Date Data Source [id number] 01/16/2019 05:24:00 PM EDT [facility] Name Value Range Interpretation Description Data Sup porting Code Source(s) Document(s ) Carbon 21 mmol/L [facility] dioxide, Hospital total [Moles/volu me] in Serum or Plasma ID Date Data Source [id number] 01/16/2019 05:24:00 PM EDT [facility] Name Value Range Interpretation Description Data Sup porting Code Source(s) Document(s ) Chloride 108 [facility] [Moles/volum mmol/L Hospital e] in Serum or Plasma ID Date Data Source [id number] 01/16/2019 05:24:00 PM EDT [facility] Name Value Range Interpretation Description Data Sup porting Code Source(s) Document(s ) Potassium 4.6 [facility] [Moles/volume mmol/L Hospital ] in Serum or Plasma ID Date Data Source [id number] 01/16/2019 05:24:00 PM EDT [facility] Name Value Range Interpretation Description Data Sup porting Code Source(s) Document(s ) Sodium 138 mmol/L [facility] [[facility]/volu [facility]] in Serum or Plasma ID Date Data Source [id number] 01/16/2019 05:24:00 PM EDT [facility] Name Value Range Interpretation Description Data Sup porting Code Source(s) Document(s ) Glucose 183 mg/dL [facility] [Mass/volume [facility] ] in Serum or Plasma ID Date Data Source [id number] 01/16/2019 05:24:00 PM [facility] THERAPEUTIC RANGES:UNFRACTIONATED HEPARI N THERAPY: 60-90 SECONDSARGATROBAN THERAPY: 49-99 SECONDS Name Value Range Interpretation Description Data Sup porting Code Source(s) Document(s ) aPTT in 31.1 s [facility] Platelet poor [facility] plasma by Coagulation assay ID Date Data Source [id number] 01/16/2019 05:24:00 PM [facility] THERAPEUTIC RANGE FOR STANDARD ORALANTIC OAGULANT THERAPY: 2.0-3.0THERAPEUTIC RANGE FOR HIGH DOSE ORALANTICOAGULANT THERAPY (MECHANICAL HEARTVALVE REPLACEMENT): 2.5-3.5 Name Value Range Interpretation Description Data Sup porting Code Source(s) Document(s ) INR in Platelet 1.1 [facility] poor plasma by Hospital Coagulation assay ID Date Data Source [id number] 01/16/2019 [facility]24[facility] Name Value Range Interpretation Description Data Sup porting Code Source(s) Document(s ) PT panel - 11.8 s [facility] Platelet poor [facility] plasma by Coagulation assay ID Date Data Source [id number] 01/16/2019 05:24:[facility] Name Value Range Interpretation Code Description Data Supporting Source(s) Document(s ) NUCLEATED RBCS 0.0 % [facility] (AUTO Hospital DIFF%)DIS ID Date Data Source [id number] 01/16/2019 [facility] Range Interpretation Description Data Sup porting Code Source(s) Document(s ) Differential AUTOMATED [facility] cell count [facility] method - Blood ID Date Data Source [id number] 01/16/2019 05:24:00 PM EDT [facility] Name Value Range Interpretation Description Data Sup porting Code Source(s) Document(s ) Immature 0.05 [facility] granulocytes 10*3/uL Hospital [#/volume] in Blood by Automated count ID Date Data Source [id number] 01/16/2019 05:24:00 PM EDT [facility] Value Range Interpretation Description Data Sup porting Code Source(s) Document(s ) Basophils 0.05 [facility] [#/volume] in 10*3/uL Hospital Blood by Automated count ID Date Data Source [id number] 01/16/2019 [facility]:24[facility] Value Range Interpretation Description Data Sup porting Code Source(s) Document(s ) Eosinophils 0.11 [facility] [#/volume] in 10*3/uL Hospital Blood by Automated count ID Date Data Source [id number] 01/16/2019 05:24:[facility] Name Value Range Interpretation Description Data Sup porting Code Source(s) Document(s ) Monocytes 0.91 [facility] [#/volume] in 10*3/uL Hospital Blood by Automated count ID Date Data Source [id number] 01/16/2019 05:24:00 PM EDT [facility] Value Range Interpretation Description Data Sup porting Code Source(s) Document(s ) Lymphocytes 2.06 [facility] [#/volume] in 10*3/uL Hospital Blood by Automated count ID Date Data Source [id number] 01/16/2019 05:24:00 PM EDT [facility] Value Range Interpretation Description Data Sup porting Code Source(s) Document(s ) Neutrophils 9.35 [facility] [#/volume] in 10*3/uL Hospital Blood by Automated count ID Date Data Source [id number] 01/16/2019 05:24:00 PM EDT [facility] Value Range Interpretation Description Data Sup porting Code Source(s) Document(s ) Nucleated 0.0 % [facility] erythrocytes/10 Hospital 0 leukocytes [Ratio] in Blood by Automated count ID Date Data Source [id number] 01/16/2019 05:24:00 PM EDT [facility] Value Range Interpretation Description Data Sup porting Code Source(s) Document(s ) Immature 0.4 % [facility] granulocytes/10 Hospital 0 leukocytes in Blood by Automated count ID Date Data Source [id number] 01/16/2019 05:24:00 PM EDT [facility] Value Range Interpretation Description Data Sup porting Code Source(s) Document(s ) Basophils/100 0.4 % [facility] leukocytes in Hospital Blood by Automated count ID Date Data Source [id number] 01/16/2019 05:24:00 PM EDT [facility] Value Range Interpretation Description Data Sup porting Code Source(s) Document(s ) Eosinophils/100 0.9 % [facility] leukocytes in Hospital Blood by Automated count ID Date Data Source [id number] 01/16/2019 05:24:00 PM EDT [facility] Value Range Interpretation Description Data Sup porting Code Source(s) Document(s ) Monocytes/100 7.3 % [facility] leukocytes in Hospital Blood by Automated count ID Date Data Source [id number] 01/16/2019 05:24:00 PM EDT [facility] Name Value Range Interpretation Description Data Sup porting Code Source(s) Document(s ) Lymphocytes/10 16.4 % [facility] 0 leukocytes Hospital in Blood by Automated count ID Date Data Source [id number] 01/16/2019 05:24:00 PM EDT [facility] Name Value Range Interpretation Description Data Sup porting Code Source(s) Document(s ) Neutrophils/10 74.6 % [facility] 0 leukocytes Hospital in Blood by Automated count ID Date Data Source [id number] 01/16/2019 05:24:00 PM EDT [facility] Name Value Range Interpretation Description Data Sup porting Code Source(s) Document(s ) Platelet mean 11.7 fL [facility] volume Hospital [Entitic volume] in Blood by Automated count ID Date Data Source [id number] 01/16/2019 05:24:00 PM EDT [facility] Value Range Interpretation Description Data Sup porting Code Source(s) Document(s ) Platelets 166 [facility] [#/volume] in 10*3/uL Hospital Blood by Automated count ID Date Data Source [id number] 01/16/2019 05:24:00 PM EDT [facility] Value Range Interpretation Description Data Sup porting Code Source(s) Document(s ) Erythrocyte 13.9 % [facility] distribution Hospital width [Ratio] by Automated count ID Date Data Source [id number] 01/16/2019 05:24:00 PM EDT [facility] Value Range Interpretation Description Data Sup porting Code Source(s) Document(s ) Erythrocyte mean 32.6 [facility] corpuscular g/dL Hospital hemoglobin concentration [Mass/volume] by Automated count ID Date Data Source [id number] 01/16/2019 05:24:00 PM EDT [facility] Name Value Range Interpretation Description Data Sup porting Code Source(s) Document(s ) Erythrocyte 27.1 pg [facility] corpuscular hemoglobin [Entitic mass] by Automated count ID Date Data Source [id number] 01/16/2019 05:24:00 PM EDT [facility] Value Range Interpretation Description Data Sup porting Code Source(s) Document(s ) Erythrocyte 83.[address] [facility] Hospital corpuscular volume [Entitic volume] by Automated count ID Date Data Source [id number] 01/16/2019 05:24:00 PM EDT [facility] Value Range Interpretation Description Data Sup porting Code Source(s) Document(s ) Hematocrit 35.6 % [facility] [Volume Hospital Fraction] of Blood by Automated count ID Date Data Source [id number] 01/16/2019 05:24:00 PM EDT [facility] Value Range Interpretation Description Data Sup porting Code Source(s) Document(s ) Hemoglobin 11.6 g/dL [facility] [Mass/volume] Hospital in Blood ID Date Data Source [id number] 01/16/2019 05:24:00 PM EDT [facility] Value Range Interpretation Description Data Sup porting Code Source(s) Document(s ) Erythrocytes 4.28 [facility] [#/volume] in 10*6/uL Hospital Blood by Automated count ID Date Data Source [id number] 01/16/2019 05:24:00 PM EDT [facility] Value Range Interpretation Description Data Sup porting Code Source(s) Document(s ) Leukocytes 12.2 [facility] [#/volume] in 10*3/uL Hospital Blood by Automated count ID Date Data Source [id number] 01/16/2019 [facility]:24[facility] Name Value Range Interpretation Description Data Sup porting Code Source(s) Document(s ) Natriuretic 55.8 [facility] peptide B pg/mL Hospital [Mass/volume] in Serum or Plasma ID Date Data Source [id number] 01/16/2019 05:24:00 PM [facility] TEST PERFORMED BY [employer] [facility] CHEMILUMINESCENCE METHOD. Name Value Range Interpretation Description Data Sup porting Code Source(s) Document(s ) Troponin 0.04 [facility] I.cardiac ng/mL Hospital [Mass/volume ] in Serum or Plasma ID Date Data Source [id number] 01/16[facility]2019 [facility] Value Range Interpretation Description Data Sup porting Code Source(s) Document(s ) Aspartate 19 U/L White aminotransferase [place] [Enzymatic Hospital activity/volume] in Serum or Plasma ID Date Data Source [id number] 01/16/2019 [facility]24[facility] Name Value Range Interpretation Description Data Sup porting Code Source(s) Document(s ) Alanine 21 U/L White aminotransferase [place] [Enzymatic Hospital activity/volume] in Serum or Plasma ID Date Data Source [id number] 01/16/2019 05:24[facility] Name Value Range Interpretation Description Data Sup porting Code Source(s) Document(s ) Alkaline 103 U/L [facility] phosphatase [facility] [Enzymatic activity/volume ] in Serum or Plasma ID Date Data Source [id number] 01/16/2019 05:24[facility] Name Value Range Interpretation Description Data Sup porting Code Source(s) Document(s ) Bilirubin.t 0.3 mg/dL [facility] [Mass/volum e] in Serum or Plasma ID Date Data Source [id number] 01/16/2019 05:24:00 PM EDT [facility] Name Value Range Interpretation Code Description Data Tati rce(s) Supporting Document(s ) Albumin/Glob 1.3 [facility] ulin [Mass Hospital Ratio] in Serum or Plasma ID Date Data Source [id number] 01/16/2019 05:24:00 PM EDT [facility] Name Value Range Interpretation Description Data Sup porting Code Source(s) Document(s ) Albumin 3.7 g/dL [facility] [Mass/volume Hospital ] in Serum or Plasma ID Date Data Source [id number] 01/16/2019 05:24:00 PM EDT [facility] Name Value Range Interpretation Description Data Sup porting Code Source(s) Document(s ) Protein 6.5 g/dL [facility] [Mass/volume Hospital ] in Serum or Plasma ID Date Data Source [id number] 01/16/2019 05:24:00 PM EDT [facility] Name Value Range Interpretation Description Data Sup porting Code Source(s) Document(s ) Calcium 8.0 mg/dL [facility] [Mass/volume Hospital ] in Serum or Plasma ID Date Data Source [id number] 01/16/2019 05:24:00 PM EDT [facility] Name Value Range Interpretation Code Description Data Tati rce(s) Supporting Document(s ) Urea 32.5 [facility] nitrogen/Cre Hospital atinine [Mass Ratio] in Serum or Plasma ID Date Data Source [id number] 01/16/2019 05:24:00 PM EDT [facility] Name Value Range Interpretation Description Data Sup porting Code Source(s) Document(s ) Creatinine 2.0 mg/dL [facility] [Mass/volume] Hospital in Serum or Plasma ID Date Data Source [id number] 01/16/2019 05:24:00 PM EDT [facility] Name Value Range Interpretation Description Data Sup porting Code Source(s) Document(s ) Urea 65 mg/dL [facility] nitrogen [facility] [Mass/volume ] in Serum or Plasma ID Date Data Source [id number] 01/16/2019 05:24:00 PM EDT [facility] Name Value Range Interpretation Code Description Data Tati rce(s) Supporting Document(s ) Anion gap in 14 [facility] Serum or [facility] Plasma ID Date Data Source [id number] 01/16/2019 05:24:00 PM EDT [facility] Value Range Interpretation Description Data Sup porting Code Source(s) Document(s ) Carbon 21 mmol/L [facility] dioxide, Hospital total [Moles/volu me] in Serum or Plasma ID Date Data Source [id number] 01/16/2019 05:24:00 PM EDT [facility] Name Value Range Interpretation Description Data Sup porting Code Source(s) Document(s ) Chloride 108 [facility] [Moles/volum mmol/L Hospital e] in Serum or Plasma ID Date Data Source [id number] 01/16/2019 05:24:00 PM EDT [facility] Name Value Range Interpretation Description Data Sup porting Code Source(s) Document(s ) Potassium 4.6 [facility] [Moles/volume mmol/L Hospital ] in Serum or Plasma ID Date Data Source [id number] 01/16/2019 05:24:00 PM EDT [facility] Name Value Range Interpretation Description Data Sup porting Code Source(s) Document(s ) Sodium 138 mmol/L [facility] [Moles/volu Hospital me] in Serum or Plasma ID Date Data Source [id number] 01/16/2019 05:24:00 PM EDT [facility] Name Value Range Interpretation Description Data Sup porting Code Source(s) Document(s ) Glucose 183 mg/dL [facility] [Mass/volume Hospital ] in Serum or Plasma ID Date Data Source [id number] 01/16/2019 05:24:00 PM [facility] THERAPEUTIC RANGES:UNFRACTIONATED HEPARI N THERAPY: 60-90 SECONDSARGATROBAN THERAPY: 49-99 SECONDS Name Value Range Interpretation Description Data Sup porting Code Source(s) Document(s ) aPTT in 31.1 s [facility] Platelet poor [facility] plasma by Coagulation assay ID Date Data Source [id number] 01/16/2019 05:24:00 PM [facility] THERAPEUTIC RANGE FOR STANDARD ORALANTIC OAGULANT THERAPY: 2.0-3.0THERAPEUTIC RANGE FOR HIGH DOSE ORALANTICOAGULANT THERAPY (MECHANICAL HEARTVALVE REPLACEMENT): 2.5-3.5 Name Value Range Interpretation Description Data Sup porting Code Source(s) Document(s ) INR in Platelet 1.1 [facility] poor plasma by Hospital Coagulation assay ID Date Data Source [id number] 01/16/2019 [facility]24[facility] Name Value Range Interpretation Description Data Sup porting Code Source(s) Document(s ) PT panel - 11.8 s [facility] Platelet poor [facility] plasma by Coagulation assay ID Date Data Source [id number] 01/16/2019 05:24:[facility] Name Value Range Interpretation Code Description Data Supporting Source(s) Document(s ) NUCLEATED RBCS 0.0 % [facility] (AUTO Hospital DIFF%)DIS ID Date Data Source [id number] 01/16/2019 05:24:00 PM [facility] Name Value Range Interpretation Description Data Sup porting Code Source(s) Document(s ) Differential AUTOMATED [facility] cell count Hospital method - Blood ID Date Data Source [id number] 01/16/2019 05:24:00 PM EDT [facility] Name Value Range Interpretation Description Data Sup porting Code Source(s) Document(s ) Immature 0.05 [facility] granulocytes 10*3/uL Hospital [#/volume] in Blood by Automated count ID Date Data Source [id number] 01/16/2019 05:24:00 PM EDT [facility] Name Value Range Interpretation Description Data Sup porting Code Source(s) Document(s ) Basophils 0.05 [facility] [#/volume] in 10*3/uL Hospital Blood by Automated count ID Date Data Source [id number] 01/16/2019 05:24:00 PM EDT [facility] Value Range Interpretation Description Data Sup porting Code Source(s) Document(s ) Eosinophils 0.11 [facility] [#/volume] in 10*3/uL Hospital Blood by Automated count ID Date Data Source [id number] 01/16/2019 05:24:00 PM EDT [facility] Value Range Interpretation Description Data Sup porting Code Source(s) Document(s ) Monocytes 0.91 [facility] [#/volume] in 10*3/uL Hospital Blood by Automated count ID Date Data Source [id number] 01/16/2019 05:24:00 PM EDT [facility] Value Range Interpretation Description Data Sup porting Code Source(s) Document(s ) Lymphocytes 2.06 [facility] [#/volume] in 10*3/uL Hospital Blood by Automated count ID Date Data Source [id number] 01/16/2019 05:24:00 PM EDT [facility] Name Value Range Interpretation Description Data Sup porting Code Source(s) Document(s ) Neutrophils 9.35 [facility] [#/volume] in 10*3/uL Hospital Blood by Automated count ID Date Data Source [id number] 01/16/2019 05:24:00 PM EDT [facility] Name Value Range Interpretation Description Data Sup porting Code Source(s) Document(s ) Nucleated 0.0 % [facility] erythrocytes/10 Hospital 0 leukocytes [Ratio] in Blood by Automated count ID Date Data Source [id number] 01/16/2019 05:24:00 PM EDT [facility] Name Value Range Interpretation Description Data Sup porting Code Source(s) Document(s ) Immature 0.4 % [facility] granulocytes/10 Hospital 0 leukocytes in Blood by Automated count ID Date Data Source [id number] 01/16/2019 05:24:00 PM EDT [facility] Value Range Interpretation Description Data Sup porting Code Source(s) Document(s ) Basophils/100 0.4 % [facility] leukocytes in Hospital Blood by Automated count ID Date Data Source [id number] 01/16/2019 05:24:00 PM EDT [facility] Name Value Range Interpretation Description Data Sup porting Code Source(s) Document(s ) Eosinophils/100 0.9 % [facility] leukocytes in Hospital Blood by Automated count ID Date Data Source [id number] 01/16/2019 05:24:00 PM EDT [facility] Value Range Interpretation Description Data Sup porting Code Source(s) Document(s ) Monocytes/100 7.3 % [facility] leukocytes in Hospital Blood by Automated count ID Date Data Source [id number] 01/16/2019 05:24:00 PM EDT [facility] Value Range Interpretation Description Data Sup porting Code Source(s) Document(s ) Lymphocytes/10 16.4 % [facility] 0 leukocytes Hospital in Blood by Automated count ID Date Data Source [id number] 01/16/2019 05:24:00 PM EDT [facility] Value Range Interpretation Description Data Sup porting Code Source(s) Document(s ) Neutrophils/10 74.6 % [facility] 0 leukocytes Hospital in Blood by Automated count ID Date Data Source [id number] 01/16/2019 05:24:00 PM EDT [facility] Value Range Interpretation Description Data Sup porting Code Source(s) Document(s ) Platelet mean 11.7 fL [facility] volume Hospital [Entitic volume] in Blood by Automated count ID Date Data Source [id number] [facility] Interpretation Description Data Sup porting Code Source(s) Document(s ) Platelets 166 [facility] [#/volume] in 10*3/uL Hospital Blood by Automated count ID Date Data Source [id number] 01/16/2019 05:24:00 PM [facility] Value Range Interpretation Description Data Sup porting Code Source(s) Document(s ) Erythrocyte 13.9 % [facility] Hospital width [Ratio] by Automated count ID Date Data Source [id number] 01/16/2019 05:24:00 PM [facility] Value Range Interpretation Description Data Sup porting Code Source(s) Document(s ) Erythrocyte mean 32.6 [facility] corpuscular g/dL Hospital hemoglobin concentration [Mass/volume] by Automated count ID Date Data Source [id number] 01/16/2019 05:24:00 PM [facility] Value Range Interpretation Description Data Sup porting Code Source(s) Document(s ) Erythrocyte 27.1 pg [facility] corpuscular hemoglobin [Entitic mass] by Automated count ID Date Data Source [id number] 01/16/2019 05:24:00 PM [facility] Value Range Interpretation Description Data Sup porting Code Source(s) Document(s ) Erythrocyte 83.2 fL [facility] mean Hospital corpuscular volume [Entitic volume] by Automated count ID Date Data Source [id number] 01/16/2019 05:24:00 PM EDT [facility] Value Range Interpretation Description Data Sup porting Code Source(s) Document(s ) Hematocrit 35.6 % [facility] [Volume Hospital Fraction] of Blood by Automated count ID Date Data Source [id number] 01/16/2019 05:24:00 PM EDT [facility] Value Range Interpretation Description Data Sup porting Code Source(s) Document(s ) Hemoglobin 11.6 g/dL [facility] [Mass/volume] Hospital in Blood ID Date Data Source [id number] 01/16/2019 05:24:00 PM EDT [facility] Value Range Interpretation Description Data Sup porting Code Source(s) Document(s ) Erythrocytes 4.28 [facility] [#/volume] in 10*6/uL Hospital Blood by Automated count ID Date Data Source [id number] 01/16/2019 [facility] Interpretation Description Data Sup porting Code Source(s) Document(s ) Leukocytes 12.2 [facility] [#/volume] in 10*3/uL Hospital Blood by Automated count ID Date Data Source [id number] 01/16/2019 [facility]:24[facility] Value Range Interpretation Description Data Sup porting Code Source(s) Document(s ) Natriuretic 55.8 [facility] peptide B pg/mL Hospital [Mass/volume] in Serum or Plasma ID Date Data Source [id number] 01/16/2019 05:24:[facility] TEST PERFORMED BY [facility] [facility] ULTRA SENSITIVE [facility] CHEMILUMINESCENCE METHOD. Name Value Range Interpretation Description Data Sup porting Code Source(s) Document(s ) Troponin 0.04 [facility] I.cardiac ng/mL Hospital [Mass/volume ] in Serum or Plasma ID Date Data Source [id number] 01/16/2019 05:24:00 PM EDT [facility] Name Value Range Interpretation Description Data Sup porting Code Source(s) Document(s ) Aspartate 19 U/L White aminotransferase [place] [Enzymatic Hospital activity/volume] in Serum or Plasma ID Date Data Source [id number] 01/16/2019 05:24:00 PM EDT [facility] Name Value Range Interpretation Description Data Sup porting Code Source(s) Document(s ) Alanine 21 U/L [facility] aminotransferase [place] [Enzymatic Hospital activity/volume] in Serum or Plasma ID Date Data Source [id number] 01/16/2019 05:24:00 PM EDT [facility] Name Value Range Interpretation Description Data Sup porting Code Source(s) Document(s ) Alkaline 103 U/L [facility] phosphatase [facility] [Enzymatic activity/volume ] in Serum or Plasma ID Date Data Source [id number] 01/16/2019 05:24:00 PM EDT [facility] Name Value Range Interpretation Description Data Sup porting Code Source(s) Document(s ) Bilirubin.t 0.3 mg/dL [facility] [Mass/volum e] in Serum or Plasma ID Date Data Source [id number] 01/16/2019 05:24:00 PM EDT [facility] Name Value Range Interpretation Code Description Data Tati rce(s) Supporting Document(s ) Albumin/Glob 1.3 [facility] ulin [Mass Hospital Ratio] in Serum or Plasma ID Date Data Source [id number] 01/16/2019 05:24:00 PM EDT [facility] Name Value Range Interpretation Description Data Sup porting Code Source(s) Document(s ) Albumin 3.7 g/dL [facility] [Mass/volume Hospital ] in Serum or Plasma ID Date Data Source [id number] 01/16/2019 05:24:00 PM EDT [facility] Name Value Range Interpretation Description Data Sup porting Code Source(s) Document(s ) Protein 6.5 g/dL [facility] [Mass/volume Hospital ] in Serum or Plasma ID Date Data Source [id number] 01/16/2019 05:24:00 PM EDT [facility] Name Value Range Interpretation Description Data Sup porting Code Source(s) Document(s ) Calcium 8.0 mg/dL [facility] [Mass/volume Hospital ] in Serum or Plasma ID Date Data Source [id number] 01/16/2019 05:24:00 PM EDT [facility] Name Value Range Interpretation Code Description Data Tati rce(s) Supporting Document(s ) Urea 32.5 [facility] nitrogen/Cre Hospital atinine [Mass Ratio] in Serum or Plasma ID Date Data Source [id number] 01/16/2019 05:24:00 PM EDT [facility] Name Value Range Interpretation Description Data Sup porting Code Source(s) Document(s ) Creatinine 2.0 mg/dL [facility] [Mass/volume] Hospital in Serum or Plasma ID Date Data Source [id number] 01/16/2019 05:24:00 PM EDT [facility] Name Value Range Interpretation Description Data Sup porting Code Source(s) Document(s ) Urea 65 mg/dL [facility] nitrogen Hospital [Mass/volume ] in Serum or Plasma ID Date Data Source [id number] 01/16/2019 05:24:00 PM EDT [facility] Value Range Interpretation Code Description Data Tati rce(s) Supporting Document(s ) Anion gap in 14 [facility] Serum or [facility] Plasma ID Date Data Source [id number] 01/16/2019 05:24:00 PM EDT [facility] Name Value Range Interpretation Description Data Sup porting Code Source(s) Document(s ) Carbon 21 mmol/L [facility] dioxide, Hospital total [Moles/volu me] in Serum or Plasma ID Date Data Source [id number] 01/16/2019 05:24:00 PM EDT [facility] Name Value Range Interpretation Description Data Sup porting Code Source(s) Document(s ) Chloride 108 [facility] [Moles/volum mmol/L Hospital e] in Serum or Plasma ID Date Data Source [id number] 01/16/2019 05:24:00 PM EDT [facility] Name Value Range Interpretation Description Data Sup porting Code Source(s) Document(s ) Potassium 4.6 [facility] [Moles/volume mmol/L Hospital ] in Serum or Plasma ID Date Data Source [id number] 01/16/2019 05:24:00 PM EDT [facility] Name Value Range Interpretation Description Data Sup porting Code Source(s) Document(s ) Sodium 138 mmol/L [facility] [Moles/volu Hospital me] in Serum or Plasma ID Date Data Source [id number] 01/16/2019 [facility] Value Range Interpretation Description Data Sup porting Code Source(s) Document(s ) Glucose 183 mg/dL [facility] [Mass/volume Hospital ] in Serum or Plasma ID Date Data Source [id number] 01/16/2019 05:24:00 PM [facility] THERAPEUTIC RANGES:UNFRACTIONATED HEPARI N THERAPY: 60-90 SECONDSARGATROBAN THERAPY: 49-99 SECONDS Name Value Range Interpretation Description Data Sup porting Code Source(s) Document(s ) aPTT in 31.1 s [facility] Platelet poor [facility] plasma by Coagulation assay ID Date Data Source [id number] 01/16/2019 05:24:00 PM EDT [facility] THERAPEUTIC RANGE FOR STANDARD ORALANTIC OAGULANT THERAPY: 2.0-3.0THERAPEUTIC RANGE FOR HIGH DOSE ORALANTICOAGULANT THERAPY (MECHANICAL HEARTVALVE REPLACEMENT): 2.5-3.5 Name Value Range Interpretation Description Data Sup porting Code Source(s) Document(s ) INR in Platelet 1.1 [facility] poor plasma by Hospital Coagulation assay ID Date Data Source [id number] 01/16/2019 05:24:00 PM EDT [facility] Name Value Range Interpretation Description Data Sup porting Code Source(s) Document(s ) PT panel - 11.8 s [facility] Platelet poor [facility] plasma by Coagulation assay ID Date Data Source [id number] 01/16/2019 05:24:00 PM EDT [facility] Name Value Range Interpretation Description Data Sup porting Code Source(s) Document(s ) Platelet mean 11.7 fL [facility] [Entitic volume] in Blood by Automated count ID Date Data Source [id number] 01/16/2019 [facility] Value Range Interpretation Description Data Sup porting Code Source(s) Document(s ) Platelets 166 [facility] [#/volume] in 10*3/uL Hospital Blood by Automated count ID Date Data Source [id number] 01/16/2019 05:24:00 PM EDT [facility] Name Value Range Interpretation Description Data Sup porting Code Source(s) Document(s ) Erythrocyte 13.9 % [facility] width [Ratio] by Automated count ID Date Data Source [id number] 01/16/2019 05:24:00 PM EDT [facility] Name Value Range Interpretation Description Data Sup porting Code Source(s) Document(s ) Erythrocyte mean 32.6 [facility] corpuscular g/dL Hospital hemoglobin concentration [Mass/volume] by Automated count ID Date Data Source [id number] 01/16/2019 05:24:00 PM EDT [facility] Value Range Interpretation Description Data Sup porting Code Source(s) Document(s ) Erythrocyte 27.1 pg [facility] corpuscular hemoglobin [Entitic mass] by Automated count ID Date Data Source [id number] 01/16/2019 05:24:00 PM EDT [facility] Value Range Interpretation Description Data Sup porting Code Source(s) Document(s ) Erythrocyte 83.2 fL [facility] corpuscular volume [Entitic volume] by Automated count ID Date Data Source [id number] 01/16/2019 05:24:00 PM EDT [facility] Value Range Interpretation Description Data Sup porting Code Source(s) Document(s ) Hematocrit 35.6 % [facility] [Volume Hospital Fraction] of Blood by Automated count ID Date Data Source [id number] [facility]2019 [facility] Interpretation Description Data Sup porting Code Source(s) Document(s ) Hemoglobin 11.6 g/dL [facility] [Mass/volume] Hospital in Blood ID Date Data Source [id number] 01/16/2019 [facility] Range Interpretation Description Data Sup porting Code Source(s) Document(s ) Erythrocytes 4.28 [facility] [#/volume] in 10*6/uL Hospital Blood by Automated count ID Date Data Source [id number] 01/16/2019 05:24:00 PM EDT [facility] Name Value Range Interpretation Description Data Sup porting Code Source(s) Document(s ) Leukocytes 12.2 [facility] [#/volume] in 10*3/uL Hospital Blood by Automated count ID Date Data Source [id number] 01/16/2019 05:13:00 PM EDT [facility] Debubblizer: JIMENA GASPAR Name Value Range Interpretation Description Data Sup porting Code Source(s) Document(s ) Glucose 193 mg/dL [facility] [Mass/volume] Hospital in Capillary blood by Glucometer Procedure Social History Code Duration Value Status Description Data Source(s ) Smoking 11/07/2019 Never smoked completed Never smoked [facility] 05:[facility]:00 PM EDT tobacco tobacco (finding) Ho spital (finding) Smoking 10/26/2019 Never smoked completed Never smoked [facility] 02:52:00 AM EDT tobacco tobacco (finding) [facility] (finding) Smoking 01/17/2019 Never smoked completed Never smoked [facility] 09:12:00 PM EDT tobacco tobacco (finding) [facility] (finding) Smoking Unknown if ever completed Unknown if ever [facility] [place] smoked smoked Hospital Smoking Unknown if ever completed Unknown if ever [facility] [place] smoked smoked Hospital Vital Signs ID Date Data Source UNK Name Value Range Interpretation Code Description Data Source(s) Body temperature 36.50418 36.96015 [facility] Body temperature 97.5 [degF] 97.5 [degF] [facility] Body mass index 50.0 kg/m2 50.0 kg/m2 [facility] [place] [facility] (BMI) [Ratio] Hospital Body weight 350.98 350.98 [lb_av] [facility] [lb_av] Hospital Body temperature 36.70846 36.33008 [facility] Body temperature 97.7 [degF] 97.7 [degF] [facility] Body mass index 53.0 kg/m2 53.0 kg/m2 [facility] [place] [facility] (BMI) [Ratio] Hospital Body weight 364.75 364.75 [lb_av] [facility] [place] [lb_av] Hospital Diastolic blood 83 mm[Hg] 83 mm[Hg] [facility] [place] pressure Hospital Systolic blood 124 mm[Hg] 124 mm[Hg] [facility] Respiratory rate 20 /min 20 /min [facility] Heart rate 77 /min 77 /min [facility] Body temperature 36.72460 36.55986 [facility] Body temperature 97.8 [degF] 97.8 [degF] [facility] Body mass index 47.0 kg/m2 47.0 kg/m2 [place] [facility] (BMI) [Ratio] Hospital Body weight 328.69 328.69 [lb_av] [facility] ins [lb_av] Hospital Diastolic blood 77 mm[Hg] 77 mm[Hg] [facility] ins pressure Hospital Systolic blood 111 mm[Hg] 111 mm[Hg] [facility] ns pressure Hospital Respiratory rate 18 /min 18 /min [facility] Heart rate 57 /min 57 /min [facility] Body temperature 36.17684 36.50386 [facility] Body temperature 98.3 [degF] 98.3 [degF] [facility] Body mass index 46.0 kg/m2 46.0 kg/m2 [place] [facility] (BMI) [Ratio] Hospital Body weight 328.49 328.49 [lb_av] [facility] ins [lb_av] Hospital Diastolic blood 79 mm[Hg] 79 mm[Hg] [facility] pressure Hospital Systolic blood 144 mm[Hg] 144 mm[Hg] [facility] pressure Hospital Respiratory rate 20 /min 20 /min [facility] Heart rate 63 /min 63 /min [facility] Body temperature 37.60678 37.24083 [facility] Body temperature 98.6 [degF] 98.6 [degF] [facility] Body mass index 47.0 kg/m2 47.0 kg/m2 [place] [facility] (BMI) [Ratio] Hospital Body weight 328.69 328.69 [lb_av] [facility] ins [lb_av] Hospital
== END 2020-03-10 01:22 | disposition home or self-care (01) ==
LOC: FER 00:56
DX: K05.00 Acute gingivitis, plaque induced (principal); K08.89 Other specified disorders of teeth and supporting structures
CPT/HCPCS: 99284-25

== ENCOUNTER 2020-08-05 15:19 | Emergency (ER) | payer OTHER ==
[2020-08-05 15:32] VITALS: BP 158/83; PULSE 56; TEMP 98.4; BMI 110.7
[2020-08-05] MEDS ORDERED: CLINDAMYCIN HCL 150 MG CAPSULE (FP) PO ONE (16:54)
[2020-08-05] MEDS ORDERED: CLINDAMYCIN HCL 150 MG CAPSULE (FP) ONE (17:12)
== END 2020-08-05 17:15 | disposition home or self-care (01) ==
LOC: FER 15:19
PROC: 0C95XZZ Drainage of Upper Gingiva, External Approach (ICD-10-PCS; principal; 2020-08-05)
DX: K04.7 Periapical abscess without sinus (principal)
CPT/HCPCS: 99283-25

== ENCOUNTER 2020-08-29 21:43 | Inpatient (IN) | payer OTHER ==
[2020-08-29] MEDS ORDERED: IBUPROFEN 600 MG TABLET (FP) PO ONE ×2 (22:04→22:26)
[2020-08-29 23:16] LABS: BASO % 0.4 % (0-2.0); EOS % 0.9 % (0-4.5); HEMOGLOBIN 12.6 GM/dl (11.7-16.9); LYMPH % 7.1 % (8-40); MCH 27.9 pg (25.7-33.7); MCHC 33.2 g/dl (32.0-35.9); MEAN CELL VOLUME 83.8 fl (80-96); MEAN PLT VOLUME 10.6 fl (7.5-11.1); MONO % 8.5 % (3.8-10.2); NEUT % 83.1 % (42.8-82.8); PLATELET COUNT 138 K/MM3 (134-434); RBC 4.53 M/mm3 (4.00-5.60); RDW 13.1 % (11.9-15.9); WHITE BLOOD COUNT 8.1 K/mm3 (4.0-10.8)
[2020-08-29 23:22] LABS: BILIRUBIN,TOTAL 0.4 mg/dl (0.2-1); CALCIUM 8.1 mg/dl (8.5-10); CREATININE 2.2 mg/dl (0.55-1.3); POTASSIUM 4.1 mmol/L (3.5-5.1); TOT PROT 5.9 g/dl (6.4-8.2)
[2020-08-29] MEDS ORDERED: SODIUM CHLORIDE 0.9% 500 ML INFUS.BAG IV ONE (23:25)
[2020-08-29] MEDS ORDERED: INSULIN REGULAR HUMAN 100 UNITS/ML *VIAL IVPUSH ONE (23:43)
[2020-08-29] MEDS ORDERED: INSULIN REGULAR HUMAN 100 UNITS/ML *VIAL ONE (23:48)
[2020-08-30 00:02] LABS: N-TERMINAL BNP 1021.7 pg/ml (5-125)
[2020-08-30] MEDS ORDERED: FUROSEMIDE 40 MG/4 ML INJECTABLE VIAL IVPUSH ONE ×2 (00:43→10:27)
[2020-08-30] MEDS ORDERED: SODIUM CHLORIDE 0.9% 500 ML INFUS.BAG IV ONE (00:43)
[2020-08-30] MEDS ORDERED: FUROSEMIDE 40 MG/4 ML INJECTABLE VIAL ONE (00:45)
[2020-08-30] MEDS ORDERED: HEPARIN NA (PORCINE) 5,000 UNITS/ML 1ML VIAL ONE (06:14)
[2020-08-30] MEDS: HEPARIN NA (PORCINE) 5,000 UNITS/ML 1ML VIAL SQ SCH ×3 (06:23→23:44)
[2020-08-30] MEDS ORDERED: INSULIN SLIDING SCALE (NOVOLOG) 1 VIAL SQ SCH (07:00)
[2020-08-30 08:57] VITALS: BMI 51.7
[2020-08-30] MEDS ORDERED: LOSARTAN POTASSIUM 50 MG TABLET PO SCH (10:00)
[2020-08-30] MEDS ORDERED: DEXAMETHASONE SOD PHOSPHATE 4 MG/1 ML VIAL IVPUSH SCH (10:00)
[2020-08-30] MEDS: ASPIRIN 81 MG CHEWABLE TABLETS PO SCH (10:04)
[2020-08-30] MEDS: CLOPIDOGREL BISULFATE 75 MG TABLET (FP) PO SCH (10:04)
[2020-08-30] MEDS: TAMSULOSIN HCL 0.4 MG CAP PO SCH (10:04)
[2020-08-30] MEDS: CHOLECALCIFEROL (VIT D3) 1,000 UNIT (25 MCG) TABLET PO SCH (10:07)
[2020-08-30] MEDS ORDERED: INSULIN (NOVOLOG) ASPART 100 UNITS/ML 10ML VIAL ONE (10:28)
[2020-08-30] MEDS: DEXAMETHASONE SOD PHOSPHATE 4 MG/1 ML VIAL IVPUSH SCH ×2 (11:15→23:55)
[2020-08-30] MEDS: INSULIN SLIDING SCALE (NOVOLOG) 1 VIAL SQ SCH ×3 (11:16→23:51)
[2020-08-30 11:34] LABS: POTASSIUM 4.5 mmol/L (3.5-5.1)
[2020-08-30 11:36] LABS: BLOOD UREA NITROGEN 51.5 mg/dL (7-18); CALCIUM 8.1 mg/dL (8.5-10.1)
[2020-08-30 11:37] LABS: ALBUMIN 2.9 g/dl (3.4-5.0); MAGNESIUM 1.6 mg/dL (1.8-2.4)
[2020-08-30 11:40] LABS: CREATININE 2.5 mg/dL (0.55-1.3); PHOSPHOROUS 4.7 mg/dL (2.5-4.9)
[2020-08-30 11:41] LABS: BILIRUBIN,TOTAL 0.4 mg/dL (0.2-1)
[2020-08-30] MEDS ORDERED: MAGNESIUM SULF 50% (8.12 MEQ/2 ML-1 GM VIAL) IVPB ONE (14:48)
[2020-08-30] MEDS ORDERED: REMDESIVIR 200 MG in SODIUM CHLORIDE 210 ML IVPB ONE (15:00)
[2020-08-30] MEDS ORDERED: SODIUM CHLORIDE 1,000 ML IV SCH (17:30)
[2020-08-30] MEDS ORDERED: PATIENT'S OWN MEDICATION (NON-FORMULARY) (Insulin Glargine,Hum.Rec.Anlog [Basaglar Kwikpen SQ SCH (22:00)
[2020-08-30] MEDS ORDERED: ZOLPIDEM TARTRATE 5 MG TABLET PO PRN (22:00)
[2020-08-30] MEDS ORDERED: INSULIN (LEVEMIR) 100 UNITS/ML UNITS SQ SCH (22:00)
[2020-08-30] MEDS ORDERED: INSULIN (NOVOLOG) ASPART 100 UNITS/ML 10ML VIAL SQ ONE (23:34)
[2020-08-30] MEDS: ATORVASTATIN CA 80 MG TABLET (FP) PO SCH (23:44)
[2020-08-31] MEDS ORDERED: INSULIN (NOVOLOG) ASPART 100 UNITS/ML 10ML VIAL SQ ONE ×2 (01:02→02:33)
[2020-08-31 01:19] LABS: GLUCOSE,RANDOM 604 mg/dL (74-106)
[2020-08-31] MEDS: HEPARIN NA (PORCINE) 5,000 UNITS/ML 1ML VIAL SQ SCH ×3 (06:14→22:01)
[2020-08-31] MEDS: INSULIN SLIDING SCALE (NOVOLOG) 1 VIAL SQ SCH ×3 (06:30→22:04)
[2020-08-31] MEDS ORDERED: INSULIN SLIDING SCALE (NOVOLOG) 1 VIAL SQ SCH ×2 (08:30→10:25)
[2020-08-31] MEDS ORDERED: INSULIN (LEVEMIR) 100 UNITS/ML UNITS SQ SCH ×2 (08:36→22:00)
[2020-08-31] MEDS ORDERED: INSULIN (LEVEMIR) 100 UNITS/ML UNITS SQ ONE ×3 (08:54→12:18)
[2020-08-31] MEDS ORDERED: INSULIN (NOVOLOG) ASPART 100 UNITS/ML 10ML VIAL ONE (09:11)
[2020-08-31] MEDS: ASPIRIN 81 MG CHEWABLE TABLETS PO SCH (09:20)
[2020-08-31] MEDS: TAMSULOSIN HCL 0.4 MG CAP PO SCH (09:20)
[2020-08-31] MEDS: DEXAMETHASONE SOD PHOSPHATE 10 MG/1 ML VIAL IVPUSH SCH (09:22)
[2020-08-31] MEDS: CLOPIDOGREL BISULFATE 75 MG TABLET (FP) PO SCH (09:23)
[2020-08-31] MEDS: CHOLECALCIFEROL (VIT D3) 1,000 UNIT (25 MCG) TABLET PO SCH (09:23)
[2020-08-31 09:38] LABS: HEMATOCRIT 38.4 % (35.4-49); HEMOGLOBIN 12.5 GM/dL (11.7-16.9); MCH 27.6 pg (25.7-33.7); MCHC 32.5 g/dl (32.0-35.9); MEAN CELL VOLUME 84.9 fl (80-96); MEAN PLT VOLUME 10.1 fl (7.5-11.1); PLATELET COUNT 126 K/MM3 (134-434); RBC 4.52 M/mm3 (4.00-5.60); RDW 14.3 % (11.9-15.9); WHITE BLOOD COUNT 3.3 K/mm3 (4.0-10.0)
[2020-08-31 09:41] LABS: BASO % 0.1 % (0-2.0); HEMATOCRIT 38.6 % (35.4-49); HEMOGLOBIN 12.5 GM/dL (11.7-16.9); LYMPH % 12.5 % (8-40); MCH 27.5 pg (25.7-33.7); MCHC 32.4 g/dl (32.0-35.9); MEAN PLT VOLUME 10.2 fl (7.5-11.1); MONO % 8.9 % (3.8-10.2); NEUT % 78.5 % (42.8-82.8); PLATELET COUNT 126 K/MM3 (134-434); RBC 4.54 M/mm3 (4.00-5.60); RDW 14.5 % (11.9-15.9); WHITE BLOOD COUNT 3.4 K/mm3 (4.0-10.0)
[2020-08-31 09:58] LABS: CHLORIDE 102 mmol/L (98-107); POTASSIUM 4.9 mmol/L (3.5-5.1); SODIUM 134 mmol/L (136-145)
[2020-08-31 10:09] LABS: ALBUMIN 2.9 g/dl (3.4-5.0); BLOOD UREA NITROGEN 54.7 mg/dL (7-18); CALCIUM 7.9 mg/dL (8.5-10.1)
[2020-08-31 10:11] LABS: ANION GAP 5 MMOL/L (8-16); CO2 27 mmol/L (21-32)
[2020-08-31 10:13] LABS: SGPT/ALT 30 U/L (13-61)
[2020-08-31 10:14] LABS: BILIRUBIN,TOTAL 0.3 mg/dL (0.2-1); CREATININE 2.4 mg/dL (0.55-1.3); PHOSPHOROUS 5.2 mg/dL (2.5-4.9); SGOT/AST 23 U/L (15-37)
[2020-08-31 10:16] LABS: ALK PHOS 129 U/L (45-117); TOT PROT 6.3 g/dl (6.4-8.2)
[2020-08-31 10:27] LABS: GLUCOSE,RANDOM 485 mg/dL (74-106)
[2020-08-31] MEDS: REMDESIVIR 100 MG in SODIUM CHLORIDE 230 ML IVPB SCH (16:10)
[2020-08-31] MEDS ORDERED: POLYETHYLENE GLYCOL 3350 119 GM BTL PO PRN (16:45)
[2020-08-31] MEDS: INSULIN REGULAR HUMAN 100 UNITS/ML *VIAL SQ SCH (16:57)
[2020-08-31] MEDS ORDERED: ACETAMINOPHEN 500 MG TABLET (FP) PO PRN (18:49)
[2020-08-31] MEDS: ATORVASTATIN CA 80 MG TABLET (FP) PO SCH (22:04)
[2020-08-31] MEDS: INSULIN (LEVEMIR) 100 UNITS/ML UNITS SQ SCH (22:05)
[2020-09-01] MEDS: INSULIN (LEVEMIR) 100 UNITS/ML UNITS SQ SCH ×2 (06:16→21:30)
[2020-09-01] MEDS: INSULIN SLIDING SCALE (NOVOLOG) 1 VIAL SQ SCH ×5 (06:16→21:31)
[2020-09-01] MEDS: INSULIN REGULAR HUMAN 100 UNITS/ML *VIAL SQ SCH (06:17)
[2020-09-01] MEDS: HEPARIN NA (PORCINE) 5,000 UNITS/ML 1ML VIAL SQ SCH ×3 (06:17→21:28)
[2020-09-01] MEDS ORDERED: INSULIN (LEVEMIR) 100 UNITS/ML UNITS SQ SCH ×2 (08:39→22:00)
[2020-09-01 09:44] LABS: BASO % 0.3 % (0-2.0); HEMATOCRIT 37.1 % (35.4-49); HEMOGLOBIN 12.3 GM/dL (11.7-16.9); LYMPH % 26.2 % (8-40); MCH 27.8 pg (25.7-33.7); MCHC 33.1 g/dl (32.0-35.9); MEAN CELL VOLUME 83.8 fl (80-96); MEAN PLT VOLUME 10.3 fl (7.5-11.1); NEUT % 64.5 % (42.8-82.8); PLATELET COUNT 124 K/MM3 (134-434); RBC 4.43 M/mm3 (4.00-5.60); RDW 14.1 % (11.9-15.9); WHITE BLOOD COUNT 4.5 K/mm3 (4.0-10.0)
[2020-09-01] MEDS: CHOLECALCIFEROL (VIT D3) 1,000 UNIT (25 MCG) TABLET PO SCH (09:57)
[2020-09-01] MEDS: TAMSULOSIN HCL 0.4 MG CAP PO SCH (09:57)
[2020-09-01] MEDS: ASPIRIN 81 MG CHEWABLE TABLETS PO SCH (09:57)
[2020-09-01] MEDS: DEXAMETHASONE SOD PHOSPHATE 10 MG/1 ML VIAL IVPUSH SCH (09:57)
[2020-09-01] MEDS: CLOPIDOGREL BISULFATE 75 MG TABLET (FP) PO SCH (09:57)
[2020-09-01 10:06] LABS: POTASSIUM 4.9 mmol/L (3.5-5.1)
[2020-09-01 10:13] LABS: ALBUMIN 2.8 g/dl (3.4-5.0); BLOOD UREA NITROGEN 61.9 mg/dL (7-18); MAGNESIUM 2.1 mg/dL (1.8-2.4)
[2020-09-01 10:16] LABS: CREATININE 2.4 mg/dL (0.55-1.3); PHOSPHOROUS 5.3 mg/dL (2.5-4.9)
[2020-09-01 10:17] LABS: BILIRUBIN,TOTAL 0.2 mg/dL (0.2-1); TOT PROT 5.9 g/dl (6.4-8.2)
[2020-09-01] MEDS ORDERED: INSULIN (NOVOLOG) ASPART 100 UNITS/ML 10ML VIAL ONE ×2 (11:41→16:42)
[2020-09-01] MEDS: INSULIN (NOVOLOG) ASPART 100 UNITS/ML 10ML VIAL SQ SCH ×2 (11:51→16:39)
[2020-09-01] MEDS: CLOTRIMAZOLE 1% CREAM 15 GM TUBE TP SCH ×2 (15:28→21:31)
[2020-09-01] MEDS: REMDESIVIR 100 MG in SODIUM CHLORIDE 230 ML IVPB SCH (15:29)
[2020-09-01 20:44] LABS: EPI CELLS 6 /uL (0-25.1); HYALINE CASTS 4 /uL (0-3.1); URINE APPEARANCE CLEAR; URINE BACTERIA 56 /uL (0-1359); URINE BILIRUBIN NEGATIVE (NEGATIVE); URINE COLOR YELLOW; URINE GLUCOSE (UA) 3+ (NEGATIVE); URINE KETONE NEGATIVE (NEGATIVE); URINE LEUK ESTERASE NEGATIVE (NEGATIVE); URINE NITRITE NEGATIVE (NEGATIVE); URINE PROTEIN 1+ (NEGATIVE); URINE RBC 50 /uL (0-23.9); URINE UROBILINOGEN 0.2 mg/dL (0.2-1.0); URINE WBC 12 /uL (0-25.8)
[2020-09-01] MEDS: ATORVASTATIN CA 80 MG TABLET (FP) PO SCH (21:27)
[2020-09-02] MEDS: HEPARIN NA (PORCINE) 5,000 UNITS/ML 1ML VIAL SQ SCH ×3 (06:07→22:47)
[2020-09-02] MEDS: INSULIN (NOVOLOG) ASPART 100 UNITS/ML 10ML VIAL SQ SCH ×3 (06:07→16:47)
[2020-09-02] MEDS: INSULIN SLIDING SCALE (NOVOLOG) 1 VIAL SQ SCH ×4 (06:08→22:47)
[2020-09-02] MEDS: INSULIN (LEVEMIR) 100 UNITS/ML UNITS SQ SCH ×2 (06:08→22:47)
[2020-09-02 08:38] LABS: BASO % 0.3 % (0-2.0); HEMATOCRIT 37.3 % (35.4-49); HEMOGLOBIN 12.3 GM/dL (11.7-16.9); LYMPH % 23.9 % (8-40); MCH 27.9 pg (25.7-33.7); MCHC 33.1 g/dl (32.0-35.9); MEAN CELL VOLUME 84.3 fl (80-96); MEAN PLT VOLUME 10.4 fl (7.5-11.1); MONO % 7.8 % (3.8-10.2); PLATELET COUNT 111 K/MM3 (134-434); RBC 4.42 M/mm3 (4.00-5.60); RDW 14.3 % (11.9-15.9); WHITE BLOOD COUNT 5.6 K/mm3 (4.0-10.0)
[2020-09-02 09:08] LABS: POTASSIUM 5.3 mmol/L (3.5-5.1)
[2020-09-02 09:17] LABS: ALBUMIN 2.7 g/dl (3.4-5.0)
[2020-09-02 09:18] LABS: BILIRUBIN,TOTAL 0.2 mg/dL (0.2-1); CALCIUM 7.7 mg/dL (8.5-10.1); MAGNESIUM 2.3 mg/dL (1.8-2.4)
[2020-09-02 09:19] LABS: BLOOD UREA NITROGEN 71.8 mg/dL (7-18); CREATININE 2.6 mg/dL (0.55-1.3); PHOSPHOROUS 5.2 mg/dL (2.5-4.9); TOT PROT 5.9 g/dl (6.4-8.2)
[2020-09-02] MEDS: CHOLECALCIFEROL (VIT D3) 1,000 UNIT (25 MCG) TABLET PO SCH (10:33)
[2020-09-02] MEDS: TAMSULOSIN HCL 0.4 MG CAP PO SCH (10:33)
[2020-09-02] MEDS: CLOPIDOGREL BISULFATE 75 MG TABLET (FP) PO SCH (10:33)
[2020-09-02] MEDS: ASPIRIN 81 MG CHEWABLE TABLETS PO SCH (10:33)
[2020-09-02] MEDS: CLOTRIMAZOLE 1% CREAM 15 GM TUBE TP SCH ×2 (10:34→22:47)
[2020-09-02] MEDS: DEXAMETHASONE SOD PHOSPHATE 10 MG/1 ML VIAL IVPUSH SCH (10:45)
[2020-09-02] MEDS ORDERED: INSULIN (NOVOLOG) ASPART 100 UNITS/ML 10ML VIAL ONE (11:59)
[2020-09-02] MEDS: REMDESIVIR 100 MG in SODIUM CHLORIDE 230 ML IVPB SCH ×2 (14:27→23:50)
[2020-09-02] MEDS ORDERED: SODIUM ZIRCONIUM CYCLOSILICATE (LOKELMA) 5 GM PACKET PO SCH (15:30)
[2020-09-02] MEDS ORDERED: SODIUM ZIRCONIUM CYCLOSILICATE (LOKELMA) 10 GM PACKET PO SCH (15:34)
[2020-09-02] MEDS ORDERED: INSULIN (NOVOLOG) ASPART 100 UNITS/ML 10ML VIAL SQ SCH (16:30)
[2020-09-02] MEDS: ATORVASTATIN CA 80 MG TABLET (FP) PO SCH (22:47)
[2020-09-03] MEDS: HEPARIN NA (PORCINE) 5,000 UNITS/ML 1ML VIAL SQ SCH ×3 (06:53→22:01)
[2020-09-03] MEDS: INSULIN (LEVEMIR) 100 UNITS/ML UNITS SQ SCH ×2 (06:53→22:01)
[2020-09-03] MEDS: INSULIN SLIDING SCALE (NOVOLOG) 1 VIAL SQ SCH ×4 (06:54→22:02)
[2020-09-03] MEDS: INSULIN (NOVOLOG) ASPART 100 UNITS/ML 10ML VIAL SQ SCH ×3 (06:54→17:34)
[2020-09-03 08:41] LABS: BASO % 0.1 % (0-2.0); EOS % 0.1 % (0-4.5); HEMATOCRIT 38.6 % (35.4-49); HEMOGLOBIN 12.8 GM/dL (11.7-16.9); LYMPH % 25.2 % (8-40); MCH 27.9 pg (25.7-33.7); MCHC 33.2 g/dl (32.0-35.9); MEAN CELL VOLUME 84.1 fl (80-96); MEAN PLT VOLUME 10.3 fl (7.5-11.1); MONO % 7.5 % (3.8-10.2); NEUT % 67.1 % (42.8-82.8); PLATELET COUNT 120 K/MM3 (134-434); RBC 4.59 M/mm3 (4.00-5.60); RDW 14.2 % (11.9-15.9)
[2020-09-03 09:32] LABS: PHOSPHOROUS 4.4 mg/dL (2.5-4.9)
[2020-09-03 09:33] LABS: BILIRUBIN,TOTAL 0.3 mg/dL (0.2-1); CALCIUM 7.9 mg/dL (8.5-10.1); CREATININE 2.4 mg/dL (0.55-1.3)
[2020-09-03 09:34] LABS: BLOOD UREA NITROGEN 71.9 mg/dL (7-18); MAGNESIUM 2.2 mg/dL (1.8-2.4); TOT PROT 6.4 g/dl (6.4-8.2)
[2020-09-03] MEDS: TAMSULOSIN HCL 0.4 MG CAP PO SCH (11:24)
[2020-09-03] MEDS: DEXAMETHASONE SOD PHOSPHATE 10 MG/1 ML VIAL IVPUSH SCH (11:24)
[2020-09-03] MEDS: ASPIRIN 81 MG CHEWABLE TABLETS PO SCH (11:24)
[2020-09-03] MEDS: CHOLECALCIFEROL (VIT D3) 1,000 UNIT (25 MCG) TABLET PO SCH (11:25)
[2020-09-03] MEDS: CLOTRIMAZOLE 1% CREAM 15 GM TUBE TP SCH ×2 (11:25→22:07)
[2020-09-03] MEDS: CLOPIDOGREL BISULFATE 75 MG TABLET (FP) PO SCH (11:25)
[2020-09-03] MEDS: REMDESIVIR 100 MG in SODIUM CHLORIDE 230 ML IVPB SCH (15:01)
[2020-09-03] MEDS: ATORVASTATIN CA 80 MG TABLET (FP) PO SCH (22:01)
[2020-09-04] MEDS: INSULIN SLIDING SCALE (NOVOLOG) 1 VIAL SQ SCH ×4 (06:42→22:07)
[2020-09-04] MEDS ORDERED: INSULIN (NOVOLOG) ASPART 100 UNITS/ML 10ML VIAL SQ SCH (06:48)
[2020-09-04] MEDS: HEPARIN NA (PORCINE) 5,000 UNITS/ML 1ML VIAL SQ SCH ×3 (06:52→22:02)
[2020-09-04] MEDS ORDERED: INSULIN (LEVEMIR) 100 UNITS/ML UNITS SQ SCH (07:00)
[2020-09-04] MEDS: INSULIN (NOVOLOG) ASPART 100 UNITS/ML 10ML VIAL SQ SCH ×3 (08:49→18:01)
[2020-09-04] MEDS: TAMSULOSIN HCL 0.4 MG CAP PO SCH (08:52)
[2020-09-04 09:23] LABS: BASO % 0.3 % (0-2.0); EOS % 0.2 % (0-4.5); HEMATOCRIT 36.6 % (35.4-49); HEMOGLOBIN 12.2 GM/dL (11.7-16.9); LYMPH % 20.9 % (8-40); MCH 27.7 pg (25.7-33.7); MCHC 33.3 g/dl (32.0-35.9); MEAN CELL VOLUME 83.3 fl (80-96); MEAN PLT VOLUME 10.6 fl (7.5-11.1); MONO % 9.6 % (3.8-10.2); PLATELET COUNT 105 K/MM3 (134-434); RDW 14.2 % (11.9-15.9); WHITE BLOOD COUNT 7.3 K/mm3 (4.0-10.0)
[2020-09-04 09:30] LABS: POTASSIUM 4.7 mmol/L (3.5-5.1)
[2020-09-04 09:34] LABS: ALBUMIN 2.8 g/dl (3.4-5.0); BLOOD UREA NITROGEN 64.4 mg/dL (7-18); CALCIUM 8.1 mg/dL (8.5-10.1)
[2020-09-04 09:35] LABS: MAGNESIUM 2.1 mg/dL (1.8-2.4)
[2020-09-04 09:37] LABS: CREATININE 2.1 mg/dL (0.55-1.3)
[2020-09-04 09:39] LABS: BILIRUBIN,TOTAL 0.8 mg/dL (0.2-1); TOT PROT 5.7 g/dl (6.4-8.2)
[2020-09-04] MEDS: DEXAMETHASONE SOD PHOSPHATE 10 MG/1 ML VIAL IVPUSH SCH (11:16)
[2020-09-04] MEDS: CLOTRIMAZOLE 1% CREAM 15 GM TUBE TP SCH ×2 (11:16→22:12)
[2020-09-04] MEDS: CLOPIDOGREL BISULFATE 75 MG TABLET (FP) PO SCH (11:16)
[2020-09-04] MEDS: ASPIRIN 81 MG CHEWABLE TABLETS PO SCH (11:16)
[2020-09-04] MEDS: CHOLECALCIFEROL (VIT D3) 1,000 UNIT (25 MCG) TABLET PO SCH (11:16)
[2020-09-04] MEDS: amLODIPine BESYLATE 10 MG TABLET (FP) PO SCH (14:42)
[2020-09-04] MEDS ORDERED: ALPRAZolam 0.25 MG TABLET PO PRN (15:41)
[2020-09-04] MEDS ORDERED: ALPRAZolam 0.25 MG TABLET PO ONE (20:31)
[2020-09-04] MEDS: ATORVASTATIN CA 80 MG TABLET (FP) PO SCH (22:02)
[2020-09-04] MEDS: INSULIN (LEVEMIR) 100 UNITS/ML UNITS SQ SCH (22:03)
[2020-09-05 06:02] VITALS: BP 142/68; TEMP 98
[2020-09-05] MEDS: HEPARIN NA (PORCINE) 5,000 UNITS/ML 1ML VIAL SQ SCH ×2 (06:56→15:02)
[2020-09-05] MEDS: INSULIN SLIDING SCALE (NOVOLOG) 1 VIAL SQ SCH ×2 (06:57→11:14)
[2020-09-05] MEDS ORDERED: INSULIN (LEVEMIR) 100 UNITS/ML UNITS SQ SCH (07:00)
[2020-09-05 08:42] VITALS: PULSE 59
[2020-09-05 09:03] LABS: BASO % 0.4 % (0-2.0); EOS % 0.4 % (0-4.5); HEMATOCRIT 35.6 % (35.4-49); HEMOGLOBIN 11.8 GM/dL (11.7-16.9); LYMPH % 23.9 % (8-40); MCH 27.6 pg (25.7-33.7); MCHC 33.1 g/dl (32.0-35.9); MEAN CELL VOLUME 83.6 fl (80-96); MEAN PLT VOLUME 10.3 fl (7.5-11.1); MONO % 9.1 % (3.8-10.2); NEUT % 66.2 % (42.8-82.8); PLATELET COUNT 122 K/MM3 (134-434); RBC 4.26 M/mm3 (4.00-5.60); RDW 14.5 % (11.9-15.9); WHITE BLOOD COUNT 8.4 K/mm3 (4.0-10.0)
[2020-09-05 09:23] LABS: POTASSIUM 4.6 mmol/L (3.5-5.1)
[2020-09-05 09:32] LABS: ALBUMIN 2.8 g/dl (3.4-5.0); BLOOD UREA NITROGEN 57.5 mg/dL (7-18); CALCIUM 8.4 mg/dL (8.5-10.1)
[2020-09-05 09:33] LABS: BILIRUBIN,TOTAL 0.4 mg/dL (0.2-1); MAGNESIUM 2.2 mg/dL (1.8-2.4); TOT PROT 5.7 g/dl (6.4-8.2)
[2020-09-05 09:35] LABS: CREATININE 1.7 mg/dL (0.55-1.3); PHOSPHOROUS 3.6 mg/dL (2.5-4.9)
[2020-09-05] MEDS: INSULIN (NOVOLOG) ASPART 100 UNITS/ML 10ML VIAL SQ SCH (11:13)
[2020-09-05] MEDS: TAMSULOSIN HCL 0.4 MG CAP PO SCH (11:14)
[2020-09-05] MEDS: amLODIPine BESYLATE 10 MG TABLET (FP) PO SCH (11:14)
[2020-09-05] MEDS: CHOLECALCIFEROL (VIT D3) 1,000 UNIT (25 MCG) TABLET PO SCH (11:14)
[2020-09-05] MEDS: CLOPIDOGREL BISULFATE 75 MG TABLET (FP) PO SCH (11:14)
[2020-09-05] MEDS: ASPIRIN 81 MG CHEWABLE TABLETS PO SCH (11:14)
[2020-09-05] MEDS: CLOTRIMAZOLE 1% CREAM 15 GM TUBE TP SCH (11:14)
[2020-09-05] MEDS: DEXAMETHASONE SOD PHOSPHATE 10 MG/1 ML VIAL IVPUSH SCH (11:14)
== END 2020-09-05 17:07 | disposition home or self-care (01) | DRG 137 ==
LOC: FER 21:43 → J6S 08-30 08:33
PROVIDERS: ADMIT Internal Medicine; ATTEND Internal Medicine
PROC: XW13325 Transfusion of Convalescent Plasma (Nonautologous) into Peripheral Vein, Percutaneous Approach, New Technology Group 5 (ICD-10-PCS; principal; 2020-08-30)
PROC: XW033E5 Introduction of Remdesivir Anti-infective into Peripheral Vein, Percutaneous Approach, New Technology Group 5 (ICD-10-PCS; 2020-08-30)
DX: U07.1 COVID-19 (principal); J96.01 Acute respiratory failure with hypoxia; N17.9 Acute kidney failure, unspecified; J12.82 Pneumonia due to coronavirus disease 2019; E11.22 Type 2 diabetes mellitus with diabetic chronic kidney disease; I13.0 Hypertensive heart and chronic kidney disease with heart failure and stage 1 through stage 4 chronic kidney disease, or unspecified chronic kidney disease; I50.9 Heart failure, unspecified; E87.1 Hypo-osmolality and hyponatremia; E66.01 Morbid (severe) obesity due to excess calories; Z68.43 Body mass index [BMI] 50.0-59.9, adult; E11.65 Type 2 diabetes mellitus with hyperglycemia; N18.2 Chronic kidney disease, stage 2 (mild); G47.33 Obstructive sleep apnea (adult) (pediatric); Z88.0 Allergy status to penicillin; Z79.4 Long term (current) use of insulin; I25.10 Atherosclerotic heart disease of native coronary artery without angina pectoris; K59.00 Constipation, unspecified
CPT/HCPCS: 36415; 36430; 71046-TC-FY; 76775-TC; 80048; 80053; 81003; 82550; 82728; 82947; 82962; 83615; 83735; 83880; 84100; 84484; 85025; 85027; 85379; 86140; 86769; 86850; 86900; 86901; 87081; 87804; 93005; 94010; 99285-25; C9399; C9803; J1100; J1644; P9017; U0003